=== PATIENT | female | born 1935 | race Caucasian/White ===

== ENCOUNTER 2016-07-31 07:42 | Inpatient (IN) | payer MEDICARE, BC ==
[2016-07-31] MEDS ORDERED: METHOTREXATE SODIUM INTRATHECA ONE (08:00)
[2016-07-31] MEDS ORDERED: SODIUM CHLORIDE 0.9% INTRATHECA ONE (08:00)
[2016-07-31] MEDS ORDERED: ONDANSETRON 4 MG TAB PO PRN (10:04)
[2016-07-31] MEDS ORDERED: Acetaminophen-Codeine 300-30mg TAB PO PRN (10:04)
[2016-07-31] MEDS: LEVOTHYROXINE 112 MCG TAB PO SCH (10:17)
[2016-07-31] MEDS: predniSONE 50 MG TAB PO SCH ×2 (11:02→20:34)
[2016-07-31] MEDS: SODIUM CHLORIDE 0.9% 1,000 ML IV SCH ×2 (11:02→20:01)
--- NOTE | 2016-07-31 11:19 | FL ---
Fluoroscopy-guided lumbar puncture history: Intrathecal chemotherapy, lymphoma Maximal barrier technique was utilized. Following consultation by Dr. Vanegas, I was asked to perform ed a lumbar puncture due to lack of success. Maximal the skin overlying the third lumbar segments was localized under fluoroscopy. The overlying s kin was prepped and draped. Lidocaine used for local anesthesia. 22-gauge needle was advanced into th e thecal sac. Approximately 4.5 cc of cerebrospinal fluid were obtained by gravity drainage. Referrin g clinician then performed intrathecal chemotherapy administration. Following removal of the needle h emostasis was achieved. There is no immediate complication. 8 minutes 35 seconds fluoroscopy time was utilized. IMPRESSION: Fluoroscopic guided lumbar puncture for chemotherapy administration, cerebral spinal flui d harvest. This procedure performed by the undersigned.
[2016-07-31] MEDS ORDERED: methylPREDNISolone SOD SUCCI 125 MG/2 ML VIAL IVP ONE (11:30)
[2016-07-31] MEDS ORDERED: diphenhydrAMINE 50 MG/ML 1 ML VIAL IVP ONE (11:30)
[2016-07-31] MEDS ORDERED: ACETAMINOPHEN TAB 325 MG TAB PO ONE (11:30)
[2016-07-31] MEDS ORDERED: FAMOTIDINE 20 MG/2 ML VIAL IVP SCH (12:00)
[2016-07-31] MEDS ORDERED: ONDANSETRON 16 MG in SODIUM CHLORIDE 0.9% 50 ML IVPB SCH (12:00)
[2016-07-31] MEDS ORDERED: SODIUM CHLORIDE 0.9% IV SCH ×3 (12:00)
[2016-07-31] MEDS ORDERED: ETOPOSIDE IV SCH (12:00)
[2016-07-31] MEDS ORDERED: VINCRISTINE SULFATE IV SCH (12:00)
[2016-07-31] MEDS ORDERED: SODIUM CHLORIDE 0.9% IV ONE (12:00)
[2016-07-31] MEDS ORDERED: DOXORUBICIN HCL IV SCH (12:00)
[2016-07-31] MEDS ORDERED: RITUXIMAB IV ONE (12:00)
--- NOTE | 2016-07-31 12:43 | P.PCN ---
Date of Procedure: 07/31/16 Preoperative Diagnosis: Burkitt's Lymphoma Postoperative Diagnosis: Burkitt's Lymphoma Procedure(s) Performed: Lumbar Puncture Dr. Trevino Intrathecal Chemotherapy Anesthesia: local Surgeon: Jasper Trevino (ROSA) Estimated Blood Loss (ml): 0 Pathology: other (CSF sent for flow cytometry, cytology) Condition: stable Disposition: floor Indications for Procedure: Burkitt's Lymphoma, DEMAND GENERATION MANAGER prophylaxis Description of Procedure: Pt was brought to procedure room and Dr. Trevino performed lumbar puncture. 4.5 cc of CSF were removed and sent for cytology and flow cytometry. 12mg of Preservative free methotrexate (0.48cc) diluted with preservative free NS to a total of 2.4cc was mixed by Pharmacy, dose and volume verified with OCN RN. Sterile nitrile chemotherapy gloves were doned and diluted methotrexate was injected via catheter attached to LP needle by withdrawing 0.1-0.2 cc of CSF and injecting 0.2-0.5cc of the diluted solution until all 2.4cc was administered , total time of administration was about 6-7 min. Catheter was flushed with 2.1cc of preservative free NS in a latex free syringe, this was injected slowly over 2 min for a total of 4.5cc of fluid injected. LP needle was removed and bandaid was placed over puncture site. No blood loss. VS remained stable throughout procedure, pt tolerated procedure well and was returned to the Oncology unit in stable condition.
[2016-07-31 13:27] LABS: Anisocytosis Slight; Basophils # (A) 0.1 k/uL (0-0.2); Basophils % (A) 1 %; CH 33.2; CHCM 33.6; Eosinophils # (A) 0.1 k/uL (0-0.7); Eosinophils % (A) 1 %; HCT 30.1 % (34.0-46.0); HDW 3.01; Luc # (Auto) 0.21; Luc % (Auto) 3; Lymphocytes # (A) 0.6 k/uL (1.0-4.8); Lymphocytes % (A) 8 %; MCH 32.4 pg (25.0-35.0); MCHC 32.5 g/dL (31.0-37.0); MCV 99.8 fL (80.0-100.0); Macrocytosis Slight; Mean Platelet Volume 7.4; Monocytes # (A) 0.7 k/uL (0-1.0); Monocytes % (A) 9 %; Neutrophils # (A) 6.5 k/uL (1.3-7.7); Neutrophils % (A) 79 %; RBC 3.02 m/uL (3.80-5.40); WBC 8.2 k/uL (3.8-10.6); WBC (Perox) 8.82
[2016-07-31 13:31] LABS: HGB 9.8 gm/dL (11.4-16.0)
[2016-07-31 14:12] LABS: Appearance,Urine Clear (Clear); Bacteria,Urine Rare /hpf; Bilirubin,Urine Negative (Negative); Glucose,Urine (UA) Negative (Negative); Ketones,Urine Negative (Negative); Leukocyte Esterase,Urine Negative (Negative); Mucus,Urine Rare /hpf; Nitrite,Urine Negative (Negative); Particle Count 909; Protein,Urine Negative (Negative); RBC,Urine 25 /hpf (0-5); Specific Gravity,Urine 1.008 (1.001-1.035); Squamous Epithelial Cell,Urine <1 /hpf (0-4); UA Billing (MACRO vs. MICRO) MICRO; Urobilinogen,Urine <2.0 mg/dL (<2.0); WBC,Urine 3 /hpf (0-5)
[2016-07-31 15:20] VITALS: BMI 26.2
[2016-07-31] MEDS: NYSTATIN 100,000 UNIT/ML SUSP 500,000 UNIT/5 ML CUP PO SCH ×2 (16:13→20:35)
[2016-07-31] MEDS: DOCUSATE 100 MG CAP PO SCH ×2 (16:14→20:35)
[2016-07-31] MEDS: PANTOPRAZOLE 40 MG TABLET PO SCH (16:15)
[2016-07-31] MEDS: IPRATROPIUM-ALBUTEROL 3 ML NEB INHALATION SCH (19:14)
[2016-07-31] MEDS: ALPRAZolam 0.5 MG TAB PO SCH (20:33)
[2016-07-31] MEDS: FLUoxetine HCL 20 MG CAP PO SCH (20:34)
[2016-07-31] MEDS: CLOTRIMAZOLE TROCHE 10 MG TROCHE PO SCH (20:34)
[2016-07-31] MEDS: METOPROLOL SUCCINATE (ER) 50 MG TAB.ER.24H PO SCH (20:34)
[2016-07-31] MEDS: POLYETHYLENE GLYCOL 3350 17 GM POWD.PACK PO SCH (20:34)
[2016-07-31] MEDS: MEGESTROL 400 MG/10 ML CUP PO SCH (20:35)
[2016-07-31] MEDS: POTASSIUM CHLORIDE ER 10 MEQ TAB.ER.PRT PO SCH (20:35)
[2016-08-01] MEDS: SODIUM CHLORIDE 0.9% 1,000 ML IV SCH ×4 (01:47→19:58)
[2016-08-01 06:32] LABS: Anisocytosis Slight; Basophils % (A) 0 %; CH 33.1; CHCM 33.3; Eosinophils % (A) 0 %; HCT 27.6 % (34.0-46.0); HDW 3.06; HGB 9.1 gm/dL (11.4-16.0); Luc # (Auto) 0.04; Luc % (Auto) 1; Lymphocytes # (A) 0.3 k/uL (1.0-4.8); Lymphocytes % (A) 4 %; MCHC 33.1 g/dL (31.0-37.0); Macrocytosis Slight; Mean Platelet Volume 6.7; Monocytes # (A) 0.2 k/uL (0-1.0); Monocytes % (A) 3 %; Neutrophils # (A) 6.7 k/uL (1.3-7.7); Neutrophils % (A) 92 %; RBC 2.76 m/uL (3.80-5.40); RDW 16.7 % (11.5-15.5); WBC 7.2 k/uL (3.8-10.6); WBC (Perox) 7.58
[2016-08-01] MEDS: LEVOTHYROXINE 100 MCG TAB PO SCH (06:33)
--- NOTE | 2016-08-01 08:08 | P.HPIM ---
History of Present Illness H&P Date: 07/31/16 Chief Complaint: Admission for CIVI chemotherapy for Burkitt's lymphoma Pt is a very pleasant female pt of Dr. Sandoval who is being admitted for 2nd cycle R-EPOCH chemotherapy with prophylactic intrathecal ELECTRICAL SYSTEM SPECIALIST treatment. She denies any headache, dizziness, nausea or back pain post LP. She denies fever, oral irritation, appetite is fair, no dysphagia, odynophagia, heartburn, indigestion, no SOB, cough, palpitations, she has noticed some burning with urination so specimen has been collected, maybe hematuria, no diarrhea or constipation, hemorrhoid, swelling, rash or pain. She ate all of her dinner when seen. Malignancy History: pt presented May 2016 with progressive dyspnea since Mar. CT revealed 9.4 cm soft tissue mass in the superior medistinum, 5.5 cm mass right cardiac boarder, bulky medistinal lymph nodes and a right pleural effusion. Thoracentesis was negative, PET revealed uptake in chest adn axilla. She was referred to [facility], she had EBUS and FNA of medistinal mass, suspicious for lymphoma, core biopsy of right supraclavicular lymph node path consisted with Burkitt's lymphoma, she had her 1st treatment 07/01/16. Review of Systems All systems: negative Constitutional: Reports as per HPI Past Medical History Past Medical History: Cancer, GERD/Reflux, Hyperlipidemia, Hypertension, Osteoarthritis (OA), Thyroid Disorder Additional Past Medical History / Comment(s): UTIs-recent UTI with ABX and pt feels like she may have another, PLEURISY as a child, LT CATARCT, "MEDIASTINAL MASS AND A 2ND ONE RT LUNG" Burkitt's Lymphoma-follicular lymphoma. History of Any Multi-Drug Resistant Organisms: None Reported Past Surgical History: Cholecystectomy, Coronary Bypass/CABG, Heart Catheterization, Heart Catheterization With Stent, Hysterectomy Additional Past Surgical History / Comment(s): lumbar puncture for intrathecal chemotherapy, 07/02/16 PICC line L arm, BRONCHOSCOPY W/ BX at [facility]-pt states unsuccessful, LYMPH NODE BX, BONE MARROW ASPIRATION AT ([facility]), COLONOCOPSY/ POLYPECTOMY(BENIGN), RT CATARACT,CARPAL TUNNEL RELEASE, LT HAND 3RD AND 4TH DIGIT-TRIGGER FINGER SX, TOTAL HYSTERECTOMY, TRIPLE VESSEL CABG 2008, ECTOPIC Past Anesthesia/Blood Transfusion Reactions: No Reported Reaction Date of Last Stent Placement:: 1998 Past Psychological History: Depression Additional Psychological History / Comment(s): Pt states her depression is stable. She wants to live to see all her grandchildren . She is recently using a walker. Smoking Status: Never smoker Past Alcohol Use History: None Reported Past Drug Use History: None Reported - Past Family History Mother Family Medical History: Cancer Additional Family Medical History / Comment(s): BREAST CANCER, LIVED TO BE 85 Father Additional Family Medical History / Comment(s): ALCOHOLIC- AGE 54 Medications and Allergies Home Medications Medication Instructions Recorded Confirmed Type Aspirin [Adult Low Dose Aspirin EC] 81 mg PO DAILY 07/01/16 07/31/16 History FLUoxetine HCL [PROzac] 20 mg PO HS 07/01/16 07/31/16 History Isosorbide Mononitrate ER [Imdur] 30 mg PO DAILY 07/01/16 07/31/16 History Levothyroxine Sodium [Synthroid] 100 mcg PO SUTUTHSA 07/01/16 07/31/16 History Levothyroxine Sodium [Synthroid] 112 mcg PO MOWEFR 07/01/16 07/31/16 History Omeprazole [PriLOSEC] 20 mg PO AC-BID 07/01/16 07/31/16 History Furosemide [Lasix] 20 mg PO DAILY 07/25/16 07/31/16 History Potassium Chloride [K-Tab ER] 10 meq PO BID 07/25/16 07/31/16 History ALPRAZolam [Xanax] 0.5 mg PO HS 07/31/16 07/31/16 History Acetaminophen-Codeine 300-30mg 1 tab PO Q6H PRN 07/31/16 07/31/16 History [Tylenol w/codeine #3] Benzocaine/Menthol Lozeng [Cepacol 1 tab PO QID PRN 07/31/16 07/31/16 History lozenge] Co-Q10 Gummy 1 tab PO DAILY@1200 07/31/16 07/31/16 History Cranberry Fruit Concentrate 450 mg PO DAILY@1200 07/31/16 07/31/16 History [Cranberry] Docusate [Colace] 100 mg PO TID 07/31/16 07/31/16 History Ipratropium-Albuterol Nebulize 3 ml INHALATION RT-BID 07/31/16 07/31/16 History [Duoneb 0.5 mg-3 mg/3 ml Soln] Megestrol Acetate [Megace] 400 mg PO BID 07/31/16 07/31/16 History Nystatin 100,000 Unit/ml Susp 1,500,000 units PO TID 07/31/16 07/31/16 History [Mycostatin Oral Susp] Ondansetron [Zofran] 4 mg PO Q6H PRN 07/31/16 07/31/16 History Polyethylene Glycol 3350 [Miralax] 17 gm PO HS 07/31/16 07/31/16 History Allergies Allergy/AdvReac Type Severity Reaction Status Date / Time No Known Allergies Allergy Verified 07/31/16 08:46 Physical Exam Vitals: Vital Signs Temp Pulse Resp BP Pulse Ox 07/31/16 11:38 97.1 F L 79 12 143/91 100 07/31/16 10:38 67 18 103/77 100 07/31/16 10:25 68 16 114/75 100 07/31/16 10:07 68 16 122/67 100 07/31/16 09:56 70 16 100/78 100 07/31/16 09:42 68 118/69 100 07/31/16 09:20 72 18 115/68 99 07/31/16 09:12 70 18 116/69 98 07/31/16 08:55 68 18 128/85 99 07/31/16 08:38 66 18 125/83 99 Intake and Output 07/30/16 07/31/16 07/31/16 22:59 06:59 14:59 Other: Weight 62 kg Patient Weight 08/01/16 06:59 Weight 62 kg - Constitutional General appearance: average body habitus, cooperative, no acute distress - EENT Eyes: anicteric sclerae, normal appearance ENT: normal oropharynx - Neck Neck: no lymphadenopathy - Respiratory Respiratory: bilateral: CTA - Cardiovascular Heart sounds: normal: S1, S2 leg Peripheral Edema: bilateral: None - Gastrointestinal General gastrointestinal: no absent bowel sounds, no decreased bowel sounds, no distended, no hepatomegaly, no hyperactive bowel sounds, normal bowel sounds, no organomegaly, no rigid, no scaphoid, soft, no splenomegaly, no tenderness, no umbilical hernia, no ventral hernia - Integumentary Integumentary: pale - Neurologic Neurologic: CNII-XII intact - Musculoskeletal LP band aid in place, palpation of the spine causes no pain, maybe some swelling noted, no bruising Musculoskeletal: strength equal bilaterally - Psychiatric Psychiatric: A&O x's 3, appropriate affect, intact judgment & insight Results CBC & Chem 7: 08/01/16 06:20 Thrombosis Risk Factor Assmnt - Choose All That Apply Any of the Below Risk Factors Present?: Yes Each Factor Represents 1 point: Obesity (BMI >25) Other Risk Factors: Yes Each Risk Factor Represents 2 Points: Malignancy Each Risk Factor Represents 3 Points: Age 75 years or older Other congenital or acquired thrombophilia - If yes, enter type in comment: No Thrombosis Risk Factor Assessment Total Risk Factor Score: 6 Thrombosis Risk Factor Assessment Level: High Risk Assessment and Plan (1) Burkitt lymphoma of extranodal or solid organ site Narrative/Plan: Pt admitted for 2nd cycle of R-EPOCH with ELECTRICAL SYSTEM SPECIALIST prophylaxis. Chemo orders reviewed, supportive meds ordered. ASA and DVT prophylaxis on hold for 48 hours post LP. Home meds reconciled. Dietitian consulted for poor oral intake PT consulted for daily activity to prevent general medical debility Status: Acute Plan: Dietitian consult requested PT/OT consult requested
[2016-08-01] MEDS: ASPIRIN 81 MG CHEW PO SCH ×2 (08:12→08:35)
[2016-08-01] MEDS: CLOTRIMAZOLE TROCHE 10 MG TROCHE PO SCH ×2 (08:34→21:10)
[2016-08-01] MEDS: PANTOPRAZOLE 40 MG TABLET PO SCH ×2 (08:34→17:47)
[2016-08-01] MEDS: FUROSEMIDE 20 MG TAB PO SCH (08:36)
[2016-08-01] MEDS: DOCUSATE 100 MG CAP PO SCH ×3 (08:36→21:10)
[2016-08-01] MEDS: METOPROLOL SUCCINATE (ER) 50 MG TAB.ER.24H PO SCH ×2 (08:37→21:10)
[2016-08-01] MEDS: predniSONE 50 MG TAB PO SCH ×2 (08:37→21:10)
[2016-08-01] MEDS: NYSTATIN 100,000 UNIT/ML SUSP 500,000 UNIT/5 ML CUP PO SCH ×3 (08:38→21:10)
[2016-08-01] MEDS: POTASSIUM CHLORIDE ER 10 MEQ TAB.ER.PRT PO SCH ×2 (08:38→21:10)
[2016-08-01] MEDS: MEGESTROL 400 MG/10 ML CUP PO SCH ×2 (08:38→21:10)
[2016-08-01] MEDS: ISOSORBIDE MONONITRATE ER 30 MG TAB.ER.24H PO SCH (08:40)
[2016-08-01] MEDS: IPRATROPIUM-ALBUTEROL 3 ML NEB INHALATION SCH ×2 (10:11→20:34)
[2016-08-01] MEDS ORDERED: ARTIFICIAL TEARS-HYPROMELLOSE DROPS 15 ML BTL BOTH EYES PRN (11:37)
--- NOTE | 2016-08-01 11:40 | P.PN ---
Subjective Principal diagnosis: Burkitt's lymphoma, CIVI chemotherapy Pt seen today in follow up, she is doing well, ate all of her breakfast, no nausea, oral irritation or difficulty, she ambulated PT and has exercises to do , she is breathing comfortably, no cough or SOB, palpitations, GERD, she did not have pain with urination this AM, no visible blood, she had a BM yesterday, no abd pain or bloating, swelling or pain. She feels good today. She did state she is having blurred vision, stating she can actually see far away better without her glasses, denies any peripheral vision loss, double vision or eye pain. Objective - Vital Signs Vital signs: Vital Signs Temp 97.7 F 08/01/16 09:08 Pulse 72 08/01/16 10:21 Resp 18 08/01/16 09:08 BP 140/74 08/01/16 09:08 Pulse Ox 97 08/01/16 09:08 Intake & Output 07/31/16 08/01/16 08/01/16 18:59 06:59 18:59 Intake Total 2156.4 Balance 2156.4 Weight 62 kg Intake: IV 1800 Sodium Chloride 0.9% 1, 1800 000 ml @ 150 mls/hr IV . Q6H40M [facility] Rx#:[id number] Intake, IV Titration 356.4 Amount DOXOrubicin HCL 16 mg In 129.6 Sodium Chloride 0.9% 250 ml @ 10.75 mls/hr IV Q24H [facility] Rx#:[id number] Etoposide 80 mg In Sodium 201.6 Chloride 0.9% 400 ml @ 16.833 mls/hr IV Q24H [facility] Rx#:[id number] vinCRIStine SULFATE 0.63 25.2 mg In Sodium Chloride 0.9 % 50 ml @ 2.11 mls/hr IV Q24H [facility] Rx#:[id number] Other: Voiding Method Toilet Toilet Toilet # Voids 1 - Constitutional General appearance: Present: average body habitus, cooperative, no acute distress - EENT Eyes: Present: anicteric sclerae, EOMI, PERRLA, normal appearance ENT: Present: normal oropharynx - Respiratory Respiratory: bilateral: CTA - Cardiovascular Rhythm: regular Heart sounds: normal: S1, S2 - Peripheral edema leg Peripheral Edema: bilateral: None - Gastrointestinal General gastrointestinal: Present: normal bowel sounds, soft. Absent: absent bowel sounds, decreased bowel sounds, distended, hepatomegaly, hyperactive bowel sounds, organomegaly, rigid, scaphoid, splenomegaly, tenderness, umbilical hernia, ventral hernia - Integumentary Integumentary: Present: normal - Neurologic Neurologic: Present: CNII-XII intact - Musculoskeletal Musculoskeletal Comment(s): no pain with palpation to the lumbar spine, LP band aid in place Musculoskeletal: Present: strength equal bilaterally - Psychiatric Psychiatric: Present: A&O x's 3, appropriate affect, intact judgment & insight - Labs CBC & Chem 7: 08/01/16 06:20 Labs: Abnormal Lab Results - Last 24 Hours (Table) 07/31/16 07/31/16 07/31/16 Range/Units 12:00 12:00 13:55 RBC 3.02 L (3.80-5.40) m/uL Hgb 9.8 L D (11.4-16.0) gm/dL Hct 30.1 L (34.0-46.0) % RDW 17.0 H (11.5-15.5) % Lymphocytes # 0.6 L (1.0-4.8) k/uL Uric Acid 3.0 L (3.7-7.4) mg/dL Urine Blood Moderate H (Negative) Urine RBC 25 H (0-5) /hpf Urine Bacteria Rare H (None) /hpf Urine Mucus Rare H (None) /hpf 08/01/16 08/01/16 Range/Units 06:20 06:20 RBC 2.76 L (3.80-5.40) m/uL Hgb 9.1 L (11.4-16.0) gm/dL Hct 27.6 L (34.0-46.0) % RDW 16.7 H (11.5-15.5) % Lymphocytes # 0.3 L (1.0-4.8) k/uL Uric Acid 2.9 L (3.7-7.4) mg/dL Urine Blood (Negative) Urine RBC (0-5) /hpf Urine Bacteria (None) /hpf Urine Mucus (None) /hpf Microbiology - Last 24 Hours (Table) 07/31/16 13:55 Urine Culture - Preliminary Urine,Voided Assessment and Plan (1) Burkitt lymphoma of extranodal or solid organ site Narrative/Plan: Pt admitted for 2nd cycle of R-EPOCH with 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 Chemo orders reviewed, supportive meds ordered. ASA and DVT prophylaxis on hold for 48 hours post LP. Artificial tears ordered Pt working with PT Pt eating well at this time Chronic conditions managed, no changes to meds Status: Acute
[2016-08-01] MEDS: FAMOTIDINE 20 MG/2 ML VIAL IVP SCH (17:23)
[2016-08-01] MEDS: ONDANSETRON 16 MG in SODIUM CHLORIDE 0.9% 50 ML IVPB SCH (17:23)
[2016-08-01] MEDS: SODIUM CHLORIDE 0.9% IV SCH ×3 (17:33)
[2016-08-01] MEDS: DOXORUBICIN HCL IV SCH (17:33)
[2016-08-01] MEDS: ETOPOSIDE IV SCH (17:33)
[2016-08-01] MEDS: VINCRISTINE SULFATE IV SCH (17:33)
[2016-08-01] MEDS: POLYETHYLENE GLYCOL 3350 17 GM POWD.PACK PO SCH (21:10)
[2016-08-01] MEDS: FLUoxetine HCL 20 MG CAP PO SCH (21:10)
[2016-08-01] MEDS: ALPRAZolam 0.5 MG TAB PO SCH (21:10)
[2016-08-02] MEDS: SODIUM CHLORIDE 0.9% 1,000 ML IV SCH ×3 (02:54→21:40)
[2016-08-02] MEDS: LEVOTHYROXINE 112 MCG TAB PO SCH (05:47)
[2016-08-02] MEDS: IPRATROPIUM-ALBUTEROL 3 ML NEB INHALATION SCH ×2 (08:38→20:12)
[2016-08-02] MEDS: NYSTATIN 100,000 UNIT/ML SUSP 500,000 UNIT/5 ML CUP PO SCH ×3 (09:33→21:08)
[2016-08-02] MEDS: MEGESTROL 400 MG/10 ML CUP PO SCH ×2 (09:33→21:06)
[2016-08-02] MEDS: predniSONE 50 MG TAB PO SCH ×2 (09:33→21:05)
[2016-08-02] MEDS: ISOSORBIDE MONONITRATE ER 30 MG TAB.ER.24H PO SCH (09:33)
[2016-08-02] MEDS: DOCUSATE 100 MG CAP PO SCH ×3 (09:34→21:08)
[2016-08-02] MEDS: CLOTRIMAZOLE TROCHE 10 MG TROCHE PO SCH ×2 (09:34→21:08)
[2016-08-02] MEDS: PANTOPRAZOLE 40 MG TABLET PO SCH ×2 (09:34→16:40)
[2016-08-02] MEDS: METOPROLOL SUCCINATE (ER) 50 MG TAB.ER.24H PO SCH ×2 (09:36→21:07)
[2016-08-02] MEDS: FUROSEMIDE 20 MG TAB PO SCH (09:37)
[2016-08-02] MEDS: POTASSIUM CHLORIDE ER 10 MEQ TAB.ER.PRT PO SCH ×2 (09:38→21:07)
[2016-08-02] MEDS ORDERED: MAGNESIUM HYDROXIDE 2,400 MG/10 ML CUP PO PRN (15:33)
--- NOTE | 2016-08-02 15:47 | P.PN ---
Subjective Principal diagnosis: Burkitt's lymphoma, CIVI chemotherapy Pt seen today in follow up, she continues to do well, she is eating and drinking well, taking in nutritional supplements at each meal, no nausea, oral irritation or difficulty swallowing, she is participating fully with PT and exercises to do, denies cough or SOB, palpitations, GERD, dysuria, she had a BM Wed, no abd pain or bloating or rectal pain. Objective - Vital Signs Vital signs: Vital Signs Temp 97.3 F L 08/02/16 07:00 Pulse 70 08/02/16 09:00 Resp 20 08/02/16 07:00 BP 157/84 08/02/16 07:00 Pulse Ox 98 08/02/16 07:00 Intake & Output 08/01/16 08/02/16 08/02/16 18:59 06:59 18:59 Intake Total 1200 2670.0 1434 Balance 1200 2670.0 1434 Weight 62 kg 62 kg Intake: IV 1200 1200 1200 Sodium Chloride 0.9% 1, 1200 1200 1200 000 ml @ 150 mls/hr IV . Q6H40M [facility] Rx#:[id number] Intake, IV Titration 990.0 234 Amount DOXOrubicin HCL 16 mg In 141.6 88 Sodium Chloride 0.9% 250 ml @ 10.75 mls/hr IV Q24H [facility] Rx#:[id number] Etoposide 80 mg In Sodium 220.8 128 Chloride 0.9% 400 ml @ 16.833 mls/hr IV Q24H [facility] Rx#:[id number] Sodium Chloride 0.9% 1, 600 000 ml @ 150 mls/hr IV . Q6H40M [facility] Rx#:[id number] vinCRIStine SULFATE 0.63 27.6 18 mg In Sodium Chloride 0.9 % 50 ml @ 2.11 mls/hr IV Q24H [facility] Rx#:[id number] Oral 480 Other: Voiding Method Toilet Toilet Toilet # Voids 2 - Constitutional General appearance: Present: average body habitus, cooperative, no acute distress - EENT Eyes: Present: normal appearance ENT: Present: normal oropharynx - Neck Carotids: bilateral: upstroke normal - Respiratory Respiratory: bilateral: CTA - Cardiovascular Rhythm: regular Heart sounds: normal: S1, S2 - Peripheral edema leg Peripheral Edema: bilateral: None - Gastrointestinal General gastrointestinal: Present: normal bowel sounds, soft - Integumentary Integumentary: Present: normal - Neurologic Neurologic: Present: CNII-XII intact - Musculoskeletal Musculoskeletal: Present: strength equal bilaterally - Psychiatric Psychiatric: Present: A&O x's 3, appropriate affect, intact judgment & insight - Labs CBC & Chem 7: 08/01/16 06:20 Labs: Microbiology - Last 24 Hours (Table) 07/31/16 13:55 Urine Culture - Final Urine,Voided Assessment and Plan (1) Burkitt lymphoma of extranodal or solid organ site Narrative/Plan: Pt admitted for 2nd cycle of R-EPOCH with RESIDENCY COORDINATOR prophylaxis. Chemo orders reviewed, supportive meds ordered. ASA and DVT prophylaxis resumed today Chronic conditions managed, no changes to meds Status: Acute
[2016-08-02] MEDS: ASPIRIN 81 MG CHEW PO SCH (16:35)
[2016-08-02] MEDS: SALT AND SODA MOUTHWASH 1,000 ML PO SCH ×2 (16:43→21:07)
[2016-08-02] MEDS: ENOXAPARIN 30 MG/0.3 ML SYRINGE SQ SCH (16:43)
[2016-08-02] MEDS: FAMOTIDINE 20 MG/2 ML VIAL IVP SCH (17:29)
[2016-08-02] MEDS: ONDANSETRON 16 MG in SODIUM CHLORIDE 0.9% 50 ML IVPB SCH (17:29)
[2016-08-02] MEDS: SODIUM CHLORIDE 0.9% IV SCH ×3 (17:32→17:33)
[2016-08-02] MEDS: ETOPOSIDE IV SCH (17:32)
[2016-08-02] MEDS: VINCRISTINE SULFATE IV SCH (17:33)
[2016-08-02] MEDS: DOXORUBICIN HCL IV SCH (17:33)
[2016-08-02] MEDS: ALPRAZolam 0.5 MG TAB PO SCH (21:03)
[2016-08-02] MEDS: FLUoxetine HCL 20 MG CAP PO SCH (21:03)
[2016-08-02] MEDS: POLYETHYLENE GLYCOL 3350 17 GM POWD.PACK PO SCH (21:04)
[2016-08-03] MEDS: SODIUM CHLORIDE 0.9% 1,000 ML IV SCH ×4 (04:08→19:18)
[2016-08-03] MEDS: LEVOTHYROXINE 100 MCG TAB PO SCH (06:27)
[2016-08-03] MEDS: PANTOPRAZOLE 40 MG TABLET PO SCH ×2 (07:51→17:42)
[2016-08-03] MEDS: SALT AND SODA MOUTHWASH 1,000 ML PO SCH ×4 (07:51→21:43)
[2016-08-03] MEDS: CLOTRIMAZOLE TROCHE 10 MG TROCHE PO SCH ×2 (07:52→21:45)
[2016-08-03] MEDS: ASPIRIN 81 MG CHEW PO SCH (07:52)
[2016-08-03] MEDS: ENOXAPARIN 30 MG/0.3 ML SYRINGE SQ SCH (07:52)
[2016-08-03] MEDS: FUROSEMIDE 20 MG TAB PO SCH (07:53)
[2016-08-03] MEDS: ISOSORBIDE MONONITRATE ER 30 MG TAB.ER.24H PO SCH (07:53)
[2016-08-03] MEDS: METOPROLOL SUCCINATE (ER) 50 MG TAB.ER.24H PO SCH ×2 (07:53→21:45)
[2016-08-03] MEDS: DOCUSATE 100 MG CAP PO SCH ×3 (07:53→21:43)
[2016-08-03] MEDS: MEGESTROL 400 MG/10 ML CUP PO SCH ×2 (07:53→21:42)
[2016-08-03] MEDS: NYSTATIN 100,000 UNIT/ML SUSP 500,000 UNIT/5 ML CUP PO SCH ×3 (07:54→21:46)
[2016-08-03] MEDS: POTASSIUM CHLORIDE ER 10 MEQ TAB.ER.PRT PO SCH ×2 (07:54→21:44)
[2016-08-03] MEDS: predniSONE 50 MG TAB PO SCH ×2 (07:54→21:45)
[2016-08-03] MEDS: IPRATROPIUM-ALBUTEROL 3 ML NEB INHALATION SCH ×2 (08:32→19:46)
--- NOTE | 2016-08-03 10:27 | P.PN ---
Subjective Principal diagnosis: Burkitt's lymphoma of multiple sites on high dose infusional chemotherapy The patient denies any new complaints. She continues to tolerate treatment well. She still has not had a bowel movement. Objective - Vital Signs Vital signs: Vital Signs Temp 99.2 F 08/03/16 09:20 Pulse 70 08/03/16 09:20 Resp 20 08/03/16 09:20 BP 165/88 08/03/16 09:20 Pulse Ox 98 08/03/16 09:20 Intake & Output 08/02/16 08/03/16 08/03/16 18:59 06:59 18:59 Intake Total 1434 774 Balance 1434 774 Weight 62 kg 62 kg 62 kg Intake: IV 1200 450 Sodium Chloride 0.9% 1, 1200 450 000 ml @ 150 mls/hr IV . Q6H40M [facility] Rx#:[id number] Intake, IV Titration 234 84 Amount DOXOrubicin HCL 16 mg In 88 30 Sodium Chloride 0.9% 250 ml @ 10.75 mls/hr IV Q24H [facility] Rx#:[id number] Etoposide 80 mg In Sodium 128 48 Chloride 0.9% 400 ml @ 16.833 mls/hr IV Q24H [facility] Rx#:[id number] vinCRIStine SULFATE 0.63 18 6 mg In Sodium Chloride 0.9 % 50 ml @ 2.11 mls/hr IV Q24H [facility] Rx#:[id number] Oral 240 Other: Voiding Method Toilet Toilet Toilet # Voids 2 3 - Constitutional General appearance: Present: no acute distress - EENT Eyes: Present: EOMI, PERRLA ENT: Present: hearing grossly normal, normal oropharynx - Respiratory Respiratory: bilateral: CTA - Cardiovascular Rhythm: regular Heart sounds: normal: S1, S2 - Gastrointestinal General gastrointestinal: Present: normal bowel sounds, soft - Integumentary Integumentary: Present: normal - Neurologic Neurologic: Present: CNII-XII intact - Musculoskeletal Musculoskeletal: Present: strength equal bilaterally - Psychiatric Psychiatric: Present: A&O x's 3, appropriate affect - Labs CBC & Chem 7: 08/01/16 06:20 Assessment and Plan (1) Burkitt lymphoma of extranodal or solid organ site Narrative/Plan: The patient is continuing chemotherapy, and will complete treatment tomorrow night. So far she appears to be tolerating treatment well subjectively. Continue to monitor counts and chemistries. There is no evidence of any tumor lysis. The patient did have some evidence of cystitis with the last chemotherapy, and therefore will receive Mesna tomorrow with her cyclophosphamide Status: Acute (2) Anemia due to chemotherapy Narrative/Plan: The patient's anemia is due to the effect of chemotherapy. Hemoglobin so far is still been satisfactory and not required any intervention. Continue to monitor labs and chemistries. Status: Acute Plan: DVT prophylaxis
[2016-08-03 12:23] LABS: Anisocytosis Slight; CH 33.4; CHCM 33.4; HDW 2.87; HGB 9.6 gm/dL (11.4-16.0); MCH 32.3 pg (25.0-35.0); MCHC 32.1 g/dL (31.0-37.0); MCV 100.7 fL (80.0-100.0); Macrocytosis Slight; Mean Platelet Volume 8.5; RBC 2.98 m/uL (3.80-5.40); RDW 16.8 % (11.5-15.5); WBC 6.5 k/uL (3.8-10.6)
[2016-08-03 12:29] LABS: ALT 31 U/L (9-52); AST 16 U/L (14-36); Alkaline Phosphatase 41 U/L (38-126); Anion Gap 9 mmol/L; Blood Urea Nitrogen 12 mg/dL (7-17); Calcium 9.5 mg/dL (8.4-10.2); Carbon Dioxide 22 mmol/L (22-30); Chloride 110 mmol/L (98-107); Glucose 139 mg/dL (74-99); Non-African American GFR(MDRD) >60 (>60 ml/min/1.73 sqM); Potassium 3.8 mmol/L (3.5-5.1); Sodium 141 mmol/L (137-145); Total Bilirubin 0.5 mg/dL (0.2-1.3); Total Protein 4.8 g/dL (6.3-8.2)
[2016-08-03] MEDS: ONDANSETRON 16 MG in SODIUM CHLORIDE 0.9% 50 ML IVPB SCH (15:53)
[2016-08-03] MEDS: FAMOTIDINE 20 MG/2 ML VIAL IVP SCH (15:54)
[2016-08-03] MEDS: SODIUM CHLORIDE 0.9% IV SCH ×3 (16:27→16:28)
[2016-08-03] MEDS: DOXORUBICIN HCL IV SCH (16:27)
[2016-08-03] MEDS: VINCRISTINE SULFATE IV SCH (16:28)
[2016-08-03] MEDS: ETOPOSIDE IV SCH (16:28)
[2016-08-03] MEDS: ALPRAZolam 0.5 MG TAB PO SCH (21:42)
[2016-08-03] MEDS: POLYETHYLENE GLYCOL 3350 17 GM POWD.PACK PO SCH (21:45)
[2016-08-03] MEDS: FLUoxetine HCL 20 MG CAP PO SCH (21:46)
[2016-08-04] MEDS: SODIUM CHLORIDE 0.9% 1,000 ML IV SCH ×3 (04:49→16:52)
[2016-08-04] MEDS: LEVOTHYROXINE 100 MCG TAB PO SCH (06:33)
[2016-08-04 06:39] LABS: Appearance,Urine Clear (Clear); Bilirubin,Urine Negative (Negative); Glucose,Urine (UA) 1+ (Negative); Ketones,Urine Negative (Negative); Leukocyte Esterase,Urine Negative (Negative); Nitrite,Urine Negative (Negative); Protein,Urine Negative (Negative); Specific Gravity,Urine 1.008 (1.001-1.035); UA Billing (MACRO vs. MICRO) CHEM; Urobilinogen,Urine <2.0 mg/dL (<2.0)
[2016-08-04 06:50] LABS: Anisocytosis Slight; CH 33.4; CHCM 34.5; HCT 28.6 % (34.0-46.0); HDW 2.99; HGB 9.7 gm/dL (11.4-16.0); MCHC 33.8 g/dL (31.0-37.0); MCV 97.6 fL (80.0-100.0); Macrocytosis Slight; Mean Platelet Volume 7.7; RBC 2.93 m/uL (3.80-5.40); RDW 16.5 % (11.5-15.5); WBC 4.9 k/uL (3.8-10.6)
[2016-08-04 06:51] LABS: ALT 37 U/L (9-52); AST 16 U/L (14-36); Alkaline Phosphatase 38 U/L (38-126); Anion Gap 8 mmol/L; Blood Urea Nitrogen 12 mg/dL (7-17); Calcium 9.6 mg/dL (8.4-10.2); Carbon Dioxide 23 mmol/L (22-30); Chloride 109 mmol/L (98-107); Glucose 139 mg/dL (74-99); Non-African American GFR(MDRD) >60 (>60 ml/min/1.73 sqM); Potassium 3.5 mmol/L (3.5-5.1); Sodium 140 mmol/L (137-145); Total Bilirubin 0.7 mg/dL (0.2-1.3); Total Protein 4.7 g/dL (6.3-8.2)
[2016-08-04] MEDS: PANTOPRAZOLE 40 MG TABLET PO SCH ×2 (07:51→16:43)
[2016-08-04] MEDS: DOCUSATE 100 MG CAP PO SCH ×3 (07:51→21:34)
[2016-08-04] MEDS: ASPIRIN 81 MG CHEW PO SCH (07:51)
[2016-08-04] MEDS: CLOTRIMAZOLE TROCHE 10 MG TROCHE PO SCH ×2 (07:51→21:34)
[2016-08-04] MEDS: FUROSEMIDE 20 MG TAB PO SCH (07:52)
[2016-08-04] MEDS: MEGESTROL 400 MG/10 ML CUP PO SCH ×2 (07:52→21:32)
[2016-08-04] MEDS: ENOXAPARIN 30 MG/0.3 ML SYRINGE SQ SCH (07:52)
[2016-08-04] MEDS: METOPROLOL SUCCINATE (ER) 50 MG TAB.ER.24H PO SCH ×2 (07:52→21:34)
[2016-08-04] MEDS: ISOSORBIDE MONONITRATE ER 30 MG TAB.ER.24H PO SCH (07:52)
[2016-08-04] MEDS: NYSTATIN 100,000 UNIT/ML SUSP 500,000 UNIT/5 ML CUP PO SCH ×3 (07:53→21:32)
[2016-08-04] MEDS: POTASSIUM CHLORIDE ER 10 MEQ TAB.ER.PRT PO SCH ×2 (07:53→21:33)
[2016-08-04] MEDS: predniSONE 50 MG TAB PO SCH ×2 (07:53→21:34)
[2016-08-04] MEDS: SALT AND SODA MOUTHWASH 1,000 ML PO SCH ×4 (07:54→21:38)
[2016-08-04] MEDS: IPRATROPIUM-ALBUTEROL 3 ML NEB INHALATION SCH ×2 (08:30→19:57)
--- NOTE | 2016-08-04 11:58 | P.PN ---
Subjective , The patient denies any new complaints. She continues to tolerate chemotherapy well. She states that her urine seemed to be somewhat pink tinged yesterday, but has been cleared this morning. She denies any urinary discomfort , nausea or vomiting. Objective - Vital Signs Vital signs: Vital Signs Temp 98.3 F 08/04/16 07:00 Pulse 74 08/04/16 08:43 Resp 20 08/04/16 07:00 BP 144/81 08/04/16 07:00 Pulse Ox 97 08/04/16 07:00 Intake & Output 08/03/16 08/04/16 08/04/16 18:59 06:59 18:59 Intake Total 1440 Balance 1440 Weight 62 kg 62 kg 62 kg Intake: IV 1200 Sodium Chloride 0.9% 1, 1200 000 ml @ 150 mls/hr IV . Q6H40M [facility] Rx#:[id number] Oral 240 Other: Voiding Method Toilet Toilet Toilet # Voids 4 1 - Constitutional General appearance: Present: no acute distress - EENT Eyes: Present: EOMI, PERRLA ENT: Present: hearing grossly normal, normal oropharynx - Neck Thyroid: bilateral: normal size - Respiratory Respiratory: bilateral: CTA - Cardiovascular Rhythm: regular Heart sounds: normal: S1, S2 - Gastrointestinal General gastrointestinal: Present: normal bowel sounds, soft - Integumentary Integumentary: Present: normal - Neurologic Neurologic: Present: CNII-XII intact - Musculoskeletal Musculoskeletal: Present: strength equal bilaterally - Psychiatric Psychiatric: Present: A&O x's 3, appropriate affect - Labs CBC & Chem 7: 08/04/16 06:30 08/04/16 06:30 Labs: Abnormal Lab Results - Last 24 Hours (Table) 08/03/16 08/03/16 08/04/16 Range/Units 06:20 06:20 06:30 RBC 2.98 L 2.93 L (3.80-5.40) m/uL Hgb 9.6 L 9.7 L (11.4-16.0) gm/dL Hct 30.0 L 28.6 L (34.0-46.0) % MCV 100.7 H (80.0-100.0) fL RDW 16.8 H 16.5 H (11.5-15.5) % Chloride 110 H (98-107) mmol/L Glucose 139 H (74-99) mg/dL Total Protein 4.8 L (6.3-8.2) g/dL Albumin 2.7 L (3.5-5.0) g/dL Urine Glucose (UA) (Negative) 08/04/16 08/04/16 Range/Units 06:30 06:30 RBC (3.80-5.40) m/uL Hgb (11.4-16.0) gm/dL Hct (34.0-46.0) % MCV (80.0-100.0) fL RDW (11.5-15.5) % Chloride 109 H (98-107) mmol/L Glucose 139 H (74-99) mg/dL Total Protein 4.7 L (6.3-8.2) g/dL Albumin 2.6 L (3.5-5.0) g/dL Urine Glucose (UA) 1+ H (Negative) Assessment and Plan (1) Burkitt lymphoma of extranodal or solid organ site Narrative/Plan: The patient continues to tolerate treatment well. She denies any new side effects. She will be completing chemotherapy today. Due to possible hemorrhagic cystitis related to her cyclophosphamide, she is receiving mesna doses today for uro- protection. Treatment will be completed tonight. Labs and chemistries were reviewed today. They are all acceptable, with no acute intervention required. This will be repeated in the a.m. and the patient will be discharged tomorrow if stable. She will receive Neulasta in the office. Status: Acute (2) Anemia due to chemotherapy Narrative/Plan: On repeat CBC done today, hemoglobin remained stable in the 9 range is quite acceptable. Counts will be monitored in the outpatient setting also. Status: Acute Plan: The patient did have bowel movements yesterday. Continue stool softeners, and laxative when necessary
[2016-08-04] MEDS ORDERED: MESNA IV SCH (12:00)
[2016-08-04] MEDS: ONDANSETRON 16 MG in SODIUM CHLORIDE 0.9% 50 ML IVPB SCH (15:20)
[2016-08-04] MEDS: FAMOTIDINE 20 MG/2 ML VIAL IVP SCH (15:20)
[2016-08-04] MEDS ORDERED: SODIUM CHLORIDE 0.9% IV ONE ×3 (17:30→22:00)
[2016-08-04] MEDS ORDERED: MESNA IV ONE ×2 (17:30→22:00)
[2016-08-04] MEDS ORDERED: CYCLOPHOSPHAMIDE IV ONE (18:00)
[2016-08-04] MEDS: POLYETHYLENE GLYCOL 3350 17 GM POWD.PACK PO SCH (21:32)
[2016-08-04] MEDS: FLUoxetine HCL 20 MG CAP PO SCH (21:34)
[2016-08-04] MEDS: ALPRAZolam 0.5 MG TAB PO SCH (21:34)
[2016-08-04 22:30] VITALS: RESP 16
[2016-08-05] MEDS: SODIUM CHLORIDE 0.9% 1,000 ML IV SCH ×3 (00:05→08:34)
[2016-08-05] MEDS ORDERED: MESNA IV ONE (03:00)
[2016-08-05] MEDS ORDERED: SODIUM CHLORIDE 0.9% IV ONE (03:00)
[2016-08-05 06:30] LABS: Anisocytosis Slight; CH 33.6; CHCM 34.6; HCT 28.4 % (34.0-46.0); HDW 2.94; HGB 9.4 gm/dL (11.4-16.0); MCH 32.4 pg (25.0-35.0); MCHC 33.2 g/dL (31.0-37.0); MCV 97.8 fL (80.0-100.0); Macrocytosis Slight; Mean Platelet Volume 7.7; WBC 4.4 k/uL (3.8-10.6)
[2016-08-05] MEDS: LEVOTHYROXINE 112 MCG TAB PO SCH (06:30)
[2016-08-05 06:45] LABS: Anion Gap 6 mmol/L; Blood Urea Nitrogen 14 mg/dL (7-17); Calcium 9.5 mg/dL (8.4-10.2); Carbon Dioxide 24 mmol/L (22-30); Chloride 109 mmol/L (98-107); Glucose 135 mg/dL (74-99); Non-African American GFR(MDRD) >60 (>60 ml/min/1.73 sqM); Potassium 3.4 mmol/L (3.5-5.1); Sodium 139 mmol/L (137-145)
[2016-08-05] MEDS: IPRATROPIUM-ALBUTEROL 3 ML NEB INHALATION SCH (07:23)
[2016-08-05] MEDS: SALT AND SODA MOUTHWASH 1,000 ML PO SCH ×2 (08:30→12:09)
[2016-08-05] MEDS: NYSTATIN 100,000 UNIT/ML SUSP 500,000 UNIT/5 ML CUP PO SCH (08:33)
[2016-08-05] MEDS: MEGESTROL 400 MG/10 ML CUP PO SCH (08:34)
[2016-08-05] MEDS: FUROSEMIDE 20 MG TAB PO SCH (08:34)
[2016-08-05] MEDS: POTASSIUM CHLORIDE ER 10 MEQ TAB.ER.PRT PO SCH (08:34)
[2016-08-05] MEDS: ASPIRIN 81 MG CHEW PO SCH (08:34)
[2016-08-05] MEDS: ISOSORBIDE MONONITRATE ER 30 MG TAB.ER.24H PO SCH (08:34)
[2016-08-05] MEDS: PANTOPRAZOLE 40 MG TABLET PO SCH (08:34)
[2016-08-05] MEDS: DOCUSATE 100 MG CAP PO SCH (08:34)
[2016-08-05] MEDS: METOPROLOL SUCCINATE (ER) 50 MG TAB.ER.24H PO SCH (08:34)
[2016-08-05] MEDS: CLOTRIMAZOLE TROCHE 10 MG TROCHE PO SCH (08:34)
[2016-08-05] MEDS: LEVOTHYROXINE 100 MCG TAB PO SCH (08:37)
[2016-08-05 08:40] VITALS: BP 154/76; PULSE 68; TEMP 98.9
--- NOTE | 2016-08-05 08:46 | P.DS ---
Providers Date of admission: 07/31/16 07:42 Expected date of discharge: 08/05/16 Attending physician: Armani Reno Primary care physician: Stated None - Discharge Diagnosis(es) (1) Burkitt lymphoma of extranodal or solid organ site Current Visit: Yes Status: Acute Priority: High Hospital Course: Pt admitted for R-EPOCH and prophylactic IT chemotherapy for Burkitt's lymphoma. She tolerated treatment well, she participated with PT daily, she ate and drank well, no fever, nausea or vomiting, diarrhea or constipation, swelling or pain. Pertinent Studies: B-cell flow cytometry negative Procedures: Lumbar puncture and IT chemotherapy Patient Condition at Discharge: Fair Plan - Discharge Summary Discharge Medication List Aspirin [Adult Low Dose Aspirin EC] 81 mg PO DAILY 07/01/16 [History] FLUoxetine HCL [PROzac] 20 mg PO HS 07/01/16 [History] Isosorbide Mononitrate ER [Imdur] 30 mg PO DAILY 07/01/16 [History] Levothyroxine Sodium [Synthroid] 100 mcg PO SUTUTHSA 07/01/16 [History] Levothyroxine Sodium [Synthroid] 112 mcg PO MOWEFR 07/01/16 [History] Omeprazole [PriLOSEC] 20 mg PO AC-BID 07/01/16 [History] Clotrimazole Luan [Mycelex Luan] 10 mg MM BID #60 luan 07/09/16 [Rx] Metoprolol Succinate (ER) [Toprol XL] 50 mg PO BID #60 tab.er.24h 07/09/16 [Rx] Furosemide [Lasix] 20 mg PO DAILY 07/25/16 [History] Potassium Chloride [K-Tab ER] 10 meq PO BID 07/25/16 [History] ALPRAZolam [Xanax] 0.5 mg PO HS 07/31/16 [History] Acetaminophen-Codeine 300-30mg [Tylenol w/codeine #3] 1 tab PO Q6H PRN 07/31/16 [History] Benzocaine/Menthol Lozeng [Cepacol lozenge] 1 tab PO QID PRN 07/31/16 [History] Co-Q10 Gummy 1 tab PO DAILY@1200 07/31/16 [History] Cranberry Fruit Concentrate [Cranberry] 450 mg PO DAILY@1200 07/31/16 [History] Docusate [Colace] 100 mg PO TID 07/31/16 [History] Ipratropium-Albuterol Nebulize [Duoneb 0.5 mg-3 mg/3 ml Soln] 3 ml INHALATION RT -BID 07/31/16 [History] Megestrol Acetate [Megace] 400 mg PO BID 07/31/16 [History] Nystatin 100,000 Unit/ml Susp [Mycostatin Oral Susp] 1,500,000 units PO TID 06/06 [History] Ondansetron [Zofran] 4 mg PO Q6H PRN 07/31/16 [History] Polyethylene Glycol 3350 [Miralax] 17 gm PO HS 07/31/16 [History] Activity/Diet/Wound Care/Special Instructions: seasons change home care - Diet as tolerated Activity as tolerated PT TO GO DIRECTLY TO DR. RENO'S OFFICE AFTER DISCHARGE FOR NEULASTA INJECTION Discharge Disposition: HOME WITH HOME HEALTH SERVICES Pending Studies Pending Results: none
[2016-08-05] MEDS: ENOXAPARIN 30 MG/0.3 ML SYRINGE SQ SCH (09:10)
== END 2016-08-05 15:12 | disposition home health service (06) | DRG 847 ==
LOC: 5ONC 07:42
PROVIDERS: ADMIT Internal Medicine Hematology & Oncology; ATTEND Internal Medicine Hematology & Oncology
PROC: 009U3ZX Drainage of Spinal Canal, Percutaneous Approach, Diagnostic (ICD-10-PCS; principal; 2016-07-31)
PROC: 3E0R305 Introduction of Other Antineoplastic into Spinal Canal, Percutaneous Approach (ICD-10-PCS; 2016-07-31)
DX: Z51.11 Encounter for antineoplastic chemotherapy (principal); C83.78 Burkitt lymphoma, lymph nodes of multiple sites; D64.81 Anemia due to antineoplastic chemotherapy; E78.5 Hyperlipidemia, unspecified; I10 Essential (primary) hypertension; K21.9 Gastro-esophageal reflux disease without esophagitis; M19.90 Unspecified osteoarthritis, unspecified site; T45.1X5A Adverse effect of antineoplastic and immunosuppressive drugs, initial encounter; Z79.82 Long term (current) use of aspirin; Z95.1 Presence of aortocoronary bypass graft
CPT/HCPCS: 62270; 80048; 80053; 81001; 81003; 84550; 85025; 85027; 87086; 88184; 88185; 94640

== ENCOUNTER 2016-08-30 08:12 | Inpatient (IN) | payer MEDICARE, BC ==
[~2016-08-30 08:12] MED LIST: ONDANSETRON 4 MG/2 ML VIAL IVP PRN
[2016-08-30] MEDS: FAMOTIDINE 20 MG/2 ML VIAL IVP SCH (09:28)
[2016-08-30 09:37] LABS: CH 31.1; CHCM 32.8; HCT 28.3 % (34.0-46.0); HDW 3.46; HGB 9.2 gm/dL (11.4-16.0); Hypochromasia Slight; Immature Gran Flag Slight; MCH 30.7 pg (25.0-35.0); MCHC 32.3 g/dL (31.0-37.0); Mean Platelet Volume 7.4; Poikilocytosis Slight; RBC 2.98 m/uL (3.80-5.40); RDW 15.8 % (11.5-15.5); WBC 7.6 k/uL (3.8-10.6); WBC (Perox) 8.54
[2016-08-30 09:40] LABS: INR 1.1 (<1.1); Partial Thromboplastin Time 23.3 sec (22.0-30.0); Prothrombin Time 11.1 sec (9.0-12.0)
[2016-08-30] MEDS: SODIUM CHLORIDE 0.9% 1,000 ML IV SCH ×3 (09:48→23:45)
[2016-08-30 09:50] LABS: ALT 46 U/L (9-52); AST 21 U/L (14-36); Alkaline Phosphatase 44 U/L (38-126); Anion Gap 9 mmol/L; Blood Urea Nitrogen 20 mg/dL (7-17); Calcium 9.3 mg/dL (8.4-10.2); Carbon Dioxide 22 mmol/L (22-30); Chloride 110 mmol/L (98-107); Glucose 76 mg/dL (74-99); Non-African American GFR(MDRD) >60 (>60 ml/min/1.73 sqM); Potassium 4.3 mmol/L (3.5-5.1); Sodium 141 mmol/L (137-145); Total Bilirubin 0.5 mg/dL (0.2-1.3); Total Protein 4.7 g/dL (6.3-8.2)
[2016-08-30] MEDS ORDERED: SODIUM CHLORIDE 0.9% IV NR (10:00)
[2016-08-30] MEDS ORDERED: RITUXIMAB IV NR (10:00)
[2016-08-30] MEDS ORDERED: diphenhydrAMINE 50 MG/ML 1 ML VIAL IVP ONE (11:00)
[2016-08-30] MEDS ORDERED: ACETAMINOPHEN TAB 325 MG TAB PO ONE (11:00)
[2016-08-30] MEDS ORDERED: methylPREDNISolone SOD SUCCI 125 MG/2 ML VIAL IVP ONE (11:00)
--- NOTE | 2016-08-30 12:22 | ECHOF ---
Referral Reason:follow up on chemotherapy MEASUREMENTS -------- HEIGHT: 154.9 cm WEIGHT: 59.9 kg BP: 100/62 RVIDd: 2.6 cm (< 3.3) IVSd: 1.1 cm (0.6 - 1.1) LVIDd: 3.5 cm (3.9 - 5.3) LVPWd: 1.1 cm (0.6 - 1.1) IVSs: 1.6 cm LVIDs: 2.3 cm LVPWs: 1.1 cm LA Diam: 3.2 cm (2.7 - 3.8) LAESV Index (A-L): 37.82 ml/m Ao Diam: 2.6 cm (2.0 - 3.7) AV Cusp: 1.5 cm (1.5 - 2.6) LA Diam: 2.8 cm (2.7 - 3.8) MV EXCURSION: 6.486 mm (> 18.000) MV EF SLOPE: 41 mm/s (70 - 150) EPSS: 0.2 cm MV E Donell: 0.87 m/s MV DecT: 210 ms MV A Donell: 1.01 m/s MV E/A Ratio: 0.86 RAP: 5.00 mmHg RVSP: 24.94 mmHg FINDINGS -------- Sinus rhythm. This was a technically good study. There is borderline concentric left ventricular hypertrophy. Overall left ventricular systolic function is normal with, an EF between 55 - 60 %. The right ventricle is normal in size. LA is moderately dilated 34-39 ml/m2 The right atrium is normal in size. Aortic valve is trileaflet and is mildly thickened. The mitral valve leaflets are mildly thickened. Mild mitral annular calcification present. Trace tricuspid regurgitation present. Trace/mild (physiologic) pulmonic regurgitation. The aortic root size is normal. Normal inferior vena cava with normal inspiratory collapse consistent with estimated right atrial pressure of 5 mmHg. There is no pericardial effusion. CONCLUSIONS -------- 1. Sinus rhythm. 2. Mild mitral annular calcification present. 3. Trace tricuspid regurgitation present. 4. Trace/mild (physiologic) pulmonic regurgitation. 5. The aortic root size is normal. 6. There is no pericardial effusion. 7. This was a technically good study. 8. There is borderline concentric left ventricular hypertrophy. 9. Overall left ventricular systolic function is normal with, an EF between 55 - 60 %. 10. The right ventricle is normal in size. 11. LA is moderately dilated 34-39 ml/m2 12. The right atrium is normal in size. 13. Aortic valve is trileaflet and is mildly thickened. 14. The mitral valve leaflets are mildly thickened. STOCK GRADER: Srinivas Escobedo RDCS
[2016-08-30 12:26] LABS: Add Differential Manual Differential
[2016-08-30 12:30] LABS: Metamyelocytes % 1.5 %; Myelocytes % 0.5 %; Nucleated Red Blood Cells 0 /100 WBC (0-0); Total Cells Counted 200
[2016-08-30] MEDS ORDERED: SODIUM CHLORIDE 0.9% INTRATHECA ONE (13:00)
[2016-08-30] MEDS ORDERED: METHOTREXATE SODIUM INTRATHECA ONE (13:00)
[2016-08-30] MEDS: ONDANSETRON 16 MG in SODIUM CHLORIDE 0.9% 50 ML IVPB SCH (14:34)
[2016-08-30] MEDS: VINCRISTINE SULFATE IV SCH (15:18)
[2016-08-30] MEDS: DOXORUBICIN HCL IV SCH (15:18)
[2016-08-30] MEDS: ETOPOSIDE IV SCH (15:18)
[2016-08-30] MEDS: SODIUM CHLORIDE 0.9% IV SCH ×3 (15:18)
[2016-08-30] MEDS ORDERED: BENZOCAINE/MENTHOL LOZENG 1 EACH LOZENGE MUCOUS MEM PRN (15:27)
--- NOTE | 2016-08-30 16:05 | P.PCN ---
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 Heart performed LP under flouroscopy. Methotrexate dose verified with chemotherapy nurse in Pharmacy. 12mg/0.48ml preservative free methotrexate was diluted to a total dose of 2.4ml with preservative free, sterile, normal saline in latex free syringe. Dr. Heart withdrew 4.5ml of CSF which was sent for cytology and flow cytometry. Sterile nitrile chemotherapy gloves were donned and the 2.4ml diluted methotrexate was instilled via LP catheter by mixing chemotherapy with CSF, withdraw 1ml of CSF and instill 2ml. Catheter was flushed with 2ml of preservative free NS in latex free syringe, total fluid instilled 4.4ml. Dr. Heart removed LP needle. Pt tolerated procedure well, VS remained stable, no headache, nausea, numbness or tingling. She left procedure room in stable condition. Blood loss <1ml.
--- NOTE | 2016-08-30 16:08 | FL ---
EXAMINATION TYPE: FL chemotherapy into LOAN CLERK DATE OF EXAM ORDERED: 08/30/2016 2:36 PM HISTORY: Burkitt's lymphoma. COMPARISON: None. PROCEDURE: Lumbar puncture was performed by Dr. Heart. Using standard sterile technique and a 5 cm lumbar puncture needle the thecal sac within the via a ri ght paracentral approach at the L3-4 level. 4.5 cc of CSF were withdrawn. The oncology nurse then inj ected chemotherapy with a saline flush. The patient tolerated procedure well. Estimated blood loss was less than 2 cc. IMPRESSION: SUCCESSFUL LUMBAR PUNCTURE FOR CHEMOTHERAPY INSERTION.
--- NOTE | 2016-08-30 16:16 | P.HPIM ---
History of Present Illness H&P Date: 08/30/16 Chief Complaint: Admit for CIVI chemotherapy for Burkitt's lymphoma Pt her for admission for cycle #3 of dose adjusted R-EPOCH, she denies fever or chills, oral irritation, appetite is fair, nothing tastes very good, denies dysphagia, nausea, vomiting, heartburn, indigestion, abd pain or bloating, no SOB,cough, chest pain, palpitations, dysuria, diarrhea or constipation, swelling , rashes, he is independently ambulatory. Malignancy history: Pt presented with progressive dyspnea that started about March 2016. CT chest on 05/31/2016 revealed 9.4cm soft tissue mass in superior mediastinum, 5.5cm mass along the right cardiac border, bulky mediastinal nodes and right pleural effusion. 06/10/2016 diagnostic thoracentesis was negative, on 06/14/2016 PET scan revealed very high uptake in superior mediastinum, right paratracheal nodes, subcarinal nodes, aortopulmonary nodes, right pleural, right supraclavicular nodes and left infraclavicular nodes. She was referred to [facility], underwent EBUS on 06/18/2016, FNA of mediastinal mass was suspicious for lymphoma, then on 11/2015,she underwent core biopsy of right supraclavicular node, flowcytometry revealed CD10(+), CD5(-), CD 19(+), CD 20(+) monoclonal B cell population, morphologically consistent with Burkitt lymphoma. 06/25/2016 bone marrow biopsy done at [facility] revealed no overt morphologic evidence of high grade lymphoma, however, there was a small population of alec restricted CD5(-)and CD 10(-) B cell lymphoproliferative disorders. She was started on dose adjusted R- EPOCH in Jun. Review of Systems All systems: negative Constitutional: Reports as per HPI Past Medical History Past Medical History: Cancer, GERD/Reflux, Hyperlipidemia, Hypertension, Osteoarthritis (OA), Thyroid Disorder Additional Past Medical History / Comment(s): UTI, PLEURISY as a child, LT CATARCT, "MEDIASTINAL MASS AND A 2ND ONE RT LUNG" Burkitt's Lymphoma. History of Any Multi-Drug Resistant Organisms: None Reported Past Surgical History: Cholecystectomy, Coronary Bypass/CABG, Heart Catheterization, Heart Catheterization With Stent, Hysterectomy Additional Past Surgical History / Comment(s): lumbar puncture for intrathecal chemotherapy, 07/02/16 PICC line L arm, BRONCHOSCOPY W/ BX at [facility]-pt states unsuccessful, LYMPH NODE BX, BONE MARROW ASPIRATION AT ([facility]), COLONOCOPSY/ POLYPECTOMY(BENIGN), RT CATARACT,CARPAL TUNNEL RELEASE, LT HAND 3RD AND 4TH DIGIT-TRIGGER FINGER SX, TOTAL HYSTERECTOMY, TRIPLE VESSEL CABG 2008, ECTOPIC Past Anesthesia/Blood Transfusion Reactions: No Reported Reaction Additional Past Anesthesia/Blood Transfusion Reaction / Comment(s): Pt recently received blood without reaction. Date of Last Stent Placement:: 1998 Past Psychological History: Depression Additional Psychological History / Comment(s): Pt states her depression is stable. She wants to live to see all her grandchildren . She is recently using a walker. She has a very supportive family. She has [facility] home care-a nurse comes //Fri. Smoking Status: Never smoker Past Alcohol Use History: None Reported Past Drug Use History: None Reported - Past Family History Mother Family Medical History: Cancer Additional Family Medical History / Comment(s): BREAST CANCER, LIVED TO BE 85 Father Additional Family Medical History / Comment(s): ALCOHOLIC- AGE 54 Medications and Allergies Home Medications Medication Instructions Recorded Confirmed Type Aspirin [Adult Low Dose Aspirin EC] 81 mg PO DAILY 07/01/16 08/30/16 History FLUoxetine HCL [PROzac] 20 mg PO HS 07/01/16 08/30/16 History Isosorbide Mononitrate ER [Imdur] 30 mg PO DAILY 07/01/16 08/30/16 History Levothyroxine Sodium [Synthroid] 100 mcg PO SUTUTHSA 07/01/16 08/30/16 History Levothyroxine Sodium [Synthroid] 112 mcg PO MOWEFR 07/01/16 08/30/16 History Omeprazole [PriLOSEC] 20 mg PO AC-BID 07/01/16 08/30/16 History Furosemide [Lasix] 20 mg PO DAILY 07/25/16 08/30/16 History Potassium Chloride [K-Tab ER] 10 meq PO BID 07/25/16 08/30/16 History ALPRAZolam [Xanax] 0.25 mg PO TID PRN 07/31/16 08/30/16 History Acetaminophen-Codeine 300-30mg 1 tab PO Q6H PRN 07/31/16 08/30/16 History [Tylenol w/codeine #3] Benzocaine/Menthol Lozeng [Cepacol 1 tab PO QID PRN 07/31/16 08/30/16 History lozenge] Co-Q10 Gummy 1 tab PO DAILY@1200 07/31/16 08/30/16 History Cranberry Fruit Concentrate 450 mg PO DAILY@1200 07/31/16 08/30/16 History [Cranberry] Docusate [Colace] 100 mg PO TID 07/31/16 08/30/16 History Ipratropium-Albuterol Nebulize 3 ml INHALATION RT-BID 07/31/16 08/30/16 History [Duoneb 0.5 mg-3 mg/3 ml Soln] Megestrol Acetate [Megace] 400 mg PO BID 07/31/16 08/30/16 History Nystatin 100,000 Unit/ml Susp 1,500,000 units PO TID 07/31/16 08/30/16 History [Mycostatin Oral Susp] Ondansetron [Zofran] 4 mg PO Q6H PRN 07/31/16 08/30/16 History Polyethylene Glycol 3350 [Miralax] 17 gm PO DAILY PRN 07/31/16 08/30/16 History Amoxicillin/Potassium Clav 1 tab PO BID 08/30/16 08/30/16 History [Amox-Clav 875-125 mg Tablet] Clotrimazole Luan [Mycelex 10 mg MUCOUS MEM BID 08/30/16 08/30/16 History Luan] Allergies Allergy/AdvReac Type Severity Reaction Status Date / Time No Known Allergies Allergy Verified 07/31/16 08:46 Physical Exam Vitals: Intake and Output 08/29/16 08/30/16 08/30/16 22:59 06:59 14:59 Other: Weight 60.1 kg Patient Weight 08/31/16 06:59 Weight 60.1 kg - Constitutional General appearance: average body habitus, cooperative, no acute distress - EENT Eyes: anicteric sclerae, EOMI, normal appearance ENT: hearing grossly normal, normal oropharynx - Neck Neck: no lymphadenopathy - Respiratory Respiratory: bilateral: CTA - Cardiovascular Rhythm: regular Heart sounds: normal: S1, S2 Abnormal Heart Sounds: systolic murmur, no diastolic murmur, no rub, no S3 Gallop, no S4 Gallop, no click, no other leg Peripheral Edema: bilateral: None - Gastrointestinal General gastrointestinal: no absent bowel sounds, no decreased bowel sounds, no distended, no hepatomegaly, no hyperactive bowel sounds, normal bowel sounds, no organomegaly, no rigid, no scaphoid, soft, no splenomegaly, no tenderness, no umbilical hernia, no ventral hernia - Integumentary Integumentary: normal - Neurologic Neurologic: CNII-XII intact - Musculoskeletal Musculoskeletal: strength equal bilaterally - Psychiatric Psychiatric: A&O x's 3, appropriate affect, intact judgment & insight Results CBC & Chem 7: 08/30/16 09:15 08/30/16 09:15 Thrombosis Risk Factor Assmnt - DVT/VTE Prophylaxis DVT/VTE Prophylaxis: Pharmacologic Prophylaxis ordered - Choose All That Apply Any of the Below Risk Factors Present?: Yes Other Risk Factors: Yes Each Risk Factor Represents 2 Points: Malignancy Other congenital or acquired thrombophilia - If yes, enter type in comment: No Thrombosis Risk Factor Assessment Total Risk Factor Score: 2 Thrombosis Risk Factor Assessment Level: Low Risk Assessment and Plan (1) Burkitt lymphoma of extranodal or solid organ site Narrative/Plan: Pt admitted for 3rd cycle of dose adjusted R-EOPCH with prophylactic intrathecal chemotherapy. CT scan just prior to this treatment was significantly improved! Pt has been tolerating treatment very well overall. LP and IT chemo administered Chemo orders reviewed, start cycle #3 today, supportive meds, labs daily. Home meds reconciled GI/DVT prophylaxis Status: Acute
[2016-08-30] MEDS: NYSTATIN 100,000 UNIT/ML SUSP 500,000 UNIT/5 ML CUP PO SCH ×2 (17:12→20:26)
[2016-08-30] MEDS: DOCUSATE 100 MG CAP PO SCH ×2 (17:12→20:26)
[2016-08-30] MEDS: METOPROLOL SUCCINATE (ER) 50 MG TAB.ER.24H PO SCH (20:25)
[2016-08-30] MEDS: POTASSIUM CHLORIDE ER 10 MEQ TAB.ER.PRT PO SCH (20:25)
[2016-08-30] MEDS: FLUoxetine HCL 20 MG CAP PO SCH (20:25)
[2016-08-30] MEDS: CLOTRIMAZOLE TROCHE 10 MG TROCHE MUCOUS MEM SCH (20:25)
[2016-08-30] MEDS: AMOXIC-POT CLAV 875-125MG 1 EACH TAB PO SCH (20:25)
[2016-08-30] MEDS: predniSONE 50 MG TAB PO SCH (20:26)
[2016-08-31] MEDS: SODIUM CHLORIDE 0.9% 1,000 ML IV SCH ×3 (05:58→18:18)
[2016-08-31] MEDS: LEVOTHYROXINE 100 MCG TAB PO SCH (06:11)
[2016-08-31 06:57] LABS: Basophils % (A) 0 %; CHCM 32.4; Eosinophils % (A) 0 %; HCT 32.7 % (34.0-46.0); HDW 3.44; HGB 10.4 gm/dL (11.4-16.0); Hypochromasia Slight; Luc # (Auto) 0.04; Luc % (Auto) 1; Lymphocytes # (A) 0.3 k/uL (1.0-4.8); Lymphocytes % (A) 4 %; MCH 30.6 pg (25.0-35.0); MCHC 31.8 g/dL (31.0-37.0); MCV 96.1 fL (80.0-100.0); Monocytes # (A) 0.2 k/uL (0-1.0); Monocytes % (A) 2 %; Neutrophils # (A) 7.4 k/uL (1.3-7.7); Neutrophils % (A) 93 %; Poikilocytosis Slight; RDW 15.6 % (11.5-15.5); WBC 7.9 k/uL (3.8-10.6); WBC (Perox) 8.78
[2016-08-31 07:38] LABS: ALT 52 U/L (9-52); AST 22 U/L (14-36); Alkaline Phosphatase 50 U/L (38-126); Anion Gap 12 mmol/L; Blood Urea Nitrogen 18 mg/dL (7-17); Calcium 10.2 mg/dL (8.4-10.2); Carbon Dioxide 19 mmol/L (22-30); Chloride 110 mmol/L (98-107); Glucose 161 mg/dL (74-99); Non-African American GFR(MDRD) >60 (>60 ml/min/1.73 sqM); Potassium 4.6 mmol/L (3.5-5.1); Sodium 141 mmol/L (137-145); Total Bilirubin 0.4 mg/dL (0.2-1.3); Total Protein 5.5 g/dL (6.3-8.2)
[2016-08-31] MEDS: ENOXAPARIN 30 MG/0.3 ML SYRINGE SQ SCH (09:19)
[2016-08-31] MEDS ORDERED: LIDOCAINE 2% INJ 20 MG/ML SQ ONE (09:39)
[2016-08-31] MEDS: AMOXIC-POT CLAV 875-125MG 1 EACH TAB PO SCH ×2 (10:16→21:06)
[2016-08-31] MEDS: METOPROLOL SUCCINATE (ER) 50 MG TAB.ER.24H PO SCH ×2 (10:16→21:22)
[2016-08-31] MEDS: DOCUSATE 100 MG CAP PO SCH ×3 (10:16→21:06)
[2016-08-31] MEDS: PANTOPRAZOLE 40 MG TABLET PO SCH (10:16)
[2016-08-31] MEDS: NYSTATIN 100,000 UNIT/ML SUSP 500,000 UNIT/5 ML CUP PO SCH ×3 (10:16→21:05)
[2016-08-31] MEDS: predniSONE 50 MG TAB PO SCH ×2 (10:16→21:06)
[2016-08-31] MEDS: ISOSORBIDE MONONITRATE ER 30 MG TAB.ER.24H PO SCH (10:17)
[2016-08-31] MEDS: FAMOTIDINE 20 MG/2 ML VIAL IVP SCH (10:17)
[2016-08-31] MEDS: POTASSIUM CHLORIDE ER 10 MEQ TAB.ER.PRT PO SCH ×2 (10:17→21:06)
[2016-08-31] MEDS: CLOTRIMAZOLE TROCHE 10 MG TROCHE MUCOUS MEM SCH ×2 (10:17→21:06)
[2016-08-31] MEDS: FUROSEMIDE 20 MG TAB PO SCH (10:17)
[2016-08-31] MEDS: ONDANSETRON 16 MG in SODIUM CHLORIDE 0.9% 50 ML IVPB SCH (10:27)
[2016-08-31 10:56] VITALS: BMI 25.0
--- NOTE | 2016-08-31 20:35 | PN ---
DATE OF SERVICE: August 31, 2016 CHIEF COMPLAINT: Short of breath. Kari is seen today as a followup. She has mild exertional dyspnea, but otherwise she is doing fairly well. No nausea or vomiting. No melena, hematochezia, hematochezia, hematuria, hemoptysis, hematemesis or epistaxis. Her medications were reviewed in her electronic record. On physical examination, alert and oriented x3, in no acute distress. Well developed, well nourished. VITAL SIGNS: Temperature 97.2, pulse is 77 and regular, respiration 18, blood pressure 137/71, pulse ox 94% on room air. HEENT: Normocephalic, atraumatic. No icterus. Neck is supple. No jugular venous distention. Carotids positive bilaterally. Lungs are clear. HEART: Regular rate and rhythm. ABDOMEN: Soft. No tenderness. Extremities reveal no edema. LABORATORY DATA: WBC 7.5, hemoglobin 10.4, hematocrit 32.7, platelets are 355. Sodium 141, potassium 4.6, chloride 110, CO2 is 19, BUN 18, creatinine 0.6. LFT and alkaline phosphatase all within normal limits. IMPRESSION: Burkitt cell lymphoma with extranodal involvement. The patient currently on systemic treatment along with intrathecal therapy every 3 weeks cycles of R-EPOCH regimen. She has received a total of 2 cycles so far and repeat CT scan in the outpatient setting after 2 cycles and revealed significant improvement in her disease. The patient is currently on her cycle #3. She did receive her intrathecal methotrexate injection yesterday. The patient appeared to be tolerating treatment fairly well. PLAN: 1. Continue with the chemotherapy as scheduled. 2. We will repeat echocardiogram during this hospital stay. 3. Continue supportive care. 4. Monitor blood count closely.
[2016-08-31] MEDS: VINCRISTINE SULFATE IV SCH (20:48)
[2016-08-31] MEDS: DOXORUBICIN HCL IV SCH (20:48)
[2016-08-31] MEDS: SODIUM CHLORIDE 0.9% IV SCH ×3 (20:48)
[2016-08-31] MEDS: ETOPOSIDE IV SCH (20:48)
[2016-08-31] MEDS: FLUoxetine HCL 20 MG CAP PO SCH (21:06)
[2016-08-31] MEDS: ALPRAZolam 0.25 MG TAB PO PRN (21:11)
[2016-09-01] MEDS: SODIUM CHLORIDE 0.9% 1,000 ML IV SCH ×3 (01:45→22:29)
[2016-09-01] MEDS: LEVOTHYROXINE 100 MCG TAB PO SCH (06:06)
[2016-09-01 06:45] LABS: Basophils % (A) 0 %; CH 31.1; CHCM 32.6; Eosinophils % (A) 0 %; HCT 28.9 % (34.0-46.0); Hypochromasia Slight; Luc # (Auto) 0.02; Luc % (Auto) 0; Lymphocytes # (A) 0.2 k/uL (1.0-4.8); Lymphocytes % (A) 2 %; MCHC 31.2 g/dL (31.0-37.0); MCV 96.2 fL (80.0-100.0); Mean Platelet Volume 7.9; Monocytes # (A) 0.3 k/uL (0-1.0); Monocytes % (A) 3 %; Neutrophils # (A) 9.1 k/uL (1.3-7.7); Neutrophils % (A) 95 %; Poikilocytosis Slight; WBC 9.7 k/uL (3.8-10.6); WBC (Perox) 9.86
[2016-09-01 06:58] LABS: ALT 35 U/L (9-52); AST 18 U/L (14-36); Alkaline Phosphatase 41 U/L (38-126); Anion Gap 9 mmol/L; Blood Urea Nitrogen 19 mg/dL (7-17); Calcium 9.9 mg/dL (8.4-10.2); Carbon Dioxide 22 mmol/L (22-30); Chloride 113 mmol/L (98-107); Glucose 160 mg/dL (74-99); Non-African American GFR(MDRD) >60 (>60 ml/min/1.73 sqM); Potassium 4.3 mmol/L (3.5-5.1); Sodium 144 mmol/L (137-145); Total Bilirubin 0.3 mg/dL (0.2-1.3); Total Protein 4.5 g/dL (6.3-8.2)
[2016-09-01] MEDS: PANTOPRAZOLE 40 MG TABLET PO SCH (07:41)
[2016-09-01] MEDS: predniSONE 50 MG TAB PO SCH ×2 (08:59→20:44)
[2016-09-01] MEDS: POTASSIUM CHLORIDE ER 10 MEQ TAB.ER.PRT PO SCH ×2 (08:59→20:43)
[2016-09-01] MEDS: NYSTATIN 100,000 UNIT/ML SUSP 500,000 UNIT/5 ML CUP PO SCH ×3 (09:00→20:47)
[2016-09-01] MEDS: METOPROLOL SUCCINATE (ER) 50 MG TAB.ER.24H PO SCH ×2 (09:02→20:43)
[2016-09-01] MEDS: FLUoxetine HCL 20 MG CAP PO SCH ×4 (09:02→20:48)
[2016-09-01] MEDS: ISOSORBIDE MONONITRATE ER 30 MG TAB.ER.24H PO SCH (09:02)
[2016-09-01] MEDS: FAMOTIDINE 20 MG/2 ML VIAL IVP SCH (09:06)
[2016-09-01] MEDS: ENOXAPARIN 30 MG/0.3 ML SYRINGE SQ SCH (09:08)
[2016-09-01] MEDS: AMOXIC-POT CLAV 875-125MG 1 EACH TAB PO SCH ×2 (09:09→20:42)
[2016-09-01] MEDS: CLOTRIMAZOLE TROCHE 10 MG TROCHE MUCOUS MEM SCH ×2 (09:10→20:42)
[2016-09-01] MEDS: DOCUSATE 100 MG CAP PO SCH ×3 (09:10→20:45)
[2016-09-01] MEDS: FUROSEMIDE 20 MG TAB PO SCH (09:12)
[2016-09-01] MEDS: ONDANSETRON 16 MG in SODIUM CHLORIDE 0.9% 50 ML IVPB SCH (10:55)
[2016-09-01] MEDS: ETOPOSIDE IV SCH (20:17)
[2016-09-01] MEDS: SODIUM CHLORIDE 0.9% IV SCH ×3 (20:17→20:29)
[2016-09-01] MEDS: DOXORUBICIN HCL IV SCH (20:23)
[2016-09-01] MEDS: VINCRISTINE SULFATE IV SCH (20:29)
[2016-09-01] MEDS: ALPRAZolam 0.25 MG TAB PO PRN (21:09)
[2016-09-02] MEDS: SODIUM CHLORIDE 0.9% 1,000 ML IV SCH ×4 (06:09→18:14)
[2016-09-02] MEDS: LEVOTHYROXINE 100 MCG TAB PO SCH (06:12)
[2016-09-02 06:29] LABS: Basophils % (A) 0 %; CH 31.1; CHCM 32.9; Eosinophils % (A) 0 %; HCT 25.6 % (34.0-46.0); HGB 8.5 gm/dL (11.4-16.0); Hypochromasia Slight; Luc # (Auto) 0.01; Luc % (Auto) 0; Lymphocytes # (A) 0.2 k/uL (1.0-4.8); Lymphocytes % (A) 3 %; MCH 31.6 pg (25.0-35.0); MCHC 33.2 g/dL (31.0-37.0); MCV 95.1 fL (80.0-100.0); Mean Platelet Volume 6.9; Monocytes # (A) 0.1 k/uL (0-1.0); Monocytes % (A) 1 %; Neutrophils # (A) 7.2 k/uL (1.3-7.7); Neutrophils % (A) 96 %; RDW 15.9 % (11.5-15.5); WBC 7.5 k/uL (3.8-10.6); WBC (Perox) 7.89
[2016-09-02 06:34] LABS: ALT 38 U/L (9-52); AST 18 U/L (14-36); Alkaline Phosphatase 36 U/L (38-126); Anion Gap 7 mmol/L; Blood Urea Nitrogen 15 mg/dL (7-17); Calcium 8.4 mg/dL (8.4-10.2); Carbon Dioxide 20 mmol/L (22-30); Chloride 114 mmol/L (98-107); Glucose 122 mg/dL (74-99); Non-African American GFR(MDRD) >60 (>60 ml/min/1.73 sqM); Potassium 3.1 mmol/L (3.5-5.1); Sodium 141 mmol/L (137-145); Total Bilirubin 0.3 mg/dL (0.2-1.3)
[2016-09-02] MEDS: LEVOTHYROXINE 112 MCG TAB PO SCH (08:06)
--- NOTE | 2016-09-02 08:39 | IR ---
PICC LINE PLACEMENT: HISTORY: Infection requiring long-term antibiotic therapy PROCEDURE: Ultrasound and fluoroscopic guidance of PICC line placement. COMPLICATIONS: None ANESTHESIA: 1. 1% Lidocaine locally. FINDINGS/TECHNIQUE: The procedure was explained to the patient. The risks, complications, benefits and alternatives were discussed and any questions were answered. Informed consent was obtained. The patient was placed supine on the fluoroscopic table and prepped and draped in the usual sterile [facility] ion. Utilizing a 21 gauge needle and sonographic and fluoroscopic guidance, access in the vein was achieved and there is placement of a 0.018 guidewire. The vein is patent. A 4-F sheath was placed o hemal the guidewire. The guidewire and dilator were removed and a 4-F. PICC line was placed through th e sheath with the tip at the level of the SVC. The sheath was removed, the catheter was flushed and sutured into position. The patient was stable throughout the procedure and remained stable upon disc harge from the Department of Radiology. The vein puncture was patent under ultrasound. A block scale image was obtained to document patency of the vein punctured. All elements of the maximal barrier technique were utilized. FLUOROSCOPY TIME: 0.1 minute IMPRESSION: Successful PICC line placement under ultrasound and fluoroscopic guidance.
[2016-09-02] MEDS: ENOXAPARIN 30 MG/0.3 ML SYRINGE SQ SCH (09:26)
[2016-09-02] MEDS: CLOTRIMAZOLE TROCHE 10 MG TROCHE MUCOUS MEM SCH ×2 (09:26→19:45)
[2016-09-02] MEDS: AMOXIC-POT CLAV 875-125MG 1 EACH TAB PO SCH ×2 (09:26→19:47)
[2016-09-02] MEDS: METOPROLOL SUCCINATE (ER) 50 MG TAB.ER.24H PO SCH ×2 (09:27→19:47)
[2016-09-02] MEDS: FUROSEMIDE 20 MG TAB PO SCH (09:27)
[2016-09-02] MEDS: DOCUSATE 100 MG CAP PO SCH ×3 (09:27→19:47)
[2016-09-02] MEDS: PANTOPRAZOLE 40 MG TABLET PO SCH (09:27)
[2016-09-02] MEDS: ISOSORBIDE MONONITRATE ER 30 MG TAB.ER.24H PO SCH (09:28)
[2016-09-02] MEDS: predniSONE 50 MG TAB PO SCH ×2 (09:28→19:46)
[2016-09-02] MEDS: POTASSIUM CHLORIDE ER 10 MEQ TAB.ER.PRT PO SCH ×2 (09:28→19:48)
[2016-09-02] MEDS: NYSTATIN 100,000 UNIT/ML SUSP 500,000 UNIT/5 ML CUP PO SCH ×3 (09:28→19:49)
[2016-09-02] MEDS: SALT AND SODA MOUTHWASH 1,000 ML PO SCH ×3 (16:33→19:49)
--- NOTE | 2016-09-02 16:51 | P.PN ---
Subjective Principal diagnosis: Burkitt's Lymphoma, CIVI chemotherapy Pt seen today in follow up, she continues to do well, no fevers, chills, mild oral irritation and a sore on her lower lip, appetite is waning, denies nausea, vomiting, indigestion, and pain or cramping, changes in bowel or bladder habits , bleeding, swelling or rashes. Objective - Vital Signs Vital signs: Vital Signs Temp 97 F L 09/02/16 15:00 Pulse 75 09/02/16 15:00 Resp 20 09/02/16 15:00 BP 127/78 09/02/16 15:00 Pulse Ox 97 09/02/16 15:00 Intake & Output 09/01/16 09/02/16 09/02/16 18:59 06:59 18:59 Intake Total 2464.88 1955 1437.52 Balance 2464.88 5 1437.52 Weight 65.317 kg 67.132 kg Intake: IV 1464.88 1835 1437.52 DOXOrubicin HCL 16 mg In 88 110 86 Sodium Chloride 0.9% 250 ml @ 10.75 mls/hr IV Q24H [facility] Rx#:[id number] Etoposide 80 mg In Sodium 160 200 134.64 Chloride 0.9% 400 ml @ 16.833 mls/hr IV Q24H [facility] Rx#:[id number] Sodium Chloride 0.9% 1, 1200 1500 1200 000 ml @ 150 mls/hr IV . Q6H40M [facility] Rx#:[id number] vinCRIStine SULFATE 0.63 16.88 25 16.88 mg In Sodium Chloride 0.9 % 50 ml @ 2.11 mls/hr IV Q24H [facility] Rx#:[id number] Oral 1000 120 Other: Voiding Method Toilet Toilet # Voids 6 4 4 - Constitutional General appearance: Present: average body habitus, cooperative, no acute distress - EENT EENT Comment(s): mild oral redness, no ulcerations or thrush Eyes: Present: anicteric sclerae ENT: Present: hard of hearing - Respiratory Respiratory: bilateral: CTA - Cardiovascular Rhythm: regular Heart sounds: normal: S1, S2 - Peripheral edema leg Peripheral Edema: bilateral: None - Gastrointestinal General gastrointestinal: Present: normal bowel sounds, soft. Absent: absent bowel sounds, decreased bowel sounds, distended, hepatomegaly, hyperactive bowel sounds, organomegaly, rigid, scaphoid, splenomegaly, tenderness, umbilical hernia, ventral hernia - Neurologic Neurologic: Present: CNII-XII intact - Musculoskeletal Musculoskeletal: Present: strength equal bilaterally - Psychiatric Psychiatric: Present: A&O x's 3, appropriate affect, intact judgment & insight - Labs CBC & Chem 7: 09/02/16 06:13 09/02/16 06:13 Labs: Abnormal Lab Results - Last 24 Hours (Table) 09/02/16 09/02/16 Range/Units 06:13 06:13 RBC 2.70 L (3.80-5.40) m/uL Hgb 8.5 L (11.4-16.0) gm/dL Hct 25.6 L (34.0-46.0) % RDW 15.9 H (11.5-15.5) % Lymphocytes # 0.2 L (1.0-4.8) k/uL Potassium 3.1 L (3.5-5.1) mmol/L Chloride 114 H (98-107) mmol/L Carbon Dioxide 20 L (22-30) mmol/L Creatinine 0.40 L (0.52-1.04) mg/dL Glucose 122 H (74-99) mg/dL Alkaline Phosphatase 36 L (38-126) U/L Total Protein 4.0 L (6.3-8.2) g/dL Albumin 2.0 L (3.5-5.0) g/dL Assessment and Plan (1) Burkitt lymphoma of extranodal or solid organ site Narrative/Plan: Cont treatment without adjustment, supportive meds available, labs daily. Treatment should be complete some time Wed, discharge plans based on clinically how pt is doing. Status: Acute (2) Mucositis (ulcerative) due to antineoplastic therapy Narrative/Plan: Salt and soda and cools solution ordered, close monitoring of mouth Status: Acute (3) Poor appetite Narrative/Plan: Due to chemo effects, appetite stimulant ordered and supplements requested. Status: Acute
[2016-09-02] MEDS ORDERED: Phenol 1.4% Sore Throat Spray Bottle MUCOUS MEM PRN (16:53)
[2016-09-02] MEDS: FAMOTIDINE 20 MG/2 ML VIAL IVP SCH (18:15)
[2016-09-02] MEDS: ONDANSETRON 16 MG in SODIUM CHLORIDE 0.9% 50 ML IVPB SCH (18:16)
[2016-09-02] MEDS: FLUoxetine HCL 20 MG CAP PO SCH (19:48)
[2016-09-02] MEDS: SODIUM CHLORIDE 0.9% IV SCH ×3 (20:58→20:59)
[2016-09-02] MEDS: DOXORUBICIN HCL IV SCH (20:58)
[2016-09-02] MEDS: VINCRISTINE SULFATE IV SCH (20:58)
[2016-09-02] MEDS: ETOPOSIDE IV SCH (20:59)
[2016-09-02] MEDS: ALPRAZolam 0.25 MG TAB PO PRN (21:00)
[2016-09-02] MEDS: MEGESTROL 400 MG/10 ML CUP PO SCH (21:04)
[2016-09-03] MEDS: SODIUM CHLORIDE 0.9% 1,000 ML IV SCH ×4 (05:45→18:07)
[2016-09-03 06:05] LABS: Basophils % (A) 0 %; CH 31.6; CHCM 33.8; Eosinophils % (A) 0 %; HCT 28.6 % (34.0-46.0); HDW 3.42; HGB 9.2 gm/dL (11.4-16.0); Luc # (Auto) 0; Luc % (Auto) 0; Lymphocytes # (A) 0.2 k/uL (1.0-4.8); Lymphocytes % (A) 3 %; MCH 30.2 pg (25.0-35.0); MCHC 32.2 g/dL (31.0-37.0); Mean Platelet Volume 7.7; Monocytes # (A) 0.1 k/uL (0-1.0); Monocytes % (A) 1 %; Neutrophils # (A) 5.3 k/uL (1.3-7.7); Neutrophils % (A) 96 %; Poikilocytosis Slight; RBC 3.04 m/uL (3.80-5.40); RDW 15.7 % (11.5-15.5); WBC 5.5 k/uL (3.8-10.6); WBC (Perox) 5.66
[2016-09-03 06:25] LABS: ALT 46 U/L (9-52); AST 19 U/L (14-36); Alkaline Phosphatase 40 U/L (38-126); Anion Gap 8 mmol/L; Blood Urea Nitrogen 16 mg/dL (7-17); Calcium 9.8 mg/dL (8.4-10.2); Carbon Dioxide 24 mmol/L (22-30); Chloride 109 mmol/L (98-107); Glucose 149 mg/dL (74-99); Non-African American GFR(MDRD) >60 (>60 ml/min/1.73 sqM); Potassium 3.5 mmol/L (3.5-5.1); Sodium 141 mmol/L (137-145); Total Bilirubin 0.5 mg/dL (0.2-1.3); Total Protein 4.7 g/dL (6.3-8.2)
[2016-09-03] MEDS: MEGESTROL 400 MG/10 ML CUP PO SCH ×2 (07:44→20:13)
[2016-09-03] MEDS: LEVOTHYROXINE 100 MCG TAB PO SCH (07:44)
[2016-09-03] MEDS: SALT AND SODA MOUTHWASH 1,000 ML PO SCH ×4 (07:44→20:12)
[2016-09-03] MEDS: PANTOPRAZOLE 40 MG TABLET PO SCH (07:44)
[2016-09-03] MEDS: ENOXAPARIN 30 MG/0.3 ML SYRINGE SQ SCH (07:45)
[2016-09-03] MEDS: DOCUSATE 100 MG CAP PO SCH ×3 (07:45→20:13)
[2016-09-03] MEDS: NYSTATIN 100,000 UNIT/ML SUSP 500,000 UNIT/5 ML CUP PO SCH ×3 (07:45→20:15)
[2016-09-03] MEDS: AMOXIC-POT CLAV 875-125MG 1 EACH TAB PO SCH ×2 (07:45→20:12)
[2016-09-03] MEDS: CLOTRIMAZOLE TROCHE 10 MG TROCHE MUCOUS MEM SCH ×2 (07:45→20:13)
[2016-09-03] MEDS: FUROSEMIDE 20 MG TAB PO SCH (07:46)
[2016-09-03] MEDS: predniSONE 50 MG TAB PO SCH ×2 (07:46→20:13)
[2016-09-03] MEDS: POTASSIUM CHLORIDE ER 10 MEQ TAB.ER.PRT PO SCH ×2 (07:46→20:13)
[2016-09-03] MEDS: METOPROLOL SUCCINATE (ER) 50 MG TAB.ER.24H PO SCH ×2 (07:46→20:16)
[2016-09-03] MEDS: ISOSORBIDE MONONITRATE ER 30 MG TAB.ER.24H PO SCH (10:22)
[2016-09-03] MEDS ORDERED: CYCLOPHOSPHAMIDE IV NR (16:00)
[2016-09-03] MEDS ORDERED: SODIUM CHLORIDE 0.9% IV NR (16:00)
--- NOTE | 2016-09-03 18:01 | P.PN ---
Subjective Principal diagnosis: Burkitt's Lymphoma, CIVI chemotherapy Pt seen today in follow up. No acute physical to report, her appetite is progressively declining, she denies fevers, chills, mild oral irritation is not progressive, no nausea, indigestion, and pain or cramping, changes in bowel or bladder habits, bleeding, swelling or rashes. Objective - Vital Signs Vital signs: Vital Signs Temp 97.1 F L 09/03/16 14:20 Pulse 76 09/03/16 14:20 Resp 18 09/03/16 14:20 BP 131/70 09/03/16 14:20 Pulse Ox 98 09/03/16 14:20 Intake & Output 09/02/16 09/03/16 09/03/16 18:59 06:59 18:59 Intake Total 1437.52 1208.94 Balance 1437.52 1208.94 Intake: IV 1437.52 718.94 DOXOrubicin HCL 16 mg In 86 42.5 Sodium Chloride 0.9% 250 ml @ 10.75 mls/hr IV Q24H [facility] Rx#:[id number] Etoposide 80 mg In Sodium 134.64 68 Chloride 0.9% 400 ml @ 16.833 mls/hr IV Q24H [facility] Rx#:[id number] Sodium Chloride 0.9% 1, 1200 600 000 ml @ 150 mls/hr IV . Q6H40M [facility] Rx#:[id number] vinCRIStine SULFATE 0.63 16.88 8.44 mg In Sodium Chloride 0.9 % 50 ml @ 2.11 mls/hr IV Q24H [facility] Rx#:[id number] Oral 490 Other: Voiding Method Toilet Toilet Toilet # Voids 4 2 2 - Constitutional General appearance: Present: average body habitus, cooperative, no acute distress - EENT Eyes: Present: anicteric sclerae, normal appearance ENT: Present: normal oropharynx - Respiratory Respiratory: bilateral: CTA - Cardiovascular Rhythm: regular Heart sounds: normal: S1, S2 - Peripheral edema leg Peripheral Edema: bilateral: None - Gastrointestinal General gastrointestinal: Present: normal bowel sounds, soft. Absent: absent bowel sounds, decreased bowel sounds, distended, hepatomegaly, hyperactive bowel sounds, organomegaly, rigid, scaphoid, splenomegaly, tenderness, umbilical hernia, ventral hernia - Integumentary Integumentary: Present: normal, pale - Neurologic Neurologic: Present: CNII-XII intact - Musculoskeletal Musculoskeletal: Present: strength equal bilaterally - Psychiatric Psychiatric: Present: A&O x's 3, appropriate affect, intact judgment & insight - Labs CBC & Chem 7: 09/03/16 05:55 09/03/16 05:55 Labs: Abnormal Lab Results - Last 24 Hours (Table) 09/03/16 09/03/16 Range/Units 05:55 05:55 RBC 3.04 L (3.80-5.40) m/uL Hgb 9.2 L (11.4-16.0) gm/dL Hct 28.6 L (34.0-46.0) % RDW 15.7 H (11.5-15.5) % Lymphocytes # 0.2 L (1.0-4.8) k/uL Chloride 109 H (98-107) mmol/L Glucose 149 H (74-99) mg/dL Total Protein 4.7 L (6.3-8.2) g/dL Albumin 2.5 L (3.5-5.0) g/dL Assessment and Plan (1) Burkitt lymphoma of extranodal or solid organ site Narrative/Plan: Cont treatment without adjustment, supportive meds available, labs daily. Treatment should be complete some time tomorrow. Discharge plans based on clinically how pt is doing, likely DC Thur AM. Status: Acute (2) Mucositis (ulcerative) due to antineoplastic therapy Narrative/Plan: Pt doing well with supportive meds ordered. Status: Acute (3) Poor appetite Narrative/Plan: Going to add appetite stimulant. Status: Acute
[2016-09-03] MEDS: FAMOTIDINE 20 MG/2 ML VIAL IVP SCH (18:05)
[2016-09-03] MEDS: ONDANSETRON 16 MG in SODIUM CHLORIDE 0.9% 50 ML IVPB SCH (18:06)
[2016-09-03] MEDS: FLUoxetine HCL 20 MG CAP PO SCH (20:13)
[2016-09-03] MEDS: ALPRAZolam 0.25 MG TAB PO PRN (21:26)
[2016-09-04] MEDS: SODIUM CHLORIDE 0.9% 1,000 ML IV SCH ×4 (02:10→23:28)
[2016-09-04] MEDS: LEVOTHYROXINE 112 MCG TAB PO SCH (05:56)
[2016-09-04 06:13] LABS: Basophils % (A) 0 %; CH 31.1; CHCM 33.4; Eosinophils % (A) 0 %; HCT 28.8 % (34.0-46.0); HDW 3.42; HGB 9.5 gm/dL (11.4-16.0); Luc # (Auto) 0.01; Luc % (Auto) 0; Lymphocytes # (A) 0.2 k/uL (1.0-4.8); Lymphocytes % (A) 4 %; MCH 30.8 pg (25.0-35.0); MCHC 32.9 g/dL (31.0-37.0); MCV 93.5 fL (80.0-100.0); Mean Platelet Volume 6.8; Monocytes # (A) 0.1 k/uL (0-1.0); Monocytes % (A) 2 %; Neutrophils % (A) 94 %; Poikilocytosis Slight; RBC 3.08 m/uL (3.80-5.40); RDW 15.4 % (11.5-15.5); WBC 4.3 k/uL (3.8-10.6); WBC (Perox) 4.74
[2016-09-04 06:23] LABS: ALT 41 U/L (9-52); AST 17 U/L (14-36); Alkaline Phosphatase 37 U/L (38-126); Anion Gap 7 mmol/L; Blood Urea Nitrogen 16 mg/dL (7-17); Calcium 9.8 mg/dL (8.4-10.2); Carbon Dioxide 26 mmol/L (22-30); Chloride 107 mmol/L (98-107); Glucose 156 mg/dL (74-99); Non-African American GFR(MDRD) >60 (>60 ml/min/1.73 sqM); Potassium 3.7 mmol/L (3.5-5.1); Sodium 140 mmol/L (137-145); Total Bilirubin 0.6 mg/dL (0.2-1.3); Total Protein 4.7 g/dL (6.3-8.2)
[2016-09-04] MEDS: CLOTRIMAZOLE TROCHE 10 MG TROCHE MUCOUS MEM SCH ×2 (07:49→20:18)
[2016-09-04] MEDS: PANTOPRAZOLE 40 MG TABLET PO SCH (07:49)
[2016-09-04] MEDS: ISOSORBIDE MONONITRATE ER 30 MG TAB.ER.24H PO SCH (07:50)
[2016-09-04] MEDS: AMOXIC-POT CLAV 875-125MG 1 EACH TAB PO SCH ×2 (07:50→20:17)
[2016-09-04] MEDS: POTASSIUM CHLORIDE ER 10 MEQ TAB.ER.PRT PO SCH ×2 (07:50→20:18)
[2016-09-04] MEDS: DOCUSATE 100 MG CAP PO SCH ×3 (07:50→20:17)
[2016-09-04] MEDS: FUROSEMIDE 20 MG TAB PO SCH (07:50)
[2016-09-04] MEDS: SALT AND SODA MOUTHWASH 1,000 ML PO SCH ×4 (07:50→20:20)
[2016-09-04] MEDS: METOPROLOL SUCCINATE (ER) 50 MG TAB.ER.24H PO SCH ×2 (07:50→20:19)
[2016-09-04] MEDS: predniSONE 50 MG TAB PO SCH ×2 (07:50→20:18)
[2016-09-04] MEDS: ENOXAPARIN 30 MG/0.3 ML SYRINGE SQ SCH (07:50)
[2016-09-04] MEDS: MEGESTROL 400 MG/10 ML CUP PO SCH ×2 (07:51→20:18)
[2016-09-04] MEDS: NYSTATIN 100,000 UNIT/ML SUSP 500,000 UNIT/5 ML CUP PO SCH ×3 (07:51→20:18)
[2016-09-04] MEDS: FAMOTIDINE 20 MG/2 ML VIAL IVP SCH (07:51)
--- NOTE | 2016-09-04 18:52 | P.PN ---
Subjective Principal diagnosis: Burkitt's Lymphoma, CIVI chemotherapy Patient seen today in follow-up. She completed chemotherapy early this morning. Patient continues to have congestion in her throat, she denies sore throat, oral irritation or difficulty swallowing. She is tolerating oral intake , denies fevers, chills, shortness of breath, indigestion or heartburn, appetite stimulant was restarted, appetite is fair, she denies dysuria, hematuria, she had a bowel movement today. Patient has been ambulating. Objective - Vital Signs Vital signs: Vital Signs Temp 97.2 F L 09/04/16 15:07 Pulse 77 09/04/16 15:07 Resp 18 09/04/16 15:07 BP 154/81 09/04/16 15:07 Pulse Ox 98 09/04/16 15:07 Intake & Output 09/03/16 09/04/16 09/04/16 18:59 06:59 18:59 Intake Total 2509.4 1425 Balance 2509.4 1425 Intake: IV 2109.4 1200 Cyclophosphamide 1,000 mg 250 Cyclophosphamide 200 mg In Sodium Chloride 0.9% 250 ml @ 500 mls/hr IV ONCE Rx#:[id number] DOXOrubicin HCL 16 mg In 21.6 Sodium Chloride 0.9% 250 ml @ 10.75 mls/hr IV Q24H [facility] Rx#:[id number] Etoposide 80 mg In Sodium 33.6 Chloride 0.9% 400 ml @ 16.833 mls/hr IV Q24H [facility] Rx#:[id number] Sodium Chloride 0.9% 1, 1800 1200 000 ml @ 150 mls/hr IV . Q6H40M [facility] Rx#:[id number] vinCRIStine SULFATE 0.63 4.2 mg In Sodium Chloride 0.9 % 50 ml @ 2.11 mls/hr IV Q24H [facility] Rx#:[id number] Oral 400 225 Other: Voiding Method Toilet Toilet # Voids 2 1 - Constitutional General appearance: Present: average body habitus, cooperative, no acute distress - EENT Eyes: Present: anicteric sclerae, normal appearance ENT: Present: normal oropharynx - Respiratory Respiratory: bilateral: CTA - Cardiovascular Heart sounds: normal: S1, S2 - Gastrointestinal General gastrointestinal: Present: normal bowel sounds, soft - Integumentary Integumentary: Present: pale - Neurologic Neurologic: Present: CNII-XII intact - Musculoskeletal Musculoskeletal: Present: strength equal bilaterally - Psychiatric Psychiatric: Present: A&O x's 3, appropriate affect, intact judgment & insight - Labs CBC & Chem 7: 09/04/16 06:00 09/04/16 06:00 Labs: Abnormal Lab Results - Last 24 Hours (Table) 09/04/16 09/04/16 Range/Units 06:00 06:00 RBC 3.08 L (3.80-5.40) m/uL Hgb 9.5 L (11.4-16.0) gm/dL Hct 28.8 L (34.0-46.0) % Lymphocytes # 0.2 L (1.0-4.8) k/uL Glucose 156 H (74-99) mg/dL Alkaline Phosphatase 37 L (38-126) U/L Total Protein 4.7 L (6.3-8.2) g/dL Albumin 2.5 L (3.5-5.0) g/dL Assessment and Plan (1) Burkitt lymphoma of extranodal or solid organ site Narrative/Plan: Patient has completed third cycle of dose adjusted R-EPOCH with overall good tolerance. Plan is to discharge in the a.m, patient will receive G-CSF in the outpatient setting tomorrow.. Status: Acute (2) Mucositis (ulcerative) due to antineoplastic therapy Narrative/Plan: Patient has supportive medications, oral mucosa visually inspected is improved. Patient will continue all supportive care medications on discharge. Status: Acute (3) Poor appetite Narrative/Plan: Appetite stimulant was resumed yesterday, patient did eat fairly well today. Continue on discharge. Status: Acute
[2016-09-04] MEDS: ALPRAZolam 0.25 MG TAB PO PRN (20:17)
[2016-09-04] MEDS: FLUoxetine HCL 20 MG CAP PO SCH (20:18)
[2016-09-04 21:56] VITALS: PULSE 79; RESP 18
[2016-09-05] MEDS: LEVOTHYROXINE 100 MCG TAB PO SCH (05:48)
[2016-09-05 06:07] LABS: Basophils % (A) 0 %; CHCM 33.2; Eosinophils % (A) 0 %; HCT 27.1 % (34.0-46.0); HDW 3.35; Luc # (Auto) 0; Luc % (Auto) 0; Lymphocytes # (A) 0.1 k/uL (1.0-4.8); Lymphocytes % (A) 3 %; MCHC 33.1 g/dL (31.0-37.0); MCV 93.7 fL (80.0-100.0); Mean Platelet Volume 6.9; Monocytes % (A) 1 %; Neutrophils % (A) 96 %; RDW 15.3 % (11.5-15.5); WBC 3.2 k/uL (3.8-10.6)
[2016-09-05] MEDS: SODIUM CHLORIDE 0.9% 1,000 ML IV SCH (06:08)
[2016-09-05 06:22] LABS: ALT 39 U/L (9-52); AST 15 U/L (14-36); Alkaline Phosphatase 38 U/L (38-126); Anion Gap 8 mmol/L; Blood Urea Nitrogen 18 mg/dL (7-17); Calcium 10.1 mg/dL (8.4-10.2); Carbon Dioxide 27 mmol/L (22-30); Chloride 107 mmol/L (98-107); Glucose 175 mg/dL (74-99); Non-African American GFR(MDRD) >60 (>60 ml/min/1.73 sqM); Potassium 3.7 mmol/L (3.5-5.1); Sodium 142 mmol/L (137-145); Total Bilirubin 0.5 mg/dL (0.2-1.3); Total Protein 4.5 g/dL (6.3-8.2)
[2016-09-05 07:39] VITALS: BP 141/78; TEMP 99
[2016-09-05] MEDS: PANTOPRAZOLE 40 MG TABLET PO SCH (08:42)
[2016-09-05] MEDS: ISOSORBIDE MONONITRATE ER 30 MG TAB.ER.24H PO SCH (08:42)
[2016-09-05] MEDS: CLOTRIMAZOLE TROCHE 10 MG TROCHE MUCOUS MEM SCH (08:42)
[2016-09-05] MEDS: FUROSEMIDE 20 MG TAB PO SCH (08:42)
[2016-09-05] MEDS: AMOXIC-POT CLAV 875-125MG 1 EACH TAB PO SCH (08:42)
[2016-09-05] MEDS: NYSTATIN 100,000 UNIT/ML SUSP 500,000 UNIT/5 ML CUP PO SCH (08:42)
[2016-09-05] MEDS: ENOXAPARIN 30 MG/0.3 ML SYRINGE SQ SCH (08:42)
[2016-09-05] MEDS: FAMOTIDINE 20 MG/2 ML VIAL IVP SCH (08:42)
[2016-09-05] MEDS: POTASSIUM CHLORIDE ER 10 MEQ TAB.ER.PRT PO SCH (08:42)
[2016-09-05] MEDS: DOCUSATE 100 MG CAP PO SCH (08:42)
[2016-09-05] MEDS: METOPROLOL SUCCINATE (ER) 50 MG TAB.ER.24H PO SCH (08:42)
[2016-09-05] MEDS: MEGESTROL 400 MG/10 ML CUP PO SCH (08:42)
[2016-09-05] MEDS: predniSONE 50 MG TAB PO SCH (08:42)
[2016-09-05] MEDS ORDERED: ACETAMINOPHEN TAB 325 MG TAB PO STA (08:43)
[2016-09-05] MEDS: SALT AND SODA MOUTHWASH 1,000 ML PO SCH (08:53)
--- NOTE | 2016-09-05 14:51 | P.DS ---
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 Pt tolerated treatment over all well, no fevers, she had some chest congestion and oral irritation that was managed. She feels well today, has been active, ate breakfast and is ready for discharge. Pertinent Studies: ECHO-reported EF 55%-60% CSF negative for malignancy Procedures: PICC line insertion Lumbar Puncture Patient Condition at Discharge: Stable Plan - Discharge Summary New Discharge Prescriptions: Megestrol [Megace] 40 mg PO BID 30 Days Discharge Medication List Aspirin [Adult Low Dose Aspirin EC] 81 mg PO DAILY 07/01/16 [History] FLUoxetine HCL [PROzac] 20 mg PO HS 07/01/16 [History] Isosorbide Mononitrate ER [Imdur] 30 mg PO DAILY 07/01/16 [History] Levothyroxine Sodium [Synthroid] 100 mcg PO SUTUTHSA 07/01/16 [History] Levothyroxine Sodium [Synthroid] 112 mcg PO MOWEFR 07/01/16 [History] Omeprazole [PriLOSEC] 20 mg PO AC-BID 07/01/16 [History] Metoprolol Succinate (ER) [Toprol XL] 50 mg PO BID #60 tab.er.24h 07/09/16 [Rx] Furosemide [Lasix] 20 mg PO DAILY 07/25/16 [History] Potassium Chloride [K-Tab ER] 10 meq PO BID 07/25/16 [History] ALPRAZolam [Xanax] 0.25 mg PO TID PRN 07/31/16 [History] Acetaminophen-Codeine 300-30mg [Tylenol w/codeine #3] 1 tab PO Q6H PRN 07/31/16 [History] Benzocaine/Menthol Lozeng [Cepacol lozenge] 1 tab PO QID PRN 07/31/16 [History] Co-Q10 Gummy 1 tab PO DAILY@1200 07/31/16 [History] Cranberry Fruit Concentrate [Cranberry] 450 mg PO DAILY@1200 07/31/16 [History] Docusate [Colace] 100 mg PO TID 07/31/16 [History] Ipratropium-Albuterol Nebulize [Duoneb 0.5 mg-3 mg/3 ml Soln] 3 ml INHALATION RT -BID 07/31/16 [History] Megestrol Acetate [Megace] 400 mg PO BID 07/31/16 [History] Nystatin 100,000 Unit/ml Susp [Mycostatin Oral Susp] 1,500,000 units PO TID 06/06 [History] Ondansetron [Zofran] 4 mg PO Q6H PRN 07/31/16 [History] Polyethylene Glycol 3350 [Miralax] 17 gm PO DAILY PRN 07/31/16 [History] Amoxicillin/Potassium Clav [Amox-Clav 875-125 mg Tablet] 1 tab PO BID 08/30/16 [ History] Clotrimazole Luan [Mycelex Luan] 10 mg MUCOUS MEM BID 08/30/16 [History] Megestrol [Megace] 40 mg PO BID 30 Days 09/05/16 [Rx] Follow up Appointment(s)/Referral(s): Armani Sandoval MD [STAFF PHYSICIAN] - 09/05/16 9:00 am (this is for neulasat injection, pt to make more follow up appts when in office) Patient Instructions/Handouts: Intravenous Chemotherapy (DC) Activity/Diet/Wound Care/Special Instructions: Activity as tolerated Diet as tolerated Discharge Disposition: HOME WITH HOME HEALTH SERVICES Pending Studies Pending Results: none
== END 2016-09-05 10:25 | disposition home health service (06) | DRG 847 ==
LOC: 5ONC 08:12
PROVIDERS: ADMIT Internal Medicine Hematology & Oncology; ATTEND Internal Medicine Hematology & Oncology
PROC: 3E0R305 Introduction of Other Antineoplastic into Spinal Canal, Percutaneous Approach (ICD-10-PCS; principal; 2016-08-30)
PROC: 02HV33Z Insertion of Infusion Device into Superior Vena Cava, Percutaneous Approach (ICD-10-PCS; 2016-09-02)
DX: Z51.11 Encounter for antineoplastic chemotherapy (principal); C83.79 Burkitt lymphoma, extranodal and solid organ sites; R63.0 Anorexia; E78.5 Hyperlipidemia, unspecified; F32.9 Major depressive disorder, single episode, unspecified; I10 Essential (primary) hypertension; K12.31 Oral mucositis (ulcerative) due to antineoplastic therapy; K21.9 Gastro-esophageal reflux disease without esophagitis; T45.1X5A Adverse effect of antineoplastic and immunosuppressive drugs, initial encounter; E07.9 Disorder of thyroid, unspecified; M19.90 Unspecified osteoarthritis, unspecified site; I25.10 Atherosclerotic heart disease of native coronary artery without angina pectoris; Z79.82 Long term (current) use of aspirin; Z79.899 Other long term (current) drug therapy; Z95.1 Presence of aortocoronary bypass graft; Z95.5 Presence of coronary angioplasty implant and graft
CPT/HCPCS: 36569; 76937; 77001; 80053; 85025; 85610; 85730; 88108; 88184; 88185; 93306; 96450

== ENCOUNTER 2016-09-14 07:11 | Inpatient (IN) | payer MEDICARE, BC ==
[2016-09-14] MEDS ORDERED: SODIUM CHLORIDE 0.9% 1,000 ML IV STA (07:29)
[2016-09-14] MEDS ORDERED: IPRATROPIUM-ALBUTEROL 3 ML NEB INHALATION STA (07:29)
--- NOTE | 2016-09-14 08:06 | ED ---
General Adult HPI - General Chief complaint: Weakness Stated complaint: Weakness, constipated Time Seen by Provider: 09/14/16 07:29 Source: family, RN notes reviewed, old records reviewed Mode of arrival: wheelchair Limitations: no limitations - History of Present Illness Initial comments: This is an 80-year-old female the ER for evaluation of shortness of breath, significant stress of breath and weakness. Patient has complex medical history including heart disease and lung cancer, patient is going to chemotherapy. Patient is severely lack of appetite recently, no significant fevers. Patient has mild abdominal pain which they relate to constipation, but her appetite is very much diminished. Patient is having significant shortness of breath which has been going on for maybe 2-3 days and was a little bit last . No chest pain. Patient himself has no complaints O she states she does feel weak and tired - Related Data Home Medications Medication Instructions Recorded Confirmed Aspirin [Adult Low Dose Aspirin EC] 81 mg PO DAILY 07/01/16 08/30/16 FLUoxetine HCL [PROzac] 20 mg PO HS 07/01/16 08/30/16 Isosorbide Mononitrate ER [Imdur] 30 mg PO DAILY 07/01/16 08/30/16 Levothyroxine Sodium [Synthroid] 100 mcg PO SUTUTHSA 07/01/16 08/30/16 Levothyroxine Sodium [Synthroid] 112 mcg PO MOWEFR 07/01/16 08/30/16 Omeprazole [PriLOSEC] 20 mg PO AC-BID 07/01/16 08/30/16 Furosemide [Lasix] 20 mg PO DAILY 07/25/16 08/30/16 Potassium Chloride [K-Tab ER] 10 meq PO BID 07/25/16 08/30/16 ALPRAZolam [Xanax] 0.25 mg PO TID PRN 07/31/16 08/30/16 Acetaminophen-Codeine 300-30mg 1 tab PO Q6H PRN 07/31/16 08/30/16 [Tylenol w/codeine #3] Benzocaine/Menthol Lozeng [Cepacol 1 tab PO QID PRN 07/31/16 08/30/16 lozenge] Co-Q10 Gummy 1 tab PO DAILY@1200 07/31/16 08/30/16 Cranberry Fruit Concentrate 450 mg PO DAILY@1200 07/31/16 08/30/16 [Cranberry] Docusate [Colace] 100 mg PO TID 07/31/16 08/30/16 Ipratropium-Albuterol Nebulize 3 ml INHALATION RT-BID 07/31/16 08/30/16 [Duoneb 0.5 mg-3 mg/3 ml Soln] Megestrol Acetate [Megace] 400 mg PO BID 07/31/16 08/30/16 Nystatin 100,000 Unit/ml Susp 1,500,000 units PO TID 07/31/16 08/30/16 [Mycostatin Oral Susp] Ondansetron [Zofran] 4 mg PO Q6H PRN 07/31/16 08/30/16 Polyethylene Glycol 3350 [Miralax] 17 gm PO DAILY PRN 07/31/16 08/30/16 Amoxicillin/Potassium Clav 1 tab PO BID 08/30/16 08/30/16 [Amox-Clav 875-125 mg Tablet] Clotrimazole Luan [Mycelex 10 mg MUCOUS MEM BID 08/30/16 08/30/16 Luan] Previous Rx's Medication Instructions Recorded Metoprolol Succinate (ER) [Toprol 50 mg PO BID #60 tab.er.24h 07/09/16 XL] Megestrol [Megace] 40 mg PO BID 30 Days 09/05/16 Allergies Allergy/AdvReac Type Severity Reaction Status Date / Time No Known Allergies Allergy Verified 09/14/16 07:23 Review of Systems ROS Statement: Those systems with pertinent positive or pertinent negative responses have been documented in the HPI. ROS Other: All systems not noted in ROS Statement are negative. Past Medical History Past Medical History: Cancer, GERD/Reflux, Hyperlipidemia, Hypertension, Osteoarthritis (OA), Thyroid Disorder Additional Past Medical History / Comment(s): UTI, PLEURISY as a child, LT CATARCT, "MEDIASTINAL MASS AND A 2ND ONE RT LUNG" Burkitt's Lymphoma. History of Any Multi-Drug Resistant Organisms: None Reported Past Surgical History: Cholecystectomy, Coronary Bypass/CABG, Heart Catheterization, Heart Catheterization With Stent, Hysterectomy Additional Past Surgical History / Comment(s): lumbar puncture for intrathecal chemotherapy, 07/02/16 PICC line L arm, BRONCHOSCOPY W/ BX at [facility]-pt states unsuccessful, LYMPH NODE BX, BONE MARROW ASPIRATION AT ([facility]), COLONOCOPSY/ POLYPECTOMY(BENIGN), RT CATARACT,CARPAL TUNNEL RELEASE, LT HAND 3RD AND 4TH DIGIT-TRIGGER FINGER SX, TOTAL HYSTERECTOMY, TRIPLE VESSEL CABG 2009, ECTOPIC Past Anesthesia/Blood Transfusion Reactions: No Reported Reaction Additional Past Anesthesia/Blood Transfusion Reaction / Comment(s): Pt recently received blood without reaction. Date of Last Stent Placement:: 1998 Past Psychological History: Depression Additional Psychological History / Comment(s): Pt states her depression is stable. She wants to live to see all her grandchildren . She is recently using a walker. She has a very supportive family. She has [facility] home care-a nurse comes //Fri. Smoking Status: Never smoker Past Alcohol Use History: None Reported Past Drug Use History: None Reported - Past Family History Mother Family Medical History: Cancer Additional Family Medical History / Comment(s): BREAST CANCER, LIVED TO BE 85 Father Additional Family Medical History / Comment(s): ALCOHOLIC- AGE 54 General Exam Limitations: no limitations General appearance: alert, anxious, lethargic, in distress, cachectic Head exam: Present: atraumatic, normocephalic, normal inspection Eye exam: Present: normal appearance, PERRL, EOMI. Absent: scleral icterus, conjunctival injection, periorbital swelling ENT exam: Present: mucous membranes dry Neck exam: Present: normal inspection. Absent: tenderness, meningismus, lymphadenopathy Respiratory exam: Present: respiratory distress, accessory muscle use, decreased breath sounds, prolonged expiratory. Absent: wheezes, rales, rhonchi , stridor Cardiovascular Exam: Present: normal rhythm, tachycardia, normal heart sounds. Absent: systolic murmur, diastolic murmur, rubs, gallop, clicks GI/Abdominal exam: Present: soft, normal bowel sounds. Absent: distended, tenderness, guarding, rebound, rigid Extremities exam: Present: normal inspection, full ROM, normal capillary refill. Absent: tenderness, pedal edema, joint swelling, calf tenderness Back exam: Present: normal inspection Neurological exam: Present: alert, oriented X3, CN II-XII intact Psychiatric exam: Present: normal affect, normal mood Skin exam: Present: warm, dry, intact, normal color. Absent: rash Course Vital Signs 09/14/16 09/14/16 09/14/16 07:19 07:31 08:02 Temperature 97.9 F 97.9 F Pulse Rate 102 H 92 94 Respiratory 18 30 H 26 H Rate Blood Pressure 112/56 126/69 O2 Sat by Pulse 84 L 98 96 Oximetry 09/14/16 09/14/16 09/14/16 08:09 08:30 08:51 Temperature Pulse Rate 94 96 115 H Respiratory 26 H Rate Blood Pressure 129/61 O2 Sat by Pulse 95 Oximetry - Reevaluation(s) Reevaluation #1: 09/14/16 09:13 Patient does not have any improvement with breathing treatment EKG Findings - EKG Comments: EKG Findings:: EKG shows sinus rhythm rate of 97,AZ 242, QRS 80, QTC 452 Medical Decision Making - Medical Decision Making 80 female the ER for evaluation of shortness of breath, patient does appear to mild heart failure, history of CABG, pleural effusions could be related to chemo as well, patient will be admitted for IV hydration, possible transient confusion secondary to anemia related to chemotherapy, patient with pulmonary evaluation regarding pleural effusion - Lab Data Result diagrams: 09/14/16 07:44 09/14/16 07:44 Lab Results 09/14/16 09/14/16 09/14/16 Range/Units 07:44 07:44 07:44 WBC 8.7 (3.8-10.6) k/uL RBC 2.70 L (3.80-5.40) m/uL Hgb 8.2 L (11.4-16.0) gm/dL Hct 24.8 L (34.0-46.0) % MCV 91.9 (80.0-100.0) fL MCH 30.2 (25.0-35.0) pg MCHC 32.8 (31.0-37.0) g/dL RDW 17.5 H (11.5-15.5) % Plt Count 263 (150-450) k/uL Neutrophils % 93 % Lymphocytes % 3 % Monocytes % 4 % Eosinophils % 0 % Basophils % 0 % Neutrophils # 8.1 H (1.3-7.7) k/uL Lymphocytes # 0.2 L (1.0-4.8) k/uL Monocytes # 0.3 (0-1.0) k/uL Eosinophils # 0.0 (0-0.7) k/uL Basophils # 0.0 (0-0.2) k/uL Hypochromasia Slight Poikilocytosis Slight Anisocytosis Slight PT (9.0-12.0) sec INR (<1.1) APTT (22.0-30.0) sec Sodium 140 (137-145) mmol/L Potassium 4.8 (3.5-5.1) mmol/L Chloride 108 H (98-107) mmol/L Carbon Dioxide 23 (22-30) mmol/L Anion Gap 9 mmol/L BUN 18 H (7-17) mg/dL Creatinine 0.72 (0.52-1.04) mg/dL Est GFR (MDRD) Af Amer >60 (>60 ml/min/1.73 sqM) Est GFR (MDRD) Non-Af >60 (>60 ml/min/1.73 sqM) Glucose 129 H (74-99) mg/dL Calcium 10.0 (8.4-10.2) mg/dL Phosphorus 3.3 (2.5-4.5) mg/dL Magnesium 2.0 (1.6-2.3) mg/dL Total Bilirubin 0.6 (0.2-1.3) mg/dL AST 20 (14-36) U/L ALT 33 (9-52) U/L Alkaline Phosphatase 58 (38-126) U/L NT-Pro-B Natriuret Pep 3640 pg/mL Total Protein 4.7 L (6.3-8.2) g/dL Albumin 2.4 L (3.5-5.0) g/dL Urine Color Urine Appearance (Clear) Urine pH (5.0-8.0) Ur Specific [place] (1.001-1.035) Urine Protein (Negative) Urine Glucose (UA) (Negative) Urine Ketones (Negative) Urine Blood (Negative) Urine Nitrate (Negative) Urine Bilirubin (Negative) Urine Urobilinogen (<2.0) mg/dL Ur Leukocyte Esterase (Negative) Urine RBC (0-5) /hpf Urine WBC (0-5) /hpf Ur Squamous Epith Cells (0-4) /hpf Urine Bacteria (None) /hpf Urine Mucus (None) /hpf 09/14/16 09/14/16 Range/Units 07:44 08:42 WBC (3.8-10.6) k/uL RBC (3.80-5.40) m/uL Hgb (11.4-16.0) gm/dL Hct (34.0-46.0) % MCV (80.0-100.0) fL MCH (25.0-35.0) pg MCHC (31.0-37.0) g/dL RDW (11.5-15.5) % Plt Count (150-450) k/uL Neutrophils % % Lymphocytes % % Monocytes % % Eosinophils % % Basophils % % Neutrophils # (1.3-7.7) k/uL Lymphocytes # (1.0-4.8) k/uL Monocytes # (0-1.0) k/uL Eosinophils # (0-0.7) k/uL Basophils # (0-0.2) k/uL Hypochromasia Poikilocytosis Anisocytosis PT 11.1 (9.0-12.0) sec INR 1.1 (<1.1) APTT 23.1 (22.0-30.0) sec Sodium (137-145) mmol/L Potassium (3.5-5.1) mmol/L Chloride (98-107) mmol/L Carbon Dioxide (22-30) mmol/L Anion Gap mmol/L BUN (7-17) mg/dL Creatinine (0.52-1.04) mg/dL Est GFR (MDRD) Af Amer (>60 ml/min/1.73 sqM) Est GFR (MDRD) Non-Af (>60 ml/min/1.73 sqM) Glucose (74-99) mg/dL Calcium (8.4-10.2) mg/dL Phosphorus (2.5-4.5) mg/dL Magnesium (1.6-2.3) mg/dL Total Bilirubin (0.2-1.3) mg/dL AST (14-36) U/L ALT (9-52) U/L Alkaline Phosphatase (38-126) U/L NT-Pro-B Natriuret Pep pg/mL Total Protein (6.3-8.2) g/dL Albumin (3.5-5.0) g/dL Urine Color Yellow Urine Appearance Cloudy H (Clear) Urine pH 7.0 (5.0-8.0) Ur Specific [place] 1.016 (1.001-1.035) Urine Protein Trace H (Negative) Urine Glucose (UA) Negative (Negative) Urine Ketones Negative (Negative) Urine Blood Negative (Negative) Urine Nitrate Negative (Negative) Urine Bilirubin Negative (Negative) Urine Urobilinogen 4.0 (<2.0) mg/dL Ur Leukocyte Esterase Negative (Negative) Urine RBC 16 H (0-5) /hpf Urine WBC 5 (0-5) /hpf Ur Squamous Epith Cells 1 (0-4) /hpf Urine Bacteria Rare H (None) /hpf Urine Mucus Rare H (None) /hpf - Radiology Data Radiology results: report reviewed (Chest x-ray positive for pulmonary edema and pleural effusion), image reviewed Critical Care Time Critical Care Time: Yes Total Critical Care Time: 31 Disposition Clinical Impression: Dyspnea, Anemia due to chemotherapy, Hypoxia, Pulmonary edema, Bilateral pleural effusion Disposition: ADMITTED IP TO THIS [facility] Condition: Serious
[2016-09-14 08:13] LABS: Anisocytosis Slight; Basophils % (A) 0 %; CH 30.1; Eosinophils % (A) 0 %; HCT 24.8 % (34.0-46.0); HDW 3.78; HGB 8.2 gm/dL (11.4-16.0); Hypochromasia Slight; Luc # (Auto) 0.05; Luc % (Auto) 1; Lymphocytes # (A) 0.2 k/uL (1.0-4.8); Lymphocytes % (A) 3 %; MCH 30.2 pg (25.0-35.0); MCHC 32.8 g/dL (31.0-37.0); MCV 91.9 fL (80.0-100.0); Mean Platelet Volume 7.7; Monocytes # (A) 0.3 k/uL (0-1.0); Monocytes % (A) 4 %; Neutrophils # (A) 8.1 k/uL (1.3-7.7); Neutrophils % (A) 93 %; Poikilocytosis Slight; RDW 17.5 % (11.5-15.5); WBC 8.7 k/uL (3.8-10.6); WBC (Perox) 8.67
--- NOTE | 2016-09-14 08:15 | XR ---
EXAMINATION TYPE: XR chest 1V portable DATE OF EXAM: 09/14/2016 8:06 AM COMPARISON: 07/07/2016 HISTORY: Difficulty breathing TECHNIQUE: Single frontal view of the chest is obtained. FINDINGS: There is pulmonary edema. There is a right central venous catheter with tip in the superio r vena cava. There are chest leads. There is slight blunting of costophrenic angles. IMPRESSION: There is pulmonary edema and bilateral pleural effusions. This is consistent with conges tive heart failure. Pleural fluid on the right side is significantly decreased compared to last exam. Pulmonary edema appears worse.
[2016-09-14 08:17] LABS: INR 1.1 (<1.1); Partial Thromboplastin Time 23.1 sec (22.0-30.0); Prothrombin Time 11.1 sec (9.0-12.0)
[2016-09-14 08:22] LABS: ALT 33 U/L (9-52); AST 20 U/L (14-36); Alkaline Phosphatase 58 U/L (38-126); Anion Gap 9 mmol/L; Blood Urea Nitrogen 18 mg/dL (7-17); Carbon Dioxide 23 mmol/L (22-30); Chloride 108 mmol/L (98-107); Glucose 129 mg/dL (74-99); Non-African American GFR(MDRD) >60 (>60 ml/min/1.73 sqM); Phosphorous 3.3 mg/dL (2.5-4.5); Potassium 4.8 mmol/L (3.5-5.1); Sodium 140 mmol/L (137-145); Total Bilirubin 0.6 mg/dL (0.2-1.3); Total Protein 4.7 g/dL (6.3-8.2)
[2016-09-14 08:55] LABS: Appearance,Urine Cloudy (Clear); Bacteria,Urine Rare /hpf; Bilirubin,Urine Negative (Negative); Glucose,Urine (UA) Negative (Negative); Ketones,Urine Negative (Negative); Leukocyte Esterase,Urine Negative (Negative); Mucus,Urine Rare /hpf; Nitrite,Urine Negative (Negative); Particle Count 4436; Protein,Urine Trace (Negative); RBC,Urine 16 /hpf (0-5); Specific Gravity,Urine 1.016 (1.001-1.035); Squamous Epithelial Cell,Urine 1 /hpf (0-4); UA Billing (MACRO vs. MICRO) MICRO; WBC,Urine 5 /hpf (0-5)
[2016-09-14 08:57] LABS: Creatine Kinase <20 U/L (30-135)
[2016-09-14 09:10] LABS: Creatine Kinase MB <0.2 ng/mL (0.0-2.4); Troponin I 0.018 ng/mL (0.000-0.034)
[2016-09-14] MEDS ORDERED: methylPREDNISolone SOD SUCCI 125 MG/2 ML VIAL IV STA (09:15)
[2016-09-14] MEDS ORDERED: FUROSEMIDE 10 MG/ML 4 ML VIAL IV SCH ×2 (09:15→21:00)
[2016-09-14] MEDS ORDERED: FUROSEMIDE 10 MG/ML 4 ML VIAL IV ONE (09:30)
[2016-09-14] MEDS: SODIUM CHLORIDE 0.9% 1,000 ML IV SCH (09:31)
[2016-09-14] MEDS ORDERED: ENOXAPARIN 40 MG/0.4 ML SYRINGE SQ ONE (10:00)
--- NOTE | 2016-09-14 11:34 | P.PN ---
Progress Note - Text This is an addendum to the dictated cardiology consultation. The patient has a known history of CAD, post CABG 7 years ago, recently diagnosed malignancy, receiving chemotherapy with symptoms of progressive dyspnea, cough, weight gain and worsening peripheral edema. She had an echocardiogram recently that showed a normal systolic function. She has no chest discomfort ,no dizziness or palpitations. She has orthopnea since the diagnosis of her cancer but no clear PND. She denies any prior history of congestive heart failure and she has occasional chest discomfort that has been stable. She has no prior history of myocardial infarction according to her. Her physical examination shows bilateral rales, she is in sinus mechanism and she has a systolic murmur. She has 1-2+ bilateral edema. Her lab data reveals an elevated NT proBNP, anemia and minimally elevated troponin. Her EKG shows no acute changes. Her chest x-ray is consistent with congestive heart failure. The patient presented was progressive dyspnea and findings consistent with congestive heart failure, it could be exacerbated by the fluid load she got during her last chemotherapy course in addition to the anemia. We will initiate intravenous diuresis, follow the renal function closely. She may require antibiotics for possible infectious process because of the immunocompromised status. Thank you for this consult we will follow with you.
--- NOTE | 2016-09-14 11:35 | P.CRDCN ---
History of Present Illness Consult date: 09/14/16 Reason for Consult (text): CHF Chief complaint: weakness, shortness of breath History of present illness: This is a frail 80-year-old female with a known history of Burkitt's lymphoma diagnosed late last year, currently undergoing chemotherapy, prior coronary artery bypass grafting, hyperlipidemia, GERD, thyroid disorder. She presented to the emergency department with progressively worsening shortness of breath and weakness, cough and weight gain. Shortness of breath started on for every and has progressively worsened since then. Her most recent echocardiogram done August 30 of this year showed an ejection fraction of 55- 60%. Chest x-ray done on admission show pulmonary edema with bilateral pleural effusions. Laboratory values showed a BNP of 3640, previous in June was 2630. BUN 18, creatinine 0.7 to, hemoglobin 8.2 and troponin 0.018. Upon examination, patient is resting in bed. Short of breath with talking and is tachypneic. She had previously been complaining of some abdominal pain but denies current complaints. She denies complaints of dizziness, lightheadedness , syncope, palpitations. She does complain of severe weakness and lower extremity edema. Past Medical History Past Medical History: Cancer, GERD/Reflux, Hyperlipidemia, Hypertension, Osteoarthritis (OA), Thyroid Disorder Additional Past Medical History / Comment(s): UTI, PLEURISY as a child, LT CATARCT, "MEDIASTINAL MASS AND A 2ND ONE RT LUNG" Burkitt's Lymphoma. History of Any Multi-Drug Resistant Organisms: None Reported Past Surgical History: Cholecystectomy, Coronary Bypass/CABG, Heart Catheterization, Heart Catheterization With Stent, Hysterectomy Additional Past Surgical History / Comment(s): lumbar puncture for intrathecal chemotherapy, 07/02/16 PICC line L arm, BRONCHOSCOPY W/ BX at [facility]-pt states unsuccessful, LYMPH NODE BX, BONE MARROW ASPIRATION AT ([facility]), COLONOCOPSY/ POLYPECTOMY(BENIGN), RT CATARACT,CARPAL TUNNEL RELEASE, LT HAND 3RD AND 4TH DIGIT-TRIGGER FINGER SX, TOTAL HYSTERECTOMY, TRIPLE VESSEL CABG 2008, ECTOPIC Past Anesthesia/Blood Transfusion Reactions: No Reported Reaction Additional Past Anesthesia/Blood Transfusion Reaction / Comment(s): Pt recently received blood without reaction. Date of Last Stent Placement:: 1998 Past Psychological History: Depression Additional Psychological History / Comment(s): Pt states her depression is stable. She wants to live to see all her grandchildren . She is recently using a walker. She has a very supportive family. She has [facility] care-a nurse comes //Fri. Smoking Status: Never smoker Past Alcohol Use History: None Reported Past Drug Use History: None Reported - Past Family History Mother Family Medical History: Cancer Additional Family Medical History / Comment(s): BREAST CANCER, LIVED TO BE 85 Father Additional Family Medical History / Comment(s): ALCOHOLIC- AGE 54 Medications and Allergies Home Medications Medication Instructions Recorded Confirmed Type Aspirin [Adult Low Dose Aspirin EC] 81 mg PO DAILY 07/01/16 09/14/16 History FLUoxetine HCL [PROzac] 20 mg PO HS 07/01/16 09/14/16 History Isosorbide Mononitrate ER [Imdur] 30 mg PO DAILY 07/01/16 09/14/16 History Levothyroxine Sodium [Synthroid] 100 mcg PO SUTUTHSA 07/01/16 09/14/16 History Levothyroxine Sodium [Synthroid] 112 mcg PO MOWEFR 07/01/16 09/14/16 History Omeprazole [PriLOSEC] 20 mg PO AC-BID 07/01/16 09/14/16 History Furosemide [Lasix] 20 mg PO DAILY 07/25/16 09/14/16 History Potassium Chloride [K-Tab ER] 10 meq PO BID 07/25/16 09/14/16 History ALPRAZolam [Xanax] 0.25 mg PO TID PRN 07/31/16 09/14/16 History Acetaminophen-Codeine 300-30mg 1 tab PO Q6H PRN 07/31/16 09/14/16 History [Tylenol w/codeine #3] Benzocaine/Menthol Lozeng [Cepacol 1 tab PO QID PRN 07/31/16 09/14/16 History lozenge] Co-Q10 Gummy 1 tab PO DAILY@1200 07/31/16 09/14/16 History Cranberry Fruit Concentrate 450 mg PO DAILY@1200 07/31/16 09/14/16 History [Cranberry] Docusate [Colace] 100 mg PO TID 07/31/16 09/14/16 History Ipratropium-Albuterol Nebulize 3 ml INHALATION RT-BID 07/31/16 09/14/16 History [Duoneb 0.5 mg-3 mg/3 ml Soln] Megestrol Acetate [Megace] 400 mg PO BID 07/31/16 09/14/16 History Nystatin 100,000 Unit/ml Susp 1,500,000 units PO TID 07/31/16 09/14/16 History [Mycostatin Oral Susp] Ondansetron [Zofran] 4 mg PO Q6H PRN 07/31/16 09/14/16 History Polyethylene Glycol 3350 [Miralax] 17 gm PO DAILY PRN 07/31/16 09/14/16 History Clotrimazole Luan [Mycelex 10 mg MUCOUS MEM BID 08/30/16 09/14/16 History Luan] Allopurinol [Zyloprim] 300 mg PO BID 09/14/16 09/14/16 History Allergies Allergy/AdvReac Type Severity Reaction Status Date / Time No Known Allergies Allergy Verified 09/14/16 10:55 Physical Exam Vitals: Vital Signs Temp Pulse Pulse Resp BP BP Pulse Ox 09/14/16 09:47 97.9 F 97 26 H 127/59 95 09/14/16 09:37 98.0 F 101 H 24 128/72 94 L Intake and Output 09/13/16 09/14/16 09/14/16 22:59 06:59 14:59 Intake Total 100 Output Total 300 Balance -200 Intake: IV 100 Sodium Chloride 0.9% 1, 100 000 ml @ 20 mls/hr IV . Q24H [facility] Rx#:[id number] Output: Urine 300 Other: Weight 51.71 kg Patient Weight 09/15/16 06:59 Weight 51.71 kg PHYSICAL EXAMINATION: HEENT: Head is atraumatic, normocephalic. Pupils equal, round. Neck is supple. There is no elevated jugular venous pressure. HEART EXAMINATION: Heart sounds regular, S1 and S2 with a systolic. CHEST EXAMINATION: Lungs crackles bilateral lower lobes. No chest wall tenderness is noted on palpation or with deep breathing. ABDOMEN: Soft, nontender. Bowel sounds are heard. No organomegaly noted. EXTREMITIES: 1+ peripheral pulses with evidence of 1+ peripheral edema and no calf tenderness noted. NEUROLOGIC patient is awake, alert and oriented x3. . Results 09/14/16 07:44 09/14/16 07:44 Current Medications Generic Name Dose Route Start Last Admin Trade Name Freq PRN Reason Stop Dose Admin Albuterol/Ipratropium 3 ml 09/14/16 09:15 Duoneb 0.5 Mg-3 Mg/3 Ml Soln INHALATION RT-Q4H PRN Shortness Of Breath Or Wheezing Enoxaparin Sodium 40 mg 09/15/16 09:00 Lovenox SQ DAILY [facility] Furosemide 40 mg 09/14/16 21:00 Lasix IV Q12H [facility] Sodium Chloride 1,000 mls @ 20 mls/hr 09/14/16 09:15 09/14/16 09:31 Saline 0.9% IV 20 mls/hr .Q24H [facility] Administration Methylprednisolone Sodium Succinate 60 mg 09/14/16 12:00 Solu-Medrol IV Q6HR [facility] Morphine Sulfate 4 mg 09/14/16 09:15 Morphine Sulfate (Inj) IV Q4HR PRN Chest Pain Intake and Output 09/13/16 09/14/16 09/14/16 22:59 06:59 14:59 Intake Total 100 Output Total 300 Balance -200 Intake: IV 100 Sodium Chloride 0.9% 1, 100 000 ml @ 20 mls/hr IV . Q24H [facility] Rx#:[id number] Output: Urine 300 Other: Weight 51.71 kg Patient Weight 09/15/16 06:59 Weight 51.71 kg EKG Interpretations (text) Sinus rhythm with no acute changes Assessment and Plan Plan: Assessment and plan #1 congestive heart failure, acute, diastolic #2 Burkitt's lymphoma, recent chemotherapy #3 history of coronary artery bypass grafting #4 possible underlying infectious process #5 anemia From cardiology's perspective, we'll continue IV Lasix. Follow the patient's electrolytes, renal function, daily weights and intake and output. Further recommendations to follow. INFECTION CONTROL PRACTITIONER note has been reviewed, I agree with a documented findings and plan of care. Patient was seen and examined.
[2016-09-14] MEDS: METOPROLOL SUCCINATE (ER) 50 MG TAB.ER.24H PO SCH ×2 (11:58→21:58)
[2016-09-14] MEDS: POTASSIUM CHLORIDE ER 10 MEQ TAB.ER.PRT PO SCH ×2 (11:58→21:58)
[2016-09-14] MEDS: ISOSORBIDE MONONITRATE ER 30 MG TAB.ER.24H PO SCH (11:58)
[2016-09-14] MEDS ORDERED: methylPREDNISolone SOD SUCCI 125 MG/2 ML VIAL IV SCH (12:00)
--- NOTE | 2016-09-14 12:01 | P.CONS ---
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 Progressive dyspnea - History of Present Illness Pt presented with progressive dyspnea that started about March 2016. CT chest on 05/31/2016 revealed 9.4cm soft tissue mass in superior mediastinum, 5.5cm mass along the right cardiac border, bulky mediastinal nodes and right pleural effusion. 06/10/2016 diagnostic thoracentesis was negative, on 2015 PET scan revealed very high uptake in superior mediastinum, right paratracheal nodes, subcarinal nodes, aortopulmonary nodes, right pleural, right supraclavicular nodes and left infraclavicular nodes. She was referred to [facility], underwent EBUS on 06/18/2016, FNA of mediastinal mass was suspicious for lymphoma, then on 06/24/2016,she underwent core biopsy of right supraclavicular node, flowcytometry revealed CD10(+), CD5(-), CD 19(+), CD 20(+) monoclonal B cell population, morphologically consistent with Burkitt lymphoma. 06/25/2016 bone marrow biopsy done at [facility] revealed no overt morphologic evidence of high grade lymphoma, however, there was a small population of alec restricted CD5(-)and CD 10(-) B cell lymphoproliferative disorders. She was started on dose adjusted R-EPOCH in Jun, and is status post 3 cycles, with the most recent one given from 08/30/2016 to 09/04/2016. The patient has overall tolerated chemotherapy well. The patient did have some fatigue and decreased appetite after her last cycle , which is expected. However, it was noted by the family that over the last few days she had been having increasing shortness of breath with exertion. The symptoms became much worse with more rapid progression over the last 2 days. She denied any actual chest pain but states that she could not lay flat and had to sleep sitting up. Apparently some intermittent neck swelling was also noted. Because of progression of shortness of breath she was brought in to the ER. A chest x-ray revealed pulmonary edema, with bilateral small pleural effusions. BNP was elevated. She was therefore admitted for further management. Records were reviewed, showing most recent echocardiogram done on 08/30/16. This showed a normal ejection fraction between 55-60%. Review of Systems Constitutional: Reports fatigue, Reports poor appetite, Reports weakness Eyes: denies blurred vision, denies pain Ears: deny: decreased hearing, ear discharge, earache, tinnitus Ears, nose, mouth and throat: Denies headache, Denies sore throat Cardiovascular: Reports orthopnea, Reports shortness of breath Respiratory: Reports dyspnea Gastrointestinal: Reports constipation Genitourinary: Reports as per HPI (No specific complaints) Menstruation: Reports postmenopausal Musculoskeletal: Denies myalgias Integumentary: Denies pruritus, Denies rash Neurological: Reports weakness Psychiatric: Denies anxiety, Denies depression Endocrine: Reports weight change Hematologic/Lymphatic: Reports as per HPI Past Medical History Past Medical History: Cancer, GERD/Reflux, Hyperlipidemia, Hypertension, Osteoarthritis (OA), Thyroid Disorder Additional Past Medical History / Comment(s): UTI, PLEURISY as a child, LT CATARCT, "MEDIASTINAL MASS AND A 2ND ONE RT LUNG" Burkitt's Lymphoma. History of Any Multi-Drug Resistant Organisms: None Reported Past Surgical History: Cholecystectomy, Coronary Bypass/CABG, Heart Catheterization, Heart Catheterization With Stent, Hysterectomy Additional Past Surgical History / Comment(s): lumbar puncture for intrathecal chemotherapy, 07/02/16 PICC line L arm, BRONCHOSCOPY W/ BX at [facility]-pt states unsuccessful, LYMPH NODE BX, BONE MARROW ASPIRATION AT ([facility]), COLONOCOPSY/ POLYPECTOMY(BENIGN), RT CATARACT,CARPAL TUNNEL RELEASE, LT HAND 3RD AND 4TH DIGIT-TRIGGER FINGER SX, TOTAL HYSTERECTOMY, TRIPLE VESSEL CABG 2008, ECTOPIC Past Anesthesia/Blood Transfusion Reactions: No Reported Reaction Additional Past Anesthesia/Blood Transfusion Reaction / Comm: Pt recently received blood without reaction. Date of Last Stent Placement:: 1998 Past Psychological History: Depression Additional Psychological History / Comment(s): Pt states her depression is stable. She wants to live to see all her grandchildren . She is recently using a walker. She has a very supportive family. She has [facility] care-a nurse comes //Fri. Smoking Status: Never smoker Past Alcohol Use History: None Reported Past Drug Use History: None Reported - Past Family History Mother Family Medical History: Cancer Additional Family Medical History / Comment(s): BREAST CANCER, LIVED TO BE 85 Father Additional Family Medical History / Comment(s): ALCOHOLIC- AGE 54 Medications and Allergies Home Medications Medication Instructions Recorded Confirmed Type Aspirin [Adult Low Dose Aspirin EC] 81 mg PO DAILY 07/01/16 09/14/16 History FLUoxetine HCL [PROzac] 20 mg PO HS 07/01/16 09/14/16 History Isosorbide Mononitrate ER [Imdur] 30 mg PO DAILY 07/01/16 09/14/16 History Levothyroxine Sodium [Synthroid] 100 mcg PO SUTUTHSA 07/01/16 09/14/16 History Levothyroxine Sodium [Synthroid] 112 mcg PO MOWEFR 07/01/16 09/14/16 History Omeprazole [PriLOSEC] 20 mg PO AC-BID 07/01/16 09/14/16 History Furosemide [Lasix] 20 mg PO DAILY 07/25/16 09/14/16 History Potassium Chloride [K-Tab ER] 10 meq PO BID 07/25/16 09/14/16 History ALPRAZolam [Xanax] 0.25 mg PO TID PRN 07/31/16 09/14/16 History Acetaminophen-Codeine 300-30mg 1 tab PO Q6H PRN 07/31/16 09/14/16 History [Tylenol w/codeine #3] Benzocaine/Menthol Lozeng [Cepacol 1 tab PO QID PRN 07/31/16 09/14/16 History lozenge] Co-Q10 Gummy 1 tab PO DAILY@1200 07/31/16 09/14/16 History Cranberry Fruit Concentrate 450 mg PO DAILY@1200 07/31/16 09/14/16 History [Cranberry] Docusate [Colace] 100 mg PO TID 07/31/16 09/14/16 History Ipratropium-Albuterol Nebulize 3 ml INHALATION RT-BID 07/31/16 09/14/16 History [Duoneb 0.5 mg-3 mg/3 ml Soln] Megestrol Acetate [Megace] 400 mg PO BID 07/31/16 09/14/16 History Nystatin 100,000 Unit/ml Susp 1,500,000 units PO TID 07/31/16 09/14/16 History [Mycostatin Oral Susp] Ondansetron [Zofran] 4 mg PO Q6H PRN 07/31/16 09/14/16 History Polyethylene Glycol 3350 [Miralax] 17 gm PO DAILY PRN 07/31/16 09/14/16 History Clotrimazole Luan [Mycelex 10 mg MUCOUS MEM BID 08/30/16 09/14/16 History Luan] Allopurinol [Zyloprim] 300 mg PO BID 09/14/16 09/14/16 History Allergies Allergy/AdvReac Type Severity Reaction Status Date / Time No Known Allergies Allergy Verified 09/14/16 10:55 Physical Exam Vitals: Vital Signs Temp Pulse Pulse Resp BP BP Pulse Ox 09/14/16 09:47 97.9 F 97 26 H 127/59 95 09/14/16 09:37 98.0 F 101 H 24 128/72 94 L Intake and Output 09/13/16 09/14/16 09/14/16 22:59 06:59 14:59 Intake Total 100 Output Total 300 Balance -200 Intake: IV 100 Sodium Chloride 0.9% 1, 100 000 ml @ 20 mls/hr IV . Q24H [facility] Rx#:[id number] Output: Urine 300 Other: Weight 51.71 kg Patient Weight 09/15/16 06:59 Weight 51.71 kg - Constitutional General appearance: mild distress - EENT Eyes: EOMI, PERRLA ENT: hearing grossly normal, normal oropharynx - Neck Neck: no lymphadenopathy - Respiratory Respiratory: bilateral: diminished - Cardiovascular Rhythm: regular Heart sounds: normal: S1, S2 - Gastrointestinal General gastrointestinal: normal bowel sounds, soft - Integumentary Integumentary: normal - Neurologic Neurologic: CNII-XII intact - Musculoskeletal Musculoskeletal: generalized weakness, strength equal bilaterally - Psychiatric Psychiatric: A&O x's 3, appropriate affect Results CBC & Chem 7: 09/14/16 07:44 09/14/16 07:44 Assessment and Plan (1) Pulmonary edema Narrative/Plan: Based on her chest x-ray, and BNP, this appears to be the most likely cause of her presenting complaint. Interestingly ejection fraction was quite normal on recent echocardiogram done on 08/30/16. Patient is being diuresis, is also being evaluated by cardiology. CPK and troponins were negative. Defer to the admitting service and cardiology for further management in this regard. Status: Acute (2) Burkitt lymphoma of extranodal or solid organ site Narrative/Plan: On the patient status post 3 cycles of chemotherapy. She is also receiving intrathecal chemotherapy prophylaxis. So far tolerance of chemotherapy is quite satisfactory. She has had side effects of weakness, drop in blood counts as well as decreased appetite which are within expectations. Labs today show recovery of her white count already as well as fairly normal looking chem panel. There is no evidence of any tumor lysis. Her regimen does include Adriamycin, which can be cardiotoxic. However as noted her baseline echocardiogram as well as repeat from a couple of weeks ago were both within normal limits Status: Acute (3) Anemia due to chemotherapy Narrative/Plan: Hemoglobin is 8.2 which is quite acceptable. Continue to monitor and transfuse if needed. Status: Acute Plan: Check CTA to rule out pulmonary embolus
[2016-09-14] MEDS ORDERED: RX INFO: IV CONTRAST WAS GIVEN 1 EACH MISC MISCELLANE PRN (12:02)
[2016-09-14 12:09] LABS: Glucose,Whole Blood 153 mg/dL (75-99)
[2016-09-14] MEDS: INSULIN LISPRO (humaLOG) 300 UNIT/3 ML VIAL SQ SCH ×3 (13:43→21:59)
[2016-09-14 13:48] LABS: Creatine Kinase <20 U/L (30-135)
[2016-09-14 14:01] LABS: Creatine Kinase MB 0.3 ng/mL (0.0-2.4); Troponin I 0.025 ng/mL (0.000-0.034)
--- NOTE | 2016-09-14 14:06 | CT ---
EXAMINATION TYPE: CT angio chest DATE OF EXAM: 09/14/2016 12:54 PM COMPARISON: Correlation radiograph same day HISTORY: 80-year-old female with SOB TECHNIQUE: Contiguous axial scanning of the chest performed with IV Contrast, patient injected with 4 5 ml mL of Omnipaque 350. Coronal and sagittal MIP reconstructions performed. CT DLP: 276.6 mGycm Automated exposure control for dose reduction was used. FINDINGS: A right-sided PICC line terminates at the mid SVC. Heart is upper limits of normal in size. Median sternotomy wires are present. No pericardial effusion . There is borderline ectatic at 3.5 cm. There is conventional arterial vessel branching anatomy. While there is satisfactory opacification of the pulmonary arterial system, there is extensive motion artifact degrading the exam. No large central or lobar pulmonary embolus is seen. Segmental and more distal pulmonary arterial branches are markedly limited due to nondiagnostic. Extensive edematous changes throughout the mediastinal fat and anasarca type changes throughout the s ubcutaneous fat. There is confluent groundglass and consolidation with septal lines throughout the lungs. A moderate t o large right-sided pleural effusion is present with adjacent atelectasis. Small hiatal hernia. Visualized upper abdomen otherwise shows no gross abnormality. Bones: Endplate spondylosis and degenerative disc disease throughout the thoracic spine. No osseous d estructive process. IMPRESSION: 1. NO LARGE CENTRAL OR LOBAR PULMONARY EMBOLUS. THERE IS EXTENSIVE RESPIRATORY MOTION. THE SEGMENTAL AND MORE DISTAL PULMONARY ARTERIAL BRANCHES ARE SUBOPTIMAL TO NONDIAGNOSTIC AND EMBOLI IN THESE LOCAT IONS CANNOT BE ADEQUATELY EXCLUDED ON THIS EXAM. 2. MODERATE TO LARGE RIGHT PLEURAL EFFUSION WITH ADJACENT ATELECTASIS. 3. CONFLUENT GROUNDGLASS AND CONSOLIDATION WITH SEPTAL LINES. CORRELATE FOR PULMONARY EDEMA. ATYPICAL PNEUMONIAS AND DAH ARE ALSO IN THE DIFFERENTIAL. 4. EDEMATOUS CHANGE THROUGHOUT THE MEDIASTINAL FAT LIMITS ASSESSMENT FOR MEDIASTINAL LYMPHADENOPATHY. RECOMMEND FOLLOW-UP CT AFTER SUCCESSFUL MANAGEMENT.
[2016-09-14] MEDS ORDERED: DRY MOUTH SPRAY 44.3 SPRAY/44.3 ML SPRAY MUCOUS MEM PRN (15:26)
[2016-09-14 16:41] LABS: Glucose,Whole Blood 186 mg/dL (75-99)
[2016-09-14] MEDS ORDERED: ALPRAZolam 0.25 MG TAB PO PRN (16:44)
[2016-09-14] MEDS ORDERED: Acetaminophen-Codeine 300-30mg TAB PO PRN (16:44)
[2016-09-14] MEDS: MORPHINE SULFATE 4 MG/ML SYRINGE IV PRN (17:12)
[2016-09-14] MEDS: FUROSEMIDE 10 MG/ML 10 ML VIAL IV SCH ×2 (17:15→23:02)
[2016-09-14] MEDS: NYSTATIN 100,000 UNIT/ML SUSP 500,000 UNIT/5 ML CUP PO SCH ×2 (17:16→21:57)
[2016-09-14] MEDS: PANTOPRAZOLE 40 MG TABLET PO SCH (17:28)
--- NOTE | 2016-09-14 18:04 | HP ---
DATE OF ADMISSION: 09/14/2016 PRESENTING COMPLAINT: Short of breath. HISTORY OF PRESENTING COMPLAINT: This is an 80-year-old patient who follows with oncology and has a diagnosis of Burkitt's lymphoma, extranodal type and also had work up at [facility] by getting chemotherapy. Patient's last admission, the patient also had mucositis and also has been losing her appetite and weight. The patient's other chronic conditions include GERD, hypertension, hyperlipidemia, osteoarthritis, hypothyroidism, coronary artery disease with stent. The patient presented with 2 to 3 days of increasing short of breath. Denies any chest pressure. No cough. No fever. Found to be in pulmonary edema with elevated BNP. Was found to be 84% on room air and was put on nonrebreather. Not much edema is present. REVIEW OF SYSTEMS: CONSTITUTIONAL: Weak tired, loss of appetite. HEENT: None. RESPIRATORY: As above. CARDIOVASCULAR: No edema. No obvious chest pain. GASTROINTESTINAL: None. GENITOURINARY: None. MUSCULOSKELETAL: Aches and pains in the joints. Dermatological: None. HEMATOLOGICAL: None. LYMPHATIC: None. PSYCHIATRY: Does feel low. Neurologic: Generalized weakness. PAST MEDICAL HISTORY: GERD, hyperlipidemia, hypertension, osteoarthritis, hypothyroid, left cataract, Burkitt's lymphoma, extranodal type. PAST SURGICAL HISTORY: Cholecystectomy, coronary artery bypass, cardiac cath with stent, hysterectomy, lumbar puncture with ( ) chemotherapy, bronchoscopy with biopsies, lymph node biopsy, bone marrow aspiration at [facility], polypectomy, right cataract surgery, carpal tunnel release, left hand third and fourth digit, total hysterectomy, triple vessel bypass in 2008. Past psych history of depression. SOCIAL HISTORY: She has a walker. No smoking. No alcohol. Family history of breast cancer. HOME MEDICATIONS: 1. Potassium 10 mEq p.o. b.i.d. 2. MiraLax 17 grams p.o. daily p.r.n. 3. Zofran 4 grams p.o. q.6 p.r.n. 4. Prilosec 20 mg p.o. b.i.d. 5. Nystatin t.i.d. 6. Toprol-XL 50 mg p.o. b.i.d. 7. Megace 400 mg b.i.d. 8. Synthroid 112 mcg p.o. Friday, Friday and Friday and 100 mcg Friday, Friday, , Friday. 9. Imdur ER 30 mg p.o. daily. 10. DuoNeb b.i.d. 11. Lasix 20 mg p.o. daily. 12. Prozac 20 mg p.o. q.h.s. 13. Colace 100 mg p.o. t.i.d. 14. Cranberry 450 mg p.o. daily. 15. CoQ10 gummies. 16. Mycelex 10 mg ( ) b.i.d. 17. Cepacol 1 tablet p.o. q.i.d. p.r.n. 18. Aspirin 81 mg p.o. daily. 19. Allopurinol 10 mg p.o. b.i.d. 20. Tylenol No. 3 1 tablet q.6 p.r.n. 21. Xanax 0.25 p.o. t.i.d. p.r.n. ALLERGIES: None. On examination, temperature 97.9, pulse 102, respirations 18, blood pressure 112/56, pulse 84% on room air. GENERAL APPEARANCE: Thin build, lying in bed, very tired appearing with a nonrebreather mask in place. EYES: Pupils equal, conjunctivae pale. HEENT: External appearance of nose and ears normal. Oral cavity with dry mucous membranes. NECK: JVD unable to assess. Mass not palpable. RESPIRATORY: Effort increased. LUNGS: Decreased breath sounds. Some crackles. CARDIOVASCULAR: First and second sounds normal. No edema. ABDOMEN: Soft, nontender. Liver and spleen and spleen not palpable. LYMPHATIC: No lymph nodes palpable in neck or axillae. PSYCHIATRY: Alert and oriented x3. Mood and affect anxious appearing. NEUROLOGICAL: Pupils equal. Cranial nerves grossly intact. Power and sensation grossly intact. INVESTIGATIONS: White count is 8.7, hemoglobin 8.2. Potassium 4.8, albumin 2.4. EKG shows sinus rhythm with first-degree AV block. Chest x-ray shows evidence of pulmonary edema. Chest CTA ( ) pulmonary edema. ASSESSMENT: 1. Acute pulmonary edema in a patient whose recent 2-D echocardiogram showed preserved LV function. There is minimal if any left ventricular hypertrophy. Also making diastolic dysfunction, less likely, it may be noted that patient on arrival on hefty dose of Synthroid. Given her age normally the patient Synthroid requirement is low at that age and given that the patient had been having weight loss, the patient may be over replaced with Synthroid and tachycardia could well be manifesting as a strain on the heart with congestive heart failure pulmonary edema. 2. Acute hypoxic respiratory failure secondary to congestive heart failure, present on admission. 3. Burkitt's lymphoma extranodal type. 4. Gastroesophageal reflux disease. 5. Hyperlipidemia. 6. Primary osteoarthritis of multiple joints, bilateral. 7. Hypothyroidism. Check for over replacement. 8. Coronary artery disease with prior history of stent and coronary artery bypass grafting. PLAN: Patient will be put on IV Lasix. Patient is still on 100% nonrebreather. Home medications are resumed. Care was discussed with the patient. Cardiology was consulted. Consultation will be made to oncology. We will check patient's FT4 and TSH. Increase the dose of the Lasix. Repeat a chest x-ray, check serial BMP.
[2016-09-14 20:09] LABS: Creatine Kinase <20 U/L (30-135)
[2016-09-14 20:23] LABS: Creatine Kinase MB 0.4 ng/mL (0.0-2.4); Troponin I 0.022 ng/mL (0.000-0.034)
[2016-09-14 20:27] LABS: Hemoglobin A1C 6.1 % (4.2-6.1)
[2016-09-14 21:06] LABS: Glucose,Whole Blood 173 mg/dL (75-99)
[2016-09-14] MEDS: CLOTRIMAZOLE TROCHE 10 MG TROCHE MUCOUS MEM SCH (21:58)
[2016-09-14] MEDS: MEGESTROL 400 MG/10 ML CUP PO SCH (21:58)
[2016-09-14] MEDS: ALLOPURINOL 300 MG TAB PO SCH (21:58)
[2016-09-14] MEDS: FLUoxetine HCL 20 MG CAP PO SCH (22:20)
[2016-09-15 06:19] LABS: Glucose,Whole Blood 150 mg/dL (75-99)
[2016-09-15] MEDS: LEVOTHYROXINE 100 MCG TAB PO SCH (06:27)
[2016-09-15] MEDS: PANTOPRAZOLE 40 MG TABLET PO SCH ×2 (06:27→17:32)
[2016-09-15] MEDS: INSULIN LISPRO (humaLOG) 300 UNIT/3 ML VIAL SQ SCH ×4 (06:27→21:18)
[2016-09-15 06:34] LABS: Cholesterol 94 mg/dL (<200); Glucose 147 mg/dL (74-99); Triglycerides 122 mg/dL (<150)
[2016-09-15 06:35] LABS: Anion Gap 8 mmol/L; Blood Urea Nitrogen 21 mg/dL (7-17); Calcium 10.1 mg/dL (8.4-10.2); Carbon Dioxide 30 mmol/L (22-30); Chloride 105 mmol/L (98-107); HDL Cholesterol 20 mg/dL (40-60); Non-African American GFR(MDRD) >60 (>60 ml/min/1.73 sqM); Potassium 3.8 mmol/L (3.5-5.1); Sodium 143 mmol/L (137-145)
[2016-09-15] MEDS: FUROSEMIDE 10 MG/ML 10 ML VIAL IV SCH ×2 (08:15→16:00)
[2016-09-15] MEDS: ENOXAPARIN 40 MG/0.4 ML SYRINGE SQ SCH (08:18)
[2016-09-15] MEDS: METOPROLOL SUCCINATE (ER) 50 MG TAB.ER.24H PO SCH ×2 (08:19→21:13)
[2016-09-15] MEDS: NYSTATIN 100,000 UNIT/ML SUSP 500,000 UNIT/5 ML CUP PO SCH ×3 (08:19→21:15)
[2016-09-15] MEDS: MEGESTROL 400 MG/10 ML CUP PO SCH ×2 (08:19→21:13)
[2016-09-15] MEDS: POTASSIUM CHLORIDE ER 10 MEQ TAB.ER.PRT PO SCH ×2 (08:20→21:14)
[2016-09-15] MEDS: CLOTRIMAZOLE TROCHE 10 MG TROCHE MUCOUS MEM SCH ×2 (08:20→21:15)
[2016-09-15] MEDS: ALLOPURINOL 300 MG TAB PO SCH ×2 (08:20→21:14)
[2016-09-15] MEDS: ISOSORBIDE MONONITRATE ER 30 MG TAB.ER.24H PO SCH (08:20)
[2016-09-15] MEDS: ASPIRIN 81 MG CHEW PO SCH (08:20)
[2016-09-15] MEDS: SODIUM CHLORIDE 0.9% 1,000 ML IV SCH ×2 (08:24→16:40)
--- NOTE | 2016-09-15 09:33 | PN ---
Mrs. Shepherd is an 80-year-old female who presented with a progressive symptoms of dyspnea. She has been diagnosed recently with Burkitt's lymphoma and has been receiving chemotherapy. She continues to be quite dyspneic. She denies any chest pain. On the monitor she continues to be in sinus mechanism. She continues to be at this time on aspirin 81 mg daily, Lasix 80 q. 8 hours, isosorbide mononitrate 30 mg daily, metoprolol succinate 50 mg twice a day. PHYSICAL EXAMINATION: Blood pressure running in the 100 hundreds with a heart in the 70s. LUNGS: With decreased breath sound at the bases with a few crackles. HEART: Regular rate and rhythm. S1, S2, no S3, with systolic murmur. No diastolic murmur. ABDOMEN: Soft, nontender. EXTREMITIES: +1 edema. Lab data revealed. NT-proBNP of 3070. BUN and creatinine 21 and 0.74. Potassium 3.8. She has according to the scale lost 10 kg. IMPRESSION: 1. Symptoms of congestive heart failure in a patient with preserved systolic function by echocardiography recently. No evidence of acute ischemic event. 2. Burkitt's lymphoma with chemotherapy started recently. 3. Anemia. RECOMMENDATION: We will continue IV diuresis at this time. Follow her renal function and depending on her progress, further recommendation will be made.
[2016-09-15 10:44] LABS: Anisocytosis Slight; CH 30.1; CHCM 31.7; HCT 25.6 % (34.0-46.0); HDW 3.54; HGB 8.1 gm/dL (11.4-16.0); Hypochromasia Slight; MCH 30.1 pg (25.0-35.0); MCHC 31.4 g/dL (31.0-37.0); MCV 95.8 fL (80.0-100.0); Macrocytosis Slight; Poikilocytosis Slight; RBC 2.68 m/uL (3.80-5.40); RDW 17.6 % (11.5-15.5); WBC 8.8 k/uL (3.8-10.6)
--- NOTE | 2016-09-15 11:01 | XR ---
EXAMINATION TYPE: XR chest 2V DATE OF EXAM: 09/15/2016 10:53 AM COMPARISON: 09/14/2016 HISTORY: 80-year-old female CHF TECHNIQUE: PA and lateral views FINDINGS: Heart remains upper limits of normal in size. Right PICC tip at the mid SVC level. Median sternotomy wires with postoperative clips. Diffuse interstitial lung disease with more confluent opacities left mid to lower lung and medial right lower lung, not significantly changed. There is some posterior art ifacts on the lateral view limiting evaluation. IMPRESSION: Interstitial lung disease and confluent airspace disease in the left greater than right lung. Overall findings stable. Pulmonary edema and multifocal pneumonia are in the differential. The moderate righ t pleural effusion seen on CT of 09/14/2016 appears markedly underestimated on radiographs.
[2016-09-15 12:07] LABS: Glucose,Whole Blood 157 mg/dL (75-99)
--- NOTE | 2016-09-15 15:11 | XR ---
"EXAMINATION TYPE: XR chest 1V portable DATE OF EXAM: 09/15/2016 2:51 PM HISTORY: Shortness of breath. COMPARISON: None. TECHNIQUE: Single view of the chest is submitted. FINDINGS: There is a large right-sided pneumothorax estimated at approximately 40-50%. No evidence for mediasti nal shift at this time. Diffuse airspace infiltrates throughout both lung schmidt are noted. Endotracheal tube is approximately 2 cm from the kamron. Right-sided PICC line is in place and unchan ged from prior study. Demonstrated are scattered senescent parenchymal change. The heart is stable. Hilar and mediastinal structures are within normal limits. Degenerative changes are seen of the dorsal spine. IMPRESSION: 1. New large right-sided pneumothorax estimated at 40-50%. 2. Diffuse airspace infiltrates as noted. A Red message has been communicated to Carlos Parish via the [employer] | Critical Result syst em on 09/15/2016 3:08 PM, Message ID [id number]."
[2016-09-15] MEDS ORDERED: PROPOFOL 50 ML IV ONE ×2 (15:13→15:28)
[2016-09-15] MEDS ORDERED: MIDAZOLAM 2 MG/2 ML VIAL IV ONE ×2 (15:16→15:17)
--- NOTE | 2016-09-15 15:39 | XR ---
EXAMINATION TYPE: XR chest 1V portable DATE OF EXAM: 09/15/2016 3:25 PM HISTORY: Pneumothorax COMPARISON: 08/2616 TECHNIQUE: Single view of the chest is submitted. FINDINGS: Right-sided chest tube is in place at the right lung base. There is been reexpansion of the right abhijeet g without significant residual pneumothorax appreciated at this time. Diffuse reticulonodular infiltr ates persist. Endotracheal tube and right-sided PICC line are unchanged. IMPRESSION: 1. There is been reexpansion of the right lung without significant residual pneumothorax appreciated at this time.
[2016-09-15] MEDS ORDERED: IV VANCOMYCIN PER PHARMACY 1 EACH MISC MISCELLANE PRN (15:41)
--- NOTE | 2016-09-15 15:52 | XR ---
EXAMINATION TYPE: XR chest 1V portable DATE OF EXAM: 09/15/2016 3:39 PM HISTORY: Pneumothorax COMPARISON: 09/15/2016 TECHNIQUE: Single view of the chest is submitted. FINDINGS: Right basilar chest tube is noted however the port is noted at the chest wall and should be advanced. Much improvement is noted in right-sided pneumothorax. Endotracheal tube and right-sided PICC line u nchanged as are diffuse reticulonodular infiltrates. impression: Improvement in right-sided pneumothorax however chest tube should be advanced.
[2016-09-15 16:01] LABS: Glucose,Whole Blood 182 mg/dL (75-99)
[2016-09-15] MEDS: LEVOFLOXACIN 750MG-D5W PMX 750 MG in DEXTROSE/WATER 1 150ML.BAG IVPB SCH (16:01)
[2016-09-15] MEDS ORDERED: SODIUM CHLORIDE 0.9% 1,000 ML IV ONE ×2 (16:06→16:30)
[2016-09-15] MEDS: MEROPENEM 1 GM in SODIUM CHLORIDE 0.9% 100 ML IVPB SCH (16:45)
[2016-09-15] MEDS ORDERED: EMPTY BAG 1 BAG with PROPOFOL 500 MG IV SCH (16:45)
[2016-09-15] MEDS: MORPHINE SULFATE 4 MG/ML SYRINGE IV PRN (17:10)
[2016-09-15 17:15] LABS: ABG PCO2 39 mmHg (35-45); ABG PH 7.43 (7.35-7.45); ABG PO2 143 mmHg (83-108)
[2016-09-15 17:16] LABS: ABG Base Excess 0.9 mmol/L; ABG HCO3 25 mmol/L (21-25); ABG TCO2 26 mmol/L (19-24)
[2016-09-15] MEDS: NOREPINEPHRINE 4 MG in SODIUM CHLORIDE 0.9% 250 ML IV SCH (17:29)
[2016-09-15 18:04] LABS: Anisocytosis Slight; Basophils % (A) 0 %; CH 29.8; CHCM 30.9; Eosinophils % (A) 0 %; HDW 3.65; Hypochromasia Marked; Luc # (Auto) 0.01; Luc % (Auto) 0; Lymphocytes # (A) 0.1 k/uL (1.0-4.8); Lymphocytes % (A) 1 %; MCH 29.6 pg (25.0-35.0); MCHC 30.5 g/dL (31.0-37.0); Macrocytosis Slight; Mean Platelet Volume 7.7; Monocytes # (A) 0.4 k/uL (0-1.0); Monocytes % (A) 8 %; Neutrophils # (A) 4.2 k/uL (1.3-7.7); Neutrophils % (A) 91 %; Poikilocytosis Slight; RBC 1.56 m/uL (3.80-5.40); RDW 17.2 % (11.5-15.5); WBC 4.6 k/uL (3.8-10.6); WBC (Perox) 4.65
[2016-09-15 18:05] LABS: ALT 34 U/L (9-52); AST 25 U/L (14-36); Alkaline Phosphatase 52 U/L (38-126); Anion Gap 5 mmol/L; Blood Urea Nitrogen 22 mg/dL (7-17); Carbon Dioxide 24 mmol/L (22-30); Chloride 111 mmol/L (98-107); Glucose 165 mg/dL (74-99); Magnesium 1.7 mg/dL (1.6-2.3); Non-African American GFR(MDRD) >60 (>60 ml/min/1.73 sqM); Phosphorous 2.5 mg/dL (2.5-4.5); Potassium 3.2 mmol/L (3.5-5.1); Sodium 140 mmol/L (137-145); Total Bilirubin 0.4 mg/dL (0.2-1.3); Total Protein 3.6 g/dL (6.3-8.2)
[2016-09-15 18:10] LABS: HCT 15.1 % (34.0-46.0); HGB 4.6 gm/dL (11.4-16.0)
--- NOTE | 2016-09-15 18:18 | P.CNPUL ---
History of Present Illness Consult date: 09/15/16 Reason for consult: dyspnea History of present illness: This is an 80-year-old female patient with a diagnosis of Burkitt's lymphoma. The patient initially presented on May 2016 with a 9.4 cm soft tissue mass in the superior mediastinum in addition to 5.5 cm mass along the right cardiac border and bulky mediastinal lymph nodes and the right-sided pleural effusion. Note that at that time the patient has had thoracentesis and this failed to establish diagnosis. Following that, the patient had a endoscopic ultrasound/bronchoscopy and transbronchial needle aspirate of the lymph nodes showed findings suspicious of a lymphoma however it final diagnoses could not been established. Ultimately underwent a biopsy of a right supraclavicular lymph node which confirmed the presence of a Burkitt's lymphoma the patient was treated with chemotherapy and she received 2 cycles of R-EPOCH , the first cycle in June 2016 and the second in August 2016. I was asked to evaluate this patient knowing that she was having significant amount of respirator distress on the medical floor. I reviewed the CAT scan of the chest and the series of chest x-ray that was done during the current admission. The patient CAT scan of the chest showed extensive infiltration of the left lung with patchy infiltration of the right upper lobe area and a moderate-sized right-sided pleural effusion. The chest x-ray was also consistent with the CAT scan findings. The patient was quite hypoxic on high flow oxygen at 15 L/m nasal cannula and his saturation was around 90-91%. At the time of my evaluation the patient was quite uncomfortable and short of breath and I was asked to proceed with a right-sided thoracentesis to give this patient some symptomatic relief. I explained to the patient and her family the procedure. Upon further inquiry, it seems that the patient's condition has been gradually getting worse. She had been experiencing increased cough and dyspnea and she was short of breath with limited amount of activity. She end up in the hospital. No reported fever or chills. I noted no temperature or white cell count elevation during this current hospital stay. I ultimately proceeded with a right-sided thoracentesis for the reasons mentioned above. During the thoracentesis, the patient became progressively more short of breath. At that point I removed a thoracentesis catheter I terminated the procedure. The patient already drained approximately 150 mL of fluid from the right lung. The patient was noted to become progressively more hypoxic and admitted to the pulse ox dropped down to 60%. At that point, I activated the emergency team and the patient was intubated immediately in her own room. The patient remained hemodynamically stable with a systolic blood pressure above 120 throughout intubation procedure. Chest x-ray post intubation showed a large right-sided pneumothorax. At that point the patient got transferred to the intensive care unit where immediately a right-sided chest tube was inserted with complete expansion of the right lung. The chest tube itself drained an additional 450 mL of pleural fluid from the right lung making the total amount of fluid evacuated from the right lung being at 650 mL. The pleural fluid was light yellowish in color. The patient was also sedated with Diprivan. The patient had a bronchoscopy and bronchoalveolar lavage of the lingular segment was done without any major complications. The patient was taken off diuretics. The patient was given a bolus of normal saline 1 L. Echocardiogram done recently showed a preserved LV function without any significant valvular dysfunction. I discussed the case with ID and will start the patient with broad -spectrum antibiotics suspecting bilateral pneumonia and covering for a portion stick infections. At this point in time, the patient is on a mechanical ventilator. The patient is an assist-control mode with a rate of 22, tidal volume 450, FiO2 of 100% and a PEEP of 5. The patient had a blood gas post intubation that showed a pH of 7.43 with a pCO2 of 39 and pO2 of 143. Based on that FiO2 has been drop down to 70%. Hemodynamically she is stable. She briefly became hypotensive requiring 2 mics of levo fed and ultimately levo fed was discontinued. I ordered follow-up blood work and a stat blood work is in progress. The preliminary results showed a global of 4.6 and the patient will be ordered a total of 2 units of packed RBC as soon as possible. Note that there was no evidence of any external bleeding or bleeding through the patient's pleural space at a time of the procedure. Review of Systems ROS unobtainable: due to endotracheal tube Past Medical History Past Medical History: Cancer, GERD/Reflux, Hyperlipidemia, Hypertension, Osteoarthritis (OA), Thyroid Disorder Additional Past Medical History / Comment(s): Burkitt's lymphoma with bulky adenopathy involving the mediastinum and the patient has been treated with systemic chemotherapy, coronary artery disease with previous three-vessel bypass surgery along with coronary stent insertion, recent UTI with E. coli, chronic right-sided pleural effusion with previous thoracentesis, hyperlipidemia , hypothyroidism, GE reflux, hypertension, osteoarthritis, cataracts History of Any Multi-Drug Resistant Organisms: None Reported Past Surgical History: Cholecystectomy, Coronary Bypass/CABG, Heart Catheterization, Heart Catheterization With Stent, Hysterectomy Additional Past Surgical History / Comment(s): lumbar puncture for intrathecal chemotherapy, 07/02/16 PICC line L arm, BRONCHOSCOPY W/ BX at [facility]-pt states unsuccessful, LYMPH NODE BX, BONE MARROW ASPIRATION AT ([facility]), COLONOCOPSY/ POLYPECTOMY(BENIGN), RT CATARACT,CARPAL TUNNEL RELEASE, LT HAND 3RD AND 4TH DIGIT-TRIGGER FINGER SX, TOTAL HYSTERECTOMY, TRIPLE VESSEL CABG 2008, ECTOPIC Past Anesthesia/Blood Transfusion Reactions: No Reported Reaction Additional Past Anesthesia/Blood Transfusion Reaction / Comment(s): Pt recently received blood without reaction. Date of Last Stent Placement:: 1998 Past Psychological History: Depression Additional Psychological History / Comment(s): Pt states her depression is stable. She wants to live to see all her grandchildren . She is recently using a walker. She has a very supportive family. She has [facility] home care-a nurse comes M//Fri. Smoking Status: Never smoker Past Alcohol Use History: None Reported Past Drug Use History: None Reported - Past Family History Mother Family Medical History: Cancer Additional Family Medical History / Comment(s): BREAST CANCER, LIVED TO BE 85 Father Additional Family Medical History / Comment(s): ALCOHOLIC- AGE 54 Medications and Allergies Home Medications Medication Instructions Recorded Confirmed Type Aspirin [Adult Low Dose Aspirin EC] 81 mg PO DAILY 07/01/16 09/14/16 History FLUoxetine HCL [PROzac] 20 mg PO HS 07/01/16 09/14/16 History Isosorbide Mononitrate ER [Imdur] 30 mg PO DAILY 07/01/16 09/14/16 History Levothyroxine Sodium [Synthroid] 100 mcg PO SUTUTHSA 07/01/16 09/14/16 History Levothyroxine Sodium [Synthroid] 112 mcg PO MOWEFR 07/01/16 09/14/16 History Omeprazole [PriLOSEC] 20 mg PO AC-BID 07/01/16 09/14/16 History Furosemide [Lasix] 20 mg PO DAILY 07/25/16 09/14/16 History Potassium Chloride [K-Tab ER] 10 meq PO BID 07/25/16 09/14/16 History ALPRAZolam [Xanax] 0.25 mg PO TID PRN 07/31/16 09/14/16 History Acetaminophen-Codeine 300-30mg 1 tab PO Q6H PRN 07/31/16 09/14/16 History [Tylenol w/codeine #3] Benzocaine/Menthol Lozeng [Cepacol 1 tab PO QID PRN 07/31/16 09/14/16 History lozenge] Co-Q10 Gummy 1 tab PO DAILY@1200 07/31/16 09/14/16 History Cranberry Fruit Concentrate 450 mg PO DAILY@1200 07/31/16 09/14/16 History [Cranberry] Docusate [Colace] 100 mg PO TID 07/31/16 09/14/16 History Ipratropium-Albuterol Nebulize 3 ml INHALATION RT-BID 07/31/16 09/14/16 History [Duoneb 0.5 mg-3 mg/3 ml Soln] Megestrol Acetate [Megace] 400 mg PO BID 07/31/16 09/14/16 History Nystatin 100,000 Unit/ml Susp 1,500,000 units PO TID 07/31/16 09/14/16 History [Mycostatin Oral Susp] Ondansetron [Zofran] 4 mg PO Q6H PRN 07/31/16 09/14/16 History Polyethylene Glycol 3350 [Miralax] 17 gm PO DAILY PRN 07/31/16 09/14/16 History Clotrimazole Luan [Mycelex 10 mg MUCOUS MEM BID 08/30/16 09/14/16 History Luan] Allopurinol [Zyloprim] 300 mg PO BID 09/14/16 09/14/16 History Allergies Allergy/AdvReac Type Severity Reaction Status Date / Time No Known Allergies Allergy Verified 09/14/16 10:55 Physical Exam Vitals: Vital Signs Temp Pulse Pulse Resp BP BP Pulse Ox 09/15/16 17:00 104 H 23 110/61 100 09/15/16 16:45 104 H 23 113/64 100 09/15/16 16:30 106 H 26 H 113/64 100 09/15/16 16:15 110 H 22 100 09/15/16 16:00 97.2 F L 114 H 22 117/65 100 09/15/16 15:45 101 H 24 100 09/15/16 15:30 105 H 22 114/62 100 09/15/16 15:15 98 22 84/46 09/15/16 15:13 99 16 135/72 09/15/16 14:52 111 H 74/34 88 L 09/15/16 14:45 119 H 150/95 92 L 09/15/16 14:34 146/78 41 L 09/15/16 14:32 102 H 166/105 61 L 09/15/16 12:00 98.7 F 88 21 134/80 91 L 09/15/16 09:15 92 L 09/15/16 08:00 97.9 F 86 21 102/51 91 L 09/15/16 04:00 97.0 F L 83 20 92/52 94 L 09/15/16 00:00 96.9 F L 73 20 99/55 94 L 09/14/16 20:00 96.9 F L 82 22 108/63 93 L Intake and Output 09/15/16 09/15/16 09/15/16 06:59 14:59 22:59 Intake Total 471 964 7958.5 Output Total 900 900 560 Balance -780 -570 1852.5 Intake: IV 120 120 12.5 Propofol 50 ml As IV .STK 12.5 -[facility] Rx#:[id number] Sodium Chloride 0.9% 1, 120 120 000 ml @ 20 mls/hr IV . Q24H [facility] Rx#:[id number] Intake, IV Titration 2400 Amount Levofloxacin 750Mg-D5w 150 Pmx 750 mg In Dextrose/ Water 1 150ml.bag @ 100 mls/hr IVPB Q24H [facility] Rx#: [id number] Meropenem 1 gm In Sodium 100 Chloride 0.9% 100 ml @ 200 mls/hr IVPB Q8HR [facility] Rx#:[id number] Norepinephrine 4 mg In 0 Sodium Chloride 0.9% 250 ml @ Titrate IV .Q0M [facility] Rx#:[id number] Sodium Chloride 0.9% 1, 150 000 ml @ 75 mls/hr IV . [id number] [facility] Rx#:[id number] Sodium Chloride 0.9% 1, 1000 000 ml @ 999 mls/hr IV . Q1H1[facility] Rx#:[id number] Sodium Chloride 0.9% 1, 1000 000 ml @ 999 mls/hr IV . Q1H1M [facility] Rx#:[id number] Oral 210 Output: Chest Tube Drainage 490 Chest Tube Right Lateral 490 Chest Urine 900 900 70 Other: Voiding Method Bedpan Bedpan Diaper Diaper # Voids 1 1 Weight 41.73 kg 41.73 kg Patient Weight 09/16/16 06:59 Weight 41.73 kg ABP, PAP, CO, CI - Last 8 Hours Arterial Blood Pressure 102/57 Arterial Blood Pressure 96/55 Arterial Blood Pressure 95/60 Arterial Blood Pressure 102/79 Arterial Blood Pressure 153/82 Arterial Blood Pressure 88/61 Calm and comfortable sedated with Diprivan intubated on a mechanical ventilator.Head exam was generally normal. There was no scleral icterus or corneal arcus. Mucous membranes were moist.Neck was supple and without jugular venous distension, thyromegaly, or carotid bruits. Carotids were easily palpable bilaterally. There was no adenopathy. Orogastric and endotracheal tube are both in place. Lungs sounds are equal and symmetrical bilaterally and the patient has a corrected the mid and the lower lung schmidt and the patient has a right-sided chest tube with positive air leak.Cardiac exam revealed the PMI to be normally situated and sized. The rhythm was regular and no extrasystoles were noted during several minutes of auscultation. The first and second heart sounds were normal and physiologic splitting of the second heart sound was noted. There were no murmurs, rubs, clicks, or gallops. Sternum stable clean and intact and there is a previous scar of a previous thoracotomy.Abdominal exam revealed normal bowel sounds. The abdomen was soft, non-tender, and without masses, organomegaly, or appreciable enlargement of the abdominal aorta.Examination of the extremities revealed easily palpable radial, femoral and pedal pulses. There was no cyanosis, clubbing or edema. Results - Laboratory Findings CBC and BMP: 09/15/16 05:49 09/15/16 05:49 ABG ABG pH 7.43 (7.35-7.45) 09/15/16 15:22 ABG pCO2 39 mmHg (35-45) 09/15/16 15:22 ABG pO2 143 mmHg (83-108) H 09/15/16 15:22 ABG O2 Saturation 99.0 % (94-97) H 09/15/16 15:22 PT/INR, D-dimer PT 11.1 sec (9.0-12.0) 09/14/16 07:44 INR 1.1 (<1.1) 09/14/16 07:44 Abnormal lab findings: Abnormal Labs 09/14/16 09/14/16 09/14/16 12:07 13:00 16:22 RBC Hgb Hct RDW ABG pO2 ABG Total CO2 ABG O2 Saturation BUN Glucose POC Glucose (mg/dL) 153 H 186 H Total Creatine Kinase <20 L HDL Cholesterol 09/14/16 09/14/16 09/15/16 19:28 21:04 05:49 RBC Hgb Hct RDW ABG pO2 ABG Total CO2 ABG O2 Saturation BUN 21 H Glucose 147 H POC Glucose (mg/dL) 173 H Total Creatine Kinase <20 L HDL Cholesterol 20 L 09/15/16 09/15/16 09/15/16 05:49 06:18 12:02 RBC 2.68 L Hgb 8.1 L Hct 25.6 L RDW 17.6 H ABG pO2 ABG Total CO2 ABG O2 Saturation BUN Glucose POC Glucose (mg/dL) 150 H 157 H Total Creatine Kinase HDL Cholesterol 09/15/16 09/15/16 15:22 15:58 RBC Hgb Hct RDW ABG pO2 143 H ABG Total CO2 26 H ABG O2 Saturation 99.0 H BUN Glucose POC Glucose (mg/dL) 182 H Total Creatine Kinase HDL Cholesterol - Diagnostic Findings Chest x-ray: image reviewed Assessment and Plan Plan: Assessment 1 acute hypoxic respiratory failure currently intubated on a mechanical ventilator 2 acute and diffuse bilateral pulmonary infiltrates, strongly consider pneumonia including opportunistic pneumonias in the setting of immunosuppression and Burkitt's lymphoma. The patient's presentation is not typical of heart failure. The patient is a preserved LV function and she hasn' t responded to diuretics over the past 24-48 hours. As such, pneumonias are very much likely causing this patient's progressive respiratory failure 3 right-sided pleural effusion, status post iatrogenic right-sided pneumothorax. The patient has a chest tube in place with adequate expansion of right lung and adequate evacuation of a right-sided pleural effusion 4 acute ventilator-dependent respiratory failure secondary to above. 5 Burkitt's lymphoma 6 systemic chemotherapy 7 coronary artery disease with previous bypass surgery 8 hypothyroidism 9 chronic anemia 10 malnutrition and progressive debility seconds above-mentioned comorbidities and the patient's health in general has been progressively declining since have diagnosed with Burkitt's lymphoma and since the systemic chemotherapy Plan Continue vent support. Monitor the blood gases. Daily chest x-rays. Keep the right-sided chest tube in place. Broad-spectrum antibiotics including a combination of Merrem, vancomycin and Levaquin. Bronchoscopy and bronchial lavage of the left upper lobe was done, pending further culture results. ID consultation. Hold diuretics. Monitor the hemodynamics and the blood pressure. Initiate tube feeds for enteral nutrition. Repeat the hemoglobin and the flow transfer this patient with a total of 2 units of packed RBC to bring her hemoglobin above 7. IV Protonix for GI prophylaxis. A lengthy discussion was done with the patient's family and extended to them at length the current condition and the prognosis. Obviously condition is critical. We' ll continue following up this patient. As you make further recommendations based on her progress.
[2016-09-15] MEDS: VANCOMYCIN 750 MG in SODIUM CHLORIDE 0.9% 250 ML IVPB SCH (18:19)
[2016-09-15 18:24] LABS: Anisocytosis Slight; Basophils % (A) 0 %; Eosinophils % (A) 0 %; HCT 23.7 % (34.0-46.0); HDW 3.76; Hypochromasia Moderate; Luc # (Auto) 0.01; Luc % (Auto) 0; Lymphocytes # (A) 0.1 k/uL (1.0-4.8); Lymphocytes % (A) 1 %; MCHC 31.8 g/dL (31.0-37.0); MCV 94.4 fL (80.0-100.0); Mean Platelet Volume 7.9; Monocytes # (A) 0.2 k/uL (0-1.0); Monocytes % (A) 3 %; Neutrophils # (A) 9.1 k/uL (1.3-7.7); Neutrophils % (A) 96 %; Poikilocytosis Slight; RBC 2.51 m/uL (3.80-5.40); RDW 17.6 % (11.5-15.5); WBC 9.5 k/uL (3.8-10.6); WBC (Perox) 9.96
[2016-09-15 18:26] LABS: HGB 7.5 gm/dL (11.4-16.0)
--- NOTE | 2016-09-15 18:56 | PN ---
DATE OF SERVICE: 09/15/2016 PRESENTING COMPLAINT: Short of breath. INTERVAL HISTORY: This is a patient with diagnosis of Burkitt's lymphoma presented with shortness of breath. It was appearing to be congestive heart failure though patient's recent LV showed preserved LV function. Did not appear to be acute coronary syndrome. Earlier today I reviewed the patient's clinical picture, thyroid functions came back to be normal. Because of pleural effusion, I discussed with Dr. Parish from pulmonary and given that patient was still requiring 15 liters of oxygen and the patient is getting tired, I discussed with him and the family and decision was made to proceed with right-sided thoracentesis. Was ( ) with Dr. Parish. He did try to do thoracentesis. 125 mL fluid was obtained. Patient subsequently became more short of breath. Stat chest x-ray showed pneumothorax and because of the patient already compromised pulmonary status, it was decided to intubate the patient and patient was taken to the intensive care unit where a chest tube was placed per Dr. Parish. Review of systems was done for constitutional, cardiovascular, GI, pulmonary; relevant findings as above. The patient still at baseline short of breath. Current medications included IV Lasix. On examination, temperature 97, pulse 88, respirations 21, blood pressure 130/80, pulse ox 91% on 15 liters. GENERAL APPEARANCE: Sitting up, short of breath. EYES: Pupils equal. Conjunctivae normal. NECK: JVD unable to assess. Respiratory effort increased, lungs decreased breath sounds. CARDIOVASCULAR: First and second sounds are normal. No edema. ABDOMEN: Soft, nontender. PSYCHIATRY: Alert and oriented times three. Mood and affect tired appearing. INVESTIGATIONS: White count 8.8, hemoglobin 8.1, potassium 3.8. BUN 21, creatinine 0.74. ProBNP 3070, TSH normal. Chest x-ray again showing no pulmonary edema-like picture and some bilateral pleural effusion. ASSESSMENT: 1. Right pleural effusion initially attempted only 125 mL obtained and then when Dr. Parish put a chest tube, more fluid was obtained. 2. Acute iatrogenic pneumothorax during thoracentesis. 3. Acute hypoxia respiratory failure secondary to multifactorial, could be infection, pleural effusion and congestive heart failure. 4. Burkitt's Lymphoma. 5. Gastroesophageal reflux disease. 6. Hyperlipidemia. 7. Primary osteoarthritis of multiple joints, bilateral. 8. Hypothyroidism. 9. Coronary artery disease with prior history of stent and coronary artery bypass grafting. PLAN: I spoke to patient's family at length and also Dr. Parish spoke to the family. Given that the patient is requiring ( ) liters, patient eventually would ( ) out. We also decided earlier before procedure to get Dr. Boone input to see if atypical pneumonia was causing the presentation though. Still the picture, congestive heart failure considered because of elevated BNP and how the pictured looked. Empirically antibiotics will be added until formal evaluation by Dr. Boone.
[2016-09-15] MEDS ORDERED: POTASSIUM CHLORIDE 20 MEQ in WATER FOR INJECTION 1 100ML.BAG IVPB ONE (19:00)
[2016-09-15] MEDS: MAGNESIUM SULFATE-D5W PMX 1 GM in DEXTROSE/WATER 1 100ML.BAG IVPB SCH ×2 (21:12→22:48)
[2016-09-15] MEDS: FLUoxetine HCL 20 MG CAP PO SCH (21:14)
[2016-09-15 21:20] LABS: Glucose,Whole Blood 144 mg/dL (75-99)
[2016-09-15] MEDS ORDERED: NALOXONE 0.4 MG/ML 1 ML VIAL IV PRN (22:37)
[2016-09-16] MEDS: methylPREDNISolone SOD SUCCI 40 MG/ML 1 ML VIAL IV SCH ×4 (00:32→18:25)
[2016-09-16] MEDS: MEROPENEM 1 GM in SODIUM CHLORIDE 0.9% 100 ML IVPB SCH ×3 (00:32→15:21)
[2016-09-16] MEDS: EMPTY BAG 1 BAG with PROPOFOL 500 MG IV SCH ×3 (00:56→19:57)
[2016-09-16 05:44] LABS: Anisocytosis Slight; Basophils % (A) 0 %; CH 30.3; CHCM 32.3; Eosinophils % (A) 0 %; HCT 24.1 % (34.0-46.0); HDW 3.74; HGB 7.6 gm/dL (11.4-16.0); Hypochromasia Slight; Luc # (Auto) 0.02; Luc % (Auto) 0; Lymphocytes # (A) 0.1 k/uL (1.0-4.8); Lymphocytes % (A) 1 %; MCH 29.9 pg (25.0-35.0); MCHC 31.6 g/dL (31.0-37.0); MCV 94.6 fL (80.0-100.0); Mean Platelet Volume 8.5; Monocytes # (A) 0.1 k/uL (0-1.0); Monocytes % (A) 2 %; Neutrophils # (A) 8.1 k/uL (1.3-7.7); Neutrophils % (A) 97 %; Poikilocytosis Slight; RBC 2.55 m/uL (3.80-5.40); RDW 17.7 % (11.5-15.5); WBC 8.4 k/uL (3.8-10.6); WBC (Perox) 8.28
[2016-09-16] MEDS: SODIUM CHLORIDE 0.9% 1,000 ML IV SCH ×2 (05:55→19:59)
[2016-09-16 06:04] LABS: Anion Gap 7 mmol/L; Blood Urea Nitrogen 24 mg/dL (7-17); Calcium 10.1 mg/dL (8.4-10.2); Carbon Dioxide 24 mmol/L (22-30); Chloride 110 mmol/L (98-107); Glucose 146 mg/dL (74-99); Magnesium 2.5 mg/dL (1.6-2.3); Non-African American GFR(MDRD) >60 (>60 ml/min/1.73 sqM); Phosphorous 2.5 mg/dL (2.5-4.5); Potassium 4.5 mmol/L (3.5-5.1); Sodium 141 mmol/L (137-145)
[2016-09-16] MEDS: INSULIN LISPRO (humaLOG) 300 UNIT/3 ML VIAL SQ SCH ×3 (06:06→18:25)
[2016-09-16] MEDS: LEVOTHYROXINE 100 MCG TAB PO SCH (06:07)
[2016-09-16 06:12] LABS: Glucose,Whole Blood 148 mg/dL (75-99)
[2016-09-16] MEDS: IPRATROPIUM-ALBUTEROL 3 ML NEB INHALATION PRN ×3 (07:26→19:54)
--- NOTE | 2016-09-16 07:52 | XR ---
EXAMINATION TYPE: XR chest 1V DATE OF EXAM: 09/16/2016 6:51 AM COMPARISON: Prior chest x-ray 15 September 2016 HISTORY: Intubated TECHNIQUE: Single frontal view of the chest is obtained. FINDINGS: Endotracheal tube is overlying appropriate position, right-sided chest tube is in place, r ight sided PICC line also noted with the tip overlying the superior vena cava. NG tube is in place. D istal tip of the NG tube likely within the distal thoracic esophagus. There are overlying cardiac hill ds. Interstitium remains increased. Patient is post median sternotomy and there is mitral annular kaitlin cification. Minimal apical pneumothorax present on the right. No sizable effusion. IMPRESSION: Correlate for pulmonary edema, pneumonia, ARDS. NG tube is described, result related to the intensive care unit staff at time of interpretation of the exam.
[2016-09-16] MEDS: MORPHINE SULFATE 4 MG/ML SYRINGE IV PRN ×2 (08:35→12:55)
[2016-09-16] MEDS: LEVOTHYROXINE 112 MCG TAB PO SCH (08:38)
[2016-09-16] MEDS: POTASSIUM CHLORIDE ER 10 MEQ TAB.ER.PRT PO SCH ×2 (08:39→21:32)
[2016-09-16] MEDS: NYSTATIN 100,000 UNIT/ML SUSP 500,000 UNIT/5 ML CUP PO SCH (08:39)
[2016-09-16] MEDS: PANTOPRAZOLE 40 MG/10 ML VIAL IVP SCH (08:39)
[2016-09-16] MEDS: CHLORHEXIDINE GLUCONATE 15 ML CUP MUCOUS MEM SCH ×2 (08:55→21:31)
[2016-09-16] MEDS: ASPIRIN 81 MG CHEW PO SCH (08:55)
[2016-09-16] MEDS: ALLOPURINOL 300 MG TAB PO SCH ×2 (08:55→21:32)
[2016-09-16] MEDS: CLOTRIMAZOLE TROCHE 10 MG TROCHE MUCOUS MEM SCH (08:55)
[2016-09-16] MEDS: ENOXAPARIN 40 MG/0.4 ML SYRINGE SQ SCH (08:56)
[2016-09-16] MEDS: MEGESTROL 400 MG/10 ML CUP PO SCH ×2 (08:56→21:31)
[2016-09-16] MEDS: ISOSORBIDE MONONITRATE ER 30 MG TAB.ER.24H PO SCH (08:56)
[2016-09-16] MEDS: METOPROLOL SUCCINATE (ER) 50 MG TAB.ER.24H PO SCH ×3 (08:57→21:32)
[2016-09-16] MEDS ORDERED: IOHEXOL 350 MG/ML 25 ML BOTTLE (ORAL USE) PO PRN (09:25)
[2016-09-16] MEDS ORDERED: RX INFO: IV CONTRAST WAS GIVEN 1 EACH MISC MISCELLANE PRN (09:25)
--- NOTE | 2016-09-16 10:00 | P.CONS ---
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 She was started on R-EPOCH in June and is status post 3 cycles and most recent one was provided on August 30 through September 04. Patient's son is at the bedside and states that she has had problems with weakness and most recently with shortness of breath, feeling hot and clammy without documented fever. She had increasing shortness of breath when she got up to go to the bathroom and was worsening over this past week. On at 11:00 p.m., her called their son to come over and check on her. Her pulse was high and they ended up having her sit in a chair and relax and she was feeling better. On Friday, she was okay but by Friday at 2 in the morning she had a repeat episode. Her son called [facility] and was instructed to bring her into the emergency center. She was found to be afebrile with white count of 8.7. Initial hemoglobin was 8.2 platelet count 124. Urine was cloudy, RBC 16 and bacteria rare. Urine culture showing no growth at 18 hours. Patient was on the selective care unit initially but developed increasing shortness of breath due to pleural effusion which was not improved with Lasix. Dr. Parish was on consult and attempted right-sided thoracentesis but terminated the procedure as her pulse ox dropped to the 50%. She was intubated and underwent bronchoscopy in the intensive care unit. She was given 3 L of IV fluids and initially was on Levophed which is subsequently been discontinued. She is currently intubated and on mechanical ventilation. Tube feedings are to be started. Patient has albumin 1.8. CAT scan of the chest was negative for pulmonary embolism. Moderate to large right pleural effusion with adjacent atelectasis. Confluent groundglass and consolidation with septal lines. Correlate for pulmonary edema. Atypical pneumonia and DAH are also in the differential. Edematous changes throughout the mediastinum assessment for mediastinal lymphadenopathy. She has other consultants on including oncology, cardiology and quill stripper. Urine culture is finalized with no growth. Fungal, acid-fast bacilli and bronchoscopy cultures are all pending. Blood cultures are being obtained. Patient is currently on IV antibiotics in the form of Levaquin, meropenem and vancomycin. Review of Systems ROS unobtainable: due to endotracheal tube Past Medical History Past Medical History: Cancer, GERD/Reflux, Hyperlipidemia, Hypertension, Osteoarthritis (OA), Thyroid Disorder Additional Past Medical History / Comment(s): Burkitt's lymphoma with bulky adenopathy involving the mediastinum and the patient has been treated with systemic chemotherapy, coronary artery disease with previous three-vessel bypass surgery along with coronary stent insertion, recent UTI with E. coli, chronic right-sided pleural effusion with previous thoracentesis, hyperlipidemia , hypothyroidism, GE reflux, hypertension, osteoarthritis, cataracts History of Any Multi-Drug Resistant Organisms: None Reported Past Surgical History: Cholecystectomy, Coronary Bypass/CABG, Heart Catheterization, Heart Catheterization With Stent, Hysterectomy Additional Past Surgical History / Comment(s): lumbar puncture for intrathecal chemotherapy, 07/02/16 PICC line L arm, BRONCHOSCOPY W/ BX at [facility]-pt states unsuccessful, LYMPH NODE BX, BONE MARROW ASPIRATION AT ([facility]), COLONOCOPSY/ POLYPECTOMY(BENIGN), RT CATARACT,CARPAL TUNNEL RELEASE, LT HAND 3RD AND 4TH DIGIT-TRIGGER FINGER SX, TOTAL HYSTERECTOMY, TRIPLE VESSEL CABG 2008, ECTOPIC Past Anesthesia/Blood Transfusion Reactions: No Reported Reaction Additional Past Anesthesia/Blood Transfusion Reaction / Comm: Pt recently received blood without reaction. Date of Last Stent Placement:: 1998 Past Psychological History: Depression Additional Psychological History / Comment(s): Pt states her depression is stable. She wants to live to see all her grandchildren . She is recently using a walker. She has a very supportive family. She has [facility] home care-a nurse comes //Fri. Smoking Status: Never smoker Past Alcohol Use History: None Reported Additional Past Alcohol Use History / Comment(s): Patient has been a lifelong nonsmoker. She lives at home with her . There are no pets in the home and no recent travel. 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 Past Drug Use History: None Reported - Past Family History Mother Family Medical History: Cancer Additional Family Medical History / Comment(s): BREAST CANCER, LIVED TO BE 85 Father Additional Family Medical History / Comment(s): ALCOHOLIC- AGE 54 Medications and Allergies Home Medications Medication Instructions Recorded Confirmed Type Aspirin [Adult Low Dose Aspirin EC] 81 mg PO DAILY 07/01/16 09/14/16 History FLUoxetine HCL [PROzac] 20 mg PO HS 07/01/16 09/14/16 History Isosorbide Mononitrate ER [Imdur] 30 mg PO DAILY 07/01/16 09/14/16 History Levothyroxine Sodium [Synthroid] 100 mcg PO SUTUTHSA 07/01/16 09/14/16 History Levothyroxine Sodium [Synthroid] 112 mcg PO MOWEFR 07/01/16 09/14/16 History Omeprazole [PriLOSEC] 20 mg PO AC-BID 07/01/16 09/14/16 History Furosemide [Lasix] 20 mg PO DAILY 07/25/16 09/14/16 History Potassium Chloride [K-Tab ER] 10 meq PO BID 07/25/16 09/14/16 History ALPRAZolam [Xanax] 0.25 mg PO TID PRN 07/31/16 09/14/16 History Acetaminophen-Codeine 300-30mg 1 tab PO Q6H PRN 07/31/16 09/14/16 History [Tylenol w/codeine #3] Benzocaine/Menthol Lozeng [Cepacol 1 tab PO QID PRN 07/31/16 09/14/16 History lozenge] Co-Q10 Gummy 1 tab PO DAILY@1200 07/31/16 09/14/16 History Cranberry Fruit Concentrate 450 mg PO DAILY@1200 07/31/16 09/14/16 History [Cranberry] Docusate [Colace] 100 mg PO TID 07/31/16 09/14/16 History Ipratropium-Albuterol Nebulize 3 ml INHALATION RT-BID 07/31/16 09/14/16 History [Duoneb 0.5 mg-3 mg/3 ml Soln] Megestrol Acetate [Megace] 400 mg PO BID 07/31/16 09/14/16 History Nystatin 100,000 Unit/ml Susp 1,500,000 units PO TID 07/31/16 09/14/16 History [Mycostatin Oral Susp] Ondansetron [Zofran] 4 mg PO Q6H PRN 07/31/16 09/14/16 History Polyethylene Glycol 3350 [Miralax] 17 gm PO DAILY PRN 07/31/16 09/14/16 History Clotrimazole Luan [Mycelex 10 mg MUCOUS MEM BID 08/30/16 09/14/16 History Luan] Allopurinol [Zyloprim] 300 mg PO BID 09/14/16 09/14/16 History Allergies Allergy/AdvReac Type Severity Reaction Status Date / Time No Known Allergies Allergy Verified 09/14/16 10:55 Physical Exam Vitals: Vital Signs Temp Pulse Pulse Resp BP BP Pulse Ox 09/16/16 07:47 100 09/16/16 07:31 100 09/16/16 07:30 95 09/16/16 07:00 96 22 96/53 98 09/16/16 06:30 97 23 96/53 98 09/16/16 06:00 97 22 96/53 97 09/16/16 05:30 97 21 96/53 97 09/16/16 05:00 96 24 97/55 97 09/16/16 04:30 95 25 H 99 09/16/16 04:00 98.6 F 98 24 98 09/16/16 03:30 96 23 98 09/16/16 03:00 96 24 83/48 97 09/16/16 02:30 95 24 83/48 97 09/16/16 02:00 95 21 83/48 97 09/16/16 01:30 96 22 83/48 97 09/16/16 01:00 100 23 98 09/16/16 00:30 98 23 96 09/16/16 00:00 97.9 F 98 22 95 09/15/16 23:45 98 22 97 09/15/16 23:30 98 21 96 09/15/16 23:00 99 22 96 09/15/16 22:30 97 23 98 09/15/16 22:00 95 23 91 L 09/15/16 21:30 98 24 92 L 09/15/16 21:15 102 H 24 108/64 91 L 09/15/16 21:00 101 H 22 99/58 91 L 09/15/16 20:45 99 35 H 93/53 91 L 09/15/16 20:30 100 24 96/55 94 L 09/15/16 20:15 103 H 22 109/62 95 09/15/16 20:00 98.3 F 102 H 23 99/59 95 09/15/16 19:45 103 H 24 99/58 95 09/15/16 19:30 103 H 23 96/57 93 L 09/15/16 19:15 104 H 28 H 92/53 95 09/15/16 19:00 107 H 22 107/62 95 09/15/16 18:30 109 H 24 101/63 94 L 09/15/16 18:00 112 H 22 109/64 93 L 09/15/16 17:30 103 H 22 92/49 90 L 09/15/16 17:00 104 H 23 110/61 100 09/15/16 16:45 104 H 23 113/64 100 09/15/16 16:30 106 H 26 H 113/64 100 09/15/16 16:15 110 H 22 100 09/15/16 16:00 97.2 F L 114 H 22 117/65 100 09/15/16 15:45 101 H 24 100 09/15/16 15:30 105 H 22 114/62 100 09/15/16 15:15 98 22 84/46 09/15/16 15:13 99 16 135/72 09/15/16 14:52 111 H 74/34 88 L 09/15/16 14:45 119 H 150/95 92 L 09/15/16 14:34 146/78 41 L 09/15/16 14:32 102 H 166/105 61 L 09/15/16 12:00 98.7 F 88 21 134/80 91 L Intake and Output 09/15/16 09/16/16 09/16/16 22:59 06:59 14:59 Intake Total 3301.587 828.730 195.052 Output Total 830 385 65 Balance 2471.587 443.730 130.052 Intake: IV 37.5 10 Propofol 50 ml As IV .STK 37.5 10 -[facility] Rx#:[id number] Intake, IV Titration 3264.087 768.730 185.052 Amount Empty Bag 1 bag @ Titrate 50.188 IV .Q0M [facility] with Propofol 500 mg Rx#: [id number] Levofloxacin 750Mg-D5w 150 Pmx 750 mg In Dextrose/ Water 1 150ml.bag @ 100 mls/hr IVPB Q24H [facility] Rx#: [id number] Magnesium Sulfate-D5w Pmx 200 100 1 gm In Dextrose/Water 1 100ml.bag @ 100 mls/hr IVPB Q1H [facility] Rx#: [id number] Meropenem 1 gm In Sodium 100 Chloride 0.9% 100 ml @ 200 mls/hr IVPB Q8HR [facility] Rx#:[id number] Norepinephrine 4 mg In 14.087 18.542 35.052 Sodium Chloride 0.9% 250 ml @ Titrate IV .Q0M [facility] Rx#:[id number] Potassium Chloride 20 meq 100 In Water For Injection 1 100ml.bag @ 50 mls/hr IVPB ONCE [facility] Rx#: [id number] Sodium Chloride 0.9% 1, 450 525 150 000 ml @ 75 mls/hr IV . [id number] [facility] Rx#:[id number] Sodium Chloride 0.9% 1, 1000 000 ml @ 999 mls/hr IV . Q1H1M [facility] Rx#:[id number] Sodium Chloride 0.9% 1, 1000 000 ml @ 999 mls/hr IV . Q1H1M [facility] Rx#:[id number] Vancomycin 750 mg In 250 75 Sodium Chloride 0.9% 250 ml @ 125 mls/hr IVPB Q24H [facility] Rx#:[id number] Other 60 Output: Chest Tube Drainage 600 120 10 Chest Tube Right Lateral 600 120 10 Chest Urine 230 265 55 Stool 0 0 Other: Voiding Method Indwelling Catheter Indwelling Catheter Weight 63 kg ABP, PAP, CO, CI - Last 8 Hours Arterial Blood Pressure 120/47 Arterial Blood Pressure 130/49 Arterial Blood Pressure 118/45 Arterial Blood Pressure 112/44 Arterial Blood Pressure 106/44 Arterial Blood Pressure 102/53 Arterial Blood Pressure 110/51 Arterial Blood Pressure 80/47 Arterial Blood Pressure 111/46 Arterial Blood Pressure 118/46 Arterial Blood Pressure 118/46 Gen: This is a 80-year-old female currently intubated on mechanical ventilation and appears to be comfortable in no acute distress. HEENT: Head is atraumatic, normocephalic. Pupils equal, round. Sclerae is anicteric. White coating on her tongue. Oral ETT and oral gastric tube in place. NECK: Supple. No JVD. No lymphadenopathy. No thyromegaly. LUNGS: Good air exchange anteriorly bilaterally, diminished to the bases. No intercostal retractions. Right sided chest tube HEART: Regular rate and rhythm. No murmur. ABDOMEN: Soft. Bowel sounds are present. No masses. No tenderness. EXTREMITIES: No pedal edema. No calf tenderness. Dorsalis pedis is weak bilaterally. No skin breakdown noted. NEUROLOGICAL: Patient is sedated. Results Results: Laboratory Results WBC 8.4 k/uL (3.8-10.6) 09/16/16 05:00 RBC 2.55 m/uL (3.80-5.40) L 09/16/16 05:00 Hgb 7.6 gm/dL (11.4-16.0) L 09/16/16 05:00 Hct 24.1 % (34.0-46.0) L 09/16/16 05:00 MCV 94.6 fL (80.0-100.0) 09/16/16 05:00 MCH 29.9 pg (25.0-35.0) 09/16/16 05:00 MCHC 31.6 g/dL (31.0-37.0) 09/16/16 05:00 RDW 17.7 % (11.5-15.5) H 09/16/16 05:00 Plt Count 180 k/uL (150-450) 09/16/16 05:00 Neutrophils % 97 % 09/16/16 05:00 Lymphocytes % 1 % 09/16/16 05:00 Monocytes % 2 % 09/16/16 05:00 Eosinophils % 0 % 09/16/16 05:00 Basophils % 0 % 09/16/16 05:00 Neutrophils # 8.1 k/uL (1.3-7.7) H 09/16/16 05:00 Lymphocytes # 0.1 k/uL (1.0-4.8) L 09/16/16 05:00 Monocytes # 0.1 k/uL (0-1.0) 09/16/16 05:00 Eosinophils # 0.0 k/uL (0-0.7) 09/16/16 05:00 Basophils # 0.0 k/uL (0-0.2) 09/16/16 05:00 Hypochromasia Slight 09/16/16 05:00 Poikilocytosis Slight 09/16/16 05:00 Anisocytosis Slight 09/16/16 05:00 Macrocytosis Slight 09/15/16 17:40 PT 11.1 sec (9.0-12.0) 09/14/16 07:44 INR 1.1 (<1.1) 09/14/16 07:44 APTT 23.1 sec (22.0-30.0) 09/14/16 07:44 Sample Site [facility] 09/15/16 15:22 ABG pH 7.43 (7.35-7.45) 09/15/16 15:22 ABG pCO2 39 mmHg (35-45) 09/15/16 15:22 ABG pO2 143 mmHg (83-108) H 09/15/16 15:22 ABG HCO3 25 mmol/L (21-25) 09/15/16 15:22 ABG Total CO2 26 mmol/L (19-24) H 09/15/16 15:22 ABG O2 Saturation 99.0 % (94-97) H 09/15/16 15:22 ABG Base Excess 0.9 mmol/L 09/15/16 15:22 FiO2 100 % 09/15/16 15:22 Sodium 141 mmol/L (137-145) 09/16/16 05:00 Potassium 4.5 mmol/L (3.5-5.1) 09/16/16 05:00 Chloride 110 mmol/L (98-107) H 09/16/16 05:00 Carbon Dioxide 24 mmol/L (22-30) 09/16/16 05:00 Anion Gap 7 mmol/L 09/16/16 05:00 BUN 24 mg/dL (7-17) H 09/16/16 05:00 Creatinine 0.60 mg/dL (0.52-1.04) 09/16/16 05:00 Est GFR (MDRD) Af Amer >60 (>60 ml/min/1.73 sqM) 09/16/16 05:00 Est GFR (MDRD) Non-Af >60 (>60 ml/min/1.73 sqM) 09/16/16 05:00 Glucose 146 mg/dL (74-99) H 09/16/16 05:00 POC Glucose (mg/dL) 148 mg/dL (75-99) H 09/16/16 06:04 POC Glu Inside Channel Account Manager ID Monalisa Jimenez 09/16/16 06:[address] Glu mg/dL 128 mg/dL 09/14/16 07:44 Hemoglobin A1c 6.1 % (4.2-6.1) 09/14/16 07:44 Calcium 10.1 mg/dL (8.4-10.2) 09/16/16 05:00 Phosphorus 2.5 mg/dL (2.5-4.5) 09/16/16 05:00 Magnesium 2.5 mg/dL (1.6-2.3) H 09/16/16 05:00 Total Bilirubin 0.4 mg/dL (0.2-1.3) 09/15/16 17:40 AST 25 U/L (14-36) 09/15/16 17:40 ALT 34 U/L (9-52) 09/15/16 17:40 Alkaline Phosphatase 52 U/L (38-126) 09/15/16 17:40 Total Creatine Kinase <20 U/L (30-135) L 09/14/16 19:28 CK-MB (CK-2) 0.4 ng/mL (0.0-2.4) 09/14/16 19:28 CK-MB (CK-2) Rel Index 0.0 09/14/16 19:28 Troponin I 0.022 ng/mL (0.000-0.034) 09/14/16 19:28 NT-Pro-B Natriuret Pep 3070 pg/mL 09/15/16 05:49 Total Protein 3.6 g/dL (6.3-8.2) L 09/15/16 17:40 Albumin 1.8 g/dL (3.5-5.0) L 09/15/16 17:40 Triglycerides 122 mg/dL (<150) 09/15/16 05:49 Cholesterol 94 mg/dL (<200) 09/15/16 05:49 LDL Cholesterol, Calc 50 mg/dL (0-99) 09/15/16 05:49 HDL Cholesterol 20 mg/dL (40-60) L 09/15/16 05:49 TSH 1.910 mIU/L (0.465-4.680) 09/15/16 05:49 Urine Color Yellow 09/14/16 08:42 Urine Appearance Cloudy (Clear) H 09/14/16 08:42 Urine pH 7.0 (5.0-8.0) 09/14/16 08:42 Ur Specific [place] 1.016 (1.001-1.035) 09/14/16 08:42 Urine Protein Trace (Negative) H 09/14/16 08:42 Urine Glucose (UA) Negative (Negative) 09/14/16 08:42 Urine Ketones Negative (Negative) 09/14/16 08:42 Urine Blood Negative (Negative) 09/14/16 08:42 Urine Nitrate Negative (Negative) 09/14/16 08:42 Urine Bilirubin Negative (Negative) 09/14/16 08:42 Urine Urobilinogen 4.0 mg/dL (<2.0) 09/14/16 08:42 Ur Leukocyte Esterase Negative (Negative) 09/14/16 08:42 Urine RBC 16 /hpf (0-5) H 09/14/16 08:42 Urine WBC 5 /hpf (0-5) 09/14/16 08:42 Ur Squamous Epith Cells 1 /hpf (0-4) 09/14/16 08:42 Urine Bacteria Rare /hpf (None) H 09/14/16 08:42 Urine Mucus Rare /hpf (None) H 09/14/16 08:42 Blood Type A Positive 09/14/16 08:30 Blood Type Confirm A Positive 09/14/16 07:44 Blood Type Recheck CABO Indicated 09/14/16 08:30 Antibody Screen NEGATIVE 09/14/16 08:30 Spec Expiration Date 09/17/2016232909/14/16 08:30 CBC & Chem 7: 09/17/16 05:46 09/17/16 05:46 Labs: Abnormal Lab Results - Last 24 Hours (Table) 09/15/16 09/15/16 09/15/16 Range/Units 05:49 12:02 15:22 RBC 2.68 L (3.80-5.40) m/uL Hgb 8.1 L (11.4-16.0) gm/dL Hct 25.6 L (34.0-46.0) % MCHC (31.0-37.0) g/dL RDW 17.6 H (11.5-15.5) % Plt Count (150-450) k/uL Neutrophils # (1.3-7.7) k/uL Lymphocytes # (1.0-4.8) k/uL ABG pO2 143 H (83-108) mmHg ABG Total CO2 26 H (19-24) mmol/L ABG O2 Saturation 99.0 H (94-97) % Potassium (3.5-5.1) mmol/L Chloride (98-107) mmol/L BUN (7-17) mg/dL Glucose (74-99) mg/dL POC Glucose (mg/dL) 157 H (75-99) mg/dL Magnesium (1.6-2.3) mg/dL Total Protein (6.3-8.2) g/dL Albumin (3.5-5.0) g/dL 09/15/16 09/15/16 09/15/16 Range/Units 15:58 17:40 17:40 RBC 1.56 L (3.80-5.40) m/uL Hgb 4.6 L* D (11.4-16.0) gm/dL Hct 15.1 L* (34.0-46.0) % MCHC 30.5 L (31.0-37.0) g/dL RDW 17.2 H (11.5-15.5) % Plt Count 124 L (150-450) k/uL Neutrophils # (1.3-7.7) k/uL Lymphocytes # 0.1 L (1.0-4.8) k/uL ABG pO2 (83-108) mmHg ABG Total CO2 (19-24) mmol/L ABG O2 Saturation (94-97) % Potassium 3.2 L (3.5-5.1) mmol/L Chloride 111 H (98-107) mmol/L BUN 22 H (7-17) mg/dL Glucose 165 H (74-99) mg/dL POC Glucose (mg/dL) 182 H (75-99) mg/dL Magnesium (1.6-2.3) mg/dL Total Protein 3.6 L (6.3-8.2) g/dL Albumin 1.8 L (3.5-5.0) g/dL 09/15/16 09/15/16 09/16/16 Range/Units 18:20 21:18 05:00 RBC 2.51 L (3.80-5.40) m/uL Hgb 7.5 L D (11.4-16.0) gm/dL Hct 23.7 L (34.0-46.0) % MCHC (31.0-37.0) g/dL RDW 17.6 H (11.5-15.5) % Plt Count (150-450) k/uL Neutrophils # 9.1 H (1.3-7.7) k/uL Lymphocytes # 0.1 L (1.0-4.8) k/uL ABG pO2 (83-108) mmHg ABG Total CO2 (19-24) mmol/L ABG O2 Saturation (94-97) % Potassium (3.5-5.1) mmol/L Chloride 110 H (98-107) mmol/L BUN 24 H (7-17) mg/dL Glucose 146 H (74-99) mg/dL POC Glucose (mg/dL) 144 H (75-99) mg/dL Magnesium 2.5 H (1.6-2.3) mg/dL Total Protein (6.3-8.2) g/dL Albumin (3.5-5.0) g/dL 09/16/16 09/16/16 Range/Units 05:00 06:04 RBC 2.55 L (3.80-5.40) m/uL Hgb 7.6 L (11.4-16.0) gm/dL Hct 24.1 L (34.0-46.0) % MCHC (31.0-37.0) g/dL RDW 17.7 H (11.5-15.5) % Plt Count (150-450) k/uL Neutrophils # 8.1 H (1.3-7.7) k/uL Lymphocytes # 0.1 L (1.0-4.8) k/uL ABG pO2 (83-108) mmHg ABG Total CO2 (19-24) mmol/L ABG O2 Saturation (94-97) % Potassium (3.5-5.1) mmol/L Chloride (98-107) mmol/L BUN (7-17) mg/dL Glucose (74-99) mg/dL POC Glucose (mg/dL) 148 H (75-99) mg/dL Magnesium (1.6-2.3) mg/dL Total Protein (6.3-8.2) g/dL Albumin (3.5-5.0) g/dL Microbiology - Last 24 Hours (Table) 09/15/16 15:00 Gram Stain - Preliminary Bronchoalviolar Lavage - Left Bronchial Washings Culture - Preliminary 09/15/16 15:00 Fungal Culture - Preliminary Bronchial Washings - Left 09/15/16 15:00 Acid Fast Bacilli Culture - Preliminary Bronchial Washings - Right Assessment and Plan Plan: This is an 80-year-old female with past medical history for Burkitt's lymphoma status post chemotherapy with 3 cycles of R-EPOCH most recent cycle completed on September 04. Patient presented with acute hypoxic respiratory failure with right-sided pleural effusion as well as acute and diffuse bilateral pulmonary infiltrates and pneumonia. Patient is currently on IV antibiotics in the form of Levaquin, meropenem and vancomycin. Testing for pneumocystis in place. CD4 cell count requested. She is also on nystatin and Mycelex for thrush which are discontinued. Tube feedings have been started for severe protein calorie malnutrition. She is noted to have no skin breakdown. Urine output has been marginal at approximately 30 mL per hour. Continue supportive care. Further recommendations as patient progresses. The above dictated assessment and findings were discussed with Dr. Boone. The impression and plan of care have been directed as dictated. Aliya Tomas nurse practitioner acting as scribe for Dr. Boone. Time with Patient: Greater than 30
--- NOTE | 2016-09-16 10:19 | XR ---
EXAMINATION TYPE: XR chest 1V portable DATE OF EXAM: 09/16/2016 9:53 AM COMPARISON: 09/16/2016 HISTORY: NG tube placement FINDINGS: There are bilateral pleural effusions with cardiomegaly and bibasilar infiltrate. There is a diffuse interstitial pattern. NG tube is seen coiled in the gastric fundus left upper quadrant. Postoperative change and ET tube are stable. Right-sided PICC line appears stable. There is a pneumot horax involving the right apex measuring approximately 10%. Left lung apex not included. IMPRESSION: 1. 10% right apical pneumothorax 2. NG tube appears in good position 3. Persistent diffuse airspace disease. 4. Due to positioning lung apices are not included
--- NOTE | 2016-09-16 10:56 | PCN ---
DATE OF PROCEDURE: FIRST PROCEDURE: Intubation. PREOPERATIVE DIAGNOSIS: Acute hypoxic respiratory failure. This procedure was done on the emergency settings. During a thoracentesis, the patient became progressively short of breath and hypoxic. The thoracentesis catheter was removed and a pneumothorax was suspected. Meanwhile, the patient became hypoxic and the pulse ox dropped down to 40%. The patient was bagged for a total of 2 minutes and following that, saturation above was 80% achieved. I used a #4 curved laryngoscope to visualize the patient's vocal cords and I intubated the patient with a #8 orotracheal tube. The tube was placed at 21 cm lip line. There was adequate change in the color of the CO2 meter confirming the position of the tube. Breath sounds were appreciated on the left and they were markedly diminished on the right. SECOND PROCEDURE: Insertion of a chest tube. PREOPERATIVE DIAGNOSIS: Right-sided pneumothorax and right-sided pleural effusion. POSTOPERATIVE DIAGNOSIS: Right-sided pneumothorax and right-sided pleural effusion. This procedure was done in the intensive care unit. The patient was already intubated on mechanical ventilator. The patient's arm was placed in the usual fashion and the right chest was cleaned using ChloraPrep. At this point, the horizontal incision was done around 2 cm below the nipple line at the level of the anterior axillary line. The subcutaneous tissue was dissected and the intercostal space was identified. Following that, the forceps was introduced into the pleural space and gush of air was obtained and the right-sided pneumothorax with deflated. Following that, further dissection was done and I was able to introduce my index finger into the pleural space. Using a trocar, a 28 Albanian chest tube was introduced into the right pleura space. A 0.0 Ethibond suture was used to secure the chest tube in place and the chest tube was attached to Pleurovac. A total of 150 mL of pleural fluid was aspirated following the chest tube insertion and there was positive air leak. Chest x-ray following the procedure shows complete expansion of the right lung. Note that during the procedure the patient's pulse ox was around 91% and immediately came up to 100% after evacuation of right-sided pleural effusion and pneumothorax. THIRD PROCEDURE: Bronchoscopy with bronchoalveolar lavage. PREOPERATIVE DIAGNOSIS: Bilateral pneumonia. POSTOPERATIVE DIAGNOSIS: Bilateral pneumonia. This procedure was done in the intensive care unit. The patient was already intubated on mechanical ventilator. The patient already had a right-sided chest tube in place and the right pneumothorax was completely evacuated. A flexible bronchoscope was introduced through the orotracheal tube as the patient being mechanically ventilated and adequately oxygenated. The flexible bronchoscope was advanced and the patient's ET tube was seen around 1 cm above the kamron. The tube was pulled up even further by another 1 cm. Airway inspection was done, and there was loose secretions scattered throughout the patient's airway. Therapeutic airway suctioning was done. Trachea, kamron, bilateral mainstem bronchi, right upper, right middle, right lower and left upper and left lower bronchi were all visualized. No endobronchial tumors or lesions were seen. Bronchoscope was moved to the lingula and bronchoalveolar lavage was done. A total of 80 mL of pleural fluid was introduced and 20 mL of aspirate was obtained. No bedside complication. Bronchoscope was removed and the procedure was terminated and the bronchoalveolar lavage will be sent for microbial cultures. FOURTH PROCEDURE: Thoracentesis. PREOPERATIVE DIAGNOSIS: Right-sided pleural effusion. POSTOPERATIVE DIAGNOSIS: Right-sided pleural effusion. This procedure was done at the bedside on the medical floor. This was done without any ultrasound markings. The patient was positioned in the usual fashion with arms extended on a bedside table. Skin was prepped and draped with ( ) and 1% lidocaine. Following that, I was able to induce a 21 gauge needle in the pleural space and the location of the pleural fluid was determined. Following that, the thoracentesis catheter was inserted successfully introduced into the right hemithorax and a total of 150 mL of fluid was aspirated. As the patient's pleural fluid was being aspirated, the patient started becoming more short of breath and became hypoxic where the pulse ox dropped down to the mid 80s and down to the 60s. At that point, the procedure was terminated. The catheter was removed and the patient was placed flat in bed and emergency A-team was activated and the patient was intubated. The procedure was complicated by development of a right-sided pneumothorax based on subsequent chest x-rays.
[2016-09-16 12:36] LABS: Glucose,Whole Blood 175 mg/dL (75-99)
--- NOTE | 2016-09-16 13:19 | CT ---
EXAMINATION TYPE: CT ChestAbdPelvis w con DATE OF EXAM: 09/16/2016 12:14 PM INDICATION: Patient intubated at Time of scan., Uterine mass, low grade DIC, suspected malignancy. COMPARISON: 09/14/2016 CT DLP: 1046.1 mGycm CONTRAST: Performed with Oral Contrast and with IV Contrast, patient injected with 100 mL of Omnipaque 300. TECHNIQUE: Axial images at 5 mm thick sections. Reconstructed images in the coronal plane. Delayed images through the kidneys. FINDINGS: CT CHEST: Endotracheal tube is tip above the kamron. Nasogastric tube transverses the thorax and its tip within the stomach. Portion of the thyroid visualized is normal. There is a small right pneumothorax. This is an interval change. Chest tube is at the right lung base . There are consolidations within the dependent portions of the lung bases bilaterally, larger on the left. Diffuse groundglass opacities present to the bilateral lung schmidt can be compatible with pneu monia or pulmonary edema No enlarged mediastinal or hilar adenopathy is evident. The ascending aorta diameter at the level of the main pulmonary artery is 3.3 cm. The main pulmonary artery diameter at the bifurcation is 3.1 cm. Coronary artery calcification is present. CT ABDOMEN: Liver: Normal Spleen: There is a hypodensity within the superior portion of the spleen. Infarct, cyst, prior lacera tion could be considered. No free fluid is adjacent to the spleen. This area was not identified on th e prior study. Pancreas: Atrophic Adrenal glands: The adrenal glands are normal. Gallbladder: Normal Kidneys: No masses are evident. No hydronephrosis is present. No cysts are present. Delayed images were obtained through the kidneys, which remain unremarkable. Aorta: Vascular calcification is within the aorta. Inferior vena cava: Normal. CT PELVIS: Loops of bowel within the abdomen and pelvis are normal. There are loops of bowel which are incom pletely distended or lack oral contrast limiting their evaluation. Appendix: Not visualized Urinary bladder: Partially decompressed with a العراقي catheter. Small amount of free air within urinar y bladder is present likely from instrumentation Genitourinary structures: Uterus is not identified. Adnexal regions are clear. Patient's reported flaco rine mass is not identified. Osseous structures: No suspicious lytic or sclerotic lesions. IMPRESSIONS: 1. Small right pneumothorax. Chest tube is at the right base. 2. Bibasilar consolidations larger on the left. Correlate for pneumonia. 3. Groundglass opacities through the remaining lung schmidt. Correlate for pulmonary edema. 4. Correlate for splenic infarct. 5. Uterus not identified.
--- NOTE | 2016-09-16 13:56 | PN ---
Mrs. Shepherd is an 80-year-old female with known history of coronary artery disease, status post coronary artery bypass grafting, who presented with symptoms of worsening dyspnea. Has a history of Burkitt's lymphoma. Yesterday her breathing got worse. She had worsening pleural effusion, was undergoing thoracentesis, but had pneumothorax requiring mechanical ventilation and chest tube placement. She remains intubated and sedated, hemodynamically stable. She is on no pressor. She was seen by Dr. Parish at that time. She has no evidence of tachy or bradyarrhythmia. She continues to be on aspirin, heparin. She is on metoprolol tartrate through the NG tube. She is scheduled to undergo CT scan of the abdomen and pelvis. PHYSICAL EXAMINATION: Blood pressure running in the 120s with a heart rate in the 90s. LUNGS: Clear anteriorly. No wheezes. HEART: Regular rate and rhythm. S1, S2, no S3, no rub appreciated. ABDOMEN: Soft. Hypoactive bowel sounds. EXTREMITIES: No edema. Lab data revealed a hemoglobin of 7.6. Her BUN and creatinine 24 and 0.6. Her potassium 4.5. IMPRESSION: 1. Respiratory failure on mechanical ventilation. 2. Burkitt's lymphoma, post chemotherapy. 3. Bilateral pulmonary infiltrate, probably pneumonia in a setting of immunosuppression. Her left ventricular systolic function is preserved. 4. Anemia. 5. Status post coronary artery bypass grafting. 6. Hypothyroidism. RECOMMENDATION: From the cardiac standpoint. Will continue supportive care. I believe that the abnormality on the chest x-ray a lot of the image is related to an infectious process. There has not been any improvement with the diuresis. Patient is immunocompromised. Her left ventricular systolic function and recently has been normal. Will continue to follow her renal function. Unfortunately, the prognosis is quite guarded.
[2016-09-16 14:08] LABS: Glucose,Whole Blood 165 mg/dL (75-99)
--- NOTE | 2016-09-16 14:17 | P.PN ---
Subjective Principal diagnosis: Acute respiratory failure, multifactorial. This is an 80-year-old female patient with a diagnosis of Burkitt's lymphoma. The patient initially presented on May 2016 with a 9.4 cm soft tissue mass in the superior mediastinum in addition to 5.5 cm mass along the right cardiac border and bulky mediastinal lymph nodes and the right-sided pleural effusion. Note that at that time the patient has had thoracentesis and this failed to establish diagnosis. Following that, the patient had a endoscopic ultrasound/bronchoscopy and transbronchial needle aspirate of the lymph nodes showed findings suspicious of a lymphoma however it final diagnoses could not been established. Ultimately underwent a biopsy of a right supraclavicular lymph node which confirmed the presence of a Burkitt's lymphoma the patient was treated with chemotherapy and she received 2 cycles of R-EPOCH , the first cycle in June 2016 and the second in August 2016. I was asked to evaluate this patient knowing that she was having significant amount of respirator distress on the medical floor. I reviewed the CAT scan of the chest and the series of chest x-ray that was done during the current admission. The patient CAT scan of the chest showed extensive infiltration of the left lung with patchy infiltration of the right upper lobe area and a moderate-sized right-sided pleural effusion. The chest x-ray was also consistent with the CAT scan findings. The patient was quite hypoxic on high flow oxygen at 15 L/m nasal cannula and his saturation was around 90-91%. At the time of my evaluation the patient was quite uncomfortable and short of breath and I was asked to proceed with a right-sided thoracentesis to give this patient some symptomatic relief. I explained to the patient and her family the procedure. Upon further inquiry, it seems that the patient's condition has been gradually getting worse. She had been experiencing increased cough and dyspnea and she was short of breath with limited amount of activity. She end up in the hospital. No reported fever or chills. I noted no temperature or white cell count elevation during this current hospital stay. I ultimately proceeded with a right-sided thoracentesis for the reasons mentioned above. During the thoracentesis, the patient became progressively more short of breath. At that point I removed a thoracentesis catheter I terminated the procedure. The patient already drained approximately 150 mL of fluid from the right lung. The patient was noted to become progressively more hypoxic and admitted to the pulse ox dropped down to 60%. At that point, I activated the emergency team and the patient was intubated immediately in her own room. The patient remained hemodynamically stable with a systolic blood pressure above 120 throughout intubation procedure. Chest x-ray post intubation showed a large right-sided pneumothorax. At that point the patient got transferred to the intensive care unit where immediately a right-sided chest tube was inserted with complete expansion of the right lung. The chest tube itself drained an additional 450 mL of pleural fluid from the right lung making the total amount of fluid evacuated from the right lung being at 650 mL. The pleural fluid was light yellowish in color. The patient was also sedated with Diprivan. The patient had a bronchoscopy and bronchoalveolar lavage of the lingular segment was done without any major complications. The patient was taken off diuretics. The patient was given a bolus of normal saline 1 L. Echocardiogram done recently showed a preserved LV function without any significant valvular dysfunction. I discussed the case with ID and will start the patient with broad -spectrum antibiotics suspecting bilateral pneumonia and covering for a portion stick infections. At this point in time, the patient is on a mechanical ventilator. The patient is an assist-control mode with a rate of 22, tidal volume 450, FiO2 of 100% and a PEEP of 5. The patient had a blood gas post intubation that showed a pH of 7.43 with a pCO2 of 39 and pO2 of 143. Based on that FiO2 has been drop down to 70%. Hemodynamically she is stable. She briefly became hypotensive requiring 2 mics of levo fed and ultimately levo fed was discontinued. I ordered follow-up blood work and a stat blood work is in progress. The preliminary results showed a global of 4.6 and the patient will be ordered a total of 2 units of packed RBC as soon as possible. Note that there was no evidence of any external bleeding or bleeding through the patient's pleural space at a time of the procedure. Patient was reevaluated today on 09/16/2015, remains on mechanical ventilation. Her ventilator settings are FiO2 of 50%, PEEP of 5 tidal volume of 400 and assist control rate of 22. Labs were reviewed, relatively normal electrolytes. ABG was also reviewed, and the ventilator settings were adjusted accordingly. Chest x-ray continues to show bilateral infiltrates. No evidence of pneumothorax, chest tube and endotracheal tube are in proper position. Patient continues to have an air leak noted in the chest tube/pleural VAC. All medications were reviewed. Objective - Vital Signs Vital signs: Vital Signs Temp 98.5 F 09/16/16 12:30 Pulse 110 H 09/16/16 13:30 Resp 17 09/16/16 13:30 BP 76/48 09/16/16 13:30 Pulse Ox 98 09/16/16 13:30 Intake & Output 09/15/16 09/16/16 09/16/16 18:59 06:59 18:59 Intake Total 3281.587 1178.730 824.864 Output Total 1525 590 365 Balance 1756.587 588.730 459.864 Weight 41.73 kg 63 kg 63 kg Intake: IV 157.5 50 Propofol 50 ml As IV .STK 37.5 50 -[facility] Rx#:[id number] Sodium Chloride 0.9% 1, 120 000 ml @ 20 mls/hr IV . Q24H [facility] Rx#:[id number] Intake, IV Titration 2914.087 1118.730 534.864 Amount Empty Bag 1 bag @ Titrate 50.188 49.812 IV .Q0M [facility] with Propofol 500 mg Rx#: [id number] Levofloxacin 750Mg-D5w 150 Pmx 750 mg In Dextrose/ Water 1 150ml.bag @ 100 mls/hr IVPB Q24H [facility] Rx#: [id number] Magnesium Sulfate-D5w Pmx 300 1 gm In Dextrose/Water 1 100ml.bag @ 100 mls/hr IVPB Q1H [facility] Rx#: [id number] Meropenem 1 gm In Sodium 100 Chloride 0.9% 100 ml @ 200 mls/hr IVPB Q8HR [facility] Rx#:[id number] Norepinephrine 4 mg In 14.087 18.542 35.052 Sodium Chloride 0.9% 250 ml @ Titrate IV .Q0M [facility] Rx#:[id number] Potassium Chloride 20 meq 100 In Water For Injection 1 100ml.bag @ 50 mls/hr IVPB [facility] Rx#: [id number] Sodium Chloride 0.9% 1, 300 675 450 000 ml @ 75 mls/hr IV . [id number] [facility] Rx#:[id number] Sodium Chloride 0.9% 1, 1000 000 ml @ 999 mls/hr IV . Q1H1M [facility] Rx#:[id number] Sodium Chloride 0.9% 1, 1000 000 ml @ 999 mls/hr IV . Q1H1M [facility] Rx#:[id number] Vancomycin 750 mg In 250 75 Sodium Chloride 0.9% 250 ml @ 125 mls/hr IVPB Q24H [facility] Rx#:[id number] Oral 210 240 Other 60 Output: Chest Tube Drainage 490 230 20 Chest Tube Right Lateral 490 230 20 Chest Urine 1035 360 345 Stool 0 0 Other: Voiding Method Indwelling Catheter Indwelling Catheter Indwelling Catheter # Voids 1 1 ABP, PAP, CO, CI - Last Documented Arterial Blood Pressure 98/40 - Exam Physical Exam: Revealed an 80-year-old female, sedated, on propofol drip, on mechanical ventilation, in no distress. HEENT:[Neck is supple.] [No neck masses.] [No thyromegaly.] [No JVD.] Endotracheal tube is intact. Chest tube on the right side is intact. Chest: [Crackles at the bases bilaterally, no rhonchi, no wheezes.] Cardiac Exam: [Normal S1 and S2, no S3 gallop, no murmur.] Abdomen: [Soft, nontender, no megaly, no rebound, no guarding, normal bowel sounds.] Extremities: [No clubbing, no edema, no cyanosis.] Neurological Exam: Cannot be assessed, patient is fully sedated on propofol drip. - Labs CBC & Chem 7: 09/16/16 05:00 09/16/16 05:00 Labs: Abnormal Lab Results - Last 24 Hours (Table) 09/15/16 09/15/16 09/15/16 Range/Units 15:22 15:58 17:40 RBC (3.80-5.40) m/uL Hgb (11.4-16.0) gm/dL Hct (34.0-46.0) % MCHC (31.0-37.0) g/dL RDW (11.5-15.5) % Plt Count (150-450) k/uL Neutrophils # (1.3-7.7) k/uL Lymphocytes # (1.0-4.8) k/uL ABG pO2 143 H (83-108) mmHg ABG Total CO2 26 H (19-24) mmol/L ABG O2 Saturation 99.0 H (94-97) % Potassium 3.2 L (3.5-5.1) mmol/L Chloride 111 H (98-107) mmol/L BUN 22 H (7-17) mg/dL Glucose 165 H (74-99) mg/dL POC Glucose (mg/dL) 182 H (75-99) mg/dL Magnesium (1.6-2.3) mg/dL Total Protein 3.6 L (6.3-8.2) g/dL Albumin 1.8 L (3.5-5.0) g/dL 09/15/16 09/15/16 09/15/16 Range/Units 17:40 18:20 21:18 RBC 1.56 L 2.51 L (3.80-5.40) m/uL Hgb 4.6 L* D 7.5 L D (11.4-16.0) gm/dL Hct 15.1 L* 23.7 L (34.0-46.0) % MCHC 30.5 L (31.0-37.0) g/dL RDW 17.2 H 17.6 H (11.5-15.5) % Plt Count 124 L (150-450) k/uL Neutrophils # 9.1 H (1.3-7.7) k/uL Lymphocytes # 0.1 L 0.1 L (1.0-4.8) k/uL ABG pO2 (83-108) mmHg ABG Total CO2 (19-24) mmol/L ABG O2 Saturation (94-97) % Potassium (3.5-5.1) mmol/L Chloride (98-107) mmol/L BUN (7-17) mg/dL Glucose (74-99) mg/dL POC Glucose (mg/dL) 144 H (75-99) mg/dL Magnesium (1.6-2.3) mg/dL Total Protein (6.3-8.2) g/dL Albumin (3.5-5.0) g/dL 09/16/16 09/16/16 09/16/16 Range/Units 05:00 05:00 06:04 RBC 2.55 L (3.80-5.40) m/uL Hgb 7.6 L (11.4-16.0) gm/dL Hct 24.1 L (34.0-46.0) % MCHC (31.0-37.0) g/dL RDW 17.7 H (11.5-15.5) % Plt Count (150-450) k/uL Neutrophils # 8.1 H (1.3-7.7) k/uL Lymphocytes # 0.1 L (1.0-4.8) k/uL ABG pO2 (83-108) mmHg ABG Total CO2 (19-24) mmol/L ABG O2 Saturation (94-97) % Potassium (3.5-5.1) mmol/L Chloride 110 H (98-107) mmol/L BUN 24 H (7-17) mg/dL Glucose 146 H (74-99) mg/dL POC Glucose (mg/dL) 148 H (75-99) mg/dL Magnesium 2.5 H (1.6-2.3) mg/dL Total Protein (6.3-8.2) g/dL Albumin (3.5-5.0) g/dL 09/16/16 09/16/16 Range/Units 12:34 14:02 RBC (3.80-5.40) m/uL Hgb (11.4-16.0) gm/dL Hct (34.0-46.0) % MCHC (31.0-37.0) g/dL RDW (11.5-15.5) % Plt Count (150-450) k/uL Neutrophils # (1.3-7.7) k/uL Lymphocytes # (1.0-4.8) k/uL ABG pO2 (83-108) mmHg ABG Total CO2 (19-24) mmol/L ABG O2 Saturation (94-97) % Potassium (3.5-5.1) mmol/L Chloride (98-107) mmol/L BUN (7-17) mg/dL Glucose (74-99) mg/dL POC Glucose (mg/dL) 175 H 165 H (75-99) mg/dL Magnesium (1.6-2.3) mg/dL Total Protein (6.3-8.2) g/dL Albumin (3.5-5.0) g/dL Microbiology - Last 24 Hours (Table) 09/15/16 15:00 Gram Stain - Preliminary Bronchoalviolar Lavage - Left Bronchial Washings Culture - Preliminary 09/16/16 00:45 Urine Culture - Preliminary Urine,Catheterized 09/15/16 15:00 Fungal Culture - Preliminary Bronchial Washings - Left 09/15/16 15:00 Acid Fast Bacilli Culture - Preliminary Bronchial Washings - Right Assessment and Plan Plan: 1 acute hypoxic respiratory failure currently intubated on a mechanical ventilator. Post intubation day #1. 2 acute and diffuse bilateral pulmonary infiltrates, strongly consider pneumonia including opportunistic pneumonias in the setting of immunosuppression and Burkitt's lymphoma. The patient's presentation is not typical of heart failure. The patient is a preserved LV function and she hasn' t responded to diuretics over the past 24-48 hours. As such, pneumonias are very much likely causing this patient's progressive respiratory failure 3 right-sided pleural effusion, status post iatrogenic right-sided pneumothorax. The patient has a chest tube in place with adequate expansion of right lung and adequate evacuation of a right-sided pleural effusion 4 acute ventilator-dependent respiratory failure secondary to above. 5 Burkitt's lymphoma 6 systemic chemotherapy 7 coronary artery disease with previous bypass surgery 8 hypothyroidism 9 chronic anemia 10 malnutrition and progressive debility seconds above-mentioned comorbidities and the patient's health in general has been progressively declining since have diagnosed with Burkitt's lymphoma and since the systemic chemotherapy Recommendation: Continue present treatment plan including antibiotics, patient is to be seen by infectious disease on consultation, ventilator settings were addressed, nutrition was addressed, patient will be started on tube feeding via nasogastric tube. Hemodynamically the patient is stable. I had a long discussion with her son at bedside, and we will continue to follow closely. Critical care time is 40 minutes. Time with Patient: Greater than 30
[2016-09-16] MEDS: LEVOFLOXACIN 750MG-D5W PMX 750 MG in DEXTROSE/WATER 1 150ML.BAG IVPB SCH (16:43)
[2016-09-16 18:25] LABS: Glucose,Whole Blood 189 mg/dL (75-99)
[2016-09-16] MEDS: VANCOMYCIN 750 MG in SODIUM CHLORIDE 0.9% 250 ML IVPB SCH (18:25)
--- NOTE | 2016-09-16 18:50 | P.CON ---
Consult Note - . 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 She was started on R-EPOCH in June and is status post 3 cycles and most recent one was provided on August 30 through September 04. Patient's son is at the bedside and states that she has had problems with weakness and most recently with shortness of breath, feeling hot and clammy without documented fever. She had increasing shortness of breath when she got up to go to the bathroom and was worsening over this past week. On at 11:00 p.m., her called their son to come over and check on her. Her pulse was high and they ended up having her sit in a chair and relax and she was feeling better. On Friday, she was okay but by Friday at 2 in the morning she had a repeat episode. Her son called [facility] and was instructed to bring her into the emergency center. She was found to be afebrile with white count of 8.7. Initial hemoglobin was 8.2 platelet count 124. Urine was cloudy, RBC 16 and bacteria rare. Urine culture showing no growth at 18 hours. Patient was on the selective care unit initially but developed increasing shortness of breath due to pleural effusion which was not improved with Lasix. Dr. Parish was on consult and attempted right-sided thoracentesis but terminated the procedure as her pulse ox dropped to the 50%. She was intubated and underwent bronchoscopy in the intensive care unit. She was given 3 L of IV fluids and initially was on Levophed which is subsequently been discontinued. She is currently intubated and on mechanical ventilation. Tube feedings are to be started. Patient has albumin 1.8. CAT scan of the chest was negative for pulmonary embolism. Moderate to large right pleural effusion with adjacent atelectasis. Confluent groundglass and consolidation with septal lines. Correlate for pulmonary edema. Atypical pneumonia and DAH are also in the differential. Edematous changes throughout the mediastinum assessment for mediastinal lymphadenopathy. She has other consultants on including oncology, cardiology and land management supervisor. Urine culture is finalized with no growth. Fungal, acid-fast bacilli and bronchoscopy cultures are all pending. Blood cultures are being obtained. Patient is currently on IV antibiotics in the form of Levaquin, meropenem and vancomycin. Please see consult note is dictated by nurse practitioner Mrs. Aliya Tomas It is noted the patient is intubated, sedated and mechanically ventilated. She is comfortable. Her hypotension is improving. Urine output is adequate. She's had adequate resuscitation. Computed tomography scan is reviewed. The overall findings are also reviewed with her daughter. This time appears to have significant pneumonia and sepsis. She is on an extensive antibiotic regimen at this time. And has had some improvement. Consequently would not further enhance her antimicrobial therapy at this time. If she has any worsening or pending further data within consider empiric pneumocystis therapy. Laboratory is in the midst of doing testing for pneumocystis at this time. A CD4 cell count is going to be requested given her current situation. Will further help determine next steps. I agree with evaluation, assessment and plan is dictated by nurse practitioner Mrs. Aliya Tomas.
[2016-09-16] MEDS: FLUoxetine HCL 20 MG CAP PO SCH (21:31)
--- NOTE | 2016-09-16 21:45 | PN ---
DATE OF SERVICE: 09/16/2016 PRESENTING COMPLAINT: Short of breath, intubated. INTERVAL HISTORY: This is a patient with Burkitt lymphoma who presented very short of breath. Yesterday patient had pneumothorax and thoracentesis and ( ) 15 and PEEP of 5. A total of about 500 mL fluid was drained yesterday. Patient is currently sedated. Patient has a chest tube in place. REVIEW OF SYSTEMS: Patient is intubated. Current medications are reviewed that include: 1. IV Diprivan. 2. Levaquin. 3. Meropenem. 4. Levophed. 5. Vancomycin. On examination, temperature 98.5, pulse 114, respiration 19, blood pressure 135/56, pulse ox 100% on ventilator. GENERAL APPEARANCE: Lying in bed, sedated. EYES: Pupils equal. Conjunctivae normal. HEENT: Endotracheal tube in place. NECK: JVD not raised. Mass not palpable. RESPIRATORY: Effort increased. LUNGS: Diminished breath sounds. CARDIOVASCULAR: First and second sounds normal. No edema. ABDOMEN: Soft, nontender. NEUROLOGICAL: Pupils are equal. INVESTIGATIONS: White count 8.4, hemoglobin 7.6, potassium 4.5. BUN and creatinine are normal. Accu-Cheks are noted. ASSESSMENT: 1. Right pleural effusion; close to 500 mL was obtained, pending biochemistry. 2. Iatrogenic pneumothorax during thoracentesis; now has a chest tube in place. 3. Acute hypoxic respiratory failure, multifactorial, currently on ventilator. 4. ( ) bilateral pneumonia; could be viral ( ) broad coverage of antibiotics. 5. Burkitt lymphoma, undergoing chemotherapy. 6. Gastroesophageal reflux disease. 7. Hyperlipidemia. 8. 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 9. Hypothyroidism. 10. Coronary artery disease with prior history of stent and coronary artery bypass grafting. 11. Anemia from underlying lymphoma. 12. Hypotensive shock. PLAN: Continue current medication and treatment plan and supportive care. Antibiotics. Also hypovolemic shock. Follow closely. Spoke to Dr. Sanford earlier today on the phone. Fluid is being sent off for B-cell flow cytometry.
[2016-09-17] MEDS: MORPHINE SULFATE 4 MG/ML SYRINGE IV PRN ×2 (01:00→08:07)
[2016-09-17] MEDS: MEROPENEM 1 GM in SODIUM CHLORIDE 0.9% 100 ML IVPB SCH ×3 (01:12→15:17)
[2016-09-17] MEDS: methylPREDNISolone SOD SUCCI 40 MG/ML 1 ML VIAL IV SCH ×4 (01:13→17:32)
[2016-09-17] MEDS: INSULIN LISPRO (humaLOG) 300 UNIT/3 ML VIAL SQ SCH ×5 (01:13→20:28)
[2016-09-17 01:14] LABS: Glucose,Whole Blood 192 mg/dL (75-99)
[2016-09-17] MEDS: EMPTY BAG 1 BAG with PROPOFOL 500 MG IV SCH ×4 (05:44→19:58)
[2016-09-17 05:57] LABS: Anisocytosis Slight; Basophils % (A) 0 %; CH 30.3; CHCM 32.2; Eosinophils % (A) 0 %; HCT 22.7 % (34.0-46.0); HDW 3.79; HGB 7.3 gm/dL (11.4-16.0); Hypochromasia Slight; Luc # (Auto) 0.02; Luc % (Auto) 0; Lymphocytes # (A) 0.1 k/uL (1.0-4.8); Lymphocytes % (A) 1 %; MCH 30.6 pg (25.0-35.0); MCHC 32.2 g/dL (31.0-37.0); MCV 94.9 fL (80.0-100.0); Macrocytosis Slight; Mean Platelet Volume 8.6; Monocytes # (A) 0.2 k/uL (0-1.0); Monocytes % (A) 2 %; Neutrophils # (A) 11.2 k/uL (1.3-7.7); Neutrophils % (A) 97 %; Poikilocytosis Slight; RBC 2.39 m/uL (3.80-5.40); RDW 17.9 % (11.5-15.5); WBC 11.6 k/uL (3.8-10.6); WBC (Perox) 10.81
[2016-09-17 06:09] LABS: Anion Gap 5 mmol/L; Blood Urea Nitrogen 25 mg/dL (7-17); Calcium 10.2 mg/dL (8.4-10.2); Carbon Dioxide 25 mmol/L (22-30); Chloride 110 mmol/L (98-107); Glucose 212 mg/dL (74-99); Magnesium 2.3 mg/dL (1.6-2.3); Non-African American GFR(MDRD) >60 (>60 ml/min/1.73 sqM); Phosphorous 2.1 mg/dL (2.5-4.5); Potassium 4.4 mmol/L (3.5-5.1); Sodium 140 mmol/L (137-145)
[2016-09-17 06:10] LABS: Glucose,Whole Blood 232 mg/dL (75-99)
[2016-09-17] MEDS: LEVOTHYROXINE 100 MCG TAB PO SCH (06:12)
[2016-09-17] MEDS ORDERED: Phosphorus Replacement Protoco 1 EACH MISC MISCELLANE PRN (06:30)
[2016-09-17] MEDS ORDERED: POTASSIUM PHOSPHATE 10 MMOL in SODIUM CHLORIDE 0.9% 100 ML IV ONE (07:00)
[2016-09-17] MEDS: IPRATROPIUM-ALBUTEROL 3 ML NEB INHALATION PRN ×4 (07:30→18:58)
[2016-09-17 08:03] LABS: ABG Base Excess -1.3 mmol/L; ABG HCO3 22 mmol/L (21-25); ABG PCO2 34 mmHg (35-45); ABG PH 7.43 (7.35-7.45); ABG PO2 209 mmHg (83-108); ABG TCO2 24 mmol/L (19-24)
[2016-09-17] MEDS: ENOXAPARIN 40 MG/0.4 ML SYRINGE SQ SCH (08:13)
[2016-09-17] MEDS: CHLORHEXIDINE GLUCONATE 15 ML CUP MUCOUS MEM SCH ×2 (08:13→21:23)
[2016-09-17] MEDS: POTASSIUM CHLORIDE ER 10 MEQ TAB.ER.PRT PO SCH ×2 (08:14→21:23)
[2016-09-17] MEDS: PANTOPRAZOLE 40 MG/10 ML VIAL IVP SCH (08:14)
[2016-09-17] MEDS: METOPROLOL SUCCINATE (ER) 50 MG TAB.ER.24H PO SCH ×3 (08:18→21:23)
[2016-09-17] MEDS: ALLOPURINOL 300 MG TAB PO SCH ×2 (08:18→21:23)
[2016-09-17] MEDS: ASPIRIN 81 MG CHEW PO SCH (08:18)
[2016-09-17] MEDS: ISOSORBIDE MONONITRATE ER 30 MG TAB.ER.24H PO SCH (08:19)
[2016-09-17] MEDS: MEGESTROL 400 MG/10 ML CUP PO SCH ×2 (08:19→21:23)
--- NOTE | 2016-09-17 09:09 | XR ---
EXAMINATION TYPE: XR chest 1V DATE OF EXAM: 09/17/2016 6:35 AM COMPARISON: 09/16/2016 HISTORY: Tube placement TECHNIQUE: Single frontal view of the chest is obtained. FINDINGS: Airspace disease is stable. Postoperative changes, scoliosis and degenerative change noted . Small right apical pneumothorax unchanged. PICC line, ET, and NG tube stable. IMPRESSION: 1. Stable tube placement 2. Stable right apical pneumothorax 3. Stable airspace disease
[2016-09-17] MEDS ORDERED: SODIUM CHLORIDE 0.9% 1,000 ML IV ONE (09:23)
[2016-09-17] MEDS: SODIUM CHLORIDE 0.9% 1,000 ML IV SCH (09:57)
[2016-09-17] MEDS: NOREPINEPHRINE 4 MG in SODIUM CHLORIDE 0.9% 250 ML IV SCH (10:37)
--- NOTE | 2016-09-17 12:22 | PN ---
Mrs. Shepherd is an 80-year-old female, status post coronary artery bypass grafting, history of Burkitt's lymphoma who has been receiving chemotherapy who presented with symptoms of progressive dyspnea and a pleural effusion, underwent thoracentesis and had a pneumothorax. She is intubated, sedated. Hemodynamically her pressure is borderline, has been on pressors at times. Her urine output is marginal. She continues to be at this time on aspirin, Lovenox, isosorbide mononitrate 30 mg daily, metoprolol succinate 50 mg twice a day, levothyroxine. PHYSICAL EXAMINATION: Blood pressure 119/70 with a heart rate in the low 100s. LUNGS: Clear anteriorly. HEART: Regular rate and rhythm. S1, S2, no rub. ABDOMEN: Soft. No organomegaly. EXTREMITIES: No significant edema. Lab data revealed BUN and creatinine 25 and 0.5. Potassium 4.4. Hemoglobin of 7.3. IMPRESSION: 1. Respiratory failure with mechanical ventilation. 2. Burkitt's lymphoma receiving chemotherapy and immunocompromise status. 3. Bilateral pulmonary infiltrates suggestive of pneumonitis. 4. History of coronary artery disease, status post coronary artery bypass grafting, stable. RECOMMENDATION: From the cardiac standpoint, it appears that the primary issue is a pulmonary issue and most likely she has an infectious process. There is no active ischemic event or active symptoms to suggest congestive heart failure. Will continue supportive care. Unfortunately, prognosis remains guarded.
[2016-09-17 13:05] LABS: Glucose,Whole Blood 228 mg/dL (75-99)
--- NOTE | 2016-09-17 15:01 | P.PN ---
Subjective Principal diagnosis: Acute respiratory failure, multifactorial. This is an 80-year-old female patient with a diagnosis of Burkitt's lymphoma. The patient initially presented on May 2016 with a 9.4 cm soft tissue mass in the superior mediastinum in addition to 5.5 cm mass along the right cardiac border and bulky mediastinal lymph nodes and the right-sided pleural effusion. Note that at that time the patient has had thoracentesis and this failed to establish diagnosis. Following that, the patient had a endoscopic ultrasound/bronchoscopy and transbronchial needle aspirate of the lymph nodes showed findings suspicious of a lymphoma however it final diagnoses could not been established. Ultimately underwent a biopsy of a right supraclavicular lymph node which confirmed the presence of a Burkitt's lymphoma the patient was treated with chemotherapy and she received 2 cycles of R-EPOCH , the first cycle in June 2016 and the second in August 2016. I was asked to evaluate this patient knowing that she was having significant amount of respirator distress on the medical floor. I reviewed the CAT scan of the chest and the series of chest x-ray that was done during the current admission. The patient CAT scan of the chest showed extensive infiltration of the left lung with patchy infiltration of the right upper lobe area and a moderate-sized right-sided pleural effusion. The chest x-ray was also consistent with the CAT scan findings. The patient was quite hypoxic on high flow oxygen at 15 L/m nasal cannula and his saturation was around 90-91%. At the time of my evaluation the patient was quite uncomfortable and short of breath and I was asked to proceed with a right-sided thoracentesis to give this patient some symptomatic relief. I explained to the patient and her family the procedure. Upon further inquiry, it seems that the patient's condition has been gradually getting worse. She had been experiencing increased cough and dyspnea and she was short of breath with limited amount of activity. She end up in the hospital. No reported fever or chills. I noted no temperature or white cell count elevation during this current hospital stay. I ultimately proceeded with a right-sided thoracentesis for the reasons mentioned above. During the thoracentesis, the patient became progressively more short of breath. At that point I removed a thoracentesis catheter I terminated the procedure. The patient already drained approximately 150 mL of fluid from the right lung. The patient was noted to become progressively more hypoxic and admitted to the pulse ox dropped down to 60%. At that point, I activated the emergency team and the patient was intubated immediately in her own room. The patient remained hemodynamically stable with a systolic blood pressure above 120 throughout intubation procedure. Chest x-ray post intubation showed a large right-sided pneumothorax. At that point the patient got transferred to the intensive care unit where immediately a right-sided chest tube was inserted with complete expansion of the right lung. The chest tube itself drained an additional 450 mL of pleural fluid from the right lung making the total amount of fluid evacuated from the right lung being at 650 mL. The pleural fluid was light yellowish in color. The patient was also sedated with Diprivan. The patient had a bronchoscopy and bronchoalveolar lavage of the lingular segment was done without any major complications. The patient was taken off diuretics. The patient was given a bolus of normal saline 1 L. Echocardiogram done recently showed a preserved LV function without any significant valvular dysfunction. I discussed the case with ID and will start the patient with broad -spectrum antibiotics suspecting bilateral pneumonia and covering for a portion stick infections. At this point in time, the patient is on a mechanical ventilator. The patient is an assist-control mode with a rate of 22, tidal volume 450, FiO2 of 100% and a PEEP of 5. The patient had a blood gas post intubation that showed a pH of 7.43 with a pCO2 of 39 and pO2 of 143. Based on that FiO2 has been drop down to 70%. Hemodynamically she is stable. She briefly became hypotensive requiring 2 mics of levo fed and ultimately levo fed was discontinued. I ordered follow-up blood work and a stat blood work is in progress. The preliminary results showed a global of 4.6 and the patient will be ordered a total of 2 units of packed RBC as soon as possible. Note that there was no evidence of any external bleeding or bleeding through the patient's pleural space at a time of the procedure. Patient was reevaluated today on 09/16/2015, remains on mechanical ventilation. Her ventilator settings are FiO2 of 50%, PEEP of 5 tidal volume of 400 and assist control rate of 22. Labs were reviewed, relatively normal electrolytes. ABG was also reviewed, and the ventilator settings were adjusted accordingly. Chest x-ray continues to show bilateral infiltrates. No evidence of pneumothorax, chest tube and endotracheal tube are in proper position. Patient continues to have an air leak noted in the chest tube/pleural VAC. All medications were reviewed. Reevaluated today on 09/17/2015, upon my initial evaluation, patient was noted to be quite tachycardic, tachypneic, and her O2 saturations were in the high 80s. Hence I have adjusted her sedation, and the propofol was increased. Patient was given morphine, and I was able to ventilator much better once she was sedated. She required some fluid boluses because of a slight drop in the blood pressure after sedation. Chest x-ray was reviewed, endotracheal tube is in proper position. Minimal right apical pneumothorax is noted. Stable anddisease was also noted. Labs were all reviewed, WBC count is 11.6 hemoglobin is 7.3. PO2 is 209 pCO2 is 34 and pH of 7.43. Basic metabolic profile and renal profile are noted to be normal. Vent settings were noted and readjusted. Objective - Vital Signs Vital signs: Vital Signs Temp 98.3 F 09/17/16 11:30 Pulse 104 H 09/17/16 14:00 Resp 22 09/17/16 14:00 BP 136/63 09/17/16 14:00 Pulse Ox 100 09/17/16 14:00 Intake & Output 09/16/16 09/17/16 09/17/16 18:59 06:59 18:59 Intake Total 4342.598 2653.888 1909.306 Output Total 665 533 415 Balance 604.857 751.458 2960.306 Weight 63 kg 65.5 kg 65.1 kg Intake: IV 92.5 908.5 617.5 Propofol 50 ml As IV .STK 92.5 8.5 67.5 -[facility] Rx#:[id number] Sodium Chloride 0.9% 1, 900 550 000 ml @ 75 mls/hr IV . [id number] [facility] Rx#:[id number] Intake, IV Titration 917.357 413.049 2852.806 Amount Empty Bag 1 bag @ Titrate 49.812 59.388 67.806 IV .Q0M [facility] with Propofol 500 mg Rx#: [id number] Norepinephrine 4 mg In 42.545 0 Sodium Chloride 0.9% 250 ml @ Titrate IV .Q0M [facility] Rx#:[id number] Sodium Chloride 0.9% 1, 825 75 000 ml @ 75 mls/hr IV . [id number] [facility] Rx#:[id number] Sodium Chloride 0.9% 1, 999 000 ml @ 999 mls/hr IV . Q1H1M [facility] Rx#:[id number] Oral 240 Tube Feeding 20 132 165 Other 60 Output: Chest Tube Drainage 60 20 40 Chest Tube Right Lateral 60 20 40 Chest Urine 605 513 375 Stool 0 0 0 Other: Voiding Method Indwelling Catheter Indwelling Catheter Indwelling Catheter # Voids 1 1 ABP, PAP, CO, CI - Last Documented Arterial Blood Pressure 98/65 - Exam Physical Exam: Revealed an 80-year-old female, sedated, on propofol drip, on mechanical ventilation, in no distress. HEENT:[Neck is supple.] [No neck masses.] [No thyromegaly.] [No JVD.] Endotracheal tube is intact. Chest tube on the right side is intact. Minimal air leak and bubbles noted Chest: [Crackles at the bases bilaterally, no rhonchi, no wheezes.] Cardiac Exam: [Normal S1 and S2, no S3 gallop, no murmur.] Abdomen: [Soft, nontender, no megaly, no rebound, no guarding, normal bowel sounds.] Extremities: [No clubbing, no edema, no cyanosis.] Neurological Exam: Cannot be assessed, patient is fully sedated on propofol drip. - Labs CBC & Chem 7: 09/17/16 05:46 09/17/16 05:46 Labs: Abnormal Lab Results - Last 24 Hours (Table) 09/16/16 09/17/16 09/17/16 Range/Units 18:05 01:11 05:46 WBC 11.6 H (3.8-10.6) k/uL RBC 2.39 L (3.80-5.40) m/uL Hgb 7.3 L (11.4-16.0) gm/dL Hct 22.7 L (34.0-46.0) % RDW 17.9 H (11.5-15.5) % Neutrophils # 11.2 H (1.3-7.7) k/uL Lymphocytes # 0.1 L (1.0-4.8) k/uL ABG pCO2 (35-45) mmHg ABG pO2 (83-108) mmHg ABG O2 Saturation (94-97) % Chloride (98-107) mmol/L BUN (7-17) mg/dL Creatinine (0.52-1.04) mg/dL Glucose (74-99) mg/dL POC Glucose (mg/dL) 189 H 192 H (75-99) mg/dL Phosphorus (2.5-4.5) mg/dL 09/17/16 09/17/16 09/17/16 Range/Units 05:46 05:50 07:48 WBC (3.8-10.6) k/uL RBC (3.80-5.40) m/uL Hgb (11.4-16.0) gm/dL Hct (34.0-46.0) % RDW (11.5-15.5) % Neutrophils # (1.3-7.7) k/uL Lymphocytes # (1.0-4.8) k/uL ABG pCO2 34 L (35-45) mmHg ABG pO2 209 H (83-108) mmHg ABG O2 Saturation 100.0 H (94-97) % Chloride 110 H (98-107) mmol/L BUN 25 H (7-17) mg/dL Creatinine 0.50 L (0.52-1.04) mg/dL Glucose 212 H (74-99) mg/dL POC Glucose (mg/dL) 232 H (75-99) mg/dL Phosphorus 2.1 L (2.5-4.5) mg/dL 09/17/16 Range/Units 12:53 WBC (3.8-10.6) k/uL RBC (3.80-5.40) m/uL Hgb (11.4-16.0) gm/dL Hct (34.0-46.0) % RDW (11.5-15.5) % Neutrophils # (1.3-7.7) k/uL Lymphocytes # (1.0-4.8) k/uL ABG pCO2 (35-45) mmHg ABG pO2 (83-108) mmHg ABG O2 Saturation (94-97) % Chloride (98-107) mmol/L BUN (7-17) mg/dL Creatinine (0.52-1.04) mg/dL Glucose (74-99) mg/dL POC Glucose (mg/dL) 228 H (75-99) mg/dL Phosphorus (2.5-4.5) mg/dL Microbiology - Last 24 Hours (Table) 09/15/16 15:00 Gram Stain - Final Bronchoalviolar Lavage - Left Bronchial Washings Culture - Final 09/15/16 15:00 Acid Fast Bacilli Smear - Final Bronchial Washings - Right Acid Fast Bacilli Culture - Preliminary 09/16/16 00:45 Urine Culture - Preliminary Urine,Catheterized Assessment and Plan Plan: 1 acute hypoxic respiratory failure currently intubated on a mechanical ventilator. Post intubation day # 2 2 acute and diffuse bilateral pulmonary infiltrates, strongly consider pneumonia including opportunistic pneumonias in the setting of immunosuppression and Burkitt's lymphoma. The patient's presentation is not typical of heart failure. The patient is a preserved LV function and she hasn' t responded to diuretics over the past 24-48 hours. As such, pneumonias are very much likely causing this patient's progressive respiratory failure 3 right-sided pleural effusion, status post iatrogenic right-sided pneumothorax. The patient has a chest tube in place with adequate expansion of right lung and adequate evacuation of a right-sided pleural effusion 4 acute ventilator-dependent respiratory failure secondary to above. 5 Burkitt's lymphoma 6 systemic chemotherapy 7 coronary artery disease with previous bypass surgery 8 hypothyroidism 9 chronic anemia 10 malnutrition and progressive debility seconds above-mentioned comorbidities and the patient's health in general has been progressively declining since have diagnosed with Burkitt's lymphoma and since the systemic chemotherapy Recommendation: Continue present treatment plan including antibiotics, patient is to be seen by infectious disease on consultation, ventilator settings were addressed, nutrition was addressed, patient will be started on tube feeding via nasogastric tube. Hemodynamically the patient is stable. I had a long discussion with her son at bedside, and we will continue to follow closely. Critical care time is 35 minutes. Time with Patient: Greater than 30
[2016-09-17] MEDS: LEVOFLOXACIN 750MG-D5W PMX 750 MG in DEXTROSE/WATER 1 150ML.BAG IVPB SCH (16:19)
[2016-09-17 17:32] LABS: Glucose,Whole Blood 258 mg/dL (75-99)
[2016-09-17] MEDS: VANCOMYCIN 750 MG in SODIUM CHLORIDE 0.9% 250 ML IVPB SCH (17:32)
[2016-09-17 20:28] LABS: Glucose,Whole Blood 206 mg/dL (75-99)
--- NOTE | 2016-09-17 21:03 | P.PN ---
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 She was started on R-EPOCH in June and is status post 3 cycles and most recent one was provided on August 30 through September 04. Patient's son is at the bedside and states that she has had problems with weakness and most recently with shortness of breath, feeling hot and clammy without documented fever. She had increasing shortness of breath when she got up to go to the bathroom and was worsening over this past week. On at 11:00 p.m., her called their son to come over and check on her. Her pulse was high and they ended up having her sit in a chair and relax and she was feeling better. On Friday, she was okay but by Friday at 2 in the morning she had a repeat episode. Her son called [facility] and was instructed to bring her into the emergency center. She was found to be afebrile with white count of 8.7. Initial hemoglobin was 8.2 platelet count 124. Urine was cloudy, RBC 16 and bacteria rare. Urine culture showing no growth at 18 hours. Patient was on the selective care unit initially but developed increasing shortness of breath due to pleural effusion which was not improved with Lasix. Dr. Parish was on consult and attempted right-sided thoracentesis but terminated the procedure as her pulse ox dropped to the 50%. She was intubated and underwent bronchoscopy in the intensive care unit. She was given 3 L of IV fluids and initially was on Levophed which is subsequently been discontinued. She is currently intubated and on mechanical ventilation. Tube feedings are to be started. Patient has albumin 1.8. CAT scan of the chest was negative for pulmonary embolism. Moderate to large right pleural effusion with adjacent atelectasis. Confluent groundglass and consolidation with septal lines. Correlate for pulmonary edema. Atypical pneumonia and DAH are also in the differential. Edematous changes throughout the mediastinum assessment for mediastinal lymphadenopathy. She has other consultants on including oncology, cardiology and roll forming machine operator. Urine culture is finalized with no growth. Fungal, acid-fast bacilli are negative to date. Cultures are negative from the bronchoscopy also. Pneumocystis staining is requested and pending Blood cultures are pending and negative so far Objective - Vital Signs Vital signs: Vital Signs Temp 99.7 F H 09/17/16 20:30 Pulse 99 09/17/16 20:30 Resp 24 09/17/16 20:30 BP 112/57 09/17/16 20:30 Pulse Ox 98 09/17/16 20:30 Intake & Output 09/17/16 09/17/16 09/18/16 06:59 18:59 06:59 Intake Total 9027.481 5673.933 188 Output Total 533 665 130 Balance 597.394 4334.933 58 Weight 65.5 kg 65.1 kg Intake: IV 908.5 1042.5 75 Propofol 50 ml As IV .STK 8.5 117.5 -[facility] Rx#:[id number] Sodium Chloride 0.9% 1, 900 925 75 000 ml @ 75 mls/hr IV . [id number] [facility] Rx#:[id number] Intake, IV Titration 992.446 7955.433 50 Amount Empty Bag 1 bag @ Titrate 59.388 67.806 50 IV .Q0M [facility] with Propofol 500 mg Rx#: [id number] Norepinephrine 4 mg In 63.627 Sodium Chloride 0.9% 250 ml @ Titrate IV .Q0M [facility] Rx#:[id number] Sodium Chloride 0.9% 1, 75 000 ml @ 75 mls/hr IV . [id number] [facility] Rx#:[id number] Sodium Chloride 0.9% 1, 999 000 ml @ 999 mls/hr IV . Q1H1M ONE Rx#:[id number] Vancomycin 750 mg In 125 Sodium Chloride 0.9% 250 ml @ 125 mls/hr IVPB Q24H [facility] Rx#:[id number] Tube Feeding 132 297 33 Other 120 30 Output: Chest Tube Drainage 20 70 10 Chest Tube Right Lateral 20 70 10 Chest Urine 513 595 120 Stool 0 0 Other: Voiding Method Indwelling Catheter Indwelling Catheter # Voids 1 ABP, PAP, CO, CI - Last Documented Arterial Blood Pressure 108/100 - Exam Gen: This is a 80-year-old female currently intubated on mechanical ventilation and appears to be comfortable in no acute distress. HEENT: Head is atraumatic, normocephalic. Pupils equal, round. Sclerae is anicteric. White coating on her tongue. Oral ETT and oral gastric tube in place. NECK: Supple. No JVD. No lymphadenopathy. No thyromegaly. LUNGS: Good air exchange anteriorly bilaterally, diminished to the bases. No intercostal retractions. Right sided chest tube HEART: Regular rate and rhythm. No murmur. ABDOMEN: Soft. Bowel sounds are present. No masses. No tenderness. EXTREMITIES: No pedal edema. No calf tenderness. Dorsalis pedis is weak bilaterally. No skin breakdown noted. NEUROLOGICAL: Patient is sedated. - Labs CBC & Chem 7: 09/17/16 05:46 09/17/16 05:46 Labs: Abnormal Lab Results - Last 24 Hours (Table) 09/17/16 09/17/16 09/17/16 Range/Units 01:11 05:46 05:46 WBC 11.6 H (3.8-10.6) k/uL RBC 2.39 L (3.80-5.40) m/uL Hgb 7.3 L (11.4-16.0) gm/dL Hct 22.7 L (34.0-46.0) % RDW 17.9 H (11.5-15.5) % Neutrophils # 11.2 H (1.3-7.7) k/uL Lymphocytes # 0.1 L (1.0-4.8) k/uL ABG pCO2 (35-45) mmHg ABG pO2 (83-108) mmHg ABG O2 Saturation (94-97) % Chloride 110 H (98-107) mmol/L BUN 25 H (7-17) mg/dL Creatinine 0.50 L (0.52-1.04) mg/dL Glucose 212 H (74-99) mg/dL POC Glucose (mg/dL) 192 H (75-99) mg/dL Phosphorus 2.1 L (2.5-4.5) mg/dL 09/17/16 09/17/16 09/17/16 Range/Units 05:50 07:48 12:53 WBC (3.8-10.6) k/uL RBC (3.80-5.40) m/uL Hgb (11.4-16.0) gm/dL Hct (34.0-46.0) % RDW (11.5-15.5) % Neutrophils # (1.3-7.7) k/uL Lymphocytes # (1.0-4.8) k/uL ABG pCO2 34 L (35-45) mmHg ABG pO2 209 H (83-108) mmHg ABG O2 Saturation 100.0 H (94-97) % Chloride (98-107) mmol/L BUN (7-17) mg/dL Creatinine (0.52-1.04) mg/dL Glucose (74-99) mg/dL POC Glucose (mg/dL) 232 H 228 H (75-99) mg/dL Phosphorus (2.5-4.5) mg/dL 09/17/16 09/17/16 Range/Units 17:29 20:27 WBC (3.8-10.6) k/uL RBC (3.80-5.40) m/uL Hgb (11.4-16.0) gm/dL Hct (34.0-46.0) % RDW (11.5-15.5) % Neutrophils # (1.3-7.7) k/uL Lymphocytes # (1.0-4.8) k/uL ABG pCO2 (35-45) mmHg ABG pO2 (83-108) mmHg ABG O2 Saturation (94-97) % Chloride (98-107) mmol/L BUN (7-17) mg/dL Creatinine (0.52-1.04) mg/dL Glucose (74-99) mg/dL POC Glucose (mg/dL) 258 H 206 H (75-99) mg/dL Phosphorus (2.5-4.5) mg/dL Microbiology - Last 24 Hours (Table) 09/16/16 00:45 Urine Culture - Final Urine,Catheterized 09/15/16 15:00 Gram Stain - Final Bronchoalviolar Lavage - Left Bronchial Washings Culture - Final 09/15/16 15:00 Acid Fast Bacilli Smear - Final Bronchial Washings - Right Acid Fast Bacilli Culture - Preliminary Laboratory Results WBC 11.6 k/uL (3.8-10.6) H 09/17/16 05:46 RBC 2.39 m/uL (3.80-5.40) L 09/17/16 05:46 Hgb 7.3 gm/dL (11.4-16.0) L 09/17/16 05:46 Hct 22.7 % (34.0-46.0) L 09/17/16 05:46 MCV 94.9 fL (80.0-100.0) 09/17/16 05:46 MCH 30.6 pg (25.0-35.0) 09/17/16 05:46 MCHC 32.2 g/dL (31.0-37.0) 09/17/16 05:46 RDW 17.9 % (11.5-15.5) H 09/17/16 05:46 Plt Count 154 k/uL (150-450) 09/17/16 05:46 Neutrophils % 97 % 09/17/16 05:46 Lymphocytes % 1 % 09/17/16 05:46 Monocytes % 2 % 09/17/16 05:46 Eosinophils % 0 % 09/17/16 05:46 Basophils % 0 % 09/17/16 05:46 Neutrophils # 11.2 k/uL (1.3-7.7) H 09/17/16 05:46 Lymphocytes # 0.1 k/uL (1.0-4.8) L 09/17/16 05:46 Monocytes # 0.2 k/uL (0-1.0) 09/17/16 05:46 Eosinophils # 0.0 k/uL (0-0.7) 09/17/16 05:46 Basophils # 0.0 k/uL (0-0.2) 09/17/16 05:46 Hypochromasia Slight 09/17/16 05:46 Poikilocytosis Slight 09/17/16 05:46 Anisocytosis Slight 09/17/16 05:46 Macrocytosis Slight 09/17/16 05:46 PT 11.1 sec (9.0-12.0) 09/14/16 07:44 INR 1.1 (<1.1) 09/14/16 07:44 APTT 23.1 sec (22.0-30.0) 09/14/16 07:44 Sample Site A-LINE 09/17/16 07:48 ABG pH 7.43 (7.35-7.45) 09/17/16 07:48 ABG pCO2 34 mmHg (35-45) L 09/17/16 07:48 ABG pO2 209 mmHg (83-108) H 09/17/16 07:48 ABG HCO3 22 mmol/L (21-25) 09/17/16 07:48 ABG Total CO2 24 mmol/L (19-24) 09/17/16 07:48 ABG O2 Saturation 100.0 % (94-97) H 09/17/16 07:48 ABG Base Excess -1.3 mmol/L 09/17/16 07:48 FiO2 60 % 09/17/16 07:48 Sodium 140 mmol/L (137-145) 09/17/16 05:46 Potassium 4.4 mmol/L (3.5-5.1) 09/17/16 05:46 Chloride 110 mmol/L (98-107) H 09/17/16 05:46 Carbon Dioxide 25 mmol/L (22-30) 09/17/16 05:46 Anion Gap 5 mmol/L 09/17/16 05:46 BUN 25 mg/dL (7-17) H 09/17/16 05:46 Creatinine 0.50 mg/dL (0.52-1.04) L 09/17/16 05:46 Est GFR (MDRD) Af Amer >60 (>60 ml/min/1.73 sqM) 09/17/16 05:46 Est GFR (MDRD) Non-Af >60 (>60 ml/min/1.73 sqM) 09/17/16 05:46 Glucose 212 mg/dL (74-99) H 09/17/16 05:46 POC Glucose (mg/dL) 206 mg/dL (75-99) H 09/17/16 20:27 POC Glu Disability Rater ID Carlos Dangelo 09/17/16 20:[address] Glu mg/dL 128 mg/dL 09/14/16 07:44 Hemoglobin A1c 6.1 % (4.2-6.1) 09/14/16 07:44 Calcium 10.2 mg/dL (8.4-10.2) 09/17/16 05:46 Phosphorus 2.1 mg/dL (2.5-4.5) L 09/17/16 05:46 Magnesium 2.3 mg/dL (1.6-2.3) 09/17/16 05:46 Total Bilirubin 0.4 mg/dL (0.2-1.3) 09/15/16 17:40 AST 25 U/L (14-36) 09/15/16 17:40 ALT 34 U/L (9-52) 09/15/16 17:40 Alkaline Phosphatase 52 U/L (38-126) 09/15/16 17:40 Total Creatine Kinase <20 U/L (30-135) L 09/14/16 19:28 CK-MB (CK-2) 0.4 ng/mL (0.0-2.4) 09/14/16 19:28 CK-MB (CK-2) Rel Index 0.0 09/14/16 19:28 Troponin I 0.022 ng/mL (0.000-0.034) 09/14/16 19:28 NT-Pro-B Natriuret Pep 3070 pg/mL 09/15/16 05:49 Total Protein 3.6 g/dL (6.3-8.2) L 09/15/16 17:40 Albumin 1.8 g/dL (3.5-5.0) L 09/15/16 17:40 Triglycerides 122 mg/dL (<150) 09/15/16 05:49 Cholesterol 94 mg/dL (<200) 09/15/16 05:49 LDL Cholesterol, Calc 50 mg/dL (0-99) 09/15/16 05:49 HDL Cholesterol 20 mg/dL (40-60) L 09/15/16 05:49 TSH 1.910 mIU/L (0.465-4.680) 09/15/16 05:49 Urine Color Yellow 09/14/16 08:42 Urine Appearance Cloudy (Clear) H 09/14/16 08:42 Urine pH 7.0 (5.0-8.0) 09/14/16 08:42 Ur Specific [place] 1.016 (1.001-1.035) 09/14/16 08:42 Urine Protein Trace (Negative) H 09/14/16 08:42 Urine Glucose (UA) Negative (Negative) 09/14/16 08:42 Urine Ketones Negative (Negative) 09/14/16 08:42 Urine Blood Negative (Negative) 09/14/16 08:42 Urine Nitrate Negative (Negative) 09/14/16 08:42 Urine Bilirubin Negative (Negative) 09/14/16 08:42 Urine Urobilinogen 4.0 mg/dL (<2.0) 09/14/16 08:42 Ur Leukocyte Esterase Negative (Negative) 09/14/16 08:42 Urine RBC 16 /hpf (0-5) H 09/14/16 08:42 Urine WBC 5 /hpf (0-5) 09/14/16 08:42 Ur Squamous Epith Cells 1 /hpf (0-4) 09/14/16 08:42 Urine Bacteria Rare /hpf (None) H 09/14/16 08:42 Urine Mucus Rare /hpf (None) H 09/14/16 08:42 Virus Source See Below 09/15/16 15:00 Viral Test See Below 09/15/16 15:00 Virus Analysis Interp See Below 09/15/16 15:00 Miscellaneous Test B Cell FlowCyto,PB 09/16/16 05:00 Misc Test Result See comment 09/16/16 05:00 Blood Type A Positive 09/14/16 08:30 Blood Type Confirm A Positive 09/14/16 07:44 Blood Type Recheck CABO Indicated 09/14/16 08:30 Antibody Screen NEGATIVE 09/14/16 08:30 Spec Expiration Date 09/17/2016 - 232909/14/16 08:30 Microbiology 09/16/16 00:45 Urine,Catheterized Urine Culture - Final 09/15/16 15:00 Bronchoalviolar Lavage - Left Gram Stain - Final 09/15/16 15:00 Bronchoalviolar Lavage - Left Bronchial Washings Culture - Final 09/15/16 15:00 Bronchial Washings - Right Acid Fast Bacilli Smear - Final 09/15/16 15:00 Bronchial Washings - Right Acid Fast Bacilli Culture - Preliminary 09/15/16 15:00 Bronchial Washings - Left Fungal Culture - Preliminary 09/14/16 08:42 Urine,Clean Catch Urine Culture - Final - Imaging and Cardiology Chest x-ray: image reviewed (Right pneumothorax improved) Assessment and Plan (1) Burkitt lymphoma of extranodal or solid organ site Narrative/Plan: 80-year-old female with a known history of Burkitt's lymphoma status post 3 cycles of the alteredR EPOCH chemotherapy. She has developed respiratory failure requiring intubation and mechanical ventilation. Chest x- ray is abnormal. She has had bronchoscopy. Cultures are negative so far. Viral assay was negative. Pneumocystis staining is in process.. CD4 cell count is requested if profoundly lymphopenic would likely initiate pneumocystis therapy. IgG level can be obtained also. Supplemented low. Status: Acute (2) Pneumonia Status: Acute (3) Respiratory failure Status: Acute
[2016-09-17] MEDS: FLUoxetine HCL 20 MG CAP PO SCH (21:23)
[2016-09-17] MEDS: MORPHINE SULFATE 2 MG/ML SYRINGE IVP PRN (22:49)
[2016-09-17] MEDS: INSULIN GLARGINE 100 UNIT/ML 10 ML VIAL SQ SCH (22:59)
[2016-09-18 00:12] LABS: Glucose,Whole Blood 213 mg/dL (75-99)
[2016-09-18] MEDS: MEROPENEM 1 GM in SODIUM CHLORIDE 0.9% 100 ML IVPB SCH ×3 (00:14→15:48)
[2016-09-18] MEDS: SODIUM CHLORIDE 0.9% 1,000 ML IV SCH (00:14)
[2016-09-18] MEDS: methylPREDNISolone SOD SUCCI 40 MG/ML 1 ML VIAL IV SCH ×4 (00:14→17:20)
[2016-09-18] MEDS: INSULIN LISPRO (humaLOG) 300 UNIT/3 ML VIAL SQ SCH ×6 (00:15→21:47)
[2016-09-18] MEDS: EMPTY BAG 1 BAG with PROPOFOL 500 MG IV SCH ×5 (00:57→21:37)
[2016-09-18 04:32] LABS: Glucose,Whole Blood 183 mg/dL (75-99)
[2016-09-18 05:11] LABS: Anisocytosis Slight; Basophils % (A) 0 %; CH 30.3; Eosinophils % (A) 0 %; HCT 22.2 % (34.0-46.0); HDW 3.83; HGB 7.1 gm/dL (11.4-16.0); Hypochromasia Moderate; Luc # (Auto) 0.02; Luc % (Auto) 0; Lymphocytes # (A) 0.1 k/uL (1.0-4.8); Lymphocytes % (A) 1 %; MCH 30.6 pg (25.0-35.0); MCV 95.6 fL (80.0-100.0); Macrocytosis Slight; Mean Platelet Volume 8.8; Monocytes # (A) 0.2 k/uL (0-1.0); Monocytes % (A) 2 %; Neutrophils # (A) 11.9 k/uL (1.3-7.7); Neutrophils % (A) 97 %; Poikilocytosis Slight; RBC 2.32 m/uL (3.80-5.40); RDW 18.9 % (11.5-15.5); WBC 12.3 k/uL (3.8-10.6); WBC (Perox) 12.48
[2016-09-18 05:30] LABS: Anion Gap 5 mmol/L; Blood Urea Nitrogen 23 mg/dL (7-17); Carbon Dioxide 25 mmol/L (22-30); Chloride 112 mmol/L (98-107); Glucose 167 mg/dL (74-99); Magnesium 2.2 mg/dL (1.6-2.3); Non-African American GFR(MDRD) >60 (>60 ml/min/1.73 sqM); Phosphorous 1.5 mg/dL (2.5-4.5); Potassium 4.4 mmol/L (3.5-5.1); Sodium 142 mmol/L (137-145)
--- NOTE | 2016-09-18 05:55 | PN ---
DATE OF SERVICE: 09/17/2016 PRESENTING COMPLAINT: Intubated. INTERVAL HISTORY: This is a patient with Burkitt lymphoma who presented with short of breath. In an attempt to thoracentesis, patient had a pneumothorax. Patient has got a right-sided chest tube, about 500 mL of thoracic fluid was obtained. Patient's thoracic fluid also had been sent out for B-cell flow cytometry. Patient remains on a ventilator, FiO2 of 50 and PEEP of 5. Tube feeding has been started. REVIEW OF SYSTEMS: Patient intubated. Current medications are reviewed that include IV ( ), Levaquin and meropenem. Patient has been off Levophed since this morning and IV vancomycin. On examination, temperature 99.7, pulse 99, respirations 24, blood pressure 112/57, pulse ox 98% on the ventilator. GENERAL APPEARANCE: Lying in bed, intubated. EYES: Pupils equal. Conjunctivae normal. ENT: Endotracheal tube ( ). NECK: JVD not raised. Mass not palpable. RESPIRATORY: Effort normal. LUNGS: Diminished breath sounds. Right-sided chest tube. ABDOMEN: Soft, nontender. Liver and spleen not palpable. PSYCHIATRY: Unable to assess. NEUROLOGICAL: Pupils are equal. INVESTIGATIONS: White count 11.6, hemoglobin 7.3. BUN 25, creatinine 0.50. Potassium 4.4. Chest x-ray shows ( ) expansion of the lung. ASSESSMENT: 1. Right pleural effusion close to 500 mL, status post thoracentesis. 2. Iatrogenic pneumothorax during thoracentesis, now there is a chest tube in place with lung expanded. 3. Acute hypoxic respiratory failure, multifactorial. Patient currently on the ventilator. 4. Bilateral pneumonia, could be viral, could be PCP, ( ) broad-spectrum antibiotics. 5. Burkitt lymphoma, undergoing chemotherapy. 6. Gastroesophageal reflux disease. 7. Hyperlipidemia. 8. Primary osteoarthritis of multiple joints, bilateral. 9. Hypothyroidism. 10. Coronary artery disease with prior history of stent and coronary artery bypass grafting. 11. Anemia from underlying lymphoma. 12. Hypotensive shock. Patient currently off pressors. PLAN: Continue current medication and treatment plan including antibiotics. Patient earlier did drop her blood pressure due to getting morphine. The dose of morphine has been cut back. Overall prognosis guarded. Will follow.
[2016-09-18] MEDS: SODIUM PHOSPHATE 10 MMOL in SODIUM CHLORIDE 0.9% 100 ML IVPB SCH ×2 (06:30→08:12)
[2016-09-18] MEDS: LEVOTHYROXINE 112 MCG TAB PO SCH (06:31)
[2016-09-18] MEDS: MORPHINE SULFATE 2 MG/ML SYRINGE IVP PRN (07:07)
[2016-09-18] MEDS: IPRATROPIUM-ALBUTEROL 3 ML NEB INHALATION PRN ×4 (07:23→23:12)
[2016-09-18] MEDS ORDERED: CISATRACURIUM 2 MG/ML 5 ML VIAL IV ONE (07:26)
[2016-09-18] MEDS ORDERED: CISATRACURIUM 200 MG in SODIUM CHLORIDE 0.9% 180 ML IV SCH (07:30)
[2016-09-18 07:38] LABS: Glucose,Whole Blood 190 mg/dL (75-99)
[2016-09-18] MEDS ORDERED: FUROSEMIDE 10 MG/ML 4 ML VIAL IV ONE (07:45)
[2016-09-18 08:00] LABS: Glucose,Whole Blood 186 mg/dL (75-99)
[2016-09-18] MEDS: ARTIFICIAL TEARS-HYPROMELLOSE DROPS 15 ML BTL BOTH EYES SCH ×4 (08:16→21:47)
--- NOTE | 2016-09-18 08:23 | XR ---
EXAMINATION TYPE: XR chest 1V DATE OF EXAM: 09/18/2016 6:48 AM COMPARISON: 09/17/2016 HISTORY: Tube placement TECHNIQUE: Single frontal view of the chest is obtained. FINDINGS: Airspace disease is stable. Postoperative changes, scoliosis and degenerative change noted . Small right apical pneumothorax unchanged. PICC line, ET, and NG tube stable. IMPRESSION: 1. Stable tube placement 2. Stable right apical pneumothorax 3. Stable airspace disease
[2016-09-18] MEDS: MEGESTROL 400 MG/10 ML CUP PO SCH ×2 (08:30→21:48)
[2016-09-18] MEDS: CHLORHEXIDINE GLUCONATE 15 ML CUP MUCOUS MEM SCH ×2 (08:30→21:47)
--- NOTE | 2016-09-18 09:16 | PN ---
Mrs. Shepherd is an 80-year-old female with history of coronary artery disease, status post coronary artery bypass grafting, who has a history of Burkitt's lymphoma, has been receiving chemotherapy, presents with symptoms of progressive dyspnea and was found to have an infectious process in the lungs. The pathogen has not been isolated yet. She has a pneumothorax and has been intubated, sedated. She continues to be sinus mechanism. She has received diuresis today. There is no evidence of tachy- or bradyarrhythmia at this time. She continues to be on aspirin once a day, isosorbide mononitrate 30 mg daily, metoprolol succinate 50 mg twice a day. PHYSICAL EXAMINATION: Blood pressure running in the 100 with the heart rate in the low 100s. LUNGS: No wheezes anteriorly. HEART: Regular rate and rhythm. S1, S2, no S3, no rub appreciated. ABDOMEN: Soft, positive bowel sounds. EXTREMITIES: 1+ edema. Lab data revealed hemoglobin of 7.1. Her BUN and creatinine 23 and 0.5. Potassium 4.4. IMPRESSION: 1. Respiratory failure. 2. Sepsis. 3. Status post coronary artery bypass grafting. 4. Burkitt's lymphoma. 5. Immunocompromise. 6. Anemia. RECOMMENDATION: From the cardiac standpoint, will continue supportive care. There is no active cardiac issue at this time. Will see her on as-need basis. Please feel free to call us for any questions. The prognosis unfortunately is quite poor.
[2016-09-18] MEDS: ENOXAPARIN 40 MG/0.4 ML SYRINGE SQ SCH (09:30)
[2016-09-18] MEDS: POTASSIUM CHLORIDE ER 10 MEQ TAB.ER.PRT PO SCH ×2 (09:30→21:46)
[2016-09-18] MEDS: ASPIRIN 81 MG CHEW PO SCH (09:30)
[2016-09-18] MEDS: METOPROLOL SUCCINATE (ER) 50 MG TAB.ER.24H PO SCH ×2 (09:31→21:48)
[2016-09-18] MEDS: PANTOPRAZOLE 40 MG/10 ML VIAL IVP SCH (09:31)
[2016-09-18] MEDS: ISOSORBIDE MONONITRATE ER 30 MG TAB.ER.24H PO SCH (09:33)
[2016-09-18] MEDS: ALLOPURINOL 300 MG TAB PO SCH ×2 (09:33→21:47)
[2016-09-18 09:35] LABS: ABG HCO3 24 mmol/L (21-25); ABG PCO2 44 mmHg (35-45); ABG PH 7.35 (7.35-7.45); ABG PO2 85 mmHg (83-108); ABG TCO2 25 mmol/L (19-24)
[2016-09-18 11:27] LABS: Potassium 4.4 mmol/L (3.5-5.1)
[2016-09-18] MEDS ORDERED: METOPROLOL SUCCINATE (ER) 25 MG TAB.ER.24H PO STA (11:57)
[2016-09-18 12:06] LABS: Glucose,Whole Blood 244 mg/dL (75-99)
[2016-09-18] MEDS ORDERED: Magnesium Replacement Protocol 1 EACH MISC MISCELLANE PRN (12:32)
--- NOTE | 2016-09-18 13:30 | PCN ---
DATE OF PROCEDURE: OPERATIVE REPORT: Placement of a right radial arterial line. PREOPERATIVE DIAGNOSIS: Acute respiratory failure. POSTOPERATIVE DIAGNOSIS: Acute respiratory failure. ANESTHESIA USED: None deployed. PROCEDURE: The right wrist was prepared in a sterile fashion and drapes were applied. Right radial artery was palpated, cannulated, and a guidewire was placed. A Cook's catheter was inserted over the guidewire, and the guidewire was removed. Good blood flow and good waveform were noted. Line was secured using 3-0 silk sutures.
[2016-09-18] MEDS: MAGNESIUM SULFATE-D5W PMX 1 GM in DEXTROSE/WATER 1 100ML.BAG IVPB SCH ×2 (13:41→15:47)
--- NOTE | 2016-09-18 14:32 | P.PN ---
Subjective Principal diagnosis: Acute respiratory failure, multifactorial. This is an 80-year-old female patient with a diagnosis of Burkitt's lymphoma. The patient initially presented on May 2016 with a 9.4 cm soft tissue mass in the superior mediastinum in addition to 5.5 cm mass along the right cardiac border and bulky mediastinal lymph nodes and the right-sided pleural effusion. Note that at that time the patient has had thoracentesis and this failed to establish diagnosis. Following that, the patient had a endoscopic ultrasound/bronchoscopy and transbronchial needle aspirate of the lymph nodes showed findings suspicious of a lymphoma however it final diagnoses could not been established. Ultimately underwent a biopsy of a right supraclavicular lymph node which confirmed the presence of a Burkitt's lymphoma the patient was treated with chemotherapy and she received 2 cycles of R-EPOCH , the first cycle in June 2016 and the second in August 2016. I was asked to evaluate this patient knowing that she was having significant amount of respirator distress on the medical floor. I reviewed the CAT scan of the chest and the series of chest x-ray that was done during the current admission. The patient CAT scan of the chest showed extensive infiltration of the left lung with patchy infiltration of the right upper lobe area and a moderate-sized right-sided pleural effusion. The chest x-ray was also consistent with the CAT scan findings. The patient was quite hypoxic on high flow oxygen at 15 L/m nasal cannula and his saturation was around 90-91%. At the time of my evaluation the patient was quite uncomfortable and short of breath and I was asked to proceed with a right-sided thoracentesis to give this patient some symptomatic relief. I explained to the patient and her family the procedure. Upon further inquiry, it seems that the patient's condition has been gradually getting worse. She had been experiencing increased cough and dyspnea and she was short of breath with limited amount of activity. She end up in the hospital. No reported fever or chills. I noted no temperature or white cell count elevation during this current hospital stay. I ultimately proceeded with a right-sided thoracentesis for the reasons mentioned above. During the thoracentesis, the patient became progressively more short of breath. At that point I removed a thoracentesis catheter I terminated the procedure. The patient already drained approximately 150 mL of fluid from the right lung. The patient was noted to become progressively more hypoxic and admitted to the pulse ox dropped down to 60%. At that point, I activated the emergency team and the patient was intubated immediately in her own room. The patient remained hemodynamically stable with a systolic blood pressure above 120 throughout intubation procedure. Chest x-ray post intubation showed a large right-sided pneumothorax. At that point the patient got transferred to the intensive care unit where immediately a right-sided chest tube was inserted with complete expansion of the right lung. The chest tube itself drained an additional 450 mL of pleural fluid from the right lung making the total amount of fluid evacuated from the right lung being at 650 mL. The pleural fluid was light yellowish in color. The patient was also sedated with Diprivan. The patient had a bronchoscopy and bronchoalveolar lavage of the lingular segment was done without any major complications. The patient was taken off diuretics. The patient was given a bolus of normal saline 1 L. Echocardiogram done recently showed a preserved LV function without any significant valvular dysfunction. I discussed the case with ID and will start the patient with broad -spectrum antibiotics suspecting bilateral pneumonia and covering for a portion stick infections. At this point in time, the patient is on a mechanical ventilator. The patient is an assist-control mode with a rate of 22, tidal volume 450, FiO2 of 100% and a PEEP of 5. The patient had a blood gas post intubation that showed a pH of 7.43 with a pCO2 of 39 and pO2 of 143. Based on that FiO2 has been drop down to 70%. Hemodynamically she is stable. She briefly became hypotensive requiring 2 mics of levo fed and ultimately levo fed was discontinued. I ordered follow-up blood work and a stat blood work is in progress. The preliminary results showed a global of 4.6 and the patient will be ordered a total of 2 units of packed RBC as soon as possible. Note that there was no evidence of any external bleeding or bleeding through the patient's pleural space at a time of the procedure. Patient was reevaluated today on 09/16/2016, remains on mechanical ventilation. Her ventilator settings are FiO2 of 50%, PEEP of 5 tidal volume of 400 and assist control rate of 22. Labs were reviewed, relatively normal electrolytes. ABG was also reviewed, and the ventilator settings were adjusted accordingly. Chest x-ray continues to show bilateral infiltrates. No evidence of pneumothorax, chest tube and endotracheal tube are in proper position. Patient continues to have an air leak noted in the chest tube/pleural VAC. All medications were reviewed. Reevaluated today on 09/17/2016, upon my initial evaluation, patient was noted to be quite tachycardic, tachypneic, and her O2 saturations were in the high 80s. Hence I have adjusted her sedation, and the propofol was increased. Patient was given morphine, and I was able to ventilator much better once she was sedated. She required some fluid boluses because of a slight drop in the blood pressure after sedation. Chest x-ray was reviewed, endotracheal tube is in proper position. Minimal right apical pneumothorax is noted. Stable anddisease was also noted. Labs were all reviewed, WBC count is 11.6 hemoglobin is 7.3. PO2 is 209 pCO2 is 34 and pH of 7.43. Basic metabolic profile and renal profile are noted to be normal. Vent settings were noted and readjusted. Patient was reevaluated today on 09/18/2016, same issue happened again as yesterday. Early in the morning I was notified about the patient getting quite tachycardic, restless agitated, and she desaturated down to the 70s. FiO2 was increased to 100%, patient was noted to be not synchronous with mechanical ventilation. In spite of sedation and increasing the dose of propofol, patient remained tachycardic and tachypneic, and she was using her accessory muscles. Hence I recommended using paralytic agents on the patient, and Nimbex was initiated. Patient is now on Nimbex, and she seems to be ventilating much better. Right radial arterial line was placed because apparently they had some issue with the line last night and it was removed. I had a long discussion with her daughter at bedside, she is very well aware of the poor prognostic picture, and I explained to her that her mother is quite ill, mortality is rather high, but so far she seems to be doing relatively well, and we are not quite ready to collect a medical futility situation. Cultures are still pending , we called the lab in [place], and hopefully sometime today will have the final report on the PCP stain. Otherwise so far all the cultures from the BAL are nondiagnostic. ABG today showed a pO2 of 85 pCO2 of 44 pH of 7.35 WBC count is 12.3 hemoglobin is 7.1 basic metabolic profile is normal, renal profile is normal. Objective - Vital Signs Vital signs: Vital Signs Temp 98.4 F 09/18/16 11:30 Pulse 103 H 09/18/16 13:30 Resp 23 09/18/16 13:30 BP 146/75 09/18/16 13:30 Pulse Ox 95 09/18/16 13:30 Intake & Output 09/17/16 09/18/16 09/18/16 18:59 06:59 18:59 Intake Total 2714.933 1710.588 869.100 Output Total 962 825 6812 Balance 2049.933 974.588 -1135.900 Weight 65.1 kg 69.8 kg 69.8 kg Intake: IV 1042.5 875 522.7 Meropenem 1 gm In Sodium 100 Chloride 0.9% 100 ml @ 200 mls/hr IVPB Q8HR [facility] Rx#:[id number] Propofol 50 ml As IV .STK 117.5 97.7 [facility] Rx#:[id number] Sodium Chloride 0.9% 1, 925 775 175 000 ml @ 75 mls/hr IV . [id number] [facility] Rx#:[id number] Sodium Phosphate 10 mmol 250 In Sodium Chloride 0.9% 100 ml @ 50 mls/hr IVPB Q2H [facility] Rx#:[id number] Intake, IV Titration 1255.433 238.588 181.400 Amount Cisatracurium 200 mg In 31.4 Sodium Chloride 0.9% 180 ml @ 1 MCG/KG/MIN 4.18 mls/hr IV .Q24H [facility] Rx#: [id number] Empty Bag 1 bag @ Titrate 67.806 138.588 50.000 IV .Q0M [facility] with Propofol 500 mg Rx#: [id number] Magnesium Sulfate-D5w Pmx 100 1 gm In Dextrose/Water 1 100ml.bag @ 100 mls/hr IVPB Q1H [facility] Rx#: [id number] Meropenem 1 gm In Sodium 100 Chloride 0.9% 100 ml @ 200 mls/hr IVPB Q8HR [facility] Rx#:[id number] Norepinephrine 4 mg In 63.627 0 Sodium Chloride 0.9% 250 ml @ Titrate IV .Q0M [facility] Rx#:[id number] Sodium Chloride 0.9% 1, 999 000 ml @ 999 mls/hr IV . Q1H1[facility] Rx#:[id number] Vancomycin 750 mg In 125 Sodium Chloride 0.9% 250 ml @ 125 mls/hr IVPB Q24H [facility] Rx#:[id number] Tube Feeding 297 462 165 Other 120 135 Output: Chest Tube Drainage 70 50 70 Chest Tube Right Lateral 70 50 70 Chest Urine 648 444 3236 Stool 0 0 Other: Voiding Method Indwelling Catheter Indwelling Catheter Indwelling Catheter # Voids 1 1 ABP, PAP, CO, CI - Last Documented Arterial Blood Pressure 154/60 - Exam Physical Exam: Revealed an 80-year-old female, sedated, on propofol drip, on mechanical ventilation, and on Nimbex drip.. HEENT:[Neck is supple.] [No neck masses.] [No thyromegaly.] [No JVD.] Endotracheal tube is intact. Chest tube on the right side is intact. Minimal air leak and bubbles noted Chest: [Crackles at the bases bilaterally, no rhonchi, no wheezes.] Cardiac Exam: [Normal S1 and S2, no S3 gallop, no murmur.] Abdomen: [Soft, nontender, no megaly, no rebound, no guarding, normal bowel sounds.] Extremities: [No clubbing, no edema, no cyanosis.] Neurological Exam: Cannot be assessed, patient is fully sedated on propofol drip. - Labs CBC & Chem 7: 09/18/16 04:50 09/18/16 10:58 Labs: Abnormal Lab Results - Last 24 Hours (Table) 09/17/16 09/17/16 09/18/16 Range/Units 17:29 20:27 00:10 WBC (3.8-10.6) k/uL RBC (3.80-5.40) m/uL Hgb (11.4-16.0) gm/dL Hct (34.0-46.0) % RDW (11.5-15.5) % Plt Count (150-450) k/uL Neutrophils # (1.3-7.7) k/uL Lymphocytes # (1.0-4.8) k/uL ABG Total CO2 (19-24) mmol/L Chloride (98-107) mmol/L BUN (7-17) mg/dL Creatinine (0.52-1.04) mg/dL Glucose (74-99) mg/dL POC Glucose (mg/dL) 258 H 206 H 213 H (75-99) mg/dL Phosphorus (2.5-4.5) mg/dL 09/18/16 09/18/16 09/18/16 Range/Units 04:30 04:50 04:50 WBC 12.3 H (3.8-10.6) k/uL RBC 2.32 L (3.80-5.40) m/uL Hgb 7.1 L (11.4-16.0) gm/dL Hct 22.2 L (34.0-46.0) % RDW 18.9 H (11.5-15.5) % Plt Count 137 L (150-450) k/uL Neutrophils # 11.9 H (1.3-7.7) k/uL Lymphocytes # 0.1 L (1.0-4.8) k/uL ABG Total CO2 (19-24) mmol/L Chloride 112 H (98-107) mmol/L BUN 23 H (7-17) mg/dL Creatinine 0.50 L (0.52-1.04) mg/dL Glucose 167 H (74-99) mg/dL POC Glucose (mg/dL) 183 H (75-99) mg/dL Phosphorus 1.5 L (2.5-4.5) mg/dL 09/18/16 09/18/16 09/18/16 Range/Units 07:07 07:58 09:25 WBC (3.8-10.6) k/uL RBC (3.80-5.40) m/uL Hgb (11.4-16.0) gm/dL Hct (34.0-46.0) % RDW (11.5-15.5) % Plt Count (150-450) k/uL Neutrophils # (1.3-7.7) k/uL Lymphocytes # (1.0-4.8) k/uL ABG Total CO2 25 H (19-24) mmol/L Chloride (98-107) mmol/L BUN (7-17) mg/dL Creatinine (0.52-1.04) mg/dL Glucose (74-99) mg/dL POC Glucose (mg/dL) 190 H 186 H (75-99) mg/dL Phosphorus (2.5-4.5) mg/dL 09/18/16 Range/Units 11:41 WBC (3.8-10.6) k/uL RBC (3.80-5.40) m/uL Hgb (11.4-16.0) gm/dL Hct (34.0-46.0) % RDW (11.5-15.5) % Plt Count (150-450) k/uL Neutrophils # (1.3-7.7) k/uL Lymphocytes # (1.0-4.8) k/uL ABG Total CO2 (19-24) mmol/L Chloride (98-107) mmol/L BUN (7-17) mg/dL Creatinine (0.52-1.04) mg/dL Glucose (74-99) mg/dL POC Glucose (mg/dL) 244 H (75-99) mg/dL Phosphorus (2.5-4.5) mg/dL Microbiology - Last 24 Hours (Table) 09/16/16 20:37 Blood Culture - Preliminary Blood No Growth after 24 hours 09/16/16 19:34 Blood Culture - Preliminary Blood No Growth after 24 hours 09/16/16 00:45 Urine Culture - Final Urine,Catheterized Assessment and Plan Plan: 1 acute hypoxic respiratory failure currently intubated on a mechanical ventilator. Post intubation day # 3 2 acute and diffuse bilateral pulmonary infiltrates, strongly consider pneumonia including opportunistic pneumonias in the setting of immunosuppression and Burkitt's lymphoma. The patient's presentation is not typical of heart failure. The patient is a preserved LV function and she hasn' t responded to diuretics over the past 24-48 hours. As such, pneumonias are very much likely causing this patient's progressive respiratory failure 3 right-sided pleural effusion, status post iatrogenic right-sided pneumothorax. The patient has a chest tube in place with adequate expansion of right lung and adequate evacuation of a right-sided pleural effusion 4 acute ventilator-dependent respiratory failure secondary to above. 5 Burkitt's lymphoma 6 systemic chemotherapy 7 coronary artery disease with previous bypass surgery 8 hypothyroidism 9 chronic anemia 10 malnutrition and progressive debility seconds above-mentioned comorbidities and the patient's health in general has been progressively declining since have diagnosed with Burkitt's lymphoma and since the systemic chemotherapy Recommendation: Considering the chest x-ray showed worsening interstitial infiltrates or edema today, patient was given a dose of Lasix. Considering the patient had this episode earlier of extreme agitation and she became asynchronous with mechanical ventilation, patient was using her accessory muscles, I recommended that we use muscle paralytic agents and Nimbex was initiated. Patient remains on Nimbex, we'll continue propofol and continue morphine sulfate. I had a long discussion with her daughter at bedside, family is very well aware that her prognosis is extremely poor and at one point they may approach us about comfort care measures. I explained to the daughter that I would like to make sure that all cultures are available and make sure that remain aggressive at this point before we start talking about comfort care measures. We will discuss this issue with the family on a daily basis. Critical care time is 40 minutes excluding time spent on procedures. Time with Patient: Greater than 30
[2016-09-18 15:10] LABS: Mis test requested (Non-blood) PNEJ
[2016-09-18 15:44] LABS: Glucose,Whole Blood 233 mg/dL (75-99)
[2016-09-18 16:54] LABS: Glucose,Whole Blood 224 mg/dL (75-99)
[2016-09-18] MEDS ORDERED: VANCOMYCIN TROUGH DUE 1 EACH MISC MISCELLANE ONE (17:00)
[2016-09-18] MEDS: LEVOFLOXACIN 750MG-D5W PMX 750 MG in DEXTROSE/WATER 1 150ML.BAG IVPB SCH (17:21)
[2016-09-18] MEDS ORDERED: VANCOMYCIN 1,000 MG in SODIUM CHLORIDE 0.9% 250 ML IVPB SCH (18:00)
[2016-09-18] MEDS ORDERED: IMMUNE GLOBULIN 1 GM/10 ML VL IV ONE (18:25)
[2016-09-18] MEDS: VANCOMYCIN 1,000 MG in SODIUM CHLORIDE 0.9% 250 ML IVPB SCH (18:31)
--- NOTE | 2016-09-18 18:33 | P.PN ---
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 She was started on R-EPOCH in June and is status post 3 cycles and most recent one was provided on August 30 through September 04. Patient's son is at the bedside and states that she has had problems with weakness and most recently with shortness of breath, feeling hot and clammy without documented fever. She had increasing shortness of breath when she got up to go to the bathroom and was worsening over this past week. On at 11:00 p.m., her called their son to come over and check on her. Her pulse was high and they ended up having her sit in a chair and relax and she was feeling better. On Friday, she was okay but by Friday at 2 in the morning she had a repeat episode. Her son called [facility] and was instructed to bring her into the emergency center. She was found to be afebrile with white count of 8.7. Initial hemoglobin was 8.2 platelet count 124. Urine was cloudy, RBC 16 and bacteria rare. Urine culture showing no growth at 18 hours. Patient was on the selective care unit initially but developed increasing shortness of breath due to pleural effusion which was not improved with Lasix. Dr. Parish was on consult and attempted right-sided thoracentesis but terminated the procedure as her pulse ox dropped to the 50%. She was intubated and underwent bronchoscopy in the intensive care unit. She was given 3 L of IV fluids and initially was on Levophed which is subsequently been discontinued. She is currently intubated and on mechanical ventilation. Tube feedings are to be started. Patient has albumin 1.8. CAT scan of the chest was negative for pulmonary embolism. Moderate to large right pleural effusion with adjacent atelectasis. Confluent groundglass and consolidation with septal lines. Correlate for pulmonary edema. Atypical pneumonia and DAH are also in the differential. Edematous changes throughout the mediastinum assessment for mediastinal lymphadenopathy. She has other consultants on including oncology, cardiology and mechanical product engineer. Urine culture is finalized with no growth. Fungal, acid-fast bacilli are negative to date. Cultures are negative from the bronchoscopy also. Pneumocystis testing is now come back as negative Blood cultures are pending and negative so far Objective - Vital Signs Vital signs: Vital Signs Temp 98.6 F 09/18/16 16:30 Pulse 92 09/18/16 17:00 Resp 24 09/18/16 17:00 BP 141/70 09/18/16 17:00 Pulse Ox 97 09/18/16 17:00 Intake & Output 09/17/16 09/18/16 09/18/16 18:59 06:59 18:59 Intake Total 2714.933 9057.988 6600.519 Output Total 205 489 1811 Balance 2049.933 974.588 -773.481 Weight 65.1 kg 69.8 kg 69.8 kg Intake: IV 1042.5 875 588.8 Meropenem 1 gm In Sodium 100 Chloride 0.9% 100 ml @ 200 mls/hr IVPB Q8HR [facility] Rx#:[id number] Propofol 50 ml As IV .STK 117.5 163.8 -[facility] Rx#:[id number] Sodium Chloride 0.9% 1, 925 775 175 000 ml @ 75 mls/hr IV . [id number] [facility] Rx#:[id number] Sodium Phosphate 10 mmol 250 In Sodium Chloride 0.9% 100 ml @ 50 mls/hr IVPB Q2H [facility] Rx#:[id number] Intake, IV Titration 1255.433 238.588 439.719 Amount Cisatracurium 200 mg In 89.719 Sodium Chloride 0.9% 180 ml @ 1 MCG/KG/MIN 4.18 mls/hr IV .Q24H [facility] Rx#: [id number] Empty Bag 1 bag @ Titrate 67.806 138.588 50.000 IV .Q0M [facility] with Propofol 500 mg Rx#: [id number] Magnesium Sulfate-D5w Pmx 300 1 gm In Dextrose/Water 1 100ml.bag @ 100 mls/hr IVPB Q1H [facility] Rx#: [id number] Meropenem 1 gm In Sodium 100 Chloride 0.9% 100 ml @ 200 mls/hr IVPB Q8HR [facility] Rx#:[id number] Norepinephrine 4 mg In 63.627 0 Sodium Chloride 0.9% 250 ml @ Titrate IV .Q0M [facility] Rx#:[id number] Sodium Chloride 0.9% 1, 999 000 ml @ 999 mls/hr IV . Q1H1M [facility] Rx#:[id number] Vancomycin 750 mg In 125 Sodium Chloride 0.9% 250 ml @ 125 mls/hr IVPB Q24H [facility] Rx#:[id number] Tube Feeding 297 462 528 Other 120 135 Output: Chest Tube Drainage 70 50 110 Chest Tube Right Lateral 70 50 110 Chest Urine 644 306 1974 Stool 0 0 Other: Voiding Method Indwelling Catheter Indwelling Catheter Indwelling Catheter # Voids 1 1 ABP, PAP, CO, CI - Last Documented Arterial Blood Pressure 149/57 - Exam Gen: This is a 80-year-old female currently intubated on mechanical ventilation and appears to be comfortable in no acute distress. HEENT: Head is atraumatic, normocephalic. Pupils equal, round. Sclerae is anicteric. White coating on her tongue. Oral ETT and oral gastric tube in place. NECK: Supple. No JVD. No lymphadenopathy. No thyromegaly. LUNGS: Good air exchange anteriorly bilaterally, diminished to the bases. No intercostal retractions. Right sided chest tube HEART: Regular rate and rhythm. No murmur. ABDOMEN: Soft. Bowel sounds are present. No masses. No tenderness. EXTREMITIES: No pedal edema. No calf tenderness. Dorsalis pedis is weak bilaterally. No skin breakdown noted. NEUROLOGICAL: Patient is sedated. And now paralyzed for improved synchrony with the ventilator - Labs CBC & Chem 7: 09/18/16 04:50 09/18/16 10:58 Labs: Abnormal Lab Results - Last 24 Hours (Table) 09/17/16 09/17/16 09/17/16 Range/Units 05:46 05:46 20:27 WBC (3.8-10.6) k/uL RBC (3.80-5.40) m/uL Hgb (11.4-16.0) gm/dL Hct (34.0-46.0) % RDW (11.5-15.5) % Plt Count (150-450) k/uL Neutrophils # (1.3-7.7) k/uL Lymphocytes # (1.0-4.8) k/uL ABG Total CO2 (19-24) mmol/L Chloride (98-107) mmol/L BUN (7-17) mg/dL Creatinine (0.52-1.04) mg/dL Glucose (74-99) mg/dL POC Glucose (mg/dL) 206 H (75-99) mg/dL Phosphorus (2.5-4.5) mg/dL IgG 172.0 L (700.0-1600.0) mg/dL T-Suppressor Cells 15 L (190-832) cell/ul % CD4 [place] 20 L (35-66) % Absolute CD4 [place] 7 L (443-1471) cell/ul CD4/CD8 Ratio 0.5 L (1.0-3.7) % CD8 Suppressor 42 H (9-37) % 09/18/16 09/18/16 09/18/16 Range/Units 00:10 04:30 04:50 WBC 12.3 H (3.8-10.6) k/uL RBC 2.32 L (3.80-5.40) m/uL Hgb 7.1 L (11.4-16.0) gm/dL Hct 22.2 L (34.0-46.0) % RDW 18.9 H (11.5-15.5) % Plt Count 137 L (150-450) k/uL Neutrophils # 11.9 H (1.3-7.7) k/uL Lymphocytes # 0.1 L (1.0-4.8) k/uL ABG Total CO2 (19-24) mmol/L Chloride (98-107) mmol/L BUN (7-17) mg/dL Creatinine (0.52-1.04) mg/dL Glucose (74-99) mg/dL POC Glucose (mg/dL) 213 H 183 H (75-99) mg/dL Phosphorus (2.5-4.5) mg/dL IgG (700.0-1600.0) mg/dL T-Suppressor Cells (190-832) cell/ul % CD4 [place] (35-66) % Absolute CD4 [place] (443-1471) cell/ul CD4/CD8 Ratio (1.0-3.7) % CD8 Suppressor (9-37) % 09/18/16 09/18/16 09/18/16 Range/Units 04:50 07:07 07:58 WBC (3.8-10.6) k/uL RBC (3.80-5.40) m/uL Hgb (11.4-16.0) gm/dL Hct (34.0-46.0) % RDW (11.5-15.5) % Plt Count (150-450) k/uL Neutrophils # (1.3-7.7) k/uL Lymphocytes # (1.0-4.8) k/uL ABG Total CO2 (19-24) mmol/L Chloride 112 H (98-107) mmol/L BUN 23 H (7-17) mg/dL Creatinine 0.50 L (0.52-1.04) mg/dL Glucose 167 H (74-99) mg/dL POC Glucose (mg/dL) 190 H 186 H (75-99) mg/dL Phosphorus 1.5 L (2.5-4.5) mg/dL IgG (700.0-1600.0) mg/dL T-Suppressor Cells (190-832) cell/ul % CD4 [place] (35-66) % Absolute CD4 [place] (443-1471) cell/ul CD4/CD8 Ratio (1.0-3.7) % CD8 Suppressor (9-37) % 09/18/16 09/18/16 09/18/16 Range/Units 09:25 11:41 15:42 WBC (3.8-10.6) k/uL RBC (3.80-5.40) m/uL Hgb (11.4-16.0) gm/dL Hct (34.0-46.0) % RDW (11.5-15.5) % Plt Count (150-450) k/uL Neutrophils # (1.3-7.7) k/uL Lymphocytes # (1.0-4.8) k/uL ABG Total CO2 25 H (19-24) mmol/L Chloride (98-107) mmol/L BUN (7-17) mg/dL Creatinine (0.52-1.04) mg/dL Glucose (74-99) mg/dL POC Glucose (mg/dL) 244 H 233 H (75-99) mg/dL Phosphorus (2.5-4.5) mg/dL IgG (700.0-1600.0) mg/dL T-Suppressor Cells (190-832) cell/ul % CD4 [place] (35-66) % Absolute CD4 [place] (443-1471) cell/ul CD4/CD8 Ratio (1.0-3.7) % CD8 Suppressor (9-37) % 09/18/16 Range/Units 16:42 WBC (3.8-10.6) k/uL RBC (3.80-5.40) m/uL Hgb (11.4-16.0) gm/dL Hct (34.0-46.0) % RDW (11.5-15.5) % Plt Count (150-450) k/uL Neutrophils # (1.3-7.7) k/uL Lymphocytes # (1.0-4.8) k/uL ABG Total CO2 (19-24) mmol/L Chloride (98-107) mmol/L BUN (7-17) mg/dL Creatinine (0.52-1.04) mg/dL Glucose (74-99) mg/dL POC Glucose (mg/dL) 224 H (75-99) mg/dL Phosphorus (2.5-4.5) mg/dL IgG (700.0-1600.0) mg/dL T-Suppressor Cells (190-832) cell/ul % CD4 [place] (35-66) % Absolute CD4 [place] (443-1471) cell/ul CD4/CD8 Ratio (1.0-3.7) % CD8 Suppressor (9-37) % Microbiology - Last 24 Hours (Table) 09/16/16 20:37 Blood Culture - Preliminary Blood No Growth after 24 hours 09/16/16 19:34 Blood Culture - Preliminary Blood No Growth after 24 hours 09/16/16 00:45 Urine Culture - Final Urine,Catheterized Laboratory Results WBC 12.3 k/uL (3.8-10.6) H 09/18/16 04:50 RBC 2.32 m/uL (3.80-5.40) L 09/18/16 04:50 Hgb 7.1 gm/dL (11.4-16.0) L 09/18/16 04:50 Hct 22.2 % (34.0-46.0) L 09/18/16 04:50 MCV 95.6 fL (80.0-100.0) 09/18/16 04:50 MCH 30.6 pg (25.0-35.0) 09/18/16 04:50 MCHC 32.0 g/dL (31.0-37.0) 09/18/16 04:50 RDW 18.9 % (11.5-15.5) H 09/18/16 04:50 Plt Count 137 k/uL (150-450) L 09/18/16 04:50 Neutrophils % 97 % 09/18/16 04:50 Lymphocytes % 1 % 09/18/16 04:50 Monocytes % 2 % 09/18/16 04:50 Eosinophils % 0 % 09/18/16 04:50 Basophils % 0 % 09/18/16 04:50 Neutrophils # 11.9 k/uL (1.3-7.7) H 09/18/16 04:50 Lymphocytes # 0.1 k/uL (1.0-4.8) L 09/18/16 04:50 Monocytes # 0.2 k/uL (0-1.0) 09/18/16 04:50 Eosinophils # 0.0 k/uL (0-0.7) 09/18/16 04:50 Basophils # 0.0 k/uL (0-0.2) 09/18/16 04:50 Hypochromasia Moderate 09/18/16 04:50 Poikilocytosis Slight 09/18/16 04:50 Anisocytosis Slight 09/18/16 04:50 Macrocytosis Slight 09/18/16 04:50 PT 11.1 sec (9.0-12.0) 09/14/16 07:44 INR 1.1 (<1.1) 09/14/16 07:44 APTT 23.1 sec (22.0-30.0) 09/14/16 07:44 Sample Site [place] 09/18/16 09:25 ABG pH 7.35 (7.35-7.45) 09/18/16 09:25 ABG pCO2 44 mmHg (35-45) 09/18/16 09:25 ABG pO2 85 mmHg (83-108) 09/18/16 09:25 ABG HCO3 24 mmol/L (21-25) 09/18/16 09:25 ABG Total CO2 25 mmol/L (19-24) H 09/18/16 09:25 ABG O2 Saturation 96.0 % (94-97) 09/18/16 09:25 ABG Base Excess -1.0 mmol/L 09/18/16 09:25 FiO2 55 % 09/18/16 09:25 Sodium 142 mmol/L (137-145) 09/18/16 04:50 Potassium 4.4 mmol/L (3.5-5.1) 09/18/16 10:58 Chloride 112 mmol/L (98-107) H 09/18/16 04:50 Carbon Dioxide 25 mmol/L (22-30) 09/18/16 04:50 Anion Gap 5 mmol/L 09/18/16 04:50 BUN 23 mg/dL (7-17) H 09/18/16 04:50 Creatinine 0.50 mg/dL (0.52-1.04) L 09/18/16 04:50 Est GFR (MDRD) Af Amer >60 (>60 ml/min/1.73 sqM) 09/18/16 04:50 Est GFR (MDRD) Non-Af >60 (>60 ml/min/1.73 sqM) 09/18/16 04:50 Glucose 167 mg/dL (74-99) H 09/18/16 04:50 POC Glucose (mg/dL) 224 mg/dL (75-99) H 09/18/16 16:42 POC Glu Solution Consultant ID Jeannie Campbell 09/18/16 16:[address] Glu mg/dL 128 mg/dL 09/14/16 07:44 Hemoglobin A1c 6.1 % (4.2-6.1) 09/14/16 07:44 Plasma Lactic Acid Markie 1.4 mmol/L (0.7-2.0) 09/18/16 04:50 Calcium 10.0 mg/dL (8.4-10.2) 09/18/16 04:50 Phosphorus 1.5 mg/dL (2.5-4.5) L 09/18/16 04:50 Magnesium 2.0 mg/dL (1.6-2.3) 09/18/16 10:58 Total Bilirubin 0.4 mg/dL (0.2-1.3) 09/15/16 17:40 AST 25 U/L (14-36) 09/15/16 17:40 ALT 34 U/L (9-52) 09/15/16 17:40 Alkaline Phosphatase 52 U/L (38-126) 09/15/16 17:40 Total Creatine Kinase <20 U/L (30-135) L 09/14/16 19:28 CK-MB (CK-2) 0.4 ng/mL (0.0-2.4) 09/14/16 19:28 CK-MB (CK-2) Rel Index 0.0 09/14/16 19:28 Troponin I 0.022 ng/mL (0.000-0.034) 09/14/16 19:28 NT-Pro-B Natriuret Pep 3070 pg/mL 09/15/16 05:49 Total Protein 3.6 g/dL (6.3-8.2) L 09/15/16 17:40 Albumin 1.8 g/dL (3.5-5.0) L 09/15/16 17:40 Triglycerides 122 mg/dL (<150) 09/15/16 05:49 Cholesterol 94 mg/dL (<200) 09/15/16 05:49 LDL Cholesterol, Calc 50 mg/dL (0-99) 09/15/16 05:49 HDL Cholesterol 20 mg/dL (40-60) L 09/15/16 05:49 TSH 1.910 mIU/L (0.465-4.680) 09/15/16 05:49 Urine Color Yellow 09/14/16 08:42 Urine Appearance Cloudy (Clear) H 09/14/16 08:42 Urine pH 7.0 (5.0-8.0) 09/14/16 08:42 Ur Specific [place] 1.016 (1.001-1.035) 09/14/16 08:42 Urine Protein Trace (Negative) H 09/14/16 08:42 Urine Glucose (UA) Negative (Negative) 09/14/16 08:42 Urine Ketones Negative (Negative) 09/14/16 08:42 Urine Blood Negative (Negative) 09/14/16 08:42 Urine Nitrate Negative (Negative) 09/14/16 08:42 Urine Bilirubin Negative (Negative) 09/14/16 08:42 Urine Urobilinogen 4.0 mg/dL (<2.0) 09/14/16 08:42 Ur Leukocyte Esterase Negative (Negative) 09/14/16 08:42 Urine RBC 16 /hpf (0-5) H 09/14/16 08:42 Urine WBC 5 /hpf (0-5) 09/14/16 08:42 Ur Squamous Epith Cells 1 /hpf (0-4) 09/14/16 08:42 Urine Bacteria Rare /hpf (None) H 09/14/16 08:42 Urine Mucus Rare /hpf (None) H 09/14/16 08:42 Vancomycin Trough <5.0 ug/mL 09/18/16 16:45 IgG 172.0 mg/dL (700.0-1600.0) L 09/17/16 05:46 T-Suppressor Cells 15 cell/ul (190-832) L 09/17/16 05:46 % CD4 [place] 20 % (35-66) L 09/17/16 05:46 Absolute CD4 [place] 7 cell/ul (443-1471) L 09/17/16 05:46 CD4/CD8 Ratio 0.5 (1.0-3.7) L 09/17/16 05:46 % CD8 Suppressor 42 % (9-37) H 09/17/16 05:46 Virus Source See Below 09/15/16 15:00 Viral Test See Below 09/15/16 15:00 Virus Analysis Interp See Below 09/15/16 15:00 Miscellaneous Test B Cell FlowCyto,PB 09/16/16 05:00 Misc Test Result See comment 09/16/16 05:00 Blood Type A Positive 09/14/16 08:30 Blood Type Confirm A Positive 09/14/16 07:44 Blood Type Recheck CABO Indicated 09/14/16 08:30 Antibody Screen NEGATIVE 09/14/16 08:30 Spec Expiration Date 09/17/2016232909/14/16 08:30 Microbiology 09/16/16 20:37 Blood Blood Culture - Preliminary No Growth after 24 hours 09/16/16 19:34 Blood Blood Culture - Preliminary No Growth after 24 hours 09/16/16 00:45 Urine,Catheterized Urine Culture - Final 09/15/16 15:00 Bronchoalviolar Lavage - Left Gram Stain - Final 09/15/16 15:00 Bronchoalviolar Lavage - Left Bronchial Washings Culture - Final 09/15/16 15:00 Bronchial Washings - Right Acid Fast Bacilli Smear - Final 09/15/16 15:00 Bronchial Washings - Right Acid Fast Bacilli Culture - Preliminary 09/15/16 15:00 Bronchial Washings - Left Fungal Culture - Preliminary 09/14/16 08:42 Urine,Clean Catch Urine Culture - Final Assessment and Plan (1) Burkitt lymphoma of extranodal or solid organ site Narrative/Plan: 80-year-old female with a known history of Burkitt's lymphoma status post 3 cycles of the alteredR EPOCH chemotherapy. She has developed respiratory failure requiring intubation and mechanical ventilation. Chest x- ray is abnormal. She has had bronchoscopy. Cultures are negative so far. Viral assay was negative. Pneumocystis is evaluated by pathology and is negative CD4 cell count is profoundly low as part of her significant immunocompromise. IgG level is very low and will be supplemented. Status: Acute (2) Pneumonia Status: Acute (3) Respiratory failure Status: Acute
[2016-09-18] MEDS ORDERED: IMMUNE GLOBULIN (HUMAN-IGG) 20 GM in EMPTY BAG 1 BAG IV ONE (19:00)
[2016-09-18] MEDS ORDERED: IMMUNE GLOBULIN (HUMAN-IGG) 5 GM in EMPTY BAG 1 BAG IV ONE (19:00)
[2016-09-18 20:39] LABS: Glucose,Whole Blood 259 mg/dL (75-99)
[2016-09-18] MEDS: FLUoxetine HCL 20 MG CAP PO SCH (21:48)
[2016-09-18] MEDS: INSULIN GLARGINE 100 UNIT/ML 10 ML VIAL SQ SCH (21:50)
[2016-09-18 23:48] LABS: Glucose,Whole Blood 234 mg/dL (75-99)
[2016-09-19 00:34] LABS: Glucose,Whole Blood 227 mg/dL (75-99)
[2016-09-19] MEDS: ARTIFICIAL TEARS-HYPROMELLOSE DROPS 15 ML BTL BOTH EYES SCH ×6 (00:44→22:24)
[2016-09-19] MEDS: methylPREDNISolone SOD SUCCI 40 MG/ML 1 ML VIAL IV SCH ×3 (00:44→12:57)
[2016-09-19] MEDS: INSULIN LISPRO (humaLOG) 300 UNIT/3 ML VIAL SQ SCH ×6 (00:44→23:03)
[2016-09-19] MEDS: MORPHINE SULFATE 2 MG/ML SYRINGE IVP PRN ×2 (01:41→05:29)
[2016-09-19] MEDS: IPRATROPIUM-ALBUTEROL 3 ML NEB INHALATION PRN ×2 (03:08→15:36)
[2016-09-19] MEDS: EMPTY BAG 1 BAG with PROPOFOL 500 MG IV SCH ×6 (03:29→22:24)
[2016-09-19] MEDS: MEROPENEM 1 GM in SODIUM CHLORIDE 0.9% 100 ML IVPB SCH ×3 (03:30→16:11)
[2016-09-19 04:27] LABS: Glucose,Whole Blood 186 mg/dL (75-99)
[2016-09-19 04:35] LABS: Anisocytosis Slight; CH 30.2; CHCM 31.4; HCT 24.1 % (34.0-46.0); HGB 7.4 gm/dL (11.4-16.0); Hypochromasia Moderate; Immature Gran Flag Moderate; MCH 29.6 pg (25.0-35.0); MCHC 30.6 g/dL (31.0-37.0); MCV 96.8 fL (80.0-100.0); Macrocytosis Slight; Mean Platelet Volume 8.4; Poikilocytosis Slight; RBC 2.49 m/uL (3.80-5.40); WBC 14.6 k/uL (3.8-10.6); WBC (Perox) 14.34
[2016-09-19 04:54] LABS: Anion Gap 4 mmol/L; Blood Urea Nitrogen 25 mg/dL (7-17); Carbon Dioxide 30 mmol/L (22-30); Chloride 109 mmol/L (98-107); Glucose 186 mg/dL (74-99); Magnesium 2.5 mg/dL (1.6-2.3); Non-African American GFR(MDRD) >60 (>60 ml/min/1.73 sqM); Phosphorous 2.3 mg/dL (2.5-4.5); Potassium 4.5 mmol/L (3.5-5.1); Sodium 143 mmol/L (137-145)
[2016-09-19 05:55] LABS: Add Differential Manual Differential
[2016-09-19 05:57] LABS: Manual Review Performed; Nucleated Red Blood Cells 0 /100 WBC (0-0); Total Cells Counted 100
[2016-09-19] MEDS: LEVOTHYROXINE 100 MCG TAB PO SCH (06:18)
[2016-09-19 08:05] LABS: Glucose,Whole Blood 191 mg/dL (75-99)
--- NOTE | 2016-09-19 08:07 | XR ---
EXAMINATION TYPE: XR chest 1V DATE OF EXAM: 09/19/2016 6:39 AM COMPARISON: Prior chest x-ray one September 2016 HISTORY: Intubated TECHNIQUE: Single frontal view of the chest is obtained. FINDINGS: Endotracheal tube, NG tube and right-sided PICC line are stable overlying appropriate posi tions, there are overlying cardiac leads and the patient is post median sternotomy. There may be some slight improvement in aeration within the lungs. No sizable pneumothorax or evident pleural effusion . Groundglass opacity may be improved as compared to prior exam although there are differences in huma hnique. Cardiomediastinal silhouette, pulmonary vascularity and carmen not significantly changed. IMPRESSION: Suspect improvement in aeration within the lungs.
--- NOTE | 2016-09-19 08:08 | PN ---
DATE OF SERVICE: 09/18/2016 INTERVAL HISTORY: This is a patient with Burkitt's lymphoma, presented with shortness of breath. In an attempt to do thoracentesis, patient developed pneumothorax. Patient has a right chest tube, remains on the ventilator with FiO2 of 50 and a PEEP of 5. Patient drips include Diprivan and Nimbex. Tube feeding is going well at 30 mL an hour. Patient is rather sedated. REVIEW OF SYSTEMS: Patient is intubated and sedated. Current medications are reviewed that include Nimbex and propofol, antibiotics in the form meropenem, Levaquin, vancomycin. On examination, temperature 98.6, pulse 89, respiration 24, blood pressure 130/73, pulse ox 100%. GENERAL APPEARANCE: Lying in bed, intubated. EYES: Pupils equal. Conjunctivae normal. HEENT: ENT, endotracheal tube placed. NECK: JVD unable to assess. Mass not palpable. Respiratory effort normal. LUNGS: Diminished breath sounds. Chest wall right-sided chest tube. ABDOMEN: Soft, nontender, liver and spleen not palpable. NEUROLOGICAL: Pupils are equal. INVESTIGATIONS: Accu-Cheks are noted. Patient's IgG level has come back to be low and patient's T-suppressor cells, CD4 all came back as low. ASSESSMENT: 1. Right pleural effusion but 500 mL of fluid was removed. 2. Iatrogenic pneumothorax, now there is a chest tube in place with lung expanded. 3. Acute hypoxic respiratory failure, multifactorial. Patient on ventilator. 4. Bilateral pneumonia could be viral in an immunosuppressed patient, on broad-spectrum antibiotics. 5. Burkitt's lymphoma, undergoing chemotherapy. 6. Gastroesophageal reflux disease. 7. Hyperlipidemia. 8. 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 9. Hypothyroidism. 10. Coronary artery disease with prior history of stent and coronary artery bypass grafting. 11. Anemia from underlying lymphoma. 12. Hypertensive shock. The patient had been on pressors. PLAN: Continue current medication and treatment plan. The patient definitely is immunosuppressed. Continue with supportive care, plan and follow.
[2016-09-19 08:35] LABS: ABG HCO3 28 mmol/L (21-25); ABG PCO2 42 mmHg (35-45); ABG PH 7.44 (7.35-7.45); ABG PO2 92 mmHg (83-108); ABG TCO2 29 mmol/L (19-24)
[2016-09-19] MEDS: CHLORHEXIDINE GLUCONATE 15 ML CUP MUCOUS MEM SCH ×2 (10:04→22:24)
[2016-09-19] MEDS: ASPIRIN 81 MG CHEW PO SCH (10:04)
[2016-09-19] MEDS: ENOXAPARIN 40 MG/0.4 ML SYRINGE SQ SCH (10:04)
[2016-09-19] MEDS: ALLOPURINOL 300 MG TAB PO SCH ×2 (10:04→22:25)
[2016-09-19] MEDS: ISOSORBIDE MONONITRATE ER 30 MG TAB.ER.24H PO SCH (10:05)
[2016-09-19] MEDS: PANTOPRAZOLE 40 MG/10 ML VIAL IVP SCH (10:05)
[2016-09-19] MEDS: METOPROLOL SUCCINATE (ER) 50 MG TAB.ER.24H PO SCH (10:05)
[2016-09-19] MEDS: POTASSIUM CHLORIDE ER 10 MEQ TAB.ER.PRT PO SCH ×2 (10:06→22:25)
[2016-09-19] MEDS: VANCOMYCIN 1,000 MG in SODIUM CHLORIDE 0.9% 250 ML IVPB SCH (10:29)
[2016-09-19] MEDS ORDERED: INSULIN NPH 300 UNIT/3 ML VIAL SQ STA (10:52)
[2016-09-19] MEDS ORDERED: INSULIN GLARGINE 100 UNIT/ML 10 ML VIAL SQ ONE (11:00)
[2016-09-19 13:01] LABS: Glucose,Whole Blood 188 mg/dL (75-99)
[2016-09-19] MEDS: METOPROLOL TARTRATE 50 MG TAB PO SCH ×2 (13:50→22:27)
--- NOTE | 2016-09-19 15:05 | PN ---
Mrs. Shepherd is an 80-year-old female who has history of coronary artery disease, status post coronary artery bypass grafting, Burkitt's lymphoma who presented with progressive dyspnea and subsequently had a thoracentesis and hemothorax. She remains intubate and sedated, hemodynamically stable. She had an episode of SVT yesterday, but she continues to be in sinus mechanism at this time. She has no significant hypotension. The plan is not to attempt weaning today. Her urine output has been stable. Her chest x-ray shows improvement. Her medications, she is on metoprolol tartrate 50 mg twice a day, Imdur, aspirin. PHYSICAL EXAMINATION: Blood pressure 122/50 with a heart rate in the 90s. LUNGS: Clear anteriorly. HEART: Regular rate and rhythm. S1, S2, no S3, no rub with a systolic murmur. ABDOMEN: Soft, positive bowel sounds. EXTREMITIES: No significant edema. Lab data revealed a hemoglobin of 7.4, white blood cell of 14.6. BUN and creatinine 25 and 0.5. IMPRESSION: 1. Respiratory failure with infectious process. 2. Status post coronary artery bypass grafting. 3. Right-sided pleural effusion with pneumothorax. 4. Episodes of supraventricular tachycardia, resolved. RECOMMENDATION: From the cardiac standpoint, will continue current therapy, continue clinical observation, the prognosis remains guarded. Will see her on an as-needed basis. Please feel free to call us for any questions.
--- NOTE | 2016-09-19 15:31 | P.PN ---
Subjective Principal diagnosis: Acute respiratory failure, multifactorial. This is an 80-year-old female patient with a diagnosis of Burkitt's lymphoma. The patient initially presented on May 2016 with a 9.4 cm soft tissue mass in the superior mediastinum in addition to 5.5 cm mass along the right cardiac border and bulky mediastinal lymph nodes and the right-sided pleural effusion. Note that at that time the patient has had thoracentesis and this failed to establish diagnosis. Following that, the patient had a endoscopic ultrasound/bronchoscopy and transbronchial needle aspirate of the lymph nodes showed findings suspicious of a lymphoma however it final diagnoses could not been established. Ultimately underwent a biopsy of a right supraclavicular lymph node which confirmed the presence of a Burkitt's lymphoma the patient was treated with chemotherapy and she received 2 cycles of R-EPOCH , the first cycle in June 2016 and the second in August 2016. I was asked to evaluate this patient knowing that she was having significant amount of respirator distress on the medical floor. I reviewed the CAT scan of the chest and the series of chest x-ray that was done during the current admission. The patient CAT scan of the chest showed extensive infiltration of the left lung with patchy infiltration of the right upper lobe area and a moderate-sized right-sided pleural effusion. The chest x-ray was also consistent with the CAT scan findings. The patient was quite hypoxic on high flow oxygen at 15 L/m nasal cannula and his saturation was around 90-91%. At the time of my evaluation the patient was quite uncomfortable and short of breath and I was asked to proceed with a right-sided thoracentesis to give this patient some symptomatic relief. I explained to the patient and her family the procedure. Upon further inquiry, it seems that the patient's condition has been gradually getting worse. She had been experiencing increased cough and dyspnea and she was short of breath with limited amount of activity. She end up in the hospital. No reported fever or chills. I noted no temperature or white cell count elevation during this current hospital stay. I ultimately proceeded with a right-sided thoracentesis for the reasons mentioned above. During the thoracentesis, the patient became progressively more short of breath. At that point I removed a thoracentesis catheter I terminated the procedure. The patient already drained approximately 150 mL of fluid from the right lung. The patient was noted to become progressively more hypoxic and admitted to the pulse ox dropped down to 60%. At that point, I activated the emergency team and the patient was intubated immediately in her own room. The patient remained hemodynamically stable with a systolic blood pressure above 120 throughout intubation procedure. Chest x-ray post intubation showed a large right-sided pneumothorax. At that point the patient got transferred to the intensive care unit where immediately a right-sided chest tube was inserted with complete expansion of the right lung. The chest tube itself drained an additional 450 mL of pleural fluid from the right lung making the total amount of fluid evacuated from the right lung being at 650 mL. The pleural fluid was light yellowish in color. The patient was also sedated with Diprivan. The patient had a bronchoscopy and bronchoalveolar lavage of the lingular segment was done without any major complications. The patient was taken off diuretics. The patient was given a bolus of normal saline 1 L. Echocardiogram done recently showed a preserved LV function without any significant valvular dysfunction. I discussed the case with ID and will start the patient with broad -spectrum antibiotics suspecting bilateral pneumonia and covering for a portion stick infections. At this point in time, the patient is on a mechanical ventilator. The patient is an assist-control mode with a rate of 22, tidal volume 450, FiO2 of 100% and a PEEP of 5. The patient had a blood gas post intubation that showed a pH of 7.43 with a pCO2 of 39 and pO2 of 143. Based on that FiO2 has been drop down to 70%. Hemodynamically she is stable. She briefly became hypotensive requiring 2 mics of levo fed and ultimately levo fed was discontinued. I ordered follow-up blood work and a stat blood work is in progress. The preliminary results showed a global of 4.6 and the patient will be ordered a total of 2 units of packed RBC as soon as possible. Note that there was no evidence of any external bleeding or bleeding through the patient's pleural space at a time of the procedure. Patient was reevaluated today on 09/16/2016, remains on mechanical ventilation. Her ventilator settings are FiO2 of 50%, PEEP of 5 tidal volume of 400 and assist control rate of 22. Labs were reviewed, relatively normal electrolytes. ABG was also reviewed, and the ventilator settings were adjusted accordingly. Chest x-ray continues to show bilateral infiltrates. No evidence of pneumothorax, chest tube and endotracheal tube are in proper position. Patient continues to have an air leak noted in the chest tube/pleural VAC. All medications were reviewed. Reevaluated today on 09/17/2016, upon my initial evaluation, patient was noted to be quite tachycardic, tachypneic, and her O2 saturations were in the high 80s. Hence I have adjusted her sedation, and the propofol was increased. Patient was given morphine, and I was able to ventilator much better once she was sedated. She required some fluid boluses because of a slight drop in the blood pressure after sedation. Chest x-ray was reviewed, endotracheal tube is in proper position. Minimal right apical pneumothorax is noted. Stable anddisease was also noted. Labs were all reviewed, WBC count is 11.6 hemoglobin is 7.3. PO2 is 209 pCO2 is 34 and pH of 7.43. Basic metabolic profile and renal profile are noted to be normal. Vent settings were noted and readjusted. Patient was reevaluated today on 09/18/2016, same issue happened again as yesterday. Early in the morning I was notified about the patient getting quite tachycardic, restless agitated, and she desaturated down to the 70s. FiO2 was increased to 100%, patient was noted to be not synchronous with mechanical ventilation. In spite of sedation and increasing the dose of propofol, patient remained tachycardic and tachypneic, and she was using her accessory muscles. Hence I recommended using paralytic agents on the patient, and Nimbex was initiated. Patient is now on Nimbex, and she seems to be ventilating much better. Right radial arterial line was placed because apparently they had some issue with the line last night and it was removed. I had a long discussion with her daughter at bedside, she is very well aware of the poor prognostic picture, and I explained to her that her mother is quite ill, mortality is rather high, but so far she seems to be doing relatively well, and we are not quite ready to collect a medical futility situation. Cultures are still pending , we called the lab in [place], and hopefully sometime today will have the final report on the PCP stain. Otherwise so far all the cultures from the BAL are nondiagnostic. ABG today showed a pO2 of 85 pCO2 of 44 pH of 7.35 WBC count is 12.3 hemoglobin is 7.1 basic metabolic profile is normal, renal profile is normal. Patient was reevaluated today on 09/19/2016, she remains on mechanical ventilation , cultures so far are nondiagnostic including all the blood cultures, and the bronchoalveolar lavage cultures, and the cytology has all been nondiagnostic. Patient had negative PCP stain. Patient remains on enteral feeding, via nasogastric tube she is not requiring any pressors. Her ventilator settings are about the same, her urine output is excellent, her ABG showed a pO2 of 92 pCO2 of 40 to pH of 7.44 and this is on a 50% FiO2 her lung mechanics seem to be reasonable, patient is not developing any stiffness in her lungs. Hemoglobin is 7.4 WBC count is 14.6. Chest x-ray is showing slight improvement compared to the x-ray done yesterday, but continues to have significant interstitial infiltrates bilaterally. Cytology on the bronchial fluid was negative for malignancy. Today I plan to discontinue Nimbex, and I plan to keep her on propofol and on morphine as needed. Discussed with her son today at length her overall condition, and felt that she continues to have some acute lung injury it is not clear whether this acute lung injury is related to infection or could even be related to her chemotherapy/rituxin. Her son actually showed be a CT report which was done about a month ago which clearly showed some groundglass opacities and nodularities and lungs bilaterally back in August. And this was done shortly after she was started on her initial chemotherapy. Now I'm becoming more suspicious that we may be dealing with acute lung injury related to chemotherapy rather than infectious process. Patient has been on steroids all along, and I would likely increase the dose. Patient will be placed on 60 mg of Solu-Medrol every 6 hours. In the meantime we'll continue antibiotics as ordered by infectious disease on consultation. Objective - Vital Signs Vital signs: Vital Signs Temp 97.9 F 09/19/16 12:00 Pulse 81 09/19/16 15:00 Resp 24 09/19/16 15:00 BP 114/61 09/18/16 22:00 Pulse Ox 95 09/19/16 15:00 Intake & Output 09/18/16 09/19/16 09/19/16 18:59 06:59 18:59 Intake Total 1795.373 4252.292 885.976 Output Total 2390 749 520 Balance -775.114 563.292 365.976 Weight 69.8 kg 72.1 kg 72.1 kg Intake: IV 605.3 336.6 300 Meropenem 1 gm In Sodium 100 100 Chloride 0.9% 100 ml @ 200 mls/hr IVPB Q8HR [facility] Rx#:[id number] Propofol 50 ml As IV .STK 180.3 16.6 -[facility] Rx#:[id number] Sodium Chloride 0.9% 1, 175 000 ml @ 75 mls/hr IV . [id number] [facility] Rx#:[id number] Sodium Phosphate 10 mmol 250 In Sodium Chloride 0.9% 100 ml @ 50 mls/hr IVPB Q2H [facility] Rx#:[id number] ns 220 200 Intake, IV Titration 481.586 345.692 420.976 Amount Cisatracurium 200 mg In 89.719 120.976 Sodium Chloride 0.9% 180 ml @ 1 MCG/KG/MIN 4.18 mls/hr IV .Q24H [facility] Rx#: [id number] Empty Bag 1 bag @ Titrate 91.867 115.[address] [facility] with Propofol 500 mg Rx#: [id number] Immune Globulin (Human- 93.333 IgG) 20 gm In Empty Bag 1 bag @ Titrate IV .Q0M [facility] Rx#:[id number] Immune Globulin (Human- 136.667 IgG) 20 gm In Empty Bag 1 bag @ Titrate IV .Q0M [facility] Rx#:[id number] Magnesium Sulfate-D5w Pmx 300 1 gm In Dextrose/Water 1 100ml.bag @ 100 mls/hr IVPB Q1H [facility] Rx#: [id number] Norepinephrine 4 mg In 0 Sodium Chloride 0.9% 250 ml @ Titrate IV .Q0M [facility] Rx#:[id number] Vancomycin 1,000 mg In 250 Sodium Chloride 0.9% 250 ml @ 125 mls/hr IVPB Q16H [facility] Rx#:[id number] Tube Feeding 528 495 165 Other 135 Output: Chest Tube Drainage 110 10 Chest Tube Right Lateral 110 10 Chest Urine 2280 739 520 Stool 0 Other: Voiding Method Indwelling Catheter Indwelling Catheter Indwelling Catheter # Voids 1 ABP, PAP, CO, CI - Last Documented Arterial Blood Pressure 106/47 - Exam Physical Exam: Revealed an 80-year-old female, sedated, on propofol drip, on mechanical ventilation, and on Nimbex drip.. Which I plan to discontinue today. HEENT:[Neck is supple.] [No neck masses.] [No thyromegaly.] [No JVD.] Endotracheal tube is intact. Chest tube on the right side is intact. Minimal air leak and bubbles noted Chest: [Crackles at the bases bilaterally, no rhonchi, no wheezes.] Cardiac Exam: [Normal S1 and S2, no S3 gallop, no murmur.] Abdomen: [Soft, nontender, no megaly, no rebound, no guarding, normal bowel sounds.] Extremities: [No clubbing, no edema, no cyanosis.] Neurological Exam: Cannot be assessed, patient is fully sedated on propofol drip. - Labs CBC & Chem 7: 09/19/16 04:28 09/19/16 04:28 Labs: Abnormal Lab Results - Last 24 Hours (Table) 09/18/16 09/18/16 09/18/16 Range/Units 15:42 16:42 20:37 WBC (3.8-10.6) k/uL RBC (3.80-5.40) m/uL Hgb (11.4-16.0) gm/dL Hct (34.0-46.0) % MCHC (31.0-37.0) g/dL RDW (11.5-15.5) % Plt Count (150-450) k/uL Neutrophils # (Manual) (1.3-7.7) k/uL Lymphocytes # (Manual) (1.0-4.8) k/uL ABG HCO3 (21-25) mmol/L ABG Total CO2 (19-24) mmol/L Chloride (98-107) mmol/L BUN (7-17) mg/dL Creatinine (0.52-1.04) mg/dL Glucose (74-99) mg/dL POC Glucose (mg/dL) 233 H 224 H 259 H (75-99) mg/dL Phosphorus (2.5-4.5) mg/dL Magnesium (1.6-2.3) mg/dL 09/18/16 09/19/16 09/19/16 Range/Units 23:46 00:32 04:25 WBC (3.8-10.6) k/uL RBC (3.80-5.40) m/uL Hgb (11.4-16.0) gm/dL Hct (34.0-46.0) % MCHC (31.0-37.0) g/dL RDW (11.5-15.5) % Plt Count (150-450) k/uL Neutrophils # (Manual) (1.3-7.7) k/uL Lymphocytes # (Manual) (1.0-4.8) k/uL ABG HCO3 (21-25) mmol/L ABG Total CO2 (19-24) mmol/L Chloride (98-107) mmol/L BUN (7-17) mg/dL Creatinine (0.52-1.04) mg/dL Glucose (74-99) mg/dL POC Glucose (mg/dL) 234 H 227 H 186 H (75-99) mg/dL Phosphorus (2.5-4.5) mg/dL Magnesium (1.6-2.3) mg/dL 09/19/16 09/19/16 09/19/16 Range/Units 04:28 04:28 08:03 WBC 14.6 H (3.8-10.6) k/uL RBC 2.49 L (3.80-5.40) m/uL Hgb 7.4 L (11.4-16.0) gm/dL Hct 24.1 L (34.0-46.0) % MCHC 30.6 L (31.0-37.0) g/dL RDW 19.0 H (11.5-15.5) % Plt Count 126 L (150-450) k/uL Neutrophils # (Manual) 14.0 H (1.3-7.7) k/uL Lymphocytes # (Manual) 0.1 L (1.0-4.8) k/uL ABG HCO3 (21-25) mmol/L ABG Total CO2 (19-24) mmol/L Chloride 109 H (98-107) mmol/L BUN 25 H (7-17) mg/dL Creatinine 0.50 L (0.52-1.04) mg/dL Glucose 186 H (74-99) mg/dL POC Glucose (mg/dL) 191 H (75-99) mg/dL Phosphorus 2.3 L (2.5-4.5) mg/dL Magnesium 2.5 H (1.6-2.3) mg/dL 09/19/16 09/19/16 Range/Units 08:25 12:41 WBC (3.8-10.6) k/uL RBC (3.80-5.40) m/uL Hgb (11.4-16.0) gm/dL Hct (34.0-46.0) % MCHC (31.0-37.0) g/dL RDW (11.5-15.5) % Plt Count (150-450) k/uL Neutrophils # (Manual) (1.3-7.7) k/uL Lymphocytes # (Manual) (1.0-4.8) k/uL ABG HCO3 28 H (21-25) mmol/L ABG Total CO2 29 H (19-24) mmol/L Chloride (98-107) mmol/L BUN (7-17) mg/dL Creatinine (0.52-1.04) mg/dL Glucose (74-99) mg/dL POC Glucose (mg/dL) 188 H (75-99) mg/dL Phosphorus (2.5-4.5) mg/dL Magnesium (1.6-2.3) mg/dL Microbiology - Last 24 Hours (Table) 09/16/16 20:37 Blood Culture - Preliminary Blood No Growth after 48 hours 09/16/16 19:34 Blood Culture - Preliminary Blood No Growth after 48 hours Assessment and Plan Plan: 1 acute hypoxic respiratory failure currently intubated on a mechanical ventilator. Post intubation day # 3 2 acute and diffuse bilateral pulmonary infiltrates, strongly consider pneumonia including opportunistic pneumonias in the setting of immunosuppression and Burkitt's lymphoma. However the possibility of acute lung injury from chemotherapy is definitely high on my list at this point since I have reviewed her CT of the chest which was done about a month ago. The patient's presentation is not typical of heart failure. The patient is a preserved LV function and she hasn't responded to diuretics over the past 24-48 hours. As such, pneumonias are very much likely causing this patient's progressive respiratory failure 3 right-sided pleural effusion, status post iatrogenic right-sided pneumothorax. The patient has a chest tube in place with adequate expansion of right lung and adequate evacuation of a right-sided pleural effusion no evidence of air leak noted. Hence we'll likely consider removing the chest tube in the next couple of days. 4 acute ventilator-dependent respiratory failure secondary to above. 5 Burkitt's lymphoma 6 systemic chemotherapy 7 coronary artery disease with previous bypass surgery 8 hypothyroidism 9 chronic anemia 10 malnutrition and progressive debility seconds above-mentioned comorbidities and the patient's health in general has been progressively declining since have diagnosed with Burkitt's lymphoma and since the systemic chemotherapy 11 strongly suspect rituxan-induced lung injury. Hence the dose of Solu-Medrol will be increased to 60 mg IV push every 6 hours. Recommendation: Continue present supportive care measures, discussed her condition with the son at bedside, and explained to him that she she is quite ill, she is definitely critically ill, not quite ready for any weaning trials at this point, we will continue all supportive care measures, and at any point we noticed that her condition is futile, we will approach the family regarding CODE STATUS and comfort care measures. But I don't believe this should be addressed at this point yet. Patient may have a potential of pulling through this. We'll continue to follow. Critical care time is 45 minutes. Time with Patient: Greater than 30
[2016-09-19] MEDS: methylPREDNISolone SOD SUCCI 125 MG/2 ML VIAL IV SCH ×2 (16:10→18:37)
[2016-09-19] MEDS: LEVOFLOXACIN 750MG-D5W PMX 750 MG in DEXTROSE/WATER 1 150ML.BAG IVPB SCH (16:10)
[2016-09-19] MEDS: NITROGLYCERIN OINT 1 INCH/GM PACKET TOPICAL SCH (16:24)
[2016-09-19 17:14] LABS: Glucose,Whole Blood 189 mg/dL (75-99)
[2016-09-19] MEDS: FLUoxetine HCL 20 MG CAP PO SCH (22:25)
--- NOTE | 2016-09-19 22:43 | P.PN ---
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 She was started on R-EPOCH in June and is status post 3 cycles and most recent one was provided on August 30 through September 04. Patient's son is at the bedside and states that she has had problems with weakness and most recently with shortness of breath, feeling hot and clammy without documented fever. She had increasing shortness of breath when she got up to go to the bathroom and was worsening over this past week. On at 11:00 p.m., her called their son to come over and check on her. Her pulse was high and they ended up having her sit in a chair and relax and she was feeling better. On Friday, she was okay but by Friday at 2 in the morning she had a repeat episode. Her son called [facility] and was instructed to bring her into the emergency center. She was found to be afebrile with white count of 8.7. Initial hemoglobin was 8.2 platelet count 124. Urine was cloudy, RBC 16 and bacteria rare. Urine culture showing no growth at 18 hours. Patient was on the selective care unit initially but developed increasing shortness of breath due to pleural effusion which was not improved with Lasix. Dr. Parish was on consult and attempted right-sided thoracentesis but terminated the procedure as her pulse ox dropped to the 50%. She was intubated and underwent bronchoscopy in the intensive care unit. She was given 3 L of IV fluids and initially was on Levophed which is subsequently been discontinued. She is currently intubated and on mechanical ventilation. Tube feedings are to be started. Patient has albumin 1.8. CAT scan of the chest was negative for pulmonary embolism. Moderate to large right pleural effusion with adjacent atelectasis. Confluent groundglass and consolidation with septal lines. Correlate for pulmonary edema. Atypical pneumonia and DAH are also in the differential. Edematous changes throughout the mediastinum assessment for mediastinal lymphadenopathy. She has other consultants on including oncology, cardiology and tunnel mucker. Urine culture is finalized with no growth. Fungal, acid-fast bacilli are negative to date. Cultures are negative from the bronchoscopy also. Pneumocystis testing is now come back as negative Blood cultures are pending and negative so far IVIG was given and monitoring for improvement Objective - Vital Signs Vital signs: Vital Signs Temp 97.6 F 09/19/16 16:00 Pulse 85 09/19/16 19:00 Resp 24 09/19/16 19:00 BP 114/61 09/18/16 22:00 Pulse Ox 94 L 09/19/16 19:00 Intake & Output 09/19/16 09/19/16 09/20/16 06:59 18:59 06:59 Intake Total 7762.624 4563.716 63 Output Total 749 755 40 Balance 563.292 650.716 23 Weight 72.1 kg 72.1 kg Intake: IV 336.6 450 30 Meropenem 1 gm In Sodium 100 200 Chloride 0.9% 100 ml @ 200 mls/hr IVPB Q8HR [facility] Rx#:[id number] Propofol 50 ml As IV .STK 16.6 -[facility] Rx#:[id number] ns 220 250 30 Intake, IV Titration 345.692 634.716 Amount Cisatracurium 200 mg In 120.976 Sodium Chloride 0.9% 180 ml @ 1 MCG/KG/MIN 4.18 mls/hr IV .Q24H [facility] Rx#: [id number] Empty Bag 1 bag @ Titrate 115.692 113.740 IV .Q0M [facility] with Propofol 500 mg Rx#: [id number] Immune Globulin (Human- 93.333 IgG) 20 gm In Empty Bag 1 bag @ Titrate IV .Q0M [facility] Rx#:[id number] Immune Globulin (Human- 136.667 IgG) 20 gm In Empty Bag 1 bag @ Titrate IV .Q0M [facility] Rx#:[id number] Levofloxacin 750Mg-D5w 150 Pmx 750 mg In Dextrose/ Water 1 150ml.bag @ 100 mls/hr IVPB Q24H [facility] Rx#: [id number] Vancomycin 1,000 mg In 250 Sodium Chloride 0.9% 250 ml @ 125 mls/hr IVPB Q16H [facility] Rx#:[id number] Oral 90 Tube Feeding 495 231 33 Other 135 Output: Chest Tube Drainage 10 Chest Tube Right Lateral 10 Chest Urine 739 755 40 Stool 0 Other: Voiding Method Indwelling Catheter Indwelling Catheter ABP, PAP, CO, CI - Last Documented Arterial Blood Pressure 146/60 - Exam Gen: This is a 80-year-old female currently intubated on mechanical ventilation and appears to be comfortable in no acute distress. HEENT: Head is atraumatic, normocephalic. Pupils equal, round. Sclerae is anicteric. White coating on her tongue. Oral ETT and oral gastric tube in place. NECK: Supple. No JVD. No lymphadenopathy. No thyromegaly. LUNGS: Good air exchange anteriorly bilaterally, diminished to the bases. No intercostal retractions. Right sided chest tube HEART: Regular rate and rhythm. No murmur. ABDOMEN: Soft. Bowel sounds are present. No masses. No tenderness. EXTREMITIES: No pedal edema. No calf tenderness. Dorsalis pedis is weak bilaterally. No skin breakdown noted. NEUROLOGICAL: Patient is sedated. And now paralyzed for improved synchrony with the ventilator - Labs CBC & Chem 7: 09/19/16 04:28 09/19/16 04:28 Labs: Abnormal Lab Results - Last 24 Hours (Table) 09/18/16 09/19/16 09/19/16 Range/Units 23:46 00:32 04:25 WBC (3.8-10.6) k/uL RBC (3.80-5.40) m/uL Hgb (11.4-16.0) gm/dL Hct (34.0-46.0) % MCHC (31.0-37.0) g/dL RDW (11.5-15.5) % Plt Count (150-450) k/uL Neutrophils # (Manual) (1.3-7.7) k/uL Lymphocytes # (Manual) (1.0-4.8) k/uL ABG HCO3 (21-25) mmol/L ABG Total CO2 (19-24) mmol/L Chloride (98-107) mmol/L BUN (7-17) mg/dL Creatinine (0.52-1.04) mg/dL Glucose (74-99) mg/dL POC Glucose (mg/dL) 234 H 227 H 186 H (75-99) mg/dL Phosphorus (2.5-4.5) mg/dL Magnesium (1.6-2.3) mg/dL 09/19/16 09/19/16 09/19/16 Range/Units 04:28 04:28 08:03 WBC 14.6 H (3.8-10.6) k/uL RBC 2.49 L (3.80-5.40) m/uL Hgb 7.4 L (11.4-16.0) gm/dL Hct 24.1 L (34.0-46.0) % MCHC 30.6 L (31.0-37.0) g/dL RDW 19.0 H (11.5-15.5) % Plt Count 126 L (150-450) k/uL Neutrophils # (Manual) 14.0 H (1.3-7.7) k/uL Lymphocytes # (Manual) 0.1 L (1.0-4.8) k/uL ABG HCO3 (21-25) mmol/L ABG Total CO2 (19-24) mmol/L Chloride 109 H (98-107) mmol/L BUN 25 H (7-17) mg/dL Creatinine 0.50 L (0.52-1.04) mg/dL Glucose 186 H (74-99) mg/dL POC Glucose (mg/dL) 191 H (75-99) mg/dL Phosphorus 2.3 L (2.5-4.5) mg/dL Magnesium 2.5 H (1.6-2.3) mg/dL 09/19/16 09/19/16 09/19/16 Range/Units 08:25 12:41 17:03 WBC (3.8-10.6) k/uL RBC (3.80-5.40) m/uL Hgb (11.4-16.0) gm/dL Hct (34.0-46.0) % MCHC (31.0-37.0) g/dL RDW (11.5-15.5) % Plt Count (150-450) k/uL Neutrophils # (Manual) (1.3-7.7) k/uL Lymphocytes # (Manual) (1.0-4.8) k/uL ABG HCO3 28 H (21-25) mmol/L ABG Total CO2 29 H (19-24) mmol/L Chloride (98-107) mmol/L BUN (7-17) mg/dL Creatinine (0.52-1.04) mg/dL Glucose (74-99) mg/dL POC Glucose (mg/dL) 188 H 189 H (75-99) mg/dL Phosphorus (2.5-4.5) mg/dL Magnesium (1.6-2.3) mg/dL Microbiology - Last 24 Hours (Table) 09/16/16 19:34 Blood Culture - Preliminary Blood No Growth after 72 hours 09/16/16 20:37 Blood Culture - Preliminary Blood No Growth after 48 hours Laboratory Results WBC 14.6 k/uL (3.8-10.6) H 09/19/16 04:28 RBC 2.49 m/uL (3.80-5.40) L 09/19/16 04:28 Hgb 7.4 gm/dL (11.4-16.0) L 09/19/16 04:28 Hct 24.1 % (34.0-46.0) L 09/19/16 04:28 MCV 96.8 fL (80.0-100.0) 09/19/16 04:28 MCH 29.6 pg (25.0-35.0) 09/19/16 04:28 MCHC 30.6 g/dL (31.0-37.0) L 09/19/16 04:28 RDW 19.0 % (11.5-15.5) H 09/19/16 04:28 Plt Count 126 k/uL (150-450) L 09/19/16 04:28 Neutrophils % 97 % 09/18/16 04:50 Neutrophils % (Manual) 89.0 % 09/19/16 04:28 Band Neutrophils % 7.0 % 09/19/16 04:28 Lymphocytes % 1 % 09/18/16 04:50 Lymphocytes % (Manual) 1.0 % 09/19/16 04:28 Monocytes % 2 % 09/18/16 04:50 Monocytes % (Manual) 3.0 % 09/19/16 04:28 Eosinophils % 0 % 09/18/16 04:50 Basophils % 0 % 09/18/16 04:50 Neutrophils # 11.9 k/uL (1.3-7.7) H 09/18/16 04:50 Neutrophils # (Manual) 14.0 k/uL (1.3-7.7) H 09/19/16 04:28 Lymphocytes # 0.1 k/uL (1.0-4.8) L 09/18/16 04:50 Lymphocytes # (Manual) 0.1 k/uL (1.0-4.8) L 09/19/16 04:28 Monocytes # 0.2 k/uL (0-1.0) 09/18/16 04:50 Monocytes # (Manual) 0.4 k/uL (0-1.0) 09/19/16 04:28 Eosinophils # 0.0 k/uL (0-0.7) 09/18/16 04:50 Basophils # 0.0 k/uL (0-0.2) 09/18/16 04:50 Nucleated RBCs 0 /100 WBC (0-0) 09/19/16 04:28 Manual Slide Review Performed 09/19/16 04:28 Hypochromasia Moderate 09/19/16 04:28 Poikilocytosis Slight 09/19/16 04:28 Anisocytosis Slight 09/19/16 04:28 Macrocytosis Slight 09/19/16 04:28 PT 11.1 sec (9.0-12.0) 09/14/16 07:44 INR 1.1 (<1.1) 09/14/16 07:44 APTT 23.1 sec (22.0-30.0) 09/14/16 07:44 Sample Site [place] 09/19/16 08:25 ABG pH 7.44 (7.35-7.45) 09/19/16 08:25 ABG pCO2 42 mmHg (35-45) 09/19/16 08:25 ABG pO2 92 mmHg (83-108) 09/19/16 08:25 ABG HCO3 28 mmol/L (21-25) H 09/19/16 08:25 ABG Total CO2 29 mmol/L (19-24) H 09/19/16 08:25 ABG O2 Saturation 97.0 % (94-97) 09/19/16 08:25 ABG Base Excess 4.0 mmol/L 09/19/16 08:25 FiO2 50 % 09/19/16 08:25 Sodium 143 mmol/L (137-145) 09/19/16 04:28 Potassium 4.5 mmol/L (3.5-5.1) 09/19/16 04:28 Chloride 109 mmol/L (98-107) H 09/19/16 04:28 Carbon Dioxide 30 mmol/L (22-30) 09/19/16 04:28 Anion Gap 4 mmol/L 09/19/16 04:28 BUN 25 mg/dL (7-17) H 09/19/16 04:28 Creatinine 0.50 mg/dL (0.52-1.04) L 09/19/16 04:28 Est GFR (MDRD) Af Amer >60 (>60 ml/min/1.73 sqM) 09/19/16 04:28 Est GFR (MDRD) Non-Af >60 (>60 ml/min/1.73 sqM) 09/19/16 04:28 Glucose 186 mg/dL (74-99) H 09/19/16 04:28 POC Glucose (mg/dL) 189 mg/dL (75-99) H 09/19/16 17:03 POC Glu [employer]ing [employer] ID Tha Arreola 09/19/16 17:[address] Glu mg/dL 128 mg/dL 09/14/16 07:44 Hemoglobin A1c 6.1 % (4.2-6.1) 09/14/16 07:44 Plasma Lactic Acid Markie 1.4 mmol/L (0.7-2.0) 09/18/16 04:50 Calcium 10.0 mg/dL (8.4-10.2) 09/19/16 04:28 Phosphorus 2.3 mg/dL (2.5-4.5) L 09/19/16 04:28 Magnesium 2.5 mg/dL (1.6-2.3) H 09/19/16 04:28 Total Bilirubin 0.4 mg/dL (0.2-1.3) 09/15/16 17:40 AST 25 U/L (14-36) 09/15/16 17:40 ALT 34 U/L (9-52) 09/15/16 17:40 Alkaline Phosphatase 52 U/L (38-126) 09/15/16 17:40 Total Creatine Kinase <20 U/L (30-135) L 09/14/16 19:28 CK-MB (CK-2) 0.4 ng/mL (0.0-2.4) 09/14/16 19:28 CK-MB (CK-2) Rel Index 0.0 09/14/16 19:28 Troponin I 0.022 ng/mL (0.000-0.034) 09/14/16 19:28 NT-Pro-B Natriuret Pep 3070 pg/mL 09/15/16 05:49 Total Protein 3.6 g/dL (6.3-8.2) L 09/15/16 17:40 Albumin 1.8 g/dL (3.5-5.0) L 09/15/16 17:40 Triglycerides 122 mg/dL (<150) 09/15/16 05:49 Cholesterol 94 mg/dL (<200) 09/15/16 05:49 LDL Cholesterol, Calc 50 mg/dL (0-99) 09/15/16 05:49 HDL Cholesterol 20 mg/dL (40-60) L 09/15/16 05:49 TSH 1.910 mIU/L (0.465-4.680) 09/15/16 05:49 Urine Color Yellow 09/14/16 08:42 Urine Appearance Cloudy (Clear) H 09/14/16 08:42 Urine pH 7.0 (5.0-8.0) 09/14/16 08:42 Ur Specific [place] 1.016 (1.001-1.035) 09/14/16 08:42 Urine Protein Trace (Negative) H 09/14/16 08:42 Urine Glucose (UA) Negative (Negative) 09/14/16 08:42 Urine Ketones Negative (Negative) 09/14/16 08:42 Urine Blood Negative (Negative) 09/14/16 08:42 Urine Nitrate Negative (Negative) 09/14/16 08:42 Urine Bilirubin Negative (Negative) 09/14/16 08:42 Urine Urobilinogen 4.0 mg/dL (<2.0) 09/14/16 08:42 Ur Leukocyte Esterase Negative (Negative) 09/14/16 08:42 Urine RBC 16 /hpf (0-5) H 09/14/16 08:42 Urine WBC 5 /hpf (0-5) 09/14/16 08:42 Ur Squamous Epith Cells 1 /hpf (0-4) 09/14/16 08:42 Urine Bacteria Rare /hpf (None) H 09/14/16 08:42 Urine Mucus Rare /hpf (None) H 09/14/16 08:42 Vancomycin Trough <5.0 ug/mL 09/18/16 16:45 IgG 172.0 mg/dL (700.0-1600.0) L 09/17/16 05:46 T-Suppressor Cells 15 cell/ul (190-832) L 09/17/16 05:46 % CD4 [place] 20 % (35-66) L 09/17/16 05:46 Absolute CD4 [place] 7 cell/ul (443-1471) L 09/17/16 05:46 CD4/CD8 Ratio 0.5 (1.0-3.7) L 09/17/16 05:46 % CD8 Suppressor 42 % (9-37) H 09/17/16 05:46 Virus Source See Below 09/15/16 15:00 Viral Test See Below 09/15/16 15:00 Virus Analysis Interp See Below 09/15/16 15:00 Miscellaneous Test B Cell FlowCyto,PB 09/16/16 05:00 Misc Test Result See comment 09/16/16 05:00 Blood Type A Positive 09/14/16 08:30 Blood Type Confirm A Positive 09/14/16 07:44 Blood Type Recheck CABO Indicated 09/14/16 08:30 Antibody Screen NEGATIVE 09/14/16 08:30 Spec Expiration Date 09/17/2016 - 2330 09/14/16 08:30 Microbiology 09/16/16 19:34 Blood Blood Culture - Preliminary No Growth after 72 hours 09/16/16 20:37 Blood Blood Culture - Preliminary No Growth after 48 hours 09/16/16 00:45 Urine,Catheterized Urine Culture - Final 09/15/16 15:00 Bronchoalviolar Lavage - Left Gram Stain - Final 09/15/16 15:00 Bronchoalviolar Lavage - Left Bronchial Washings Culture - Final 09/15/16 15:00 Bronchial Washings - Right Acid Fast Bacilli Smear - Final 09/15/16 15:00 Bronchial Washings - Right Acid Fast Bacilli Culture - Preliminary 09/15/16 15:00 Bronchial Washings - Left Fungal Culture - Preliminary 09/14/16 08:42 Urine,Clean Catch Urine Culture - Final Assessment and Plan (1) Burkitt lymphoma of extranodal or solid organ site Narrative/Plan: 80-year-old female with a known history of Burkitt's lymphoma status post 3 cycles of the altered R EPOCH chemotherapy. She has developed respiratory failure requiring intubation and mechanical ventilation. Chest x- ray is abnormal. She has had bronchoscopy. Cultures are negative so far. Viral assay was negative. Pneumocystis is evaluated by pathology and is negative Potential for drug induced pulmonary injury CD4 cell count is profoundly low as part of her significant immunocompromise. IgG level is very low and was supplemented. Monitor for improvement Status: Acute (2) Pneumonia Status: Acute (3) Respiratory failure Status: Acute
[2016-09-19 23:02] LABS: Glucose,Whole Blood 182 mg/dL (75-99)
[2016-09-19] MEDS: INSULIN GLARGINE 100 UNIT/ML 10 ML VIAL SQ SCH (23:02)
[2016-09-20] MEDS: MEROPENEM 1 GM in SODIUM CHLORIDE 0.9% 100 ML IVPB SCH ×2 (00:07→07:36)
[2016-09-20] MEDS: ARTIFICIAL TEARS-HYPROMELLOSE DROPS 15 ML BTL BOTH EYES SCH ×7 (00:07→23:51)
[2016-09-20] MEDS: methylPREDNISolone SOD SUCCI 125 MG/2 ML VIAL IV SCH ×5 (00:08→23:51)
[2016-09-20] MEDS: NITROGLYCERIN OINT 1 INCH/GM PACKET TOPICAL SCH ×3 (00:09→16:08)
[2016-09-20] MEDS: INSULIN LISPRO (humaLOG) 300 UNIT/3 ML VIAL SQ SCH ×6 (01:15→20:37)
[2016-09-20 01:17] LABS: Glucose,Whole Blood 193 mg/dL (75-99)
[2016-09-20] MEDS: EMPTY BAG 1 BAG with PROPOFOL 500 MG IV SCH ×6 (01:17→23:51)
[2016-09-20] MEDS: METOPROLOL SUCCINATE (ER) 50 MG TAB.ER.24H PO SCH (01:42)
[2016-09-20] MEDS: MEGESTROL 400 MG/10 ML CUP PO SCH (01:42)
[2016-09-20] MEDS: ISOSORBIDE MONONITRATE ER 30 MG TAB.ER.24H PO SCH (01:42)
[2016-09-20] MEDS: VANCOMYCIN 1,000 MG in SODIUM CHLORIDE 0.9% 250 ML IVPB SCH (01:44)
[2016-09-20] MEDS: MORPHINE SULFATE 2 MG/ML SYRINGE IVP PRN (04:23)
[2016-09-20 04:42] LABS: Glucose,Whole Blood 167 mg/dL (75-99)
[2016-09-20 04:52] LABS: Anisocytosis Slight; CH 30.7; CHCM 32.3; HDW 3.76; HGB 8.2 gm/dL (11.4-16.0); Hypochromasia Slight; Immature Gran Flag Slight; MCH 30.2 pg (25.0-35.0); MCHC 31.5 g/dL (31.0-37.0); MCV 95.7 fL (80.0-100.0); Macrocytosis Slight; Mean Platelet Volume 8.6; Poikilocytosis Slight; RBC 2.71 m/uL (3.80-5.40); RDW 19.9 % (11.5-15.5); WBC (Perox) 11.06
[2016-09-20 05:01] LABS: Anion Gap 4 mmol/L; Blood Urea Nitrogen 28 mg/dL (7-17); Calcium 10.2 mg/dL (8.4-10.2); Carbon Dioxide 29 mmol/L (22-30); Chloride 108 mmol/L (98-107); Glucose 161 mg/dL (74-99); Magnesium 2.3 mg/dL (1.6-2.3); Non-African American GFR(MDRD) >60 (>60 ml/min/1.73 sqM); Phosphorous 2.2 mg/dL (2.5-4.5); Potassium 4.5 mmol/L (3.5-5.1); Sodium 141 mmol/L (137-145)
[2016-09-20 05:27] LABS: Add Differential Manual Differential
[2016-09-20 05:30] LABS: Myelocytes % 4.5 %; Nucleated Red Blood Cells 3 /100 WBC (0-0); Total Cells Counted 200
[2016-09-20 05:31] LABS: Manual Review Performed; Polychromasia Present; WBC 10.5 k/uL (3.8-10.6)
[2016-09-20] MEDS: LEVOTHYROXINE 112 MCG TAB PO SCH (05:59)
[2016-09-20] MEDS ORDERED: SODIUM PHOSPHATE 10 MMOL in SODIUM CHLORIDE 0.9% 100 ML IVPB ONE (06:02)
--- NOTE | 2016-09-20 06:51 | PN ---
DATE OF SERVICE: 09/19/2016 PRESENTING COMPLAINT: Intubated. INTERVAL HISTORY: This patient with Burkitt's lymphoma presented with shortness of breath and right-sided pleural effusion. During thoracentesis, patient developed pneumothorax and had to be intubated. Chest tube remains in place. FiO2 is 50 and PEEP of 5. Patient's ( ) was stopped this morning, remains ( ). Tube feeding continues. REVIEW OF SYSTEMS: Patient intubated. Current medications are reviewed that include Levaquin and meropenem. On examination, temperature 97.9, pulse 82, respiratory rate 24, blood pressure 114/50, pulse ox 98% on ventilator. GENERAL APPEARANCE: Lying in bed, intubated. EYES: Pupils equal. Conjunctivae normal. ENT: Endotracheal tube in place. NECK: JVD unable to assess. Mass not palpable. RESPIRATORY: Effort normal. LUNGS: Diminished breath sounds. CHEST WALL: Right-sided chest tube. ABDOMEN: Soft, nontender. Liver and spleen not palpable. NEUROLOGICAL: Pupils are equal. INVESTIGATIONS: White count 14.6, hemoglobin 7.4. Potassium 4.5. ASSESSMENT: 1. Right pleural effusion, about 500 mL was removed. 2. Iatrogenic pneumothorax during thoracentesis now chest tube in place. 3. Acute hypoxic respiratory failure, multifactorial, patient on ventilator. 4. Bilateral pneumonia, could be viral or even atypical in immunosuppressed patient on broad-spectrum antibiotics. 5. Burkitt's lymphoma, undergoing chemotherapy. 6. Gastroesophageal reflux disease. 7. Hyperlipidemia. 8. Primary osteoarthritis of multiple joints, bilaterally. 9. Hypothyroidism. 10. Coronary artery disease with prior history of stent and coronary artery bypass grafting. 11. Anemia from underlying lymphoma. 12. Hypotensive shock. Patient had been on pressors. PLAN: Continue current medication and treatment plan, supportive care. Patient cultures are negative until now. Continue current medication and treatment plan including antibiotics that include Levaquin and meropenem. Patient also on IV Solu-Medrol. Prognosis is guarded. Follow up with Infectious Disease and Oncology.
[2016-09-20] MEDS: IPRATROPIUM-ALBUTEROL 3 ML NEB INHALATION PRN ×4 (07:51→19:30)
[2016-09-20 08:04] LABS: ABG Base Excess 3.6 mmol/L; ABG HCO3 27 mmol/L (21-25); ABG PCO2 34 mmHg (35-45); ABG PH 7.51 (7.35-7.45); ABG PO2 76 mmHg (83-108); ABG TCO2 28 mmol/L (19-24)
[2016-09-20] MEDS: CHLORHEXIDINE GLUCONATE 15 ML CUP MUCOUS MEM SCH ×2 (08:17→20:30)
[2016-09-20] MEDS: METOPROLOL TARTRATE 50 MG TAB PO SCH ×2 (08:17→20:31)
[2016-09-20] MEDS: ENOXAPARIN 40 MG/0.4 ML SYRINGE SQ SCH (08:17)
[2016-09-20] MEDS: PANTOPRAZOLE 40 MG/10 ML VIAL IVP SCH (08:17)
[2016-09-20] MEDS: ALLOPURINOL 300 MG TAB PO SCH ×2 (08:17→20:31)
[2016-09-20] MEDS: ASPIRIN 81 MG CHEW PO SCH (08:17)
[2016-09-20] MEDS: POTASSIUM CHLORIDE ER 10 MEQ TAB.ER.PRT PO SCH ×2 (08:18→20:31)
--- NOTE | 2016-09-20 08:42 | XR ---
EXAMINATION TYPE: XR chest 1V DATE OF EXAM: 09/20/2016 6:29 AM COMPARISON: Prior chest x-ray second of September 2016 HISTORY: Intubated TECHNIQUE: Single frontal view of the chest is obtained. FINDINGS: Endotracheal tube, NG tube, right-sided PICC line are overlying appropriate positions, the re is a right-sided chest tube in place. No sizable pneumothorax or evident effusion. Interstitium re osmar increased. Patient is post median sternotomy. Cardiomediastinal silhouette, pulmonary vasculari ty and carmen within normal limits. There may be some improvement in aeration. IMPRESSION: Improvement in aeration.
[2016-09-20] MEDS ORDERED: FUROSEMIDE 10 MG/ML 4 ML VIAL IV STA (08:47)
[2016-09-20 09:05] LABS: Glucose,Whole Blood 186 mg/dL (75-99)
--- NOTE | 2016-09-20 10:53 | P.PN ---
Subjective Principal diagnosis: Acute respiratory failure, multifactorial. This is an 80-year-old female patient with a diagnosis of Burkitt's lymphoma. The patient initially presented on May 2016 with a 9.4 cm soft tissue mass in the superior mediastinum in addition to 5.5 cm mass along the right cardiac border and bulky mediastinal lymph nodes and the right-sided pleural effusion. Note that at that time the patient has had thoracentesis and this failed to establish diagnosis. Following that, the patient had a endoscopic ultrasound/bronchoscopy and transbronchial needle aspirate of the lymph nodes showed findings suspicious of a lymphoma however it final diagnoses could not been established. Ultimately underwent a biopsy of a right supraclavicular lymph node which confirmed the presence of a Burkitt's lymphoma the patient was treated with chemotherapy and she received 2 cycles of R-EPOCH , the first cycle in June 2016 and the second in August 2016. I was asked to evaluate this patient knowing that she was having significant amount of respirator distress on the medical floor. I reviewed the CAT scan of the chest and the series of chest x-ray that was done during the current admission. The patient CAT scan of the chest showed extensive infiltration of the left lung with patchy infiltration of the right upper lobe area and a moderate-sized right-sided pleural effusion. The chest x-ray was also consistent with the CAT scan findings. The patient was quite hypoxic on high flow oxygen at 15 L/m nasal cannula and his saturation was around 90-91%. At the time of my evaluation the patient was quite uncomfortable and short of breath and I was asked to proceed with a right-sided thoracentesis to give this patient some symptomatic relief. I explained to the patient and her family the procedure. Upon further inquiry, it seems that the patient's condition has been gradually getting worse. She had been experiencing increased cough and dyspnea and she was short of breath with limited amount of activity. She end up in the hospital. No reported fever or chills. I noted no temperature or white cell count elevation during this current hospital stay. I ultimately proceeded with a right-sided thoracentesis for the reasons mentioned above. During the thoracentesis, the patient became progressively more short of breath. At that point I removed a thoracentesis catheter I terminated the procedure. The patient already drained approximately 150 mL of fluid from the right lung. The patient was noted to become progressively more hypoxic and admitted to the pulse ox dropped down to 60%. At that point, I activated the emergency team and the patient was intubated immediately in her own room. The patient remained hemodynamically stable with a systolic blood pressure above 120 throughout intubation procedure. Chest x-ray post intubation showed a large right-sided pneumothorax. At that point the patient got transferred to the intensive care unit where immediately a right-sided chest tube was inserted with complete expansion of the right lung. The chest tube itself drained an additional 450 mL of pleural fluid from the right lung making the total amount of fluid evacuated from the right lung being at 650 mL. The pleural fluid was light yellowish in color. The patient was also sedated with Diprivan. The patient had a bronchoscopy and bronchoalveolar lavage of the lingular segment was done without any major complications. The patient was taken off diuretics. The patient was given a bolus of normal saline 1 L. Echocardiogram done recently showed a preserved LV function without any significant valvular dysfunction. I discussed the case with ID and will start the patient with broad -spectrum antibiotics suspecting bilateral pneumonia and covering for a portion stick infections. At this point in time, the patient is on a mechanical ventilator. The patient is an assist-control mode with a rate of 22, tidal volume 450, FiO2 of 100% and a PEEP of 5. The patient had a blood gas post intubation that showed a pH of 7.43 with a pCO2 of 39 and pO2 of 143. Based on that FiO2 has been drop down to 70%. Hemodynamically she is stable. She briefly became hypotensive requiring 2 mics of levo fed and ultimately levo fed was discontinued. I ordered follow-up blood work and a stat blood work is in progress. The preliminary results showed a global of 4.6 and the patient will be ordered a total of 2 units of packed RBC as soon as possible. Note that there was no evidence of any external bleeding or bleeding through the patient's pleural space at a time of the procedure. Patient was reevaluated today on 09/16/2016, remains on mechanical ventilation. Her ventilator settings are FiO2 of 50%, PEEP of 5 tidal volume of 400 and assist control rate of 22. Labs were reviewed, relatively normal electrolytes. ABG was also reviewed, and the ventilator settings were adjusted accordingly. Chest x-ray continues to show bilateral infiltrates. No evidence of pneumothorax, chest tube and endotracheal tube are in proper position. Patient continues to have an air leak noted in the chest tube/pleural VAC. All medications were reviewed. Reevaluated today on 09/17/2016, upon my initial evaluation, patient was noted to be quite tachycardic, tachypneic, and her O2 saturations were in the high 80s. Hence I have adjusted her sedation, and the propofol was increased. Patient was given morphine, and I was able to ventilator much better once she was sedated. She required some fluid boluses because of a slight drop in the blood pressure after sedation. Chest x-ray was reviewed, endotracheal tube is in proper position. Minimal right apical pneumothorax is noted. Stable anddisease was also noted. Labs were all reviewed, WBC count is 11.6 hemoglobin is 7.3. PO2 is 209 pCO2 is 34 and pH of 7.43. Basic metabolic profile and renal profile are noted to be normal. Vent settings were noted and readjusted. Patient was reevaluated today on 09/18/2016, same issue happened again as yesterday. Early in the morning I was notified about the patient getting quite tachycardic, restless agitated, and she desaturated down to the 70s. FiO2 was increased to 100%, patient was noted to be not synchronous with mechanical ventilation. In spite of sedation and increasing the dose of propofol, patient remained tachycardic and tachypneic, and she was using her accessory muscles. Hence I recommended using paralytic agents on the patient, and Nimbex was initiated. Patient is now on Nimbex, and she seems to be ventilating much better. Right radial arterial line was placed because apparently they had some issue with the line last night and it was removed. I had a long discussion with her daughter at bedside, she is very well aware of the poor prognostic picture, and I explained to her that her mother is quite ill, mortality is rather high, but so far she seems to be doing relatively well, and we are not quite ready to collect a medical futility situation. Cultures are still pending , we called the lab in [place], and hopefully sometime today will have the final report on the PCP stain. Otherwise so far all the cultures from the BAL are nondiagnostic. ABG today showed a pO2 of 85 pCO2 of 44 pH of 7.35 WBC count is 12.3 hemoglobin is 7.1 basic metabolic profile is normal, renal profile is normal. Patient was reevaluated today on 09/19/2016, she remains on mechanical ventilation , cultures so far are nondiagnostic including all the blood cultures, and the bronchoalveolar lavage cultures, and the cytology has all been nondiagnostic. Patient had negative PCP stain. Patient remains on enteral feeding, via nasogastric tube she is not requiring any pressors. Her ventilator settings are about the same, her urine output is excellent, her ABG showed a pO2 of 92 pCO2 of 40 to pH of 7.44 and this is on a 50% FiO2 her lung mechanics seem to be reasonable, patient is not developing any stiffness in her lungs. Hemoglobin is 7.4 WBC count is 14.6. Chest x-ray is showing slight improvement compared to the x-ray done yesterday, but continues to have significant interstitial infiltrates bilaterally. Cytology on the bronchial fluid was negative for malignancy. Today I plan to discontinue Nimbex, and I plan to keep her on propofol and on morphine as needed. Discussed with her son today at length her overall condition, and felt that she continues to have some acute lung injury it is not clear whether this acute lung injury is related to infection or could even be related to her chemotherapy/rituxin. Her son actually showed be a CT report which was done about a month ago which clearly showed some groundglass opacities and nodularities and lungs bilaterally back in August. And this was done shortly after she was started on her initial chemotherapy. Now I'm becoming more suspicious that we may be dealing with acute lung injury related to chemotherapy rather than infectious process. Patient has been on steroids all along, and I would likely increase the dose. Patient will be placed on 60 mg of Solu-Medrol every 6 hours. In the meantime we'll continue antibiotics as ordered by infectious disease on consultation. Patient was reevaluated today on 09/20/2016, remains on mechanical ventilation, she is on 25 g of propofol, she is off Nimbex, not requiring any pressors, continues to have tube feeding via nasogastric tube. Chest x-ray is showing some improvement especially in the right lung. Interstitial infiltrates continues to be present in the left midlung and left lower lobe area. Cultures remain negative from the bronchoalveolar lavage. Ventilator settings are assist control rate of 22 FiO2 of 40% tidal volume is 400 and PEEP is 5. ABG today showed a pO2 of 76 pCO2 of 34 pH of 7.51. WBC count is 10.5 hemoglobin is 8.2. Basic metabolic profile and renal profile are normal. Patient is slightly arousable, opens her eyes, but still on relatively good doses of propofol which I plan to taper down, and possibly SS mental status and may even consider a weaning trial today. Objective - Vital Signs Vital signs: Vital Signs Temp 98.3 F 09/20/16 08:00 Pulse 86 09/20/16 10:00 Resp 24 09/20/16 10:00 BP 114/61 09/18/16 22:00 Pulse Ox 95 09/20/16 10:00 Intake & Output 09/19/16 09/20/16 09/20/16 18:59 06:59 18:59 Intake Total 9344.547 2880.740 463.153 Output Total 755 975 690 Balance 650.716 453.740 -226.847 Weight 72.1 kg 69 kg Intake: IV 450 460 220 Meropenem 1 gm In Sodium 200 100 100 Chloride 0.9% 100 ml @ 200 mls/hr IVPB Q8HR [facility] Rx#:[id number] ns 250 360 120 Intake, IV Titration 634.716 350.740 114.153 Amount Cisatracurium 200 mg In 120.976 Sodium Chloride 0.9% 180 ml @ 1 MCG/KG/MIN 4.18 mls/hr IV .Q24H [facility] Rx#: [id number] Empty Bag 1 bag @ Titrate 113.740 100.740 14.153 IV .Q0M [facility] with Propofol 500 mg Rx#: [id number] Levofloxacin 750Mg-D5w 150 Pmx 750 mg In Dextrose/ Water 1 150ml.bag @ 100 mls/hr IVPB Q24H [facility] Rx#: [id number] Sodium Phosphate 10 mmol 100 In Sodium Chloride 0.9% 100 ml @ 50 mls/hr IVPB ONCE ONE Rx#:[id number] Vancomycin 1,000 mg In 250 250 Sodium Chloride 0.9% 250 ml @ 125 mls/hr IVPB Q16H [facility] Rx#:[id number] Oral 90 Tube Feeding 231 528 99 Other 90 30 Output: Chest Tube Drainage 10 0 Chest Tube Right Lateral 10 0 Chest Urine 755 965 690 Stool 0 0 Other: Voiding Method Indwelling Catheter Indwelling Catheter Indwelling Catheter # Bowel Movements 0 0 ABP, PAP, CO, CI - Last Documented Arterial Blood Pressure 120/60 - Exam Physical Exam: Revealed an 80-year-old female, sedated, on propofol drip, on mechanical ventilation, slightly arousable in spite of propofol drip HEENT:[Neck is supple.] [No neck masses.] [No thyromegaly.] [No JVD.] Endotracheal tube is intact. Chest tube on the right side, no air leak noted. Chest: [Crackles at the bases bilaterally, no rhonchi, no wheezes.] Cardiac Exam: [Normal S1 and S2, no S3 gallop, no murmur.] Abdomen: [Soft, nontender, no megaly, no rebound, no guarding, normal bowel sounds.] Extremities: [No clubbing, no edema, no cyanosis.] Neurological Exam: Opens eyes with painful stimuli, however we'll plan to have a full neurological assessment when the patient is off propofol today. - Labs CBC & Chem 7: 09/20/16 04:45 09/20/16 04:45 Labs: Abnormal Lab Results - Last 24 Hours (Table) 09/19/16 09/19/16 09/19/16 Range/Units 12:41 17:03 22:58 RBC (3.80-5.40) m/uL Hgb (11.4-16.0) gm/dL Hct (34.0-46.0) % RDW (11.5-15.5) % Plt Count (150-450) k/uL Neutrophils # (Manual) (1.3-7.7) k/uL Lymphocytes # (Manual) (1.0-4.8) k/uL Nucleated RBCs (0-0) /100 WBC ABG pH (7.35-7.45) ABG pCO2 (35-45) mmHg ABG pO2 (83-108) mmHg ABG HCO3 (21-25) mmol/L ABG Total CO2 (19-24) mmol/L Chloride (98-107) mmol/L BUN (7-17) mg/dL Glucose (74-99) mg/dL POC Glucose (mg/dL) 188 H 189 H 182 H (75-99) mg/dL Phosphorus (2.5-4.5) mg/dL 09/20/16 09/20/16 09/20/16 Range/Units 01:15 04:39 04:45 RBC 2.71 L (3.80-5.40) m/uL Hgb 8.2 L (11.4-16.0) gm/dL Hct 26.0 L (34.0-46.0) % RDW 19.9 H (11.5-15.5) % Plt Count 127 L (150-450) k/uL Neutrophils # (Manual) 9.5 H (1.3-7.7) k/uL Lymphocytes # (Manual) 0.2 L (1.0-4.8) k/uL Nucleated RBCs 3 H (0-0) /100 WBC ABG pH (7.35-7.45) ABG pCO2 (35-45) mmHg ABG pO2 (83-108) mmHg ABG HCO3 (21-25) mmol/L ABG Total CO2 (19-24) mmol/L Chloride (98-107) mmol/L BUN (7-17) mg/dL Glucose (74-99) mg/dL POC Glucose (mg/dL) 193 H 167 H (75-99) mg/dL Phosphorus (2.5-4.5) mg/dL 09/20/16 09/20/16 09/20/16 Range/Units 04:45 07:45 08:24 RBC (3.80-5.40) m/uL Hgb (11.4-16.0) gm/dL Hct (34.0-46.0) % RDW (11.5-15.5) % Plt Count (150-450) k/uL Neutrophils # (Manual) (1.3-7.7) k/uL Lymphocytes # (Manual) (1.0-4.8) k/uL Nucleated RBCs (0-0) /100 WBC ABG pH 7.51 H (7.35-7.45) ABG pCO2 34 L (35-45) mmHg ABG pO2 76 L (83-108) mmHg ABG HCO3 27 H (21-25) mmol/L ABG Total CO2 28 H (19-24) mmol/L Chloride 108 H (98-107) mmol/L BUN 28 H (7-17) mg/dL Glucose 161 H (74-99) mg/dL POC Glucose (mg/dL) 186 H (75-99) mg/dL Phosphorus 2.2 L (2.5-4.5) mg/dL Microbiology - Last 24 Hours (Table) 09/16/16 20:37 Blood Culture - Preliminary Blood No Growth after 72 hours 09/16/16 19:34 Blood Culture - Preliminary Blood No Growth after 72 hours Assessment and Plan Plan: 1 acute hypoxic respiratory failure currently intubated on a mechanical ventilator. Post intubation day # 5 2 acute and diffuse bilateral pulmonary infiltrates, strongly consider pneumonia including opportunistic pneumonias in the setting of immunosuppression and Burkitt's lymphoma. However the possibility of acute lung injury from chemotherapy is definitely high on my list at this point since I have reviewed her CT of the chest which was done about a month ago. The patient's presentation is not typical of heart failure. The patient is a preserved LV function and she hasn't responded to diuretics over the past 24-48 hours. As such, pneumonias are very much likely causing this patient's progressive respiratory failure 3 right-sided pleural effusion, status post iatrogenic right-sided pneumothorax. The patient has a chest tube in place with adequate expansion of right lung and adequate evacuation of a right-sided pleural effusion no evidence of air leak noted. Hence we'll likely consider removing the chest tube in the next couple of days. 4 acute ventilator-dependent respiratory failure secondary to above. 5 Burkitt's lymphoma 6 status post systemic chemotherapy for Burkitt's lymphoma using R -EPOCH, status post 3 cycles most recent one was in August 30 through September 04 7 coronary artery disease with previous bypass surgery 8 hypothyroidism 9 chronic anemia 10 malnutrition and progressive debility seconds above-mentioned comorbidities and the patient's health in general has been progressively declining since have diagnosed with Burkitt's lymphoma and since the systemic chemotherapy 11 strongly suspect rituxan-induced lung injury. Hence the dose of Solu-Medrol will be increased to 60 mg IV push every 6 hours. This is based on the fact that her CT of the chest was abnormal shortly after her last course of chemotherapy showing groundglass opacities and nodular changes in both lungs. Recommendation: Continue present supportive care measures, discussed her condition with the daughter at bedside, and explained to her that she she is quite ill, she is definitely critically ill, not quite ready for any weaning trials at this point, we will continue all supportive care measures, and at any point we noticed that her condition is futile, we will approach the family regarding CODE STATUS and comfort care measures. But I don't believe this should be addressed at this point yet. Patient may have a potential of pulling through this. We'll continue to follow. Critical care time is 40 minutes. Today, I plan to give 1 dose of Lasix 40 mg IV push, we will wean propofol down a bit, and assess mental status, may even consider a weaning trial today. That will all dependent on her mental status and on her overall picture on mechanical ventilation. Time with Patient: Greater than 30
[2016-09-20 14:43] LABS: Mis test requested (Non-blood) Pneumocystis Jirovec
[2016-09-20 16:19] LABS: Glucose,Whole Blood 199 mg/dL (75-99)
[2016-09-20] MEDS: LEVOFLOXACIN 750MG-D5W PMX 750 MG in DEXTROSE/WATER 1 150ML.BAG IVPB SCH (16:19)
[2016-09-20] MEDS ORDERED: VANCOMYCIN TROUGH DUE 1 EACH MISC MISCELLANE ONE (17:00)
--- NOTE | 2016-09-20 19:12 | PN ---
DATE OF SERVICE: 09/20/2016 PRESENTING COMPLAINT: Intubated. INTERVAL HISTORY: This patient with ( ) lymphoma, which has a good prognosis presented with shortness of breath and right left-sided pleural effusion. During thoracentesis, patient developed pneumothorax and had to be intubated. Chest tube remains in place. FIO2 40% and PEEP of 5. Patient has been off Nimbex as of yesterday and propofol was weaned off. Tube feeding continued. Patient does move about a bit. REVIEW OF SYSTEMS: Patient intubated. Current medications are reviewed that include IV Levaquin. IV Bactrim. On examination, temperature 98.4, pulse 90, respiration 28, blood pressure 128/60, pulse ox 96%. GENERAL APPEARANCE: Lying in bed, intubated. EYES: Pupils equal. Conjunctivae normal. HEENT: Endotracheal tube in place. NECK: JVD unable to assess. Mass not palpable. RESPIRATORY: Effort normal. LUNGS: Diminished breath sounds. Chest wall right-sided chest tube in place. ABDOMEN: Soft. Nontender. Liver and spleen not palpable. NEUROLOGICAL: Pupils are equal, and also patient is moving her limbs. INVESTIGATIONS: White count 10.5, hemoglobin 8.2, platelets 127, potassium 4.5. BUN 20, creatinine 0.53. ASSESSMENT: 1. Right pleural effusion about 500 mL was initially removed. 2. Iatrogenic pneumothorax during thoracentesis, now chest tube in place. 3. Acute hypoxic respiratory failure multifactorial. Patient on ventilator. 4. Acute lung injury. This could be Rituxan associated lung injury or could be atypical viruses in an immunosuppressed patient. Patient is covered with broad-spectrum antibiotics. Infectious work-up has been negative until now. 5. Burkitt's lymphoma on chemotherapy. 6. Gastroesophageal reflux disease. 7. Hyperlipidemia. 8. Primary osteoarthritis of multiple joints, bilateral. 9. Hypothyroidism. 10. Coronary artery disease with prior history of stent and coronary artery bypass grafting. 11. Anemia from underlying lymphoma. 12. Hypertensive shock. The patient had been on pressors. PLAN: Overall prognosis is guarded. Continue current medication and treatment plan. Supportive care. From a Burkitt's lymphoma ( ) at least prognosis is always good. The tumor responds rather well. We will await further input from oncology. Follow.
--- NOTE | 2016-09-20 20:27 | P.PN ---
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 She was started on R-EPOCH in June and is status post 3 cycles and most recent one was provided on August 30 through September 04. Patient's son is at the bedside and states that she has had problems with weakness and most recently with shortness of breath, feeling hot and clammy without documented fever. She had increasing shortness of breath when she got up to go to the bathroom and was worsening over this past week. On at 11:00 p.m., her called their son to come over and check on her. Her pulse was high and they ended up having her sit in a chair and relax and she was feeling better. On Friday, she was okay but by Friday at 2 in the morning she had a repeat episode. Her son called [facility] and was instructed to bring her into the emergency center. She was found to be afebrile with white count of 8.7. Initial hemoglobin was 8.2 platelet count 124. Urine was cloudy, RBC 16 and bacteria rare. Urine culture showing no growth at 18 hours. Patient was on the selective care unit initially but developed increasing shortness of breath due to pleural effusion which was not improved with Lasix. Dr. Parish was on consult and attempted right-sided thoracentesis but terminated the procedure as her pulse ox dropped to the 50%. She was intubated and underwent bronchoscopy in the intensive care unit. She was given 3 L of IV fluids and initially was on Levophed which is subsequently been discontinued. She is currently intubated and on mechanical ventilation. Tube feedings are to be started. Patient has albumin 1.8. CAT scan of the chest was negative for pulmonary embolism. Moderate to large right pleural effusion with adjacent atelectasis. Confluent groundglass and consolidation with septal lines. Correlate for pulmonary edema. Atypical pneumonia and DAH are also in the differential. Edematous changes throughout the mediastinum assessment for mediastinal lymphadenopathy. She has other consultants on including oncology, cardiology and funeral home general manager. Urine culture is finalized with no growth. Fungal, acid-fast bacilli are negative to date. Cultures are negative from the bronchoscopy also. Pneumocystis testing from pathology was negative. Blood cultures are pending and negative so far IVIG was given and monitoring for improvement Objective - Vital Signs Vital signs: Vital Signs Temp 97.6 F 09/20/16 16:00 Pulse 90 09/20/16 20:00 Resp 20 09/20/16 20:00 BP 114/61 09/18/16 22:00 Pulse Ox 99 09/20/16 20:00 Intake & Output 09/20/16 09/20/16 09/21/16 06:59 18:59 06:59 Intake Total 6275.102 2097.543 129 Output Total 975 1472 40 Balance 453.740 -50.457 89 Weight 69 kg Intake: IV 460 460 30 Meropenem 1 gm In Sodium 100 100 Chloride 0.9% 100 ml @ 200 mls/hr IVPB Q8HR [facility] Rx#:[id number] ns 360 360 30 Intake, IV Titration 350.740 310.543 Amount Empty Bag 1 bag @ Titrate 100.740 60.543 IV .Q0M HEAVEN with Propofol 500 mg Rx#: [id number] Levofloxacin 750Mg-D5w 150 Pmx 750 mg In Dextrose/ Water 1 150ml.bag @ 100 mls/hr IVPB Q24H [facility] Rx#: [id number] Sodium Phosphate 10 mmol 100 In Sodium Chloride 0.9% 100 ml @ 50 mls/hr IVPB ONCE ONE Rx#:[id number] Vancomycin 1,000 mg In 250 Sodium Chloride 0.9% 250 ml @ 125 mls/hr IVPB Q16H [facility] Rx#:[id number] Tube Feeding 528 561 99 Other 90 90 Output: Chest Tube Drainage 10 0 0 Chest Tube Right Lateral 10 0 0 Chest Urine 965 1472 40 Stool 0 Other: Voiding Method Indwelling Catheter Indwelling Catheter Indwelling Catheter # Voids 1 # Bowel Movements 0 1 0 ABP, PAP, CO, CI - Last Documented Arterial Blood Pressure 136/63 - Exam Gen: This is a 80-year-old female currently intubated on mechanical ventilation and appears to be comfortable in no acute distress. HEENT: Head is atraumatic, normocephalic. Pupils equal, round. Sclerae is anicteric. White coating on her tongue. Oral ETT and oral gastric tube in place. NECK: Supple. No JVD. No lymphadenopathy. No thyromegaly. LUNGS: Good air exchange anteriorly bilaterally, diminished to the bases. No intercostal retractions. Right sided chest tube HEART: Regular rate and rhythm. No murmur. ABDOMEN: Soft. Bowel sounds are present. No masses. No tenderness. EXTREMITIES: No pedal edema. No calf tenderness. Dorsalis pedis is weak bilaterally. No skin breakdown noted. NEUROLOGICAL: Patient is sedated. She is no longer paralyzed and with sedation holiday was appropriate. - Labs CBC & Chem 7: 09/20/16 04:45 09/20/16 04:45 Labs: Abnormal Lab Results - Last 24 Hours (Table) 09/19/16 09/20/16 09/20/16 Range/Units 22:58 01:15 04:39 RBC (3.80-5.40) m/uL Hgb (11.4-16.0) gm/dL Hct (34.0-46.0) % RDW (11.5-15.5) % Plt Count (150-450) k/uL Neutrophils # (Manual) (1.3-7.7) k/uL Lymphocytes # (Manual) (1.0-4.8) k/uL Nucleated RBCs (0-0) /100 WBC ABG pH (7.35-7.45) ABG pCO2 (35-45) mmHg ABG pO2 (83-108) mmHg ABG HCO3 (21-25) mmol/L ABG Total CO2 (19-24) mmol/L Chloride (98-107) mmol/L BUN (7-17) mg/dL Glucose (74-99) mg/dL POC Glucose (mg/dL) 182 H 193 H 167 H (75-99) mg/dL Phosphorus (2.5-4.5) mg/dL 09/20/16 09/20/16 09/20/16 Range/Units 04:45 04:45 07:45 RBC 2.71 L (3.80-5.40) m/uL Hgb 8.2 L (11.4-16.0) gm/dL Hct 26.0 L (34.0-46.0) % RDW 19.9 H (11.5-15.5) % Plt Count 127 L (150-450) k/uL Neutrophils # (Manual) 9.5 H (1.3-7.7) k/uL Lymphocytes # (Manual) 0.2 L (1.0-4.8) k/uL Nucleated RBCs 3 H (0-0) /100 WBC ABG pH 7.51 H (7.35-7.45) ABG pCO2 34 L (35-45) mmHg ABG pO2 76 L (83-108) mmHg ABG HCO3 27 H (21-25) mmol/L ABG Total CO2 28 H (19-24) mmol/L Chloride 108 H (98-107) mmol/L BUN 28 H (7-17) mg/dL Glucose 161 H (74-99) mg/dL POC Glucose (mg/dL) (75-99) mg/dL Phosphorus 2.2 L (2.5-4.5) mg/dL 09/20/16 09/20/16 Range/Units 08:24 16:17 RBC (3.80-5.40) m/uL Hgb (11.4-16.0) gm/dL Hct (34.0-46.0) % RDW (11.5-15.5) % Plt Count (150-450) k/uL Neutrophils # (Manual) (1.3-7.7) k/uL Lymphocytes # (Manual) (1.0-4.8) k/uL Nucleated RBCs (0-0) /100 WBC ABG pH (7.35-7.45) ABG pCO2 (35-45) mmHg ABG pO2 (83-108) mmHg ABG HCO3 (21-25) mmol/L ABG Total CO2 (19-24) mmol/L Chloride (98-107) mmol/L BUN (7-17) mg/dL Glucose (74-99) mg/dL POC Glucose (mg/dL) 186 H 199 H (75-99) mg/dL Phosphorus (2.5-4.5) mg/dL Microbiology - Last 24 Hours (Table) 09/16/16 20:37 Blood Culture - Preliminary Blood No Growth after 72 hours 09/16/16 19:34 Blood Culture - Preliminary Blood No Growth after 72 hours Laboratory Results WBC 10.5 k/uL (3.8-10.6) 09/20/16 04:45 RBC 2.71 m/uL (3.80-5.40) L 09/20/16 04:45 Hgb 8.2 gm/dL (11.4-16.0) L 09/20/16 04:45 Hct 26.0 % (34.0-46.0) L 09/20/16 04:45 MCV 95.7 fL (80.0-100.0) 09/20/16 04:45 MCH 30.2 pg (25.0-35.0) 09/20/16 04:45 MCHC 31.5 g/dL (31.0-37.0) 09/20/16 04:45 RDW 19.9 % (11.5-15.5) H 09/20/16 04:45 Plt Count 127 k/uL (150-450) L 09/20/16 04:45 Neutrophils % 97 % 09/18/16 04:50 Neutrophils % (Manual) 87.0 % 09/20/16 04:45 Band Neutrophils % 3.0 % 09/20/16 04:45 Lymphocytes % 1 % 09/18/16 04:50 Lymphocytes % (Manual) 1.5 % 09/20/16 04:45 Monocytes % 2 % 09/18/16 04:50 Monocytes % (Manual) 4.0 % 09/20/16 04:45 Eosinophils % 0 % 09/18/16 04:50 Basophils % 0 % 09/18/16 04:50 Myelocytes % 4.5 % 09/20/16 04:45 Neutrophils # 11.9 k/uL (1.3-7.7) H 09/18/16 04:50 Neutrophils # (Manual) 9.5 k/uL (1.3-7.7) H 09/20/16 04:45 Lymphocytes # 0.1 k/uL (1.0-4.8) L 09/18/16 04:50 Lymphocytes # (Manual) 0.2 k/uL (1.0-4.8) L 09/20/16 04:45 Monocytes # 0.2 k/uL (0-1.0) 09/18/16 04:50 Monocytes # (Manual) 0.4 k/uL (0-1.0) 09/20/16 04:45 Eosinophils # 0.0 k/uL (0-0.7) 09/18/16 04:50 Basophils # 0.0 k/uL (0-0.2) 09/18/16 04:50 Nucleated RBCs 3 /100 WBC (0-0) H 09/20/16 04:45 Manual Slide Review Performed 09/20/16 04:45 Polychromasia Present 09/20/16 04:45 Hypochromasia Slight 09/20/16 04:45 Poikilocytosis Slight 09/20/16 04:45 Anisocytosis Slight 09/20/16 04:45 Macrocytosis Slight 09/20/16 04:45 PT 11.1 sec (9.0-12.0) 09/14/16 07:44 INR 1.1 (<1.1) 09/14/16 07:44 APTT 23.1 sec (22.0-30.0) 09/14/16 07:44 Sample Site alex 09/20/16 07:45 ABG pH 7.51 (7.35-7.45) H 09/20/16 07:45 ABG pCO2 34 mmHg (35-45) L 09/20/16 07:45 ABG pO2 76 mmHg (83-108) L 09/20/16 07:45 ABG HCO3 27 mmol/L (21-25) H 09/20/16 07:45 ABG Total CO2 28 mmol/L (19-24) H 09/20/16 07:45 ABG O2 Saturation 96.0 % (94-97) 09/20/16 07:45 ABG Base Excess 3.6 mmol/L 09/20/16 07:45 FiO2 40 % 09/20/16 07:45 Sodium 141 mmol/L (137-145) 09/20/16 04:45 Potassium 4.5 mmol/L (3.5-5.1) 09/20/16 04:45 Chloride 108 mmol/L (98-107) H 09/20/16 04:45 Carbon Dioxide 29 mmol/L (22-30) 09/20/16 04:45 Anion Gap 4 mmol/L 09/20/16 04:45 BUN 28 mg/dL (7-17) H 09/20/16 04:45 Creatinine 0.53 mg/dL (0.52-1.04) 09/20/16 04:45 Est GFR (MDRD) Af Amer >60 (>60 ml/min/1.73 sqM) 09/20/16 04:45 Est GFR (MDRD) Non-Af >60 (>60 ml/min/1.73 sqM) 09/20/16 04:45 Glucose 161 mg/dL (74-99) H 09/20/16 04:45 POC Glucose (mg/dL) 199 mg/dL (75-99) H 09/20/16 16:17 POC Glu Production Operator Leslie Samuel 09/20/16 16:[address] Glu mg/dL 128 mg/dL 09/14/16 07:44 Hemoglobin A1c 6.1 % (4.2-6.1) 09/14/16 07:44 Plasma Lactic Acid Markie 1.4 mmol/L (0.7-2.0) 09/18/16 04:50 Calcium 10.2 mg/dL (8.4-10.2) 09/20/16 04:45 Phosphorus 2.2 mg/dL (2.5-4.5) L 09/20/16 04:45 Magnesium 2.3 mg/dL (1.6-2.3) 09/20/16 04:45 Total Bilirubin 0.4 mg/dL (0.2-1.3) 09/15/16 17:40 AST 25 U/L (14-36) 09/15/16 17:40 ALT 34 U/L (9-52) 09/15/16 17:40 Alkaline Phosphatase 52 U/L (38-126) 09/15/16 17:40 Total Creatine Kinase <20 U/L (30-135) L 09/14/16 19:28 CK-MB (CK-2) 0.4 ng/mL (0.0-2.4) 09/14/16 19:28 CK-MB (CK-2) Rel Index 0.0 09/14/16 19:28 Troponin I 0.022 ng/mL (0.000-0.034) 09/14/16 19:28 NT-Pro-B Natriuret Pep 3070 pg/mL 09/15/16 05:49 Total Protein 3.6 g/dL (6.3-8.2) L 09/15/16 17:40 Albumin 1.8 g/dL (3.5-5.0) L 09/15/16 17:40 Triglycerides 122 mg/dL (<150) 09/15/16 05:49 Cholesterol 94 mg/dL (<200) 09/15/16 05:49 LDL Cholesterol, Calc 50 mg/dL (0-99) 09/15/16 05:49 HDL Cholesterol 20 mg/dL (40-60) L 09/15/16 05:49 TSH 1.910 mIU/L (0.465-4.680) 09/15/16 05:49 Urine Color Yellow 09/14/16 08:42 Urine Appearance Cloudy (Clear) H 09/14/16 08:42 Urine pH 7.0 (5.0-8.0) 09/14/16 08:42 Ur Specific Mayo 1.016 (1.001-1.035) 09/14/16 08:42 Urine Protein Trace (Negative) H 09/14/16 08:42 Urine Glucose (UA) Negative (Negative) 09/14/16 08:42 Urine Ketones Negative (Negative) 09/14/16 08:42 Urine Blood Negative (Negative) 09/14/16 08:42 Urine Nitrate Negative (Negative) 09/14/16 08:42 Urine Bilirubin Negative (Negative) 09/14/16 08:42 Urine Urobilinogen 4.0 mg/dL (<2.0) 09/14/16 08:42 Ur Leukocyte Esterase Negative (Negative) 09/14/16 08:42 Urine RBC 16 /hpf (0-5) H 09/14/16 08:42 Urine WBC 5 /hpf (0-5) 09/14/16 08:42 Ur Squamous Epith Cells 1 /hpf (0-4) 09/14/16 08:42 Urine Bacteria Rare /hpf (None) H 09/14/16 08:42 Urine Mucus Rare /hpf (None) H 09/14/16 08:42 Vancomycin Trough 8.0 ug/mL 09/20/16 16:40 IgG 172.0 mg/dL (700.0-1600.0) L 09/17/16 05:46 T-Suppressor Cells 15 cell/ul (190-832) L 09/17/16 05:46 % CD4 Gleason 20 % (35-66) L 09/17/16 05:46 Absolute CD4 Gleason 7 cell/ul (443-1471) L 09/17/16 05:46 CD4/CD8 Ratio 0.5 (1.0-3.7) L 09/17/16 05:46 % CD8 Suppressor 42 % (9-37) H 09/17/16 05:46 Virus Source See Below 09/15/16 15:00 Viral Test See Below 09/15/16 15:00 Virus Analysis Interp See Below 09/15/16 15:00 Miscellaneous Test B Cell FlowCyto,PB 09/16/16 05:00 Misc Test Result See comment 09/16/16 05:00 Blood Type A Positive 09/14/16 08:30 Blood Type Confirm A Positive 09/14/16 07:44 Blood Type Recheck CABO Indicated 09/14/16 08:30 Antibody Screen NEGATIVE 09/14/16 08:30 Spec Expiration Date 09/17/2016 - 2330 09/14/16 08:30 Microbiology 09/16/16 20:37 Blood Blood Culture - Preliminary No Growth after 72 hours 09/16/16 19:34 Blood Blood Culture - Preliminary No Growth after 72 hours 09/16/16 00:45 Urine,Catheterized Urine Culture - Final 09/15/16 15:00 Bronchoalviolar Lavage - Left Gram Stain - Final 09/15/16 15:00 Bronchoalviolar Lavage - Left Bronchial Washings Culture - Final 09/15/16 15:00 Bronchial Washings - Right Acid Fast Bacilli Smear - Final 09/15/16 15:00 Bronchial Washings - Right Acid Fast Bacilli Culture - Preliminary 09/15/16 15:00 Bronchial Washings - Left Fungal Culture - Preliminary 09/14/16 08:42 Urine,Clean Catch Urine Culture - Final PCR for pneumocystis has come back as positive. Pathology was negative Assessment and Plan (1) Burkitt lymphoma of extranodal or solid organ site Narrative/Plan: 80-year-old female with a known history of Burkitt's lymphoma status post 3 cycles of the altered R EPOCH chemotherapy. She has developed respiratory failure requiring intubation and mechanical ventilation. Chest x- ray is abnormal. She has had bronchoscopy. Cultures are negative so far. Viral assay was negative. Pneumocystis is evaluated by pathology and is negative Potential for drug induced pulmonary injury CD4 cell count is profoundly low as part of her significant immunocompromise. IgG level is very low and was supplemented. PCr is now come back for pneumocystis and has come back as a positive test. Consequently prior antimicrobials except levofloxacin are discontinued. Intravenous trimethoprim sulfamethoxazole is added. She is already receiving steroid therapy. We'll need to closely monitor her renal function with the intravenous trimethoprim sulfamethoxazole Status: Acute (2) Pneumonia Status: Acute (3) Respiratory failure Status: Acute
[2016-09-20] MEDS: FLUoxetine HCL 20 MG CAP PO SCH (20:31)
[2016-09-20 20:37] LABS: Glucose,Whole Blood 220 mg/dL (75-99)
[2016-09-20] MEDS: INSULIN GLARGINE 100 UNIT/ML 10 ML VIAL SQ SCH (20:40)
[2016-09-20] MEDS: DEXTROSE 5% IVPB SCH ×2 (21:36)
[2016-09-20] MEDS: SULFAMETHOX TMP IVPB SCH ×2 (21:36)
[2016-09-20] MEDS: WATER IVPB SCH ×2 (21:36)
[2016-09-21 00:31] LABS: Glucose,Whole Blood 267 mg/dL (75-99)
[2016-09-21] MEDS: INSULIN LISPRO (humaLOG) 300 UNIT/3 ML VIAL SQ SCH ×4 (00:31→20:13)
[2016-09-21] MEDS: NITROGLYCERIN OINT 1 INCH/GM PACKET TOPICAL SCH ×4 (02:22→23:56)
[2016-09-21] MEDS: MORPHINE SULFATE 2 MG/ML SYRINGE IVP PRN (03:13)
[2016-09-21] MEDS: ARTIFICIAL TEARS-HYPROMELLOSE DROPS 15 ML BTL BOTH EYES SCH ×6 (03:13→23:50)
[2016-09-21] MEDS: EMPTY BAG 1 BAG with PROPOFOL 500 MG IV SCH ×3 (03:14→12:46)
[2016-09-21 05:12] LABS: Glucose,Whole Blood 288 mg/dL (75-99)
[2016-09-21] MEDS: methylPREDNISolone SOD SUCCI 125 MG/2 ML VIAL IV SCH ×4 (05:27→23:49)
[2016-09-21 05:35] LABS: Anisocytosis Moderate; CH 31.1; CHCM 32.5; HCT 25.2 % (34.0-46.0); HDW 3.59; HGB 8.2 gm/dL (11.4-16.0); Hypochromasia Slight; Immature Gran Flag Moderate; MCH 31.4 pg (25.0-35.0); MCHC 32.5 g/dL (31.0-37.0); MCV 96.5 fL (80.0-100.0); Macrocytosis Slight; Mean Platelet Volume 9.3; Poikilocytosis Slight; RBC 2.61 m/uL (3.80-5.40); RDW 20.7 % (11.5-15.5); WBC 10.2 k/uL (3.8-10.6); WBC (Perox) 10.06
[2016-09-21 05:43] LABS: INR 1.2 (<1.1); Prothrombin Time 11.5 sec (9.0-12.0)
[2016-09-21 05:47] LABS: ALT 35 U/L (9-52); AST 18 U/L (14-36); Alkaline Phosphatase 44 U/L (38-126); Anion Gap 4 mmol/L; Blood Urea Nitrogen 36 mg/dL (7-17); Calcium 9.9 mg/dL (8.4-10.2); Carbon Dioxide 29 mmol/L (22-30); Chloride 106 mmol/L (98-107); Glucose 263 mg/dL (74-99); Magnesium 2.4 mg/dL (1.6-2.3); Non-African American GFR(MDRD) >60 (>60 ml/min/1.73 sqM); Phosphorous 2.7 mg/dL (2.5-4.5); Potassium 4.4 mmol/L (3.5-5.1); Sodium 139 mmol/L (137-145); Total Bilirubin 0.2 mg/dL (0.2-1.3); Total Protein 4.5 g/dL (6.3-8.2)
[2016-09-21 06:07] LABS: Add Differential Manual Differential
[2016-09-21 06:10] LABS: Band Neutrophils % 4.5 %; Manual Review Performed; Metamyelocytes % 1.5 %; Nucleated Red Blood Cells 0 /100 WBC (0-0); Total Cells Counted 200
[2016-09-21 06:11] LABS: Polychromasia Present
[2016-09-21] MEDS: LEVOTHYROXINE 100 MCG TAB PO SCH (06:30)
[2016-09-21] MEDS: IPRATROPIUM-ALBUTEROL 3 ML NEB INHALATION PRN ×2 (07:27→15:09)
--- NOTE | 2016-09-21 08:02 | XR ---
EXAMINATION TYPE: XR chest 1V portable DATE OF EXAM: 09/21/2016 6:31 AM COMPARISON: 09/20/2016 INDICATION: Difficulty breathing mechanical ventilation TECHNIQUE: Single frontal view of the chest is obtained. FINDINGS: The heart size is normal. The pulmonary vasculature is normal. Resolving edema may be present. The lungs appear improved There is a endotracheal tube present with tip above the kamron. Nasogastric tube transverses the thor ax tip in left upper quadrant. Catheter may be at the right lung base directed towards the midline. R ight-sided PICC line is present with the tip in the superior vena cava region IMPRESSION: 1. Resolving infiltrates. 2. Lines and catheters discussed above
[2016-09-21 08:11] LABS: Glucose,Whole Blood 245 mg/dL (75-99)
[2016-09-21] MEDS: CHLORHEXIDINE GLUCONATE 15 ML CUP MUCOUS MEM SCH ×2 (08:29→20:10)
[2016-09-21] MEDS: ASPIRIN 81 MG CHEW PO SCH (08:30)
[2016-09-21] MEDS: PANTOPRAZOLE 40 MG/10 ML VIAL IVP SCH (08:30)
[2016-09-21] MEDS: ENOXAPARIN 40 MG/0.4 ML SYRINGE SQ SCH (08:30)
[2016-09-21] MEDS: ALLOPURINOL 300 MG TAB PO SCH ×2 (08:30→20:11)
[2016-09-21] MEDS: METOPROLOL TARTRATE 50 MG TAB PO SCH ×2 (08:30→21:24)
[2016-09-21] MEDS: POTASSIUM CHLORIDE ER 10 MEQ TAB.ER.PRT PO SCH ×2 (08:30→20:11)
[2016-09-21 09:05] LABS: ABG Base Excess 2.4 mmol/L; ABG HCO3 25 mmol/L (21-25); ABG PCO2 29 mmHg (35-45); ABG PH 7.54 (7.35-7.45); ABG PO2 114 mmHg (83-108); ABG TCO2 26 mmol/L (19-24)
[2016-09-21] MEDS: DEXTROSE 5% IVPB SCH ×4 (09:30→21:24)
[2016-09-21] MEDS: SULFAMETHOX TMP IVPB SCH ×4 (09:30→21:24)
[2016-09-21] MEDS: WATER IVPB SCH ×4 (09:30→21:24)
[2016-09-21] MEDS: MORPHINE SULFATE 4 MG/ML SYRINGE IV PRN (09:35)
[2016-09-21 10:13] LABS: ABG Base Excess 2.8 mmol/L; ABG HCO3 25 mmol/L (21-25); ABG PCO2 28 mmHg (35-45); ABG PH 7.57 (7.35-7.45); ABG PO2 107 mmHg (83-108); ABG TCO2 26 mmol/L (19-24)
[2016-09-21 11:32] LABS: Glucose,Whole Blood 268 mg/dL (75-99)
--- NOTE | 2016-09-21 12:00 | P.PN ---
Subjective Principal diagnosis: Acute respiratory failure, multifactorial. This is an 80-year-old female patient with a diagnosis of Burkitt's lymphoma. The patient initially presented on May 2016 with a 9.4 cm soft tissue mass in the superior mediastinum in addition to 5.5 cm mass along the right cardiac border and bulky mediastinal lymph nodes and the right-sided pleural effusion. Note that at that time the patient has had thoracentesis and this failed to establish diagnosis. Following that, the patient had a endoscopic ultrasound/bronchoscopy and transbronchial needle aspirate of the lymph nodes showed findings suspicious of a lymphoma however it final diagnoses could not been established. Ultimately underwent a biopsy of a right supraclavicular lymph node which confirmed the presence of a Burkitt's lymphoma the patient was treated with chemotherapy and she received 2 cycles of R-EPOCH , the first cycle in June 2016 and the second in August 2016. I was asked to evaluate this patient knowing that she was having significant amount of respirator distress on the medical floor. I reviewed the CAT scan of the chest and the series of chest x-ray that was done during the current admission. The patient CAT scan of the chest showed extensive infiltration of the left lung with patchy infiltration of the right upper lobe area and a moderate-sized right-sided pleural effusion. The chest x-ray was also consistent with the CAT scan findings. The patient was quite hypoxic on high flow oxygen at 15 L/m nasal cannula and his saturation was around 90-91%. At the time of my evaluation the patient was quite uncomfortable and short of breath and I was asked to proceed with a right-sided thoracentesis to give this patient some symptomatic relief. I explained to the patient and her family the procedure. Upon further inquiry, it seems that the patient's condition has been gradually getting worse. She had been experiencing increased cough and dyspnea and she was short of breath with limited amount of activity. She end up in the hospital. No reported fever or chills. I noted no temperature or white cell count elevation during this current hospital stay. I ultimately proceeded with a right-sided thoracentesis for the reasons mentioned above. During the thoracentesis, the patient became progressively more short of breath. At that point I removed a thoracentesis catheter I terminated the procedure. The patient already drained approximately 150 mL of fluid from the right lung. The patient was noted to become progressively more hypoxic and admitted to the pulse ox dropped down to 60%. At that point, I activated the emergency team and the patient was intubated immediately in her own room. The patient remained hemodynamically stable with a systolic blood pressure above 120 throughout intubation procedure. Chest x-ray post intubation showed a large right-sided pneumothorax. At that point the patient got transferred to the intensive care unit where immediately a right-sided chest tube was inserted with complete expansion of the right lung. The chest tube itself drained an additional 450 mL of pleural fluid from the right lung making the total amount of fluid evacuated from the right lung being at 650 mL. The pleural fluid was light yellowish in color. The patient was also sedated with Diprivan. The patient had a bronchoscopy and bronchoalveolar lavage of the lingular segment was done without any major complications. The patient was taken off diuretics. The patient was given a bolus of normal saline 1 L. Echocardiogram done recently showed a preserved LV function without any significant valvular dysfunction. I discussed the case with ID and will start the patient with broad -spectrum antibiotics suspecting bilateral pneumonia and covering for a portion stick infections. At this point in time, the patient is on a mechanical ventilator. The patient is an assist-control mode with a rate of 22, tidal volume 450, FiO2 of 100% and a PEEP of 5. The patient had a blood gas post intubation that showed a pH of 7.43 with a pCO2 of 39 and pO2 of 143. Based on that FiO2 has been drop down to 70%. Hemodynamically she is stable. She briefly became hypotensive requiring 2 mics of levo fed and ultimately levo fed was discontinued. I ordered follow-up blood work and a stat blood work is in progress. The preliminary results showed a global of 4.6 and the patient will be ordered a total of 2 units of packed RBC as soon as possible. Note that there was no evidence of any external bleeding or bleeding through the patient's pleural space at a time of the procedure. Patient was reevaluated today on 09/16/2016, remains on mechanical ventilation. Her ventilator settings are FiO2 of 50%, PEEP of 5 tidal volume of 400 and assist control rate of 22. Labs were reviewed, relatively normal electrolytes. ABG was also reviewed, and the ventilator settings were adjusted accordingly. Chest x-ray continues to show bilateral infiltrates. No evidence of pneumothorax, chest tube and endotracheal tube are in proper position. Patient continues to have an air leak noted in the chest tube/pleural VAC. All medications were reviewed. Reevaluated today on 09/17/2016, upon my initial evaluation, patient was noted to be quite tachycardic, tachypneic, and her O2 saturations were in the high 80s. Hence I have adjusted her sedation, and the propofol was increased. Patient was given morphine, and I was able to ventilator much better once she was sedated. She required some fluid boluses because of a slight drop in the blood pressure after sedation. Chest x-ray was reviewed, endotracheal tube is in proper position. Minimal right apical pneumothorax is noted. Stable anddisease was also noted. Labs were all reviewed, WBC count is 11.6 hemoglobin is 7.3. PO2 is 209 pCO2 is 34 and pH of 7.43. Basic metabolic profile and renal profile are noted to be normal. Vent settings were noted and readjusted. Patient was reevaluated today on 09/18/2016, same issue happened again as yesterday. Early in the morning I was notified about the patient getting quite tachycardic, restless agitated, and she desaturated down to the 70s. FiO2 was increased to 100%, patient was noted to be not synchronous with mechanical ventilation. In spite of sedation and increasing the dose of propofol, patient remained tachycardic and tachypneic, and she was using her accessory muscles. Hence I recommended using paralytic agents on the patient, and Nimbex was initiated. Patient is now on Nimbex, and she seems to be ventilating much better. Right radial arterial line was placed because apparently they had some issue with the line last night and it was removed. I had a long discussion with her daughter at bedside, she is very well aware of the poor prognostic picture, and I explained to her that her mother is quite ill, mortality is rather high, but so far she seems to be doing relatively well, and we are not quite ready to collect a medical futility situation. Cultures are still pending , we called the lab in [place], and hopefully sometime today will have the final report on the PCP stain. Otherwise so far all the cultures from the BAL are nondiagnostic. ABG today showed a pO2 of 85 pCO2 of 44 pH of 7.35 WBC count is 12.3 hemoglobin is 7.1 basic metabolic profile is normal, renal profile is normal. Patient was reevaluated today on 09/19/2016, she remains on mechanical ventilation , cultures so far are nondiagnostic including all the blood cultures, and the bronchoalveolar lavage cultures, and the cytology has all been nondiagnostic. Patient had negative PCP stain. Patient remains on enteral feeding, via nasogastric tube she is not requiring any pressors. Her ventilator settings are about the same, her urine output is excellent, her ABG showed a pO2 of 92 pCO2 of 40 to pH of 7.44 and this is on a 50% FiO2 her lung mechanics seem to be reasonable, patient is not developing any stiffness in her lungs. Hemoglobin is 7.4 WBC count is 14.6. Chest x-ray is showing slight improvement compared to the x-ray done yesterday, but continues to have significant interstitial infiltrates bilaterally. Cytology on the bronchial fluid was negative for malignancy. Today I plan to discontinue Nimbex, and I plan to keep her on propofol and on morphine as needed. Discussed with her son today at length her overall condition, and felt that she continues to have some acute lung injury it is not clear whether this acute lung injury is related to infection or could even be related to her chemotherapy/rituxin. Her son actually showed be a CT report which was done about a month ago which clearly showed some groundglass opacities and nodularities and lungs bilaterally back in August. And this was done shortly after she was started on her initial chemotherapy. Now I'm becoming more suspicious that we may be dealing with acute lung injury related to chemotherapy rather than infectious process. Patient has been on steroids all along, and I would likely increase the dose. Patient will be placed on 60 mg of Solu-Medrol every 6 hours. In the meantime we'll continue antibiotics as ordered by infectious disease on consultation. Patient was reevaluated today on 09/20/2016, remains on mechanical ventilation, she is on 25 g of propofol, she is off Nimbex, not requiring any pressors, continues to have tube feeding via nasogastric tube. Chest x-ray is showing some improvement especially in the right lung. Interstitial infiltrates continues to be present in the left midlung and left lower lobe area. Cultures remain negative from the bronchoalveolar lavage. Ventilator settings are assist control rate of 22 FiO2 of 40% tidal volume is 400 and PEEP is 5. ABG today showed a pO2 of 76 pCO2 of 34 pH of 7.51. WBC count is 10.5 hemoglobin is 8.2. Basic metabolic profile and renal profile are normal. Patient is slightly arousable, opens her eyes, but still on relatively good doses of propofol which I plan to taper down, and possibly based on mental status and may even consider a weaning trial today. Patient was reevaluated today on 09/21/2016, she is doing much better, breathing a lot easier, she had good weaning parameters, however the patient is not fully awake, chest x-ray is showing significant improvement, and I was told that the PCR was positive last night for PCP. Hence the patient was switched to Bactrim and she remains on high dose of Solu-Medrol. This is likely a combination of acute lung injury from chemotherapy and now I cannot ignore the positive findings of PCP based on PCR. Patient was already showing significant improvement even before starting any Bactrim. ABG on 40% FiO2 showed a pO2 of 107 pCO2 of 28 pH of 7.57. Her lung mechanics look excellent. At her chest x- ray is showing significant improvement especially on the right side, minimal interstitial infiltrate remains in the left base. WBC count is 10.2 hemoglobin is 8.2 INR is 1.2 my plan today is to give her a sedation holiday, check weaning parameters, switched to pressure support and CPAP, and may even proceeded to extubation if the patient wakes up fully. Objective - Vital Signs Vital signs: Vital Signs Temp 98.7 F 09/21/16 08:00 Pulse 87 09/21/16 11:24 Resp 16 09/21/16 11:00 BP 114/61 09/18/16 22:00 Pulse Ox 100 09/21/16 11:00 Intake & Output 09/20/16 09/21/16 09/21/16 18:59 06:59 18:59 Intake Total 6319.805 6640.033 896.806 Output Total 1472 780 350 Balance -50.457 498.033 546.806 Weight 67.7 kg Intake: IV 460 360 150 Meropenem 1 gm In Sodium 100 Chloride 0.9% 100 ml @ 200 mls/hr IVPB Q8HR [facility] Rx#:[id number] ns 360 360 150 Intake, IV Titration 310.543 366.033 680.806 Amount Empty Bag 1 bag @ Titrate 60.543 116.033 30.806 IV .Q0M [facility] with Propofol 500 mg Rx#: [id number] Levofloxacin 750Mg-D5w 150 Pmx 750 mg In Dextrose/ Water 1 150ml.bag @ 100 mls/hr IVPB Q24H [facility] Rx#: [id number] Sodium Phosphate 10 mmol 100 In Sodium Chloride 0.9% 100 ml @ 50 mls/hr IVPB ONCE ONE Rx#:[id number] Sulfamethox-Tmp 80-16Mg/ 250 650 ml 345 mg In Dextrose 5% in Water 500 ml @ 250 mls /hr IVPB Q12HR [facility] Rx#: [id number] Tube Feeding 561 462 66 Other 90 90 Output: Chest Tube Drainage 0 0 Chest Tube Right Lateral 0 0 Chest Urine 1472 780 350 Stool 0 0 Other: Voiding Method Indwelling Catheter Indwelling Catheter Indwelling Catheter # Voids 1 # Bowel Movements 1 0 0 ABP, PAP, CO, CI - Last Documented Arterial Blood Pressure 187/82 - Exam Physical Exam: Revealed an 80-year-old female, sedated, on propofol drip, on mechanical ventilation, slightly arousable in spite of propofol drip HEENT:[Neck is supple.] [No neck masses.] [No thyromegaly.] [No JVD.] Endotracheal tube is intact. Chest tube on the right side, no air leak noted. Chest: [Crackles at the bases bilaterally, no rhonchi, no wheezes.] Cardiac Exam: [Normal S1 and S2, no S3 gallop, no murmur.] Abdomen: [Soft, nontender, no megaly, no rebound, no guarding, normal bowel sounds.] Extremities: [No clubbing, no edema, no cyanosis.] Neurological Exam: Opens eyes with painful stimuli, but not following simple instructions. - Labs CBC & Chem 7: 09/21/16 05:00 09/21/16 05:00 Labs: Abnormal Lab Results - Last 24 Hours (Table) 09/20/16 09/20/16 09/21/16 Range/Units 16:17 20:36 00:30 RBC (3.80-5.40) m/uL Hgb (11.4-16.0) gm/dL Hct (34.0-46.0) % RDW (11.5-15.5) % Plt Count (150-450) k/uL Neutrophils # (Manual) (1.3-7.7) k/uL Lymphocytes # (Manual) (1.0-4.8) k/uL ABG pH (7.35-7.45) ABG pCO2 (35-45) mmHg ABG pO2 (83-108) mmHg ABG Total CO2 (19-24) mmol/L ABG O2 Saturation (94-97) % BUN (7-17) mg/dL Glucose (74-99) mg/dL POC Glucose (mg/dL) 199 H 220 H 267 H (75-99) mg/dL Magnesium (1.6-2.3) mg/dL Total Protein (6.3-8.2) g/dL Albumin (3.5-5.0) g/dL 09/21/16 09/21/16 09/21/16 Range/Units 05:00 05:00 05:11 RBC 2.61 L (3.80-5.40) m/uL Hgb 8.2 L (11.4-16.0) gm/dL Hct 25.2 L (34.0-46.0) % RDW 20.7 H (11.5-15.5) % Plt Count 122 L (150-450) k/uL Neutrophils # (Manual) 9.8 H (1.3-7.7) k/uL Lymphocytes # (Manual) 0.1 L (1.0-4.8) k/uL ABG pH (7.35-7.45) ABG pCO2 (35-45) mmHg ABG pO2 (83-108) mmHg ABG Total CO2 (19-24) mmol/L ABG O2 Saturation (94-97) % BUN 36 H (7-17) mg/dL Glucose 263 H (74-99) mg/dL POC Glucose (mg/dL) 288 H (75-99) mg/dL Magnesium 2.4 H (1.6-2.3) mg/dL Total Protein 4.5 L (6.3-8.2) g/dL Albumin 1.9 L (3.5-5.0) g/dL 09/21/16 09/21/16 09/21/16 Range/Units 08:10 09:00 10:05 RBC (3.80-5.40) m/uL Hgb (11.4-16.0) gm/dL Hct (34.0-46.0) % RDW (11.5-15.5) % Plt Count (150-450) k/uL Neutrophils # (Manual) (1.3-7.7) k/uL Lymphocytes # (Manual) (1.0-4.8) k/uL ABG pH 7.54 H 7.57 H (7.35-7.45) ABG pCO2 29 L 28 L (35-45) mmHg ABG pO2 114 H (83-108) mmHg ABG Total CO2 26 H 26 H (19-24) mmol/L ABG O2 Saturation 99.0 H 99.0 H (94-97) % BUN (7-17) mg/dL Glucose (74-99) mg/dL POC Glucose (mg/dL) 245 H (75-99) mg/dL Magnesium (1.6-2.3) mg/dL Total Protein (6.3-8.2) g/dL Albumin (3.5-5.0) g/dL 09/21/16 Range/Units 11:32 RBC (3.80-5.40) m/uL Hgb (11.4-16.0) gm/dL Hct (34.0-46.0) % RDW (11.5-15.5) % Plt Count (150-450) k/uL Neutrophils # (Manual) (1.3-7.7) k/uL Lymphocytes # (Manual) (1.0-4.8) k/uL ABG pH (7.35-7.45) ABG pCO2 (35-45) mmHg ABG pO2 (83-108) mmHg ABG Total CO2 (19-24) mmol/L ABG O2 Saturation (94-97) % BUN (7-17) mg/dL Glucose (74-99) mg/dL POC Glucose (mg/dL) 268 H (75-99) mg/dL Magnesium (1.6-2.3) mg/dL Total Protein (6.3-8.2) g/dL Albumin (3.5-5.0) g/dL Microbiology - Last 24 Hours (Table) 09/16/16 20:37 Blood Culture - Preliminary Blood No Growth after 96 hours 09/16/16 19:34 Blood Culture - Preliminary Blood No Growth after 96 hours Assessment and Plan Plan: 1 acute hypoxic respiratory failure currently intubated on a mechanical ventilator. Post intubation day # 6 2 acute and diffuse bilateral pulmonary infiltrates, strongly consider pneumonia including opportunistic pneumonias in the setting of immunosuppression and Burkitt's lymphoma. However the possibility of acute lung injury from chemotherapy is definitely high on my list at this point since I have reviewed her CT of the chest which was done about a month ago. The patient's presentation is not typical of heart failure. The patient is a preserved LV function and she hasn't responded to diuretics over the past 24-48 hours. As such, pneumonias are very much likely causing this patient's progressive respiratory failure 3 right-sided pleural effusion, status post iatrogenic right-sided pneumothorax. The patient has a chest tube in place with adequate expansion of right lung and adequate evacuation of a right-sided pleural effusion no evidence of air leak noted. Hence we'll likely consider removing the chest tube in the next couple of days. 4 acute ventilator-dependent respiratory failure secondary to above. 5 Burkitt's lymphoma 6 status post systemic chemotherapy for Burkitt's lymphoma using R -EPOCH, status post 3 cycles most recent one was in August 30 through September 04 7 coronary artery disease with previous bypass surgery 8 hypothyroidism 9 chronic anemia 10 malnutrition and progressive debility seconds above-mentioned comorbidities and the patient's health in general has been progressively declining since have diagnosed with Burkitt's lymphoma and since the systemic chemotherapy 11 strongly suspect rituxan-induced lung injury. Hence the dose of Solu-Medrol will be increased to 60 mg IV push every 6 hours. This is based on the fact that her CT of the chest was abnormal shortly after her last course of chemotherapy showing groundglass opacities and nodular changes in both lungs. 12 positive PCR for PCP, hence the findings of her interstitial infiltrates are most likely related to right toxin induced lung injury which was present almost a month ago on CT of the chest, and secondary to underlying PCP in an immunocompromised host. Hence the patient was kept on high dose of Solu-Medrol , and today we kept her on Bactrim which was ordered last night by the infectious disease physician on the case. Recommendation; propofol will be discontinued, patient will be awakened, patient will be placed on pressure support and CPAP, will likely consider weaning and extubation today. However I would like to see a better mental status and patient to be more awake before we proceed with extubation. Discussed her condition with her daughter at bedside. Critical care time is 45 minutes. Time with Patient: Greater than 30
[2016-09-21] MEDS: LORazepam 2 MG/ML SYRINGE IV PRN ×3 (12:22→23:56)
[2016-09-21] MEDS ORDERED: INSULIN REGULAR BOLUS (FROM DRIP BAG) IV PRN (12:41)
[2016-09-21] MEDS ORDERED: PROPOFOL 50 ML IV ONE (13:04)
[2016-09-21] MEDS: INSULIN REGULAR 100 UNIT in SODIUM CHLORIDE 0.9% 100 ML IV SCH (13:26)
[2016-09-21 14:08] LABS: Glucose,Whole Blood 197 mg/dL (75-99)
[2016-09-21 14:44] LABS: Glucose,Whole Blood 145 mg/dL (75-99)
[2016-09-21] MEDS: LEVOFLOXACIN 750MG-D5W PMX 750 MG in DEXTROSE/WATER 1 150ML.BAG IVPB SCH (16:10)
[2016-09-21 16:26] LABS: Glucose,Whole Blood 104 mg/dL (75-99)
[2016-09-21 17:17] LABS: Glucose,Whole Blood 132 mg/dL (75-99)
--- NOTE | 2016-09-21 17:18 | PN ---
DATE OF SERVICE: 09/21/2016 Kari is seen today as a follow-up. She remains in the intensive care unit. She is intubated. They attempted weaning for 3 hours but she could not tolerate longer than that. She is currently sedated on the ventilator. On physical examination, she is sedated, intubated. She appears hemodynamically stable. Her vital signs are temperature 99.3, respiration 19, pulse rate is 85, blood pressure 110/49. HEENT: Normocephalic and atraumatic, intubated. CHEST: Appears to be clear anteriorly with crackles at both bases. HEART: Regular rate. ABDOMEN: Slightly distended. EXTREMITIES: 1+ generalized edema. LABORATORY DATA: WBC 10.2, hemoglobin 8.2, hematocrit 25.2, platelets are 122, sodium 139, potassium 4.4, chloride 106, CO2 of 29, BUN 36, creatinine 0.6. RADIOGRAPHIC DATA: Chest x-ray from today revealed improvement in her bilateral lung infiltrate. IMPRESSION: 1. Acute respiratory failure with bilateral lung infiltrate. Cultures have all been negative including from bronchoalveolar lavage and no opportunist infection has been identified. It is not clinically explained by congestive heart failure. Certainly this could be related to acute lung injury from systemic treatment for her Burkitt lymphoma and it could be also related to the use of granulocyte, colony-stimulating factor which may cause ARDS and intractable biliary leak syndrome. It is a known, but rare complication from granulocyte colony-stimulating factors. 2. Advanced stage aggressive lymphoma, which was morphologically consistent with Burkitt lymphoma. The patient has received 3 cycles of R-EPOCH regimen along with intrathecal chemotherapy prophylaxis. The patient did show significant response to therapy based on her previous recent CAT scan in the outpatient setting. RECOMMENDATIONS: 1. Continue current ICU care. 2. Continue supportive care for now. 3. From an Oncology standpoint, no further recommendation at this time. 4. Discussed with ICU nursing staff.
[2016-09-21 18:17] LABS: Glucose,Whole Blood 127 mg/dL (75-99)
[2016-09-21 20:06] LABS: Glucose,Whole Blood 128 mg/dL (75-99)
[2016-09-21] MEDS: FLUoxetine HCL 20 MG CAP PO SCH (20:11)
[2016-09-21] MEDS: POLYETHYLENE GLYCOL 3350 17 GM POWD.PACK PO PRN (20:15)
--- NOTE | 2016-09-21 20:33 | PN ---
Patient is an 80-year-old female admitted with lymphoma. Patient with history of lymphoma is admitted to the hospital with right sided pleural effusion. Patient is status post thoracocentesis which post thoracentesis the patient has iatrogenic pneumothorax after which patient was intubated. Chest tube in place. Patient underwent bronchoscopy for diffuse pulmonary edema and diffuse interstitial lung changes, which showed Pneumocystis carnii pneumoniae and patient is on Bactrim. Patient is also on levofloxacin that is being managed by infectious disease. The patient's vent is being managed by pulmonary. Patient is mildly alkalotic. This is probably as a result of agitation and hyperventilation episode during weaning trail period and the patient is on 15 mcg of propofol at this point of time. RASS score -2. Patient respiratory rate is higher probably we can cut down. Patient will not be so much alkalotic. Tidal volume of FIO2 40%, PEEP of 5. The patient has PEG tube feedings without any bowel movement for the last 2 to 3 days for which we will use MiraLax and Colace. REVIEW OF SYSTEMS: Unable to obtain because the patient is intubated. PHYSICAL EXAMINATION: Temperature 98.3, pulse of 85, respiratory rate of 19, blood pressure 125/56, saturating at 100% on mechanical ventilator. PHYSICAL EXAMINATION: GENERAL: The patient is lying in bed, intubated, sedated. RASS scare of -2 as mentioned above on 15 mics of propofol. GENERAL: The patient is alert and oriented x3, not in any acute distress. Well developed, well nourished. HEENT: Pupils are round and equally reacting to light. EOMI. No scleral icterus. No conjunctival pallor. Normocephalic, atraumatic. No pharyngeal erythema. No thyromegaly. CARDIOVASCULAR: S1 and S2 present. No murmurs, rubs, or gallops. PULMONARY: Chest is clear to auscultation, no wheezing or crackles. ABDOMEN: Soft, nontender, nondistended, normoactive bowel sounds. No palpable organomegaly. MUSCULOSKELETAL: No joint swelling or deformity. EXTREMITIES: No cyanosis, clubbing, or pedal edema. NEUROLOGICAL: RASS score -2. SKIN: No rashes. LABORATORY DATA: ABG showed respiratory alkalosis, hemoglobin stable. ASSESSMENT AND PLAN: 1. Acute respiratory failure, ventilator dependent secondary to pneumocystis carnii pneumonia. Acute lung injury Rituxan-induced possibility of Rituxan induced lung injury. 2. Right-sided pleural effusion, probably malignant in nature. Status post removal of 500 mL. 3. Iatrogenic pneumothorax status post thoracocentesis. 4. Acute hypoxic respiratory failure. 5. Burkitt's lymphoma on chemotherapy. 6. Gastroesophageal reflux disease. 7. Hyperlipidemia. 8. Hypothyroidism. 9. Coronary artery disease with previous stents. 10. 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 11. Septic shock secondary to was at one point of time on pressors. Patient is off pressors at this point of time. Plan as mentioned above.
[2016-09-21 22:11] LABS: Glucose,Whole Blood 206 mg/dL (75-99)
[2016-09-21 22:57] LABS: Glucose,Whole Blood 230 mg/dL (75-99)
[2016-09-21 23:43] LABS: Glucose,Whole Blood 195 mg/dL (75-99)
[2016-09-22 01:33] LABS: Glucose,Whole Blood 158 mg/dL (75-99)
[2016-09-22 02:24] LABS: Glucose,Whole Blood 132 mg/dL (75-99)
[2016-09-22] MEDS: ARTIFICIAL TEARS-HYPROMELLOSE DROPS 15 ML BTL BOTH EYES SCH ×3 (04:37→13:02)
[2016-09-22 04:48] LABS: Glucose,Whole Blood 155 mg/dL (75-99)
[2016-09-22 04:56] LABS: INR 1.1 (<1.1); Prothrombin Time 11.4 sec (9.0-12.0)
[2016-09-22 04:58] LABS: Anisocytosis Moderate; Basophils % (A) 0 %; CH 31.3; CHCM 32.5; Eosinophils % (A) 0 %; HCT 27.3 % (34.0-46.0); HDW 3.46; HGB 8.7 gm/dL (11.4-16.0); Hypochromasia Slight; Luc # (Auto) 0.06; Luc % (Auto) 1; Lymphocytes # (A) 0.1 k/uL (1.0-4.8); Lymphocytes % (A) 1 %; MCH 30.9 pg (25.0-35.0); MCHC 31.8 g/dL (31.0-37.0); Macrocytosis Moderate; Mean Platelet Volume 8.6; Monocytes # (A) 0.4 k/uL (0-1.0); Monocytes % (A) 3 %; Neutrophils % (A) 95 %; Poikilocytosis Slight; RBC 2.81 m/uL (3.80-5.40); WBC 13.6 k/uL (3.8-10.6); WBC (Perox) 13.21
[2016-09-22 05:01] LABS: ALT 38 U/L (9-52); AST 22 U/L (14-36); Alkaline Phosphatase 39 U/L (38-126); Anion Gap 4 mmol/L; Blood Urea Nitrogen 39 mg/dL (7-17); Calcium 10.5 mg/dL (8.4-10.2); Carbon Dioxide 27 mmol/L (22-30); Chloride 106 mmol/L (98-107); Glucose 153 mg/dL (74-99); Magnesium 2.5 mg/dL (1.6-2.3); Non-African American GFR(MDRD) >60 (>60 ml/min/1.73 sqM); Phosphorous 3.2 mg/dL (2.5-4.5); Potassium 4.8 mmol/L (3.5-5.1); Sodium 137 mmol/L (137-145); Total Bilirubin 0.3 mg/dL (0.2-1.3); Total Protein 4.4 g/dL (6.3-8.2)
[2016-09-22 05:40] LABS: Manual Review Performed
[2016-09-22 05:41] LABS: Polychromasia Present; Tear Drop Cells Present
[2016-09-22 06:03] LABS: Glucose,Whole Blood 123 mg/dL (75-99)
[2016-09-22] MEDS: LEVOTHYROXINE 100 MCG TAB PO SCH (06:03)
[2016-09-22] MEDS: methylPREDNISolone SOD SUCCI 125 MG/2 ML VIAL IV SCH ×3 (06:03→18:52)
[2016-09-22] MEDS: EMPTY BAG 1 BAG with PROPOFOL 500 MG IV SCH (06:04)
[2016-09-22 06:53] LABS: Glucose,Whole Blood 171 mg/dL (75-99)
[2016-09-22] MEDS: NITROGLYCERIN OINT 1 INCH/GM PACKET TOPICAL SCH ×2 (08:29→15:09)
[2016-09-22] MEDS: PANTOPRAZOLE 40 MG/10 ML VIAL IVP SCH (08:30)
[2016-09-22] MEDS: CHLORHEXIDINE GLUCONATE 15 ML CUP MUCOUS MEM SCH ×2 (08:30→20:04)
[2016-09-22] MEDS: ENOXAPARIN 40 MG/0.4 ML SYRINGE SQ SCH (08:30)
[2016-09-22] MEDS: METOPROLOL TARTRATE 50 MG TAB PO SCH ×2 (08:31→20:44)
[2016-09-22] MEDS: POTASSIUM CHLORIDE ER 10 MEQ TAB.ER.PRT PO SCH ×3 (08:31→20:43)
[2016-09-22] MEDS: ALLOPURINOL 300 MG TAB PO SCH ×2 (08:31→20:44)
[2016-09-22 08:32] LABS: Glucose,Whole Blood 192 mg/dL (75-99)
[2016-09-22] MEDS: ASPIRIN 81 MG CHEW PO SCH (08:32)
--- NOTE | 2016-09-22 09:09 | XR ---
EXAMINATION TYPE: XR chest 1V portable DATE OF EXAM: 09/22/2016 7:02 AM COMPARISON: NONE INDICATION: Difficulty breathing TECHNIQUE: Single frontal view of the chest is obtained. FINDINGS: The heart size is normal. The pulmonary vasculature is normal. Mild atelectasis at the left base. PICC line enters on the right with the tip in superior vena cava region. Endotracheal tube is present with the tip 3.5 cm above kamron. Nasogastric tube transverses the thorax tip in the left midabdomen . IMPRESSION: 1. Mild left basilar atelectasis. 2. Multiple lines and catheters discussed above.
[2016-09-22 09:35] LABS: Glucose,Whole Blood 170 mg/dL (75-99)
[2016-09-22] MEDS: WATER IVPB SCH ×4 (10:03→23:09)
[2016-09-22] MEDS: DEXTROSE 5% IVPB SCH ×4 (10:03→23:09)
[2016-09-22] MEDS: SULFAMETHOX TMP IVPB SCH ×4 (10:03→23:09)
[2016-09-22 10:04] LABS: Glucose,Whole Blood 154 mg/dL (75-99)
[2016-09-22 10:56] LABS: Glucose,Whole Blood 155 mg/dL (75-99)
[2016-09-22 11:08] LABS: ABG HCO3 24 mmol/L (21-25); ABG PCO2 31 mmHg (35-45); ABG PH 7.52 (7.35-7.45); ABG PO2 124 mmHg (83-108); ABG TCO2 25 mmol/L (19-24)
[2016-09-22 11:09] LABS: ABG Base Excess 1.7 mmol/L
[2016-09-22 12:13] LABS: Glucose,Whole Blood 182 mg/dL (75-99)
[2016-09-22] MEDS ORDERED: DEXMEDETOMIDINE 200 MCG/2 ML VIAL IV SCH (13:00)
[2016-09-22 13:07] LABS: Glucose,Whole Blood 225 mg/dL (75-99)
--- NOTE | 2016-09-22 13:14 | PN ---
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 Director Informatics is in the process of extubating the patient and patient gets agitated whenever she goes on weaning trial and patient is presently undergoing weaning trial with RADS score of 0 to -1 and patient started getting a bit agitated, still not awake enough. REVIEW OF SYSTEMS: Unable to obtain. Medications were reviewed. PHYSICAL EXAMINATION: VITAL SIGNS: Temperature 98.8, pulse of 91, respiratory rate of 22, blood pressure is 171/79. Saturating at 100% on ventilator. Patient is undergoing weaning trial and RADS score as mentioned above. Patient is intubated, of sedation now. NEUROLOGICAL: As mentioned in general. GENERAL: The patient is alert and oriented x3, not in any acute distress. Well developed, well nourished. HEENT: Pupils are round and equally reacting to light. EOMI. No scleral icterus. No conjunctival pallor. Normocephalic, atraumatic. No pharyngeal erythema. No thyromegaly. CARDIOVASCULAR: S1 and S2 present. No murmurs, rubs, or gallops. PULMONARY: Chest is clear to auscultation, no wheezing or crackles. ABDOMEN: Soft, nontender, nondistended, normoactive bowel sounds. No palpable organomegaly. MUSCULOSKELETAL: No joint swelling or deformity. EXTREMITIES: No cyanosis, clubbing, or pedal edema. SKIN: No rashes. LABORATORY DATA: Patient continues to be mildly alkalotic, although improved compared to yesterday, that is in ABGs and WBC count minimally elevated to 13,600. ASSESSMENT AND PLAN: 1. Acute respiratory failure, ventilator-dependent secondary to Pneumocystis carinii pneumonia. 2. Right-sided pleural effusion with removal of 500 mL of fluid. 3. Iatrogenic pneumothorax. 4. Burkitt's lymphoma. 5. Acute hypoxic respiratory failure, ventilator-dependent secondary to assessment #1. 6. Gastroesophageal reflux disease. 7. Hyperlipidemia. 8. Hypertension. 9. Coronary artery disease. 10. 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 11. Septic shock, which resolved at this point of time. Patient is off pressors. PLAN: Continue weaning trials. Continue with present antibiotics. Continue supportive care.
[2016-09-22] MEDS ORDERED: CISATRACURIUM 200 MG in SODIUM CHLORIDE 0.9% 180 ML IV SCH (13:15)
[2016-09-22] MEDS: DEXMEDETOMIDINE 400 MCG in SODIUM CHLORIDE 0.9% 100 ML IV SCH ×2 (13:23→21:02)
--- NOTE | 2016-09-22 13:39 | P.PN ---
Subjective Principal diagnosis: Acute respiratory failure, multifactorial. This is an 80-year-old female patient with a diagnosis of Burkitt's lymphoma. The patient initially presented on May 2016 with a 9.4 cm soft tissue mass in the superior mediastinum in addition to 5.5 cm mass along the right cardiac border and bulky mediastinal lymph nodes and the right-sided pleural effusion. Note that at that time the patient has had thoracentesis and this failed to establish diagnosis. Following that, the patient had a endoscopic ultrasound/bronchoscopy and transbronchial needle aspirate of the lymph nodes showed findings suspicious of a lymphoma however it final diagnoses could not been established. Ultimately underwent a biopsy of a right supraclavicular lymph node which confirmed the presence of a Burkitt's lymphoma the patient was treated with chemotherapy and she received 2 cycles of R-EPOCH , the first cycle in June 2016 and the second in August 2016. I was asked to evaluate this patient knowing that she was having significant amount of respirator distress on the medical floor. I reviewed the CAT scan of the chest and the series of chest x-ray that was done during the current admission. The patient CAT scan of the chest showed extensive infiltration of the left lung with patchy infiltration of the right upper lobe area and a moderate-sized right-sided pleural effusion. The chest x-ray was also consistent with the CAT scan findings. The patient was quite hypoxic on high flow oxygen at 15 L/m nasal cannula and his saturation was around 90-91%. At the time of my evaluation the patient was quite uncomfortable and short of breath and I was asked to proceed with a right-sided thoracentesis to give this patient some symptomatic relief. I explained to the patient and her family the procedure. Upon further inquiry, it seems that the patient's condition has been gradually getting worse. She had been experiencing increased cough and dyspnea and she was short of breath with limited amount of activity. She end up in the hospital. No reported fever or chills. I noted no temperature or white cell count elevation during this current hospital stay. I ultimately proceeded with a right-sided thoracentesis for the reasons mentioned above. During the thoracentesis, the patient became progressively more short of breath. At that point I removed a thoracentesis catheter I terminated the procedure. The patient already drained approximately 150 mL of fluid from the right lung. The patient was noted to become progressively more hypoxic and admitted to the pulse ox dropped down to 60%. At that point, I activated the emergency team and the patient was intubated immediately in her own room. The patient remained hemodynamically stable with a systolic blood pressure above 120 throughout intubation procedure. Chest x-ray post intubation showed a large right-sided pneumothorax. At that point the patient got transferred to the intensive care unit where immediately a right-sided chest tube was inserted with complete expansion of the right lung. The chest tube itself drained an additional 450 mL of pleural fluid from the right lung making the total amount of fluid evacuated from the right lung being at 650 mL. The pleural fluid was light yellowish in color. The patient was also sedated with Diprivan. The patient had a bronchoscopy and bronchoalveolar lavage of the lingular segment was done without any major complications. The patient was taken off diuretics. The patient was given a bolus of normal saline 1 L. Echocardiogram done recently showed a preserved LV function without any significant valvular dysfunction. I discussed the case with ID and will start the patient with broad -spectrum antibiotics suspecting bilateral pneumonia and covering for a portion stick infections. At this point in time, the patient is on a mechanical ventilator. The patient is an assist-control mode with a rate of 22, tidal volume 450, FiO2 of 100% and a PEEP of 5. The patient had a blood gas post intubation that showed a pH of 7.43 with a pCO2 of 39 and pO2 of 143. Based on that FiO2 has been drop down to 70%. Hemodynamically she is stable. She briefly became hypotensive requiring 2 mics of levo fed and ultimately levo fed was discontinued. I ordered follow-up blood work and a stat blood work is in progress. The preliminary results showed a global of 4.6 and the patient will be ordered a total of 2 units of packed RBC as soon as possible. Note that there was no evidence of any external bleeding or bleeding through the patient's pleural space at a time of the procedure. Patient was reevaluated today on 09/20/2016, remains on mechanical ventilation, she is on 25 g of propofol, she is off Nimbex, not requiring any pressors, continues to have tube feeding via nasogastric tube. Chest x-ray is showing some improvement especially in the right lung. Interstitial infiltrates continues to be present in the left midlung and left lower lobe area. Cultures remain negative from the bronchoalveolar lavage. Ventilator settings are assist control rate of 22 FiO2 of 40% tidal volume is 400 and PEEP is 5. ABG today showed a pO2 of 76 pCO2 of 34 pH of 7.51. WBC count is 10.5 hemoglobin is 8.2. Basic metabolic profile and renal profile are normal. Patient is slightly arousable, opens her eyes, but still on relatively good doses of propofol which I plan to taper down, and possibly based on mental status and may even consider a weaning trial today. Patient was reevaluated today on 09/21/2016, she is doing much better, breathing a lot easier, she had good weaning parameters, however the patient is not fully awake, chest x-ray is showing significant improvement, and I was told that the PCR was positive last night for PCP. Hence the patient was switched to Bactrim and she remains on high dose of Solu-Medrol. This is likely a combination of acute lung injury from chemotherapy and now I cannot ignore the positive findings of PCP based on PCR. Patient was already showing significant improvement even before starting any Bactrim. ABG on 40% FiO2 showed a pO2 of 107 pCO2 of 28 pH of 7.57. Her lung mechanics look excellent. At her chest x- ray is showing significant improvement especially on the right side, minimal interstitial infiltrate remains in the left base. WBC count is 10.2 hemoglobin is 8.2 INR is 1.2 my plan today is to give her a sedation holiday, check weaning parameters, switched to pressure support and CPAP, and may even proceeded to extubation if the patient wakes up fully. Reevaluated today on 09/22/2016, overall the patient is showing significant improvement, chest x-ray is much better, oxygenation is much better, FiO2 is 35% . ABG showed significant improvement in her oxygenation. Her WBC count is 13.6 hemoglobin is 8.7. PO2 is 124 pCO2 is 31 pH is 7.5 to electrolytes and basic metabolic profile are relatively normal renal profile continues to remained relatively stable. Yesterday we have attempted to hold propofol as much as possible and we did do. Patient became later agitated, restless, tachycardic, tachypneic, and her blood pressure was going up high. Hence we felt it would be best to place back on propofol, and she was overnight on about 10 g of propofol. Today I took her off propofol, and I plan to weaning. Patient did extremely well on pressure support and CPAP, but because of her mental status I could not fully extubated the patient. I'm planning to do the same thing today, and I would likely place on Precedex instead of propofol to facilitate the process of weaning and improving her mental status of possible. Her weaning parameters yesterday were good. Chest x-ray was also good but today is even better and her numbers are looking excellent. Again the only drawback from bleeding right now is her mental status. Patient needs to be a bit more awake and at least to have some eye contact before we could proceed with weaning and extubation. This was all discussed with the son at bedside today. Objective - Vital Signs Vital signs: Vital Signs Temp 98.8 F 09/22/16 08:00 Pulse 91 09/22/16 11:00 Resp 22 09/22/16 11:00 BP 114/61 09/18/16 22:00 Pulse Ox 100 09/22/16 11:00 Intake & Output 09/21/16 09/22/16 09/22/16 18:59 06:59 18:59 Intake Total 6687.343 8511.572 524.919 Output Total 840 820 365 Balance 335.179 452.572 159.919 Intake: IV 360 360 400 Sulfamethox-Tmp 80-16Mg/ 250 ml 345 mg In Dextrose 5% in Water 500 ml @ 250 mls /hr IVPB Q12HR [facility] Rx#: [id number] ns 360 360 150 Intake, IV Titration 716.179 300.572 25.919 Amount Empty Bag 1 bag @ Titrate 48.218 32.796 13.563 IV .Q0M [facility]AV[facility] with Propofol 500 mg Rx#: [id number] Insulin Regular 100 unit 17.961 17.776 12.356 In Sodium Chloride 0.9% 100 ml @ Per Protocol IV .Q0M [facility] Rx#:[id number] Sulfamethox-Tmp 80-16Mg/ 650 250 ml 345 mg In Dextrose 5% in Water 500 ml @ 250 mls /hr IVPB Q12HR [facility] Rx#: [id number] Tube Feeding 99 462 99 Other 150 Output: Chest Tube Drainage 0 20 Chest Tube Right Lateral 0 20 Chest Urine 840 820 345 Stool 0 Other: Voiding Method Indwelling Catheter Indwelling Catheter Indwelling Catheter # Voids 1 # Bowel Movements 0 0 0 ABP, PAP, CO, CI - Last Documented Arterial Blood Pressure 171/79 - Exam Physical Exam: Revealed an 80-year-old female, sedated, patient is now off propofol, and we'll try to assess mental status off propofol. HEENT:[Neck is supple.] [No neck masses.] [No thyromegaly.] [No JVD.] Endotracheal tube is intact. Chest tube on the right side, no air leak noted. Chest: [Crackles at the bases bilaterally, no rhonchi, no wheezes.] Cardiac Exam: [Normal S1 and S2, no S3 gallop, no murmur.] Abdomen: [Soft, nontender, no megaly, no rebound, no guarding, normal bowel sounds.] Extremities: [No clubbing, no edema, no cyanosis.] Neurological Exam: Opens eyes, but does not follow simple instructions. - Labs CBC & Chem 7: 09/22/16 04:45 09/22/16 04:45 Labs: Abnormal Lab Results - Last 24 Hours (Table) 09/21/16 09/21/16 09/21/16 Range/Units 14:06 14:41 15:59 WBC (3.8-10.6) k/uL RBC (3.80-5.40) m/uL Hgb (11.4-16.0) gm/dL Hct (34.0-46.0) % RDW (11.5-15.5) % Plt Count (150-450) k/uL Neutrophils # (1.3-7.7) k/uL Lymphocytes # (1.0-4.8) k/uL ABG pH (7.35-7.45) ABG pCO2 (35-45) mmHg ABG pO2 (83-108) mmHg ABG Total CO2 (19-24) mmol/L ABG O2 Saturation (94-97) % BUN (7-17) mg/dL Glucose (74-99) mg/dL POC Glucose (mg/dL) 197 H 145 H 104 H (75-99) mg/dL Calcium (8.4-10.2) mg/dL Magnesium (1.6-2.3) mg/dL Total Protein (6.3-8.2) g/dL Albumin (3.5-5.0) g/dL 09/21/16 09/21/16 09/21/16 Range/Units 17:14 18:11 20:05 WBC (3.8-10.6) k/uL RBC (3.80-5.40) m/uL Hgb (11.4-16.0) gm/dL Hct (34.0-46.0) % RDW (11.5-15.5) % Plt Count (150-450) k/uL Neutrophils # (1.3-7.7) k/uL Lymphocytes # (1.0-4.8) k/uL ABG pH (7.35-7.45) ABG pCO2 (35-45) mmHg ABG pO2 (83-108) mmHg ABG Total CO2 (19-24) mmol/L ABG O2 Saturation (94-97) % BUN (7-17) mg/dL Glucose (74-99) mg/dL POC Glucose (mg/dL) 132 H 127 H 128 H (75-99) mg/dL Calcium (8.4-10.2) mg/dL Magnesium (1.6-2.3) mg/dL Total Protein (6.3-8.2) g/dL Albumin (3.5-5.0) g/dL 09/21/16 09/21/16 09/21/16 Range/Units 22:10 22:46 23:42 WBC (3.8-10.6) k/uL RBC (3.80-5.40) m/uL Hgb (11.4-16.0) gm/dL Hct (34.0-46.0) % RDW (11.5-15.5) % Plt Count (150-450) k/uL Neutrophils # (1.3-7.7) k/uL Lymphocytes # (1.0-4.8) k/uL ABG pH (7.35-7.45) ABG pCO2 (35-45) mmHg ABG pO2 (83-108) mmHg ABG Total CO2 (19-24) mmol/L ABG O2 Saturation (94-97) % BUN (7-17) mg/dL Glucose (74-99) mg/dL POC Glucose (mg/dL) 206 H 230 H 195 H (75-99) mg/dL Calcium (8.4-10.2) mg/dL Magnesium (1.6-2.3) mg/dL Total Protein (6.3-8.2) g/dL Albumin (3.5-5.0) g/dL 09/22/16 09/22/16 09/22/16 Range/Units 01:13 02:14 04:34 WBC (3.8-10.6) k/uL RBC (3.80-5.40) m/uL Hgb (11.4-16.0) gm/dL Hct (34.0-46.0) % RDW (11.5-15.5) % Plt Count (150-450) k/uL Neutrophils # (1.3-7.7) k/uL Lymphocytes # (1.0-4.8) k/uL ABG pH (7.35-7.45) ABG pCO2 (35-45) mmHg ABG pO2 (83-108) mmHg ABG Total CO2 (19-24) mmol/L ABG O2 Saturation (94-97) % BUN (7-17) mg/dL Glucose (74-99) mg/dL POC Glucose (mg/dL) 158 H 132 H 155 H (75-99) mg/dL Calcium (8.4-10.2) mg/dL Magnesium (1.6-2.3) mg/dL Total Protein (6.3-8.2) g/dL Albumin (3.5-5.0) g/dL 09/22/16 09/22/16 09/22/16 Range/Units 04:45 04:45 06:01 WBC 13.6 H (3.8-10.6) k/uL RBC 2.81 L (3.80-5.40) m/uL Hgb 8.7 L (11.4-16.0) gm/dL Hct 27.3 L (34.0-46.0) % RDW 21.0 H (11.5-15.5) % Plt Count 124 L (150-450) k/uL Neutrophils # 13.0 H (1.3-7.7) k/uL Lymphocytes # 0.1 L (1.0-4.8) k/uL ABG pH (7.35-7.45) ABG pCO2 (35-45) mmHg ABG pO2 (83-108) mmHg ABG Total CO2 (19-24) mmol/L ABG O2 Saturation (94-97) % BUN 39 H (7-17) mg/dL Glucose 153 H (74-99) mg/dL POC Glucose (mg/dL) 123 H (75-99) mg/dL Calcium 10.5 H (8.4-10.2) mg/dL Magnesium 2.5 H (1.6-2.3) mg/dL Total Protein 4.4 L (6.3-8.2) g/dL Albumin 1.9 L (3.5-5.0) g/dL 09/22/16 09/22/16 09/22/16 Range/Units 06:52 08:10 08:21 WBC (3.8-10.6) k/uL RBC (3.80-5.40) m/uL Hgb (11.4-16.0) gm/dL Hct (34.0-46.0) % RDW (11.5-15.5) % Plt Count (150-450) k/uL Neutrophils # (1.3-7.7) k/uL Lymphocytes # (1.0-4.8) k/uL ABG pH 7.52 H (7.35-7.45) ABG pCO2 31 L (35-45) mmHg ABG pO2 124 H (83-108) mmHg ABG Total CO2 25 H (19-24) mmol/L ABG O2 Saturation 99.0 H (94-97) % BUN (7-17) mg/dL Glucose (74-99) mg/dL POC Glucose (mg/dL) 171 H 192 H (75-99) mg/dL Calcium (8.4-10.2) mg/dL Magnesium (1.6-2.3) mg/dL Total Protein (6.3-8.2) g/dL Albumin (3.5-5.0) g/dL 09/22/16 09/22/16 09/22/16 Range/Units 09:29 10:02 10:54 WBC (3.8-10.6) k/uL RBC (3.80-5.40) m/uL Hgb (11.4-16.0) gm/dL Hct (34.0-46.0) % RDW (11.5-15.5) % Plt Count (150-450) k/uL Neutrophils # (1.3-7.7) k/uL Lymphocytes # (1.0-4.8) k/uL ABG pH (7.35-7.45) ABG pCO2 (35-45) mmHg ABG pO2 (83-108) mmHg ABG Total CO2 (19-24) mmol/L ABG O2 Saturation (94-97) % BUN (7-17) mg/dL Glucose (74-99) mg/dL POC Glucose (mg/dL) 170 H 154 H 155 H (75-99) mg/dL Calcium (8.4-10.2) mg/dL Magnesium (1.6-2.3) mg/dL Total Protein (6.3-8.2) g/dL Albumin (3.5-5.0) g/dL 09/22/16 09/22/16 Range/Units 12:06 13:04 WBC (3.8-10.6) k/uL RBC (3.80-5.40) m/uL Hgb (11.4-16.0) gm/dL Hct (34.0-46.0) % RDW (11.5-15.5) % Plt Count (150-450) k/uL Neutrophils # (1.3-7.7) k/uL Lymphocytes # (1.0-4.8) k/uL ABG pH (7.35-7.45) ABG pCO2 (35-45) mmHg ABG pO2 (83-108) mmHg ABG Total CO2 (19-24) mmol/L ABG O2 Saturation (94-97) % BUN (7-17) mg/dL Glucose (74-99) mg/dL POC Glucose (mg/dL) 182 H 225 H (75-99) mg/dL Calcium (8.4-10.2) mg/dL Magnesium (1.6-2.3) mg/dL Total Protein (6.3-8.2) g/dL Albumin (3.5-5.0) g/dL Microbiology - Last 24 Hours (Table) 09/16/16 20:37 Blood Culture - Preliminary Blood No Growth after 120 hours 09/16/16 19:34 Blood Culture - Preliminary Blood No Growth after 120 hours Assessment and Plan Plan: 1 acute hypoxic respiratory failure currently intubated on a mechanical ventilator. Post intubation day # 7 2 acute and diffuse bilateral pulmonary infiltrates, strongly consider pneumonia including opportunistic pneumonias in the setting of immunosuppression and Burkitt's lymphoma. However the possibility of acute lung injury from chemotherapy is definitely high on my list at this point since I have reviewed her CT of the chest which was done about a month ago. The patient's presentation is not typical of heart failure. The patient is a preserved LV function and she hasn't responded to diuretics over the past 24-48 hours. As such, pneumonias are very much likely causing this patient's progressive respiratory failure 3 right-sided pleural effusion, status post iatrogenic right-sided pneumothorax. The patient has a chest tube in place with adequate expansion of right lung and adequate evacuation of a right-sided pleural effusion no evidence of air leak noted. Hence we'll likely consider removing the chest tube in the next couple of days. 4 acute ventilator-dependent respiratory failure secondary to above. 5 Burkitt's lymphoma 6 status post systemic chemotherapy for Burkitt's lymphoma using R -EPOCH, status post 3 cycles most recent one was in August 30 through September 04 7 coronary artery disease with previous bypass surgery 8 hypothyroidism 9 chronic anemia 10 malnutrition and progressive debility seconds above-mentioned comorbidities and the patient's health in general has been progressively declining since have diagnosed with Burkitt's lymphoma and since the systemic chemotherapy 11 strongly suspect rituxan-induced lung injury. Hence the dose of Solu-Medrol will be increased to 60 mg IV push every 6 hours. This is based on the fact that her CT of the chest was abnormal shortly after her last course of chemotherapy showing groundglass opacities and nodular changes in both lungs. 12 positive PCR for PCP, hence the findings of her interstitial infiltrates are most likely related to right toxin induced lung injury which was present almost a month ago on CT of the chest, and secondary to underlying PCP in an immunocompromised host. Hence the patient was kept on high dose of Solu-Medrol , and today we kept her on Bactrim which was ordered last night by the infectious disease physician on the case. Recommendation: Discussed her condition with the son at bedside, I plan to hold the propofol as much as possible, and we'll continue to hopefully assess his mental status and noticed some improvement. Once the patient is awake, 1 she follows simple instructions, I plan to place on a very short period of pressure support and CPAP, and we'll likely extubate when she is awake. Her lung mechanics seem to be very well, she has no evidence of leak, and the chest tube could possibly be removed as soon as the patient is extubated. Or possibly in the next 24 hours. If the patient gets agitated and restless, I will likely use Precedex instead of propofol this time to facilitate the weaning and extubation over the next 24 hours. Critical care time is 45 minutes. Had a long discussion with her son at bedside. Time with Patient: Greater than 30
[2016-09-22 14:10] LABS: Glucose,Whole Blood 185 mg/dL (75-99)
[2016-09-22] MEDS ORDERED: LACTULOSE 20 GM/30 ML CUP PO ONE (14:13)
[2016-09-22] MEDS: LEVOFLOXACIN 750MG-D5W PMX 750 MG in DEXTROSE/WATER 1 150ML.BAG IVPB SCH (15:09)
[2016-09-22 15:26] LABS: Glucose,Whole Blood 142 mg/dL (75-99)
[2016-09-22] MEDS: IPRATROPIUM-ALBUTEROL 3 ML NEB INHALATION PRN (15:49)
[2016-09-22 16:23] LABS: Glucose,Whole Blood 170 mg/dL (75-99)
[2016-09-22 17:32] LABS: Glucose,Whole Blood 140 mg/dL (75-99)
[2016-09-22 18:24] LABS: Glucose,Whole Blood 121 mg/dL (75-99)
[2016-09-22 19:21] LABS: Glucose,Whole Blood 117 mg/dL (75-99)
[2016-09-22 20:01] LABS: Glucose,Whole Blood 138 mg/dL (75-99)
[2016-09-22] MEDS: POLYETHYLENE GLYCOL 3350 17 GM POWD.PACK PO PRN (20:44)
[2016-09-22] MEDS: FLUoxetine HCL 20 MG CAP PO SCH (20:44)
[2016-09-22 21:20] LABS: Glucose,Whole Blood 164 mg/dL (75-99)
[2016-09-22 23:08] LABS: Glucose,Whole Blood 152 mg/dL (75-99)
[2016-09-23] MEDS: NITROGLYCERIN OINT 1 INCH/GM PACKET TOPICAL SCH ×3 (00:09→15:27)
[2016-09-23] MEDS: methylPREDNISolone SOD SUCCI 125 MG/2 ML VIAL IV SCH ×4 (00:09→17:06)
[2016-09-23 00:18] LABS: Glucose,Whole Blood 208 mg/dL (75-99)
[2016-09-23 01:10] LABS: Glucose,Whole Blood 226 mg/dL (75-99)
[2016-09-23 02:19] LABS: Glucose,Whole Blood 160 mg/dL (75-99)
[2016-09-23] MEDS: INSULIN REGULAR 100 UNIT in SODIUM CHLORIDE 0.9% 100 ML IV SCH ×2 (02:20→23:30)
[2016-09-23 03:12] LABS: Glucose,Whole Blood 138 mg/dL (75-99)
[2016-09-23 04:12] LABS: Glucose,Whole Blood 129 mg/dL (75-99)
[2016-09-23] MEDS: DEXMEDETOMIDINE 400 MCG in SODIUM CHLORIDE 0.9% 100 ML IV SCH (04:25)
[2016-09-23 05:05] LABS: Anisocytosis Moderate; Basophils % (A) 0 %; CH 31.4; CHCM 32.8; Eosinophils % (A) 0 %; HCT 26.4 % (34.0-46.0); HGB 8.6 gm/dL (11.4-16.0); Hypochromasia Slight; Luc # (Auto) 0.05; Luc % (Auto) 0; Lymphocytes # (A) 0.1 k/uL (1.0-4.8); Lymphocytes % (A) 1 %; MCH 31.4 pg (25.0-35.0); MCHC 32.5 g/dL (31.0-37.0); MCV 96.7 fL (80.0-100.0); Macrocytosis Slight; Mean Platelet Volume 8.8; Monocytes # (A) 0.5 k/uL (0-1.0); Monocytes % (A) 4 %; Neutrophils # (A) 11.9 k/uL (1.3-7.7); Neutrophils % (A) 95 %; RBC 2.73 m/uL (3.80-5.40); RDW 20.9 % (11.5-15.5); WBC 12.6 k/uL (3.8-10.6); WBC (Perox) 12.89
[2016-09-23 05:08] LABS: Glucose,Whole Blood 126 mg/dL (75-99)
[2016-09-23 05:16] LABS: ALT 40 U/L (9-52); AST 26 U/L (14-36); Alkaline Phosphatase 36 U/L (38-126); Anion Gap 4 mmol/L; Blood Urea Nitrogen 44 mg/dL (7-17); Calcium 10.6 mg/dL (8.4-10.2); Carbon Dioxide 26 mmol/L (22-30); Chloride 107 mmol/L (98-107); Glucose 124 mg/dL (74-99); Magnesium 2.5 mg/dL (1.6-2.3); Non-African American GFR(MDRD) >60 (>60 ml/min/1.73 sqM); Phosphorous 3.5 mg/dL (2.5-4.5); Potassium 4.6 mmol/L (3.5-5.1); Sodium 137 mmol/L (137-145); Total Bilirubin 0.3 mg/dL (0.2-1.3); Total Protein 4.3 g/dL (6.3-8.2)
[2016-09-23 06:25] LABS: Glucose,Whole Blood 141 mg/dL (75-99)
[2016-09-23] MEDS: LEVOTHYROXINE 112 MCG TAB PO SCH (06:29)
[2016-09-23] MEDS: IPRATROPIUM-ALBUTEROL 3 ML NEB INHALATION PRN ×4 (07:16→22:59)
[2016-09-23 07:20] LABS: Glucose,Whole Blood 155 mg/dL (75-99)
[2016-09-23 08:11] LABS: Glucose,Whole Blood 155 mg/dL (75-99)
[2016-09-23] MEDS: CHLORHEXIDINE GLUCONATE 15 ML CUP MUCOUS MEM SCH ×2 (08:22→20:02)
[2016-09-23] MEDS: ASPIRIN 81 MG CHEW PO SCH (08:25)
[2016-09-23] MEDS: ALLOPURINOL 300 MG TAB PO SCH ×2 (08:25→20:02)
[2016-09-23] MEDS: METOPROLOL TARTRATE 50 MG TAB PO SCH ×2 (08:26→20:02)
[2016-09-23] MEDS: ENOXAPARIN 40 MG/0.4 ML SYRINGE SQ SCH (08:26)
[2016-09-23] MEDS: PANTOPRAZOLE 40 MG/10 ML VIAL IVP SCH (08:26)
[2016-09-23] MEDS: POTASSIUM CHLORIDE ER 10 MEQ TAB.ER.PRT PO SCH ×2 (08:27→20:03)
[2016-09-23 08:44] LABS: Mis test requested (Blood) PT/INR
[2016-09-23 09:09] LABS: ABG HCO3 21 mmol/L (21-25); ABG Oxygen Saturation 98.9 % (94-97); ABG PCO2 22 mmHg (35-45); ABG PH 7.59 (7.35-7.45); ABG PO2 102 mmHg (83-108); ABG TCO2 22 mmol/L (19-24)
--- NOTE | 2016-09-23 09:14 | XR ---
EXAMINATION TYPE: XR chest 1V portable DATE OF EXAM: 09/23/2016 6:36 AM COMPARISON: 09/22/2016 HISTORY: Mechanical ventilation TECHNIQUE: Single frontal view of the chest is obtained. FINDINGS: Subsegmental changes at both lung bases. Instrumentation stable. No pneumothorax. No acute infiltrate. Underlying COPD suspected. IMPRESSION: 1. Bilateral subsegmental atelectasis or infiltrate greater on the left.
[2016-09-23] MEDS: DEXTROSE 5% IVPB SCH ×4 (10:00→21:12)
[2016-09-23] MEDS: SULFAMETHOX TMP IVPB SCH ×4 (10:00→21:12)
[2016-09-23] MEDS: WATER IVPB SCH ×4 (10:00→21:12)
[2016-09-23 10:06] LABS: Glucose,Whole Blood 182 mg/dL (75-99)
--- NOTE | 2016-09-23 10:22 | P.PN ---
Subjective Progress note dated 09/23/2016 The patient's chest x-ray shows improvement. Unfortunately, her mental status is poor. We'll bring need to evaluate that. Dr. Zechariah Barcenas put her on Precedex or dexmedetomidine thinking that her neurologic status would improve. Unfortunately she still not quite with it. I don't suspect to be a good candidate for weaning and extubation given her poor mental status. Also, she did not have a cuff leak we did a cuff leak test on her. The patient according to the respiratory therapist nurse apparently is much more comfortable on CPAP and pressure support. We'll keep her on that for now. Her vent settings when when on the ventilator included the assist control mode rate of 20 touted by 400 FiO2 35% and PEEP of 5 blood gases show pO2 of 102 a pCO2 of 22 and lipase and pH 7.59. This is consistent with respiratory alkalosis. She's currently on CPAP of 5 and pressure support of 5 and 35%. She was admitted back on September 14 with a diagnosis of respiratory failure. She had a bronched on. It revealed evidence of pneumocystis pneumonia. She has an underlying history of Burkitt's lymphoma. She is currently on appointment 9 IV at 30 mL an hour and insulin drip at 1 unit an hour Precedex at 0.6 mics per kilogram per minute. She's been intubated by 8 for 8 days. She has a right chest tube in place. She is also on vital AF with a rate of 33 and a goal of 33. Objective - Vital Signs Vital signs: Vital Signs Temp 98.4 F 09/23/16 08:00 Pulse 83 09/23/16 10:00 Resp 22 09/23/16 10:00 BP 125/70 09/23/16 10:00 Pulse Ox 100 09/23/16 10:00 Intake & Output 09/22/16 09/23/16 09/23/16 18:59 06:59 18:59 Intake Total 1827.974 5157.197 844.67 Output Total 940 1011 435 Balance 301.228 785.197 409.67 Intake: IV 1050 940 629 Levofloxacin 750Mg-D5w 100 Pmx 750 mg In Dextrose/ Water 1 150ml.bag @ 100 mls/hr IVPB Q24H [facility] Rx#: [id number] Sulfamethox-Tmp 80-16Mg/ 500 500 500 ml 345 mg In Dextrose 5% in Water 500 ml @ 250 mls /hr IVPB Q12HR [facility] Rx#: [id number] ns 550 340 120 pressure bag 9 Intake, IV Titration 92.228 184.197 17.67 Amount Dexmedetomidine 400 mcg 48.987 168.710 14 In Sodium Chloride 0.9% 100 ml @ Titrate IV .Q0M [facility] Rx#:[id number] Empty Bag 1 bag @ Titrate 13.563 IV .Q0M [facility] with Propofol 500 mg Rx#: [id number] Insulin Regular 100 unit 29.678 15.487 3.67 In Sodium Chloride 0.9% 100 ml @ Per Protocol IV .Q0M [facility] Rx#:[id number] Tube Feeding 99 462 198 Other 210 Output: Chest Tube Drainage 20 30 110 Chest Tube Right Lateral 20 30 110 Chest Urine 920 981 325 Stool 0 0 Other: Voiding Method Indwelling Catheter Indwelling Catheter Indwelling Catheter # Bowel Movements 0 ABP, PAP, CO, CI - Last Documented Arterial Blood Pressure 126/58 - Exam No acute distress, currently ventilated. Endotracheal tube in place. HEENT examination is grossly unremarkable. NG tube in place. Endotracheal tube in place. Neck supple. Full range of motion. Next Cardiovascular examination reveals distant heart sounds. S1-S2 normal. Lungs reveal coarse rhonchi. Breath sounds are diminished. A few scattered crackles. Abdomen is soft. Extremities are intact. - Labs CBC & Chem 7: 09/23/16 04:20 09/23/16 04:20 Labs: Abnormal Lab Results - Last 24 Hours (Table) 09/22/16 09/22/16 09/22/16 Range/Units 08:10 10:54 12:06 WBC (3.8-10.6) k/uL RBC (3.80-5.40) m/uL Hgb (11.4-16.0) gm/dL Hct (34.0-46.0) % RDW (11.5-15.5) % Plt Count (150-450) k/uL Neutrophils # (1.3-7.7) k/uL Lymphocytes # (1.0-4.8) k/uL ABG pH 7.52 H (7.35-7.45) ABG pCO2 31 L (35-45) mmHg ABG pO2 124 H (83-108) mmHg ABG Total CO2 25 H (19-24) mmol/L ABG O2 Saturation 99.0 H (94-97) % BUN (7-17) mg/dL Glucose (74-99) mg/dL POC Glucose (mg/dL) 155 H 182 H (75-99) mg/dL Calcium (8.4-10.2) mg/dL Magnesium (1.6-2.3) mg/dL Alkaline Phosphatase (38-126) U/L Total Protein (6.3-8.2) g/dL Albumin (3.5-5.0) g/dL 09/22/16 09/22/16 09/22/16 Range/Units 13:04 14:09 14:56 WBC (3.8-10.6) k/uL RBC (3.80-5.40) m/uL Hgb (11.4-16.0) gm/dL Hct (34.0-46.0) % RDW (11.5-15.5) % Plt Count (150-450) k/uL Neutrophils # (1.3-7.7) k/uL Lymphocytes # (1.0-4.8) k/uL ABG pH (7.35-7.45) ABG pCO2 (35-45) mmHg ABG pO2 (83-108) mmHg ABG Total CO2 (19-24) mmol/L ABG O2 Saturation (94-97) % BUN (7-17) mg/dL Glucose (74-99) mg/dL POC Glucose (mg/dL) 225 H 185 H 142 H (75-99) mg/dL Calcium (8.4-10.2) mg/dL Magnesium (1.6-2.3) mg/dL Alkaline Phosphatase (38-126) U/L Total Protein (6.3-8.2) g/dL Albumin (3.5-5.0) g/dL 09/22/16 09/22/16 09/22/16 Range/Units 16:09 17:18 18:23 WBC (3.8-10.6) k/uL RBC (3.80-5.40) m/uL Hgb (11.4-16.0) gm/dL Hct (34.0-46.0) % RDW (11.5-15.5) % Plt Count (150-450) k/uL Neutrophils # (1.3-7.7) k/uL Lymphocytes # (1.0-4.8) k/uL ABG pH (7.35-7.45) ABG pCO2 (35-45) mmHg ABG pO2 (83-108) mmHg ABG Total CO2 (19-24) mmol/L ABG O2 Saturation (94-97) % BUN (7-17) mg/dL Glucose (74-99) mg/dL POC Glucose (mg/dL) 170 H 140 H 121 H (75-99) mg/dL Calcium (8.4-10.2) mg/dL Magnesium (1.6-2.3) mg/dL Alkaline Phosphatase (38-126) U/L Total Protein (6.3-8.2) g/dL Albumin (3.5-5.0) g/dL 09/22/16 09/22/16 09/22/16 Range/Units 19:01 19:59 21:18 WBC (3.8-10.6) k/uL RBC (3.80-5.40) m/uL Hgb (11.4-16.0) gm/dL Hct (34.0-46.0) % RDW (11.5-15.5) % Plt Count (150-450) k/uL Neutrophils # (1.3-7.7) k/uL Lymphocytes # (1.0-4.8) k/uL ABG pH (7.35-7.45) ABG pCO2 (35-45) mmHg ABG pO2 (83-108) mmHg ABG Total CO2 (19-24) mmol/L ABG O2 Saturation (94-97) % BUN (7-17) mg/dL Glucose (74-99) mg/dL POC Glucose (mg/dL) 117 H 138 H 164 H (75-99) mg/dL Calcium (8.4-10.2) mg/dL Magnesium (1.6-2.3) mg/dL Alkaline Phosphatase (38-126) U/L Total Protein (6.3-8.2) g/dL Albumin (3.5-5.0) g/dL 09/22/16 09/23/16 09/23/16 Range/Units 23:06 00:17 01:09 WBC (3.8-10.6) k/uL RBC (3.80-5.40) m/uL Hgb (11.4-16.0) gm/dL Hct (34.0-46.0) % RDW (11.5-15.5) % Plt Count (150-450) k/uL Neutrophils # (1.3-7.7) k/uL Lymphocytes # (1.0-4.8) k/uL ABG pH (7.35-7.45) ABG pCO2 (35-45) mmHg ABG pO2 (83-108) mmHg ABG Total CO2 (19-24) mmol/L ABG O2 Saturation (94-97) % BUN (7-17) mg/dL Glucose (74-99) mg/dL POC Glucose (mg/dL) 152 H 208 H 226 H (75-99) mg/dL Calcium (8.4-10.2) mg/dL Magnesium (1.6-2.3) mg/dL Alkaline Phosphatase (38-126) U/L Total Protein (6.3-8.2) g/dL Albumin (3.5-5.0) g/dL 09/23/16 09/23/16 09/23/16 Range/Units 02:17 03:10 04:11 WBC (3.8-10.6) k/uL RBC (3.80-5.40) m/uL Hgb (11.4-16.0) gm/dL Hct (34.0-46.0) % RDW (11.5-15.5) % Plt Count (150-450) k/uL Neutrophils # (1.3-7.7) k/uL Lymphocytes # (1.0-4.8) k/uL ABG pH (7.35-7.45) ABG pCO2 (35-45) mmHg ABG pO2 (83-108) mmHg ABG Total CO2 (19-24) mmol/L ABG O2 Saturation (94-97) % BUN (7-17) mg/dL Glucose (74-99) mg/dL POC Glucose (mg/dL) 160 H 138 H 129 H (75-99) mg/dL Calcium (8.4-10.2) mg/dL Magnesium (1.6-2.3) mg/dL Alkaline Phosphatase (38-126) U/L Total Protein (6.3-8.2) g/dL Albumin (3.5-5.0) g/dL 09/23/16 09/23/16 09/23/16 Range/Units 04:20 04:20 05:04 WBC 12.6 H (3.8-10.6) k/uL RBC 2.73 L (3.80-5.40) m/uL Hgb 8.6 L (11.4-16.0) gm/dL Hct 26.4 L (34.0-46.0) % RDW 20.9 H (11.5-15.5) % Plt Count 117 L (150-450) k/uL Neutrophils # 11.9 H (1.3-7.7) k/uL Lymphocytes # 0.1 L (1.0-4.8) k/uL ABG pH (7.35-7.45) ABG pCO2 (35-45) mmHg ABG pO2 (83-108) mmHg ABG Total CO2 (19-24) mmol/L ABG O2 Saturation (94-97) % BUN 44 H (7-17) mg/dL Glucose 124 H (74-99) mg/dL POC Glucose (mg/dL) 126 H (75-99) mg/dL Calcium 10.6 H (8.4-10.2) mg/dL Magnesium 2.5 H (1.6-2.3) mg/dL Alkaline Phosphatase 36 L (38-126) U/L Total Protein 4.3 L (6.3-8.2) g/dL Albumin 1.9 L (3.5-5.0) g/dL 09/23/16 09/23/16 09/23/16 Range/Units 06:23 07:10 07:19 WBC (3.8-10.6) k/uL RBC (3.80-5.40) m/uL Hgb (11.4-16.0) gm/dL Hct (34.0-46.0) % RDW (11.5-15.5) % Plt Count (150-450) k/uL Neutrophils # (1.3-7.7) k/uL Lymphocytes # (1.0-4.8) k/uL ABG pH 7.59 H (7.35-7.45) ABG pCO2 22 L (35-45) mmHg ABG pO2 (83-108) mmHg ABG Total CO2 (19-24) mmol/L ABG O2 Saturation 98.9 H (94-97) % BUN (7-17) mg/dL Glucose (74-99) mg/dL POC Glucose (mg/dL) 141 H 155 H (75-99) mg/dL Calcium (8.4-10.2) mg/dL Magnesium (1.6-2.3) mg/dL Alkaline Phosphatase (38-126) U/L Total Protein (6.3-8.2) g/dL Albumin (3.5-5.0) g/dL 09/23/16 09/23/16 Range/Units 08:10 10:04 WBC (3.8-10.6) k/uL RBC (3.80-5.40) m/uL Hgb (11.4-16.0) gm/dL Hct (34.0-46.0) % RDW (11.5-15.5) % Plt Count (150-450) k/uL Neutrophils # (1.3-7.7) k/uL Lymphocytes # (1.0-4.8) k/uL ABG pH (7.35-7.45) ABG pCO2 (35-45) mmHg ABG pO2 (83-108) mmHg ABG Total CO2 (19-24) mmol/L ABG O2 Saturation (94-97) % BUN (7-17) mg/dL Glucose (74-99) mg/dL POC Glucose (mg/dL) 155 H 182 H (75-99) mg/dL Calcium (8.4-10.2) mg/dL Magnesium (1.6-2.3) mg/dL Alkaline Phosphatase (38-126) U/L Total Protein (6.3-8.2) g/dL Albumin (3.5-5.0) g/dL Microbiology - Last 24 Hours (Table) 09/16/16 20:37 Blood Culture - Final Blood No Growth after 144 hours 09/16/16 19:34 Blood Culture - Final Blood No Growth after 144 hours Assessment and Plan (1) Pneumocystis jiroveci pneumonia Status: Acute (2) Pneumonia Status: Acute (3) Burkitt lymphoma of extranodal or solid organ site Status: Acute Plan: Plan dated 09/23/2016 I will have to talk to the family about a number things including CODE STATUS tracheostomy PEG tube placement and also we'll have to evaluate the patient's neurologic status given the fact that her mental status is so poor. She'll need a computed tomography scan of the brain and she will also need a neurologic neurology consult as well as an EEG. Although things obesity discussed her implemented today. The. I spent more than 30 minutes with this patient in terms of the evaluation and dictation family discussions. We'll continue to follow. Prognosis is guarded. Additional recommendations suggestions are forthcoming. Mental status is a real concern as is the non-cuff leak on cuff leak test. Time with Patient: Greater than 30
[2016-09-23 10:27] VITALS: BMI 28.6
[2016-09-23] MEDS ORDERED: PROPOFOL 500 MG in EMPTY BAG 1 BAG IV SCH (10:30)
[2016-09-23] MEDS: PROPOFOL 500 MG in EMPTY BAG 1 BAG IV SCH ×3 (10:41→21:58)
--- NOTE | 2016-09-23 12:11 | CT ---
EXAMINATION TYPE: CT brain wo con DATE OF EXAM: 09/23/2016 11:51 AM HISTORY: Decreased mental status CT DLP: 1048.6 mGycm. Automated Exposure Control for Dose Reduction was Utilized. TECHNIQUE: CT scan of the head is performed without contrast. COMPARISON: None. FINDINGS: There is no acute intracranial hemorrhage or midline shift identified. There is diffuse v entricular and sulcal prominence consistent with diffuse age-related cerebral atrophy. There is low- attenuation in the periventricular white matter presumed on basis of product of chronic small vessel ischemic change in patient of this age. More focal area left basal ganglia is noted. Vague area of l ow-attenuation left mid cerebellum near axial image 15 is consistent with age-indeterminate infarct. The globes are intact and the visualized sinuses are clear. IMPRESSION: No acute intracranial hemorrhage or midline shift. There is mild to moderate diffuse ag e-related cerebral atrophy and moderate to severe nonspecific white matter changes favor product of c hronic small vessel ischemic change noted. Age-indeterminate ischemia or infarct left mid cerebellum is noted. 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
[2016-09-23 12:28] LABS: Glucose,Whole Blood 246 mg/dL (75-99)
[2016-09-23] MEDS ORDERED: SODIUM CHLORIDE 0.9% 1,000 ML IV ONE (12:45)
[2016-09-23 13:55] LABS: Glucose,Whole Blood 145 mg/dL (75-99)
--- NOTE | 2016-09-23 14:26 | PN ---
Patient is an 80-year-old, admitted with Burkitt's lymphoma, poor prognosis, admitted for isolated pleural effusion. Subsequently, ended up having iatrogenic pneumothorax and patient is presently intubated and found to have interstitial pneumonia with ( ) pneumonia and they are unable to extubate the patient. Patient was Precedex yesterday, which was discontinued and patient is on sedation vacation at this point of going, undergoing weaning trials again. Patient's prognosis is extremely poor and family is aware of that and we are unable to extubate the patient at this point of time. REVIEW OF SYSTEMS: Unable to obtain. Medications were reviewed. PHYSICAL EXAMINATION: VITAL SIGNS: Temperature 98.1, pulse of 80, respiratory rate of 30, blood pressure is 106/51, saturating at 100% on 35% FiO2 on ventilator. Patient is on spontaneous breathing trails at this point of time. Please refer to vaudeville actor dictation for further details. NEUROLOGICAL: RADS score of minus -1 and patient is intubated off sedation at this point of time. As mentioned above. GENERAL: The patient is alert and oriented x3, not in any acute distress. Well developed, well nourished. HEENT: Pupils are round and equally reacting to light. EOMI. No scleral icterus. No conjunctival pallor. Normocephalic, atraumatic. No pharyngeal erythema. No thyromegaly. CARDIOVASCULAR: S1 and S2 present. No murmurs, rubs, or gallops. PULMONARY: Chest is clear to auscultation, no wheezing or crackles. ABDOMEN: Soft, nontender, nondistended, normoactive bowel sounds. No palpable organomegaly. MUSCULOSKELETAL: No joint swelling or deformity. EXTREMITIES: No cyanosis, clubbing, or pedal edema. SKIN: No rashes. LABORATORY DATA: Patient still has leukocytosis, comprehensive metabolic profile is abnormal for elevated BUN of 44 and patient's ABGs are still chewing alkalosis. Lab data, no significant abnormality. ASSESSMENT AND PLAN: 1. Acute respiratory failure, ventilator-dependent secondary to Pneumocystis carinii pneumonia and sepsis secondary to that. 2. Right-sided pleural effusion, removal of 500 mL leading to iatrogenic pneumothorax and patient's pleural effusion is probably mildly malignant and recurrent pleural effusions. Patient has chest tube which is still draining. 3. Burkitt's lymphoma. 4. Gastroesophageal reflux disease. 5. Hyperlipidemia. 6. Hypertension. 7. Coronary artery disease. 8. 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 9. Septic shock, improved and patient is still septic. Patient is off pressor support at this point of time.
[2016-09-23 14:29] LABS: Glucose,Whole Blood 135 mg/dL (75-99)
[2016-09-23 15:08] LABS: Glucose,Whole Blood 124 mg/dL (75-99)
[2016-09-23] MEDS: LEVOFLOXACIN 750MG-D5W PMX 750 MG in DEXTROSE/WATER 1 150ML.BAG IVPB SCH (15:27)
--- NOTE | 2016-09-23 15:55 | P.CNNES ---
History of Present Illness Consult date: 09/23/16 Reason for Consult: Patient intubated and remains encephalopathic and unresponsive. History of Present Illness: This patient is a 80-year-old right-handed white female who was initially admitted to the hospital on 09/14/2016 for treatment of pleural effusion. She has a known history of Burkitt's lymphoma and is undergone 3 cycles of chemotherapy. Patient had developed pleural effusion and subsequently developed a iatrogenic pneumothorax. She was intubated and remains on the ventilator at this time. Patient was given a sedation holiday but has not shown any signs of improvement in her mental status. She was sent for a computed tomography scan of the brain today which revealed no acute intracranial hemorrhage or midline shift. There was mild to moderate diffuse age-related atrophy and moderate to severe nonspecific white matter changes. There was some areas of indeterminate ischemia in the left mid cerebellum as well as left basal ganglia and posterior frontal lobe all on the left side. These appear to be indeterminant and age. Patient is unable to have MRI if she is currently intubated. The patient has shown very little improvement in terms of her ability to awaken despite being off of all IV sedation. For this reason neurology was consult dated today for further evaluation. Patient is on the ventilator. She does not open eyes spontaneously. Sternal rub produces only minimal response. Patient was also recently diagnosed with pneumocystis carinii pneumonia and is on Bactrim. She is being followed closely by infectious disease. She remains afebrile. She appears to be encephalopathic at this time. We reviewed the CAT scan of the brain results today in detail. The patient has only minimal response to painful stimuli today on her examination in the intensive care unit. She is scheduled to undergo a EEG testing tomorrow and we will await to review this recording tomorrow. At this time the patient appears to be encephalopathic which is multifactorial. She has worsening signs of her Burkitt's lymphoma as well as multiple other complex medical issues including sepsis. We will need to continue close neurological follow-up with the patient during this admission. Her overall prognosis at this time remains very guarded. Review of Systems ROS unobtainable: due to endotracheal tube, due to mental status Constitutional: Denies chills, Denies fever Eyes: denies blurred vision, denies pain Ears, nose, mouth and throat: Denies headache, Denies sore throat Cardiovascular: Denies chest pain, Denies shortness of breath Respiratory: Denies cough Gastrointestinal: Denies abdominal pain, Denies diarrhea, Denies nausea, Denies vomiting Genitourinary: Denies dysuria, Denies hematuria Musculoskeletal: Denies myalgias Integumentary: Denies pruritus, Denies rash Neurological: Reports change in mentation, Denies numbness, Denies weakness Psychiatric: Denies anxiety, Denies depression Endocrine: Denies fatigue, Denies weight change Past Medical History Past Medical History: Cancer, GERD/Reflux, Hyperlipidemia, Hypertension, Osteoarthritis (OA), Thyroid Disorder Additional Past Medical History / Comment(s): Burkitt's lymphoma with bulky adenopathy involving the mediastinum and the patient has been treated with systemic chemotherapy, coronary artery disease with previous three-vessel bypass surgery along with coronary stent insertion, recent UTI with E. coli, chronic right-sided pleural effusion with previous thoracentesis, hyperlipidemia , hypothyroidism, GE reflux, hypertension, osteoarthritis, cataracts History of Any Multi-Drug Resistant Organisms: None Reported Past Surgical History: Cholecystectomy, Coronary Bypass/CABG, Heart Catheterization, Heart Catheterization With Stent, Hysterectomy Additional Past Surgical History / Comment(s): lumbar puncture for intrathecal chemotherapy, 07/02/16 PICC line L arm, BRONCHOSCOPY W/ BX at [facility]-pt states unsuccessful, LYMPH NODE BX, BONE MARROW ASPIRATION AT ([facility]), COLONOCOPSY/ POLYPECTOMY(BENIGN), RT CATARACT,CARPAL TUNNEL RELEASE, LT HAND 3RD AND 4TH DIGIT-TRIGGER FINGER SX, TOTAL HYSTERECTOMY, TRIPLE VESSEL CABG 2008, ECTOPIC Past Anesthesia/Blood Transfusion Reactions: No Reported Reaction Additional Past Anesthesia/Blood Transfusion Reaction / Comment(s): Pt recently received blood without reaction. Date of Last Stent Placement:: 1998 Past Psychological History: Depression Additional Psychological History / Comment(s): Pt states her depression is stable. She wants to live to see all her grandchildren . She is recently using a walker. She has a very supportive family. She has [facility] home care-a nurse comes //Fri. Smoking Status: Never smoker Past Alcohol Use History: None Reported Additional Past Alcohol Use History / Comment(s): Patient has been a lifelong nonsmoker. She lives at home with her . There are no pets in the home and no recent travel. 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 Past Drug Use History: None Reported - Past Family History Mother Family Medical History: Cancer Additional Family Medical History / Comment(s): BREAST CANCER, LIVED TO BE 85 Father Additional Family Medical History / Comment(s): ALCOHOLIC- AGE 54 Medications and Allergies Home Medications Medication Instructions Recorded Confirmed Type Aspirin [Adult Low Dose Aspirin EC] 81 mg PO DAILY 07/01/16 09/14/16 History FLUoxetine HCL [PROzac] 20 mg PO HS 07/01/16 09/14/16 History Isosorbide Mononitrate ER [Imdur] 30 mg PO DAILY 07/01/16 09/14/16 History Levothyroxine Sodium [Synthroid] 100 mcg PO SUTUTHSA 07/01/16 09/14/16 History Levothyroxine Sodium [Synthroid] 112 mcg PO MOWEFR 07/01/16 09/14/16 History Omeprazole [PriLOSEC] 20 mg PO AC-BID 07/01/16 09/14/16 History Furosemide [Lasix] 20 mg PO DAILY 07/25/16 09/14/16 History Potassium Chloride [K-Tab ER] 10 meq PO BID 07/25/16 09/14/16 History ALPRAZolam [Xanax] 0.25 mg PO TID PRN 07/31/16 09/14/16 History Acetaminophen-Codeine 300-30mg 1 tab PO Q6H PRN 07/31/16 09/14/16 History [Tylenol w/codeine #3] Benzocaine/Menthol Lozeng [Cepacol 1 tab PO QID PRN 07/31/16 09/14/16 History lozenge] Co-Q10 Gummy 1 tab PO DAILY@1200 07/31/16 09/14/16 History Cranberry Fruit Concentrate 450 mg PO DAILY@1200 07/31/16 09/14/16 History [Cranberry] Docusate [Colace] 100 mg PO TID 07/31/16 09/14/16 History Ipratropium-Albuterol Nebulize 3 ml INHALATION RT-BID 07/31/16 09/14/16 History [Duoneb 0.5 mg-3 mg/3 ml Soln] Megestrol Acetate [Megace] 400 mg PO BID 07/31/16 09/14/16 History Nystatin 100,000 Unit/ml Susp 1,500,000 units PO TID 07/31/16 09/14/16 History [Mycostatin Oral Susp] Ondansetron [Zofran] 4 mg PO Q6H PRN 07/31/16 09/14/16 History Polyethylene Glycol 3350 [Miralax] 17 gm PO DAILY PRN 07/31/16 09/14/16 History Clotrimazole Luan [Mycelex 10 mg MUCOUS MEM BID 08/30/16 09/14/16 History Luan] Allopurinol [Zyloprim] 300 mg PO BID 09/14/16 09/14/16 History Allergies Allergy/AdvReac Type Severity Reaction Status Date / Time No Known Allergies Allergy Verified 09/14/16 10:55 Physical Examination - Vital Signs Vital Signs: Vital Signs Temp Pulse Resp BP Pulse Ox 09/23/16 14:00 80 21 138/62 100 09/23/16 13:00 77 31 H 86/53 94 L 09/23/16 12:00 98.1 F 80 30 H 106/51 100 09/23/16 11:30 86/53 09/23/16 11:00 82 18 113/70 100 09/23/16 10:00 83 22 125/70 100 09/23/16 09:00 89 22 118/66 100 09/23/16 08:00 98.4 F 87 29 H 145/86 100 09/23/16 07:55 80 09/23/16 07:45 29 H 09/23/16 07:21 80 09/23/16 07:00 75 20 102/60 100 09/23/16 06:00 71 20 100 09/23/16 05:00 72 20 100 09/23/16 04:00 98.7 F 77 22 100 09/23/16 03:00 75 20 100 09/23/16 02:00 73 20 100 09/23/16 01:00 73 20 100 09/23/16 00:00 97.3 F L 74 20 100 09/22/16 23:00 75 20 100 09/22/16 22:00 78 20 100 09/22/16 21:00 79 20 100 09/22/16 20:00 98.6 F 79 20 100 09/22/16 19:00 87 18 100 09/22/16 18:00 83 24 100 09/22/16 17:00 77 14 100 09/22/16 16:00 98.0 F 85 30 H 100 09/22/16 15:00 95 26 H 100 Intake and Output 09/22/16 09/23/16 09/23/16 22:59 06:59 14:59 Intake Total 831.815 7371.882 2157.132 Output Total 539 797 840 Balance 172.544 598.530 8589.132 Intake: IV 230 068 8907 Levofloxacin 750Mg-D5w 100 Pmx 750 mg In Dextrose/ Water 1 150ml.bag @ 100 mls/hr IVPB Q24H [facility] Rx#: [id number] Sulfamethox-Tmp 80-16Mg/ 500 500 ml 345 mg In Dextrose 5% in Water 500 ml @ 250 mls /hr IVPB Q12HR [facility] Rx#: [id number] ns 735 731 1762 pressure bag 21 Intake, IV Titration 89.544 147.882 27.132 Amount Dexmedetomidine 400 mcg 85.302 132.395 14 In Sodium Chloride 0.9% 100 ml @ Titrate IV .Q0M [facility] Rx#:[id number] Insulin Regular 100 unit 4.242 15.487 9.478 In Sodium Chloride 0.9% 100 ml @ Per Protocol IV .Q0M [facility] Rx#:[id number] Propofol 500 mg In Empty 3.654 Bag 1 bag @ Titrate IV . Q0M [facility] Rx#:[id number] Tube Feeding 132 330 396 Other 150 60 Output: Chest Tube Drainage 30 200 Chest Tube Right Lateral 30 200 Chest Urine 539 767 640 Stool 0 0 Other: Voiding Method Indwelling Catheter Indwelling Catheter Indwelling Catheter Weight 67.7 kg Patient Weight 09/24/16 06:59 Weight 67.7 kg ABP, PAP, CO, CI - Last 8 Hours Arterial Blood Pressure 133/55 Arterial Blood Pressure 122/49 Arterial Blood Pressure 115/52 Arterial Blood Pressure 126/58 Arterial Blood Pressure 132/59 Arterial Blood Pressure 122/60 - Constitutional General appearance: average body habitus - EENT EENT: PERRL, mucous membranes moist - Respiratory Respiratory: lungs clear, normal breath sounds - Cardiovascular Cardiovascular: regular rate, normal S1, normal S2 Extremities: no peripheral edema bilaterally - Gastrointestinal Gastrointestinal: normoactive bowel sounds - Integumentary Integumentary: normal - Neurologic Cranial nerve examination: EOMI, V1/V2/V3 grossly intact, face symmetric, intact gag reflex, intact corneal reflex Speech examination: other (Patient currently intubated on the ventilator.) Sensorimotor examination: intact Motor examination - right side: 07/25: biceps, triceps, wrist flexion, wrist extension, instrumentation chemist, hip flexors, knee extensors, dorsiflexion, toe extension (EHL) , plantarflexion Motor examination - left side: 07/25: biceps, triceps, wrist flexion, wrist extension, instrumentation chemist, hip flexors, knee extensors, dorsiflexion, toe extension (EHL) , plantarflexion Detailed sensory examination: pain Reflexes: 1+: ankle, bicep, knee, tricep Results - Laboratory Findings CBC and BMP: 09/23/16 04:20 09/23/16 04:20 Abnormal Lab Findings: Abnormal Labs 09/14/16 09/14/16 09/14/16 12:07 13:00 16:22 WBC RBC Hgb Hct MCHC RDW Plt Count Neutrophils # Neutrophils # (Manual) Lymphocytes # Lymphocytes # (Manual) Nucleated RBCs ABG pO2 ABG Total CO2 ABG pH ABG O2 Saturation ABG pCO2 ABG HCO3 Potassium Chloride BUN Creatinine Glucose POC Glucose (mg/dL) 153 H 186 H Calcium Magnesium Phosphorus Alkaline Phosphatase Total Creatine Kinase <20 L Total Protein Albumin HDL Cholesterol IgG T-Suppressor Cells % CD4 [place] Absolute CD4 [place] CD4/CD8 Ratio % CD8 Suppressor 09/14/16 09/14/16 09/15/16 19:28 21:04 05:49 WBC RBC Hgb Hct MCHC RDW Plt Count Neutrophils # Neutrophils # (Manual) Lymphocytes # Lymphocytes # (Manual) Nucleated RBCs ABG pO2 ABG Total CO2 ABG pH ABG O2 Saturation ABG pCO2 ABG HCO3 Potassium Chloride BUN 21 H Creatinine Glucose 147 H POC Glucose (mg/dL) 173 H Calcium Magnesium Phosphorus Alkaline Phosphatase Total Creatine Kinase <20 L Total Protein Albumin HDL Cholesterol 20 L IgG T-Suppressor Cells % CD4 [place] Absolute CD4 [place] CD4/CD8 Ratio % CD8 Suppressor 09/15/16 09/15/16 09/15/16 05:49 06:18 12:02 WBC RBC 2.68 L Hgb 8.1 L Hct 25.6 L MCHC RDW 17.6 H Plt Count Neutrophils # Neutrophils # (Manual) Lymphocytes # Lymphocytes # (Manual) Nucleated RBCs ABG pO2 ABG Total CO2 ABG pH ABG O2 Saturation ABG pCO2 ABG HCO3 Potassium Chloride BUN Creatinine Glucose POC Glucose (mg/dL) 150 H 157 H Calcium Magnesium Phosphorus Alkaline Phosphatase Total Creatine Kinase Total Protein Albumin HDL Cholesterol IgG T-Suppressor Cells % CD4 [place] Absolute CD4 [place] CD4/CD8 Ratio % CD8 Suppressor 09/15/16 09/15/16 09/15/16 15:22 15:58 17:40 WBC RBC Hgb Hct MCHC RDW Plt Count Neutrophils # Neutrophils # (Manual) Lymphocytes # Lymphocytes # (Manual) Nucleated RBCs ABG pO2 143 H ABG Total CO2 26 H ABG pH ABG O2 Saturation 99.0 H ABG pCO2 ABG HCO3 Potassium 3.2 L Chloride 111 H BUN 22 H Creatinine Glucose 165 H POC Glucose (mg/dL) 182 H Calcium Magnesium Phosphorus Alkaline Phosphatase Total Creatine Kinase Total Protein 3.6 L Albumin 1.8 L HDL Cholesterol IgG T-Suppressor Cells % CD4 [place] Absolute CD4 [place] CD4/CD8 Ratio % CD8 Suppressor 09/15/16 09/15/16 09/15/16 17:40 18:20 21:18 WBC RBC 1.56 L 2.51 L Hgb 4.6 L* D 7.5 L D Hct 15.1 L* 23.7 L MCHC 30.5 L RDW 17.2 H 17.6 H Plt Count 124 L Neutrophils # 9.1 H Neutrophils # (Manual) Lymphocytes # 0.1 L 0.1 L Lymphocytes # (Manual) Nucleated RBCs ABG pO2 ABG Total CO2 ABG pH ABG O2 Saturation ABG pCO2 ABG HCO3 Potassium Chloride BUN Creatinine Glucose POC Glucose (mg/dL) 144 H Calcium Magnesium Phosphorus Alkaline Phosphatase Total Creatine Kinase Total Protein Albumin HDL Cholesterol IgG T-Suppressor Cells % CD4 [place] Absolute CD4 [place] CD4/CD8 Ratio % CD8 Suppressor 09/16/16 09/16/16 09/16/16 05:00 05:00 06:04 WBC RBC 2.55 L Hgb 7.6 L Hct 24.1 L MCHC RDW 17.7 H Plt Count Neutrophils # 8.1 H Neutrophils # (Manual) Lymphocytes # 0.1 L Lymphocytes # (Manual) Nucleated RBCs ABG pO2 ABG Total CO2 ABG pH ABG O2 Saturation ABG pCO2 ABG HCO3 Potassium Chloride 110 H BUN 24 H Creatinine Glucose 146 H POC Glucose (mg/dL) 148 H Calcium Magnesium 2.5 H Phosphorus Alkaline Phosphatase Total Creatine Kinase Total Protein Albumin HDL Cholesterol IgG T-Suppressor Cells % CD4 [place] Absolute CD4 [place] CD4/CD8 Ratio % CD8 Suppressor 09/16/16 09/16/16 09/16/16 12:34 14:02 18:05 WBC RBC Hgb Hct MCHC RDW Plt Count Neutrophils # Neutrophils # (Manual) Lymphocytes # Lymphocytes # (Manual) Nucleated RBCs ABG pO2 ABG Total CO2 ABG pH ABG O2 Saturation ABG pCO2 ABG HCO3 Potassium Chloride BUN Creatinine Glucose POC Glucose (mg/dL) 175 H 165 H 189 H Calcium Magnesium Phosphorus Alkaline Phosphatase Total Creatine Kinase Total Protein Albumin HDL Cholesterol IgG T-Suppressor Cells % CD4 [place] Absolute CD4 [place] CD4/CD8 Ratio % CD8 Suppressor 09/17/16 09/17/16 09/17/16 01:11 05:46 05:46 WBC 11.6 H RBC 2.39 L Hgb 7.3 L Hct 22.7 L MCHC RDW 17.9 H Plt Count Neutrophils # 11.2 H Neutrophils # (Manual) Lymphocytes # 0.1 L Lymphocytes # (Manual) Nucleated RBCs ABG pO2 ABG Total CO2 ABG pH ABG O2 Saturation ABG pCO2 ABG HCO3 Potassium Chloride BUN Creatinine Glucose POC Glucose (mg/dL) 192 H Calcium Magnesium Phosphorus Alkaline Phosphatase Total Creatine Kinase Total Protein Albumin HDL Cholesterol IgG T-Suppressor Cells 15 L % CD4 [place] 20 L Absolute CD4 [place] 7 L CD4/CD8 Ratio 0.5 L % CD8 Suppressor 42 H 09/17/16 09/17/16 09/17/16 05:46 05:46 05:50 WBC RBC Hgb Hct MCHC RDW Plt Count Neutrophils # Neutrophils # (Manual) Lymphocytes # Lymphocytes # (Manual) Nucleated RBCs ABG pO2 ABG Total CO2 ABG pH ABG O2 Saturation ABG pCO2 ABG HCO3 Potassium Chloride 110 H BUN 25 H Creatinine 0.50 L Glucose 212 H POC Glucose (mg/dL) 232 H Calcium Magnesium Phosphorus 2.1 L Alkaline Phosphatase Total Creatine Kinase Total Protein Albumin HDL Cholesterol IgG 172.0 L T-Suppressor Cells % CD4 [place] Absolute CD4 [place] CD4/CD8 Ratio % CD8 Suppressor 09/17/16 09/17/16 09/17/16 07:48 12:53 17:29 WBC RBC Hgb Hct MCHC RDW Plt Count Neutrophils # Neutrophils # (Manual) Lymphocytes # Lymphocytes # (Manual) Nucleated RBCs ABG pO2 209 H ABG Total CO2 ABG pH ABG O2 Saturation 100.0 H ABG pCO2 34 L ABG HCO3 Potassium Chloride BUN Creatinine Glucose POC Glucose (mg/dL) 228 H 258 H Calcium Magnesium Phosphorus Alkaline Phosphatase Total Creatine Kinase Total Protein Albumin HDL Cholesterol IgG T-Suppressor Cells % CD4 [place] Absolute CD4 [place] CD4/CD8 Ratio % CD8 Suppressor 09/17/16 09/18/16 09/18/16 20:27 00:10 04:30 WBC RBC Hgb Hct MCHC RDW Plt Count Neutrophils # Neutrophils # (Manual) Lymphocytes # Lymphocytes # (Manual) Nucleated RBCs ABG pO2 ABG Total CO2 ABG pH ABG O2 Saturation ABG pCO2 ABG HCO3 Potassium Chloride BUN Creatinine Glucose POC Glucose (mg/dL) 206 H 213 H 183 H Calcium Magnesium Phosphorus Alkaline Phosphatase Total Creatine Kinase Total Protein Albumin HDL Cholesterol IgG T-Suppressor Cells % CD4 [place] Absolute CD4 [place] CD4/CD8 Ratio % CD8 Suppressor 09/18/16 09/18/16 09/18/16 04:50 04:50 07:07 WBC 12.3 H RBC 2.32 L Hgb 7.1 L Hct 22.2 L MCHC RDW 18.9 H Plt Count 137 L Neutrophils # 11.9 H Neutrophils # (Manual) Lymphocytes # 0.1 L Lymphocytes # (Manual) Nucleated RBCs ABG pO2 ABG Total CO2 ABG pH ABG O2 Saturation ABG pCO2 ABG HCO3 Potassium Chloride 112 H BUN 23 H Creatinine 0.50 L Glucose 167 H POC Glucose (mg/dL) 190 H Calcium Magnesium Phosphorus 1.5 L Alkaline Phosphatase Total Creatine Kinase Total Protein Albumin HDL Cholesterol IgG T-Suppressor Cells % CD4 [place] Absolute CD4 [place] CD4/CD8 Ratio % CD8 Suppressor 09/18/16 09/18/16 09/18/16 07:58 09:25 11:41 WBC RBC Hgb Hct MCHC RDW Plt Count Neutrophils # Neutrophils # (Manual) Lymphocytes # Lymphocytes # (Manual) Nucleated RBCs ABG pO2 ABG Total CO2 25 H ABG pH ABG O2 Saturation ABG pCO2 ABG HCO3 Potassium Chloride BUN Creatinine Glucose POC Glucose (mg/dL) 186 H 244 H Calcium Magnesium Phosphorus Alkaline Phosphatase Total Creatine Kinase Total Protein Albumin HDL Cholesterol IgG T-Suppressor Cells % CD4 [place] Absolute CD4 [place] CD4/CD8 Ratio % CD8 Suppressor 09/18/16 09/18/16 09/18/16 15:42 16:42 20:37 WBC RBC Hgb Hct MCHC RDW Plt Count Neutrophils # Neutrophils # (Manual) Lymphocytes # Lymphocytes # (Manual) Nucleated RBCs ABG pO2 ABG Total CO2 ABG pH ABG O2 Saturation ABG pCO2 ABG HCO3 Potassium Chloride BUN Creatinine Glucose POC Glucose (mg/dL) 233 H 224 H 259 H Calcium Magnesium Phosphorus Alkaline Phosphatase Total Creatine Kinase Total Protein Albumin HDL Cholesterol IgG T-Suppressor Cells % CD4 [place] Absolute CD4 [place] CD4/CD8 Ratio % CD8 Suppressor 09/18/16 09/19/16 09/19/16 23:46 00:32 04:25 WBC RBC Hgb Hct MCHC RDW Plt Count Neutrophils # Neutrophils # (Manual) Lymphocytes # Lymphocytes # (Manual) Nucleated RBCs ABG pO2 ABG Total CO2 ABG pH ABG O2 Saturation ABG pCO2 ABG HCO3 Potassium Chloride BUN Creatinine Glucose POC Glucose (mg/dL) 234 H 227 H 186 H Calcium Magnesium Phosphorus Alkaline Phosphatase Total Creatine Kinase Total Protein Albumin HDL Cholesterol IgG T-Suppressor Cells % CD4 [place] Absolute CD4 [place] CD4/CD8 Ratio % CD8 Suppressor 09/19/16 09/19/16 09/19/16 04:28 04:28 08:03 WBC 14.6 H RBC 2.49 L Hgb 7.4 L Hct 24.1 L MCHC 30.6 L RDW 19.0 H Plt Count 126 L Neutrophils # Neutrophils # (Manual) 14.0 H Lymphocytes # Lymphocytes # (Manual) 0.1 L Nucleated RBCs ABG pO2 ABG Total CO2 ABG pH ABG O2 Saturation ABG pCO2 ABG HCO3 Potassium Chloride 109 H BUN 25 H Creatinine 0.50 L Glucose 186 H POC Glucose (mg/dL) 191 H Calcium Magnesium 2.5 H Phosphorus 2.3 L Alkaline Phosphatase Total Creatine Kinase Total Protein Albumin HDL Cholesterol IgG T-Suppressor Cells % CD4 [place] Absolute CD4 [place] CD4/CD8 Ratio % CD8 Suppressor 09/19/16 09/19/16 09/19/16 08:25 12:41 17:03 WBC RBC Hgb Hct MCHC RDW Plt Count Neutrophils # Neutrophils # (Manual) Lymphocytes # Lymphocytes # (Manual) Nucleated RBCs ABG pO2 ABG Total CO2 29 H ABG pH ABG O2 Saturation ABG pCO2 ABG HCO3 28 H Potassium Chloride BUN Creatinine Glucose POC Glucose (mg/dL) 188 H 189 H Calcium Magnesium Phosphorus Alkaline Phosphatase Total Creatine Kinase Total Protein Albumin HDL Cholesterol IgG T-Suppressor Cells % CD4 [place] Absolute CD4 [place] CD4/CD8 Ratio % CD8 Suppressor 03/09/0609/20/16 09/20/16 22:58 01:15 04:39 WBC RBC Hgb Hct MCHC RDW Plt Count Neutrophils # Neutrophils # (Manual) Lymphocytes # Lymphocytes # (Manual) Nucleated RBCs ABG pO2 ABG Total CO2 ABG pH ABG O2 Saturation ABG pCO2 ABG HCO3 Potassium Chloride BUN Creatinine Glucose POC Glucose (mg/dL) 182 H 193 H 167 H Calcium Magnesium Phosphorus Alkaline Phosphatase Total Creatine Kinase Total Protein Albumin HDL Cholesterol IgG T-Suppressor Cells % CD4 [place] Absolute CD4 [place] CD4/CD8 Ratio % CD8 Suppressor 09/20/16 09/20/16 09/20/16 04:45 04:45 07:45 WBC RBC 2.71 L Hgb 8.2 L Hct 26.0 L MCHC RDW 19.9 H Plt Count 127 L Neutrophils # Neutrophils # (Manual) 9.5 H Lymphocytes # Lymphocytes # (Manual) 0.2 L Nucleated RBCs 3 H ABG pO2 76 L ABG Total CO2 28 H ABG pH 7.51 H ABG O2 Saturation ABG pCO2 34 L ABG HCO3 27 H Potassium Chloride 108 H BUN 28 H Creatinine Glucose 161 H POC Glucose (mg/dL) Calcium Magnesium Phosphorus 2.2 L Alkaline Phosphatase Total Creatine Kinase Total Protein Albumin HDL Cholesterol IgG T-Suppressor Cells % CD4 [place] Absolute CD4 [place] CD4/CD8 Ratio % CD8 Suppressor 09/20/16 09/20/16 09/20/16 08:24 16:17 20:36 WBC RBC Hgb Hct MCHC RDW Plt Count Neutrophils # Neutrophils # (Manual) Lymphocytes # Lymphocytes # (Manual) Nucleated RBCs ABG pO2 ABG Total CO2 ABG pH ABG O2 Saturation ABG pCO2 ABG HCO3 Potassium Chloride BUN Creatinine Glucose POC Glucose (mg/dL) 186 H 199 H 220 H Calcium Magnesium Phosphorus Alkaline Phosphatase Total Creatine Kinase Total Protein Albumin HDL Cholesterol IgG T-Suppressor Cells % CD4 [place] Absolute CD4 [place] CD4/CD8 Ratio % CD8 Suppressor 09/21/16 09/21/16 09/21/16 00:30 05:00 05:00 WBC RBC 2.61 L Hgb 8.2 L Hct 25.2 L MCHC RDW 20.7 H Plt Count 122 L Neutrophils # Neutrophils # (Manual) 9.8 H Lymphocytes # Lymphocytes # (Manual) 0.1 L Nucleated RBCs ABG pO2 ABG Total CO2 ABG pH ABG O2 Saturation ABG pCO2 ABG HCO3 Potassium Chloride BUN 36 H Creatinine Glucose 263 H POC Glucose (mg/dL) 267 H Calcium Magnesium 2.4 H Phosphorus Alkaline Phosphatase Total Creatine Kinase Total Protein 4.5 L Albumin 1.9 L HDL Cholesterol IgG T-Suppressor Cells % CD4 [place] Absolute CD4 [place] CD4/CD8 Ratio % CD8 Suppressor 09/21/16 09/21/16 09/21/16 05:11 08:10 09:00 WBC RBC Hgb Hct MCHC RDW Plt Count Neutrophils # Neutrophils # (Manual) Lymphocytes # Lymphocytes # (Manual) Nucleated RBCs ABG pO2 114 H ABG Total CO2 26 H ABG pH 7.54 H ABG O2 Saturation 99.0 H ABG pCO2 29 L ABG HCO3 Potassium Chloride BUN Creatinine Glucose POC Glucose (mg/dL) 288 H 245 H Calcium Magnesium Phosphorus Alkaline Phosphatase Total Creatine Kinase Total Protein Albumin HDL Cholesterol IgG T-Suppressor Cells % CD4 [place] Absolute CD4 [place] CD4/CD8 Ratio % CD8 Suppressor 09/21/16 09/21/16 09/21/16 10:05 11:32 14:06 WBC RBC Hgb Hct MCHC RDW Plt Count Neutrophils # Neutrophils # (Manual) Lymphocytes # Lymphocytes # (Manual) Nucleated RBCs ABG pO2 ABG Total CO2 26 H ABG pH 7.57 H ABG O2 Saturation 99.0 H ABG pCO2 28 L ABG HCO3 Potassium Chloride BUN Creatinine Glucose POC Glucose (mg/dL) 268 H 197 H Calcium Magnesium Phosphorus Alkaline Phosphatase Total Creatine Kinase Total Protein Albumin HDL Cholesterol IgG T-Suppressor Cells % CD4 [place] Absolute CD4 [place] CD4/CD8 Ratio % CD8 Suppressor 09/21/16 09/21/16 09/21/16 14:41 15:59 17:14 WBC RBC Hgb Hct MCHC RDW Plt Count Neutrophils # Neutrophils # (Manual) Lymphocytes # Lymphocytes # (Manual) Nucleated RBCs ABG pO2 ABG Total CO2 ABG pH ABG O2 Saturation ABG pCO2 ABG HCO3 Potassium Chloride BUN Creatinine Glucose POC Glucose (mg/dL) 145 H 104 H 132 H Calcium Magnesium Phosphorus Alkaline Phosphatase Total Creatine Kinase Total Protein Albumin HDL Cholesterol IgG T-Suppressor Cells % CD4 [place] Absolute CD4 [place] CD4/CD8 Ratio % CD8 Suppressor 09/21/16 09/21/16 09/21/16 18:11 20:05 22:10 WBC RBC Hgb Hct MCHC RDW Plt Count Neutrophils # Neutrophils # (Manual) Lymphocytes # Lymphocytes # (Manual) Nucleated RBCs ABG pO2 ABG Total CO2 ABG pH ABG O2 Saturation ABG pCO2 ABG HCO3 Potassium Chloride BUN Creatinine Glucose POC Glucose (mg/dL) 127 H 128 H 206 H Calcium Magnesium Phosphorus Alkaline Phosphatase Total Creatine Kinase Total Protein Albumin HDL Cholesterol IgG T-Suppressor Cells % CD4 [place] Absolute CD4 [place] CD4/CD8 Ratio % CD8 Suppressor 09/21/16 09/21/16 09/22/16 22:46 23:42 01:13 WBC RBC Hgb Hct MCHC RDW Plt Count Neutrophils # Neutrophils # (Manual) Lymphocytes # Lymphocytes # (Manual) Nucleated RBCs ABG pO2 ABG Total CO2 ABG pH ABG O2 Saturation ABG pCO2 ABG HCO3 Potassium Chloride BUN Creatinine Glucose POC Glucose (mg/dL) 230 H 195 H 158 H Calcium Magnesium Phosphorus Alkaline Phosphatase Total Creatine Kinase Total Protein Albumin HDL Cholesterol IgG T-Suppressor Cells % CD4 [place] Absolute CD4 [place] CD4/CD8 Ratio % CD8 Suppressor 09/22/16 09/22/16 09/22/16 02:14 04:34 04:45 WBC 13.6 H RBC 2.81 L Hgb 8.7 L Hct 27.3 L MCHC RDW 21.0 H Plt Count 124 L Neutrophils # 13.0 H Neutrophils # (Manual) Lymphocytes # 0.1 L Lymphocytes # (Manual) Nucleated RBCs ABG pO2 ABG Total CO2 ABG pH ABG O2 Saturation ABG pCO2 ABG HCO3 Potassium Chloride BUN Creatinine Glucose POC Glucose (mg/dL) 132 H 155 H Calcium Magnesium Phosphorus Alkaline Phosphatase Total Creatine Kinase Total Protein Albumin HDL Cholesterol IgG T-Suppressor Cells % CD4 [place] Absolute CD4 [place] CD4/CD8 Ratio % CD8 Suppressor 09/22/16 09/22/16 09/22/16 04:45 06:01 06:52 WBC RBC Hgb Hct MCHC RDW Plt Count Neutrophils # Neutrophils # (Manual) Lymphocytes # Lymphocytes # (Manual) Nucleated RBCs ABG pO2 ABG Total CO2 ABG pH ABG O2 Saturation ABG pCO2 ABG HCO3 Potassium Chloride BUN 39 H Creatinine Glucose 153 H POC Glucose (mg/dL) 123 H 171 H Calcium 10.5 H Magnesium 2.5 H Phosphorus Alkaline Phosphatase Total Creatine Kinase Total Protein 4.4 L Albumin 1.9 L HDL Cholesterol IgG T-Suppressor Cells % CD4 [place] Absolute CD4 [place] CD4/CD8 Ratio % CD8 Suppressor 09/22/16 09/22/16 09/22/16 08:10 08:21 09:29 WBC RBC Hgb Hct MCHC RDW Plt Count Neutrophils # Neutrophils # (Manual) Lymphocytes # Lymphocytes # (Manual) Nucleated RBCs ABG pO2 124 H ABG Total CO2 25 H ABG pH 7.52 H ABG O2 Saturation 99.0 H ABG pCO2 31 L ABG HCO3 Potassium Chloride BUN Creatinine Glucose POC Glucose (mg/dL) 192 H 170 H Calcium Magnesium Phosphorus Alkaline Phosphatase Total Creatine Kinase Total Protein Albumin HDL Cholesterol IgG T-Suppressor Cells % CD4 [place] Absolute CD4 [place] CD4/CD8 Ratio % CD8 Suppressor 09/22/16 09/22/16 09/22/16 10:02 10:54 12:06 WBC RBC Hgb Hct MCHC RDW Plt Count Neutrophils # Neutrophils # (Manual) Lymphocytes # Lymphocytes # (Manual) Nucleated RBCs ABG pO2 ABG Total CO2 ABG pH ABG O2 Saturation ABG pCO2 ABG HCO3 Potassium Chloride BUN Creatinine Glucose POC Glucose (mg/dL) 154 H 155 H 182 H Calcium Magnesium Phosphorus Alkaline Phosphatase Total Creatine Kinase Total Protein Albumin HDL Cholesterol IgG T-Suppressor Cells % CD4 [place] Absolute CD4 [place] CD4/CD8 Ratio % CD8 Suppressor 09/22/16 09/22/16 09/22/16 13:04 14:09 14:56 WBC RBC Hgb Hct MCHC RDW Plt Count Neutrophils # Neutrophils # (Manual) Lymphocytes # Lymphocytes # (Manual) Nucleated RBCs ABG pO2 ABG Total CO2 ABG pH ABG O2 Saturation ABG pCO2 ABG HCO3 Potassium Chloride BUN Creatinine Glucose POC Glucose (mg/dL) 225 H 185 H 142 H Calcium Magnesium Phosphorus Alkaline Phosphatase Total Creatine Kinase Total Protein Albumin HDL Cholesterol IgG T-Suppressor Cells % CD4 [place] Absolute CD4 [place] CD4/CD8 Ratio % CD8 Suppressor 09/22/16 09/22/16 09/22/16 16:09 17:18 18:23 WBC RBC Hgb Hct MCHC RDW Plt Count Neutrophils # Neutrophils # (Manual) Lymphocytes # Lymphocytes # (Manual) Nucleated RBCs ABG pO2 ABG Total CO2 ABG pH ABG O2 Saturation ABG pCO2 ABG HCO3 Potassium Chloride BUN Creatinine Glucose POC Glucose (mg/dL) 170 H 140 H 121 H Calcium Magnesium Phosphorus Alkaline Phosphatase Total Creatine Kinase Total Protein Albumin HDL Cholesterol IgG T-Suppressor Cells % CD4 [place] Absolute CD4 [place] CD4/CD8 Ratio % CD8 Suppressor 09/22/16 09/22/16 09/22/16 19:01 19:59 21:18 WBC RBC Hgb Hct MCHC RDW Plt Count Neutrophils # Neutrophils # (Manual) Lymphocytes # Lymphocytes # (Manual) Nucleated RBCs ABG pO2 ABG Total CO2 ABG pH ABG O2 Saturation ABG pCO2 ABG HCO3 Potassium Chloride BUN Creatinine Glucose POC Glucose (mg/dL) 117 H 138 H 164 H Calcium Magnesium Phosphorus Alkaline Phosphatase Total Creatine Kinase Total Protein Albumin HDL Cholesterol IgG T-Suppressor Cells % CD4 [place] Absolute CD4 [place] CD4/CD8 Ratio % CD8 Suppressor 09/22/16 09/23/16 09/23/16 23:06 00:17 01:09 WBC RBC Hgb Hct MCHC RDW Plt Count Neutrophils # Neutrophils # (Manual) Lymphocytes # Lymphocytes # (Manual) Nucleated RBCs ABG pO2 ABG Total CO2 ABG pH ABG O2 Saturation ABG pCO2 ABG HCO3 Potassium Chloride BUN Creatinine Glucose POC Glucose (mg/dL) 152 H 208 H 226 H Calcium Magnesium Phosphorus Alkaline Phosphatase Total Creatine Kinase Total Protein Albumin HDL Cholesterol IgG T-Suppressor Cells % CD4 [place] Absolute CD4 [place] CD4/CD8 Ratio % CD8 Suppressor 09/23/16 09/23/16 09/23/16 02:17 03:10 04:11 WBC RBC Hgb Hct MCHC RDW Plt Count Neutrophils # Neutrophils # (Manual) Lymphocytes # Lymphocytes # (Manual) Nucleated RBCs ABG pO2 ABG Total CO2 ABG pH ABG O2 Saturation ABG pCO2 ABG HCO3 Potassium Chloride BUN Creatinine Glucose POC Glucose (mg/dL) 160 H 138 H 129 H Calcium Magnesium Phosphorus Alkaline Phosphatase Total Creatine Kinase Total Protein Albumin HDL Cholesterol IgG T-Suppressor Cells % CD4 [place] Absolute CD4 [place] CD4/CD8 Ratio % CD8 Suppressor 09/23/16 09/23/16 09/23/16 04:20 04:20 05:04 WBC 12.6 H RBC 2.73 L Hgb 8.6 L Hct 26.4 L MCHC RDW 20.9 H Plt Count 117 L Neutrophils # 11.9 H Neutrophils # (Manual) Lymphocytes # 0.1 L Lymphocytes # (Manual) Nucleated RBCs ABG pO2 ABG Total CO2 ABG pH ABG O2 Saturation ABG pCO2 ABG HCO3 Potassium Chloride BUN 44 H Creatinine Glucose 124 H POC Glucose (mg/dL) 126 H Calcium 10.6 H Magnesium 2.5 H Phosphorus Alkaline Phosphatase 36 L Total Creatine Kinase Total Protein 4.3 L Albumin 1.9 L HDL Cholesterol IgG T-Suppressor Cells % CD4 [place] Absolute CD4 [place] CD4/CD8 Ratio % CD8 Suppressor 09/23/16 09/23/16 09/23/16 06:23 07:10 07:19 WBC RBC Hgb Hct MCHC RDW Plt Count Neutrophils # Neutrophils # (Manual) Lymphocytes # Lymphocytes # (Manual) Nucleated RBCs ABG pO2 ABG Total CO2 ABG pH 7.59 H ABG O2 Saturation 98.9 H ABG pCO2 22 L ABG HCO3 Potassium Chloride BUN Creatinine Glucose POC Glucose (mg/dL) 141 H 155 H Calcium Magnesium Phosphorus Alkaline Phosphatase Total Creatine Kinase Total Protein Albumin HDL Cholesterol IgG T-Suppressor Cells % CD4 [place] Absolute CD4 [place] CD4/CD8 Ratio % CD8 Suppressor 09/23/16 09/23/16 09/23/16 08:10 10:04 12:14 WBC RBC Hgb Hct MCHC RDW Plt Count Neutrophils # Neutrophils # (Manual) Lymphocytes # Lymphocytes # (Manual) Nucleated RBCs ABG pO2 ABG Total CO2 ABG pH ABG O2 Saturation ABG pCO2 ABG HCO3 Potassium Chloride BUN Creatinine Glucose POC Glucose (mg/dL) 155 H 182 H 246 H Calcium Magnesium Phosphorus Alkaline Phosphatase Total Creatine Kinase Total Protein Albumin HDL Cholesterol IgG T-Suppressor Cells % CD4 [place] Absolute CD4 [place] CD4/CD8 Ratio % CD8 Suppressor 09/23/16 09/23/16 13:54 14:26 WBC RBC Hgb Hct MCHC RDW Plt Count Neutrophils # Neutrophils # (Manual) Lymphocytes # Lymphocytes # (Manual) Nucleated RBCs ABG pO2 ABG Total CO2 ABG pH ABG O2 Saturation ABG pCO2 ABG HCO3 Potassium Chloride BUN Creatinine Glucose POC Glucose (mg/dL) 145 H 135 H Calcium Magnesium Phosphorus Alkaline Phosphatase Total Creatine Kinase Total Protein Albumin HDL Cholesterol IgG T-Suppressor Cells % CD4 [place] Absolute CD4 [place] CD4/CD8 Ratio % CD8 Suppressor Assessment and Plan (1) Metabolic encephalopathy Status: Acute Code(s): G93.41 - METABOLIC ENCEPHALOPATHY (2) Pneumocystis carinii pneumonia Status: Acute Code(s): B59 - PNEUMOCYSTOSIS (3) Bilateral pleural effusion Status: Acute Code(s): J90 - PLEURAL EFFUSION, NOT ELSEWHERE CLASSIFIED (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 Patient was taken off of sedation yesterday and is shown no improvement in her mental status. She remains encephalopathic. She was sent for a emergent computed tomography scan of the brain today the results of which are noted above. There is no evidence of acute stroke. Patient is unable to have MRI of the brain for further evaluation as she is intubated. The patient's neurological examination is very limited. She does not withdraw to pain. Pupils are sluggishly reactive. She remains encephalopathic. She has complex medical issues including recent diagnosis of Burkitt's lymphoma. She has undergone 3 cycles of chemotherapy. She is now also being treated for pneumocystis carinii and is on antibiotic therapy. This patient has evidence of a diffuse metabolic encephalopathy that is multifactorial. We will obtain a routine EEG tomorrow for further evaluation. Her overall prognosis at this time remains very guarded. Would recommend ongoing evaluation and treatment by multiple specialists in the intensive care unit. As noted her overall prognosis at this time remains very guarded. Time with Patient: Greater than 30
[2016-09-23 15:59] LABS: Glucose,Whole Blood 175 mg/dL (75-99)
[2016-09-23 17:06] LABS: Glucose,Whole Blood 203 mg/dL (75-99)
--- NOTE | 2016-09-23 17:45 | P.PN ---
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 She was started on R-EPOCH in June and is status post 3 cycles and most recent one was provided on August 30 through September 04. Patient's son is at the bedside and states that she has had problems with weakness and most recently with shortness of breath, feeling hot and clammy without documented fever. She had increasing shortness of breath when she got up to go to the bathroom and was worsening over this past week. On at 11:00 p.m., her called their son to come over and check on her. Her pulse was high and they ended up having her sit in a chair and relax and she was feeling better. On Friday, she was okay but by Friday at 2 in the morning she had a repeat episode. Her son called [facility] and was instructed to bring her into the emergency center. She was found to be afebrile with white count of 8.7. Initial hemoglobin was 8.2 platelet count 124. Urine was cloudy, RBC 16 and bacteria rare. Urine culture showing no growth at 18 hours. Patient was on the selective care unit initially but developed increasing shortness of breath due to pleural effusion which was not improved with Lasix. Dr. Parish was on consult and attempted right-sided thoracentesis but terminated the procedure as her pulse ox dropped to the 50%. She was intubated and underwent bronchoscopy in the intensive care unit. She was given 3 L of IV fluids and initially was on Levophed which is subsequently been discontinued. She is currently intubated and on mechanical ventilation. Tube feedings are to be started. Patient has albumin 1.8. CAT scan of the chest was negative for pulmonary embolism. Moderate to large right pleural effusion with adjacent atelectasis. Confluent groundglass and consolidation with septal lines. Correlate for pulmonary edema. Atypical pneumonia and DAH are also in the differential. Edematous changes throughout the mediastinum assessment for mediastinal lymphadenopathy. She has other consultants on including oncology, cardiology and casing tier. Urine culture is finalized with no growth. Fungal, acid-fast bacilli are negative to date. Cultures are negative from the bronchoscopy also. Pneumocystis testing from pathology was negative however the PCR has come back as positive. In intravenous trimethoprim sulfamethoxazole was started Blood cultures are pending and negative so far IVIG was given and monitoring for improvement Objective - Vital Signs Vital signs: Vital Signs Temp 98.2 F 09/23/16 16:00 Pulse 85 09/23/16 17:00 Resp 23 09/23/16 17:00 BP 103/65 09/23/16 17:00 Pulse Ox 100 09/23/16 17:00 Intake & Output 09/22/16 09/23/16 09/23/16 18:59 06:59 18:59 Intake Total 8775.212 6065.197 2554.753 Output Total 940 1011 1180 Balance 301.228 245.026 4324.753 Weight 67.7 kg Intake: IV 2184 974 7293 Levofloxacin 750Mg-D5w 100 150 Pmx 750 mg In Dextrose/ Water 1 150ml.bag @ 100 mls/hr IVPB Q24H [facility] Rx#: [id number] Sulfamethox-Tmp 80-16Mg/ 500 500 500 ml 345 mg In Dextrose 5% in Water 500 ml @ 250 mls /hr IVPB Q12HR [facility] Rx#: [id number] ns 608 595 6406 pressure bag 30 Intake, IV Titration 92.228 184.197 76.753 Amount Dexmedetomidine 400 mcg 48.987 168.710 14 In Sodium Chloride 0.9% 100 ml @ Titrate IV .Q0M [facility] Rx#:[id number] Empty Bag 1 bag @ Titrate 13.563 IV .Q0M [facility] with Propofol 500 mg Rx#: [id number] Insulin Regular 100 unit 29.678 15.487 32.607 In Sodium Chloride 0.9% 100 ml @ Per Protocol IV .Q0M [facility] Rx#:[id number] Propofol 500 mg In Empty 30.146 Bag 1 bag @ Titrate IV . Q0M [facility] Rx#:[id number] Tube Feeding 99 462 495 Other 210 Output: Chest Tube Drainage 20 30 220 Chest Tube Right Lateral 20 30 220 Chest Urine 920 981 960 Stool 0 0 Other: Voiding Method Indwelling Catheter Indwelling Catheter Indwelling Catheter # Bowel Movements 0 ABP, PAP, CO, CI - Last Documented Arterial Blood Pressure 145/60 - Exam Gen: This is a 80-year-old female currently intubated on mechanical ventilation and appears to be comfortable in no acute distress. HEENT: Head is atraumatic, normocephalic. Pupils equal, round. Sclerae is anicteric. White coating on her tongue. Oral ETT and oral gastric tube in place. NECK: Supple. No JVD. No lymphadenopathy. No thyromegaly. LUNGS: Good air exchange anteriorly bilaterally, diminished to the bases. No intercostal retractions. Right sided chest tube HEART: Regular rate and rhythm. No murmur. ABDOMEN: Soft. Bowel sounds are present. No masses. No tenderness. EXTREMITIES: No pedal edema. No calf tenderness. Dorsalis pedis is weak bilaterally. No skin breakdown noted. NEUROLOGICAL: Patient is sedated. She is no longer paralyzed and with sedation holiday was appropriate. - Labs CBC & Chem 7: 09/23/16 04:20 09/23/16 04:20 Labs: Abnormal Lab Results - Last 24 Hours (Table) 09/22/16 09/22/16 09/22/16 Range/Units 18:23 19:01 19:59 WBC (3.8-10.6) k/uL RBC (3.80-5.40) m/uL Hgb (11.4-16.0) gm/dL Hct (34.0-46.0) % RDW (11.5-15.5) % Plt Count (150-450) k/uL Neutrophils # (1.3-7.7) k/uL Lymphocytes # (1.0-4.8) k/uL ABG pH (7.35-7.45) ABG pCO2 (35-45) mmHg ABG O2 Saturation (94-97) % BUN (7-17) mg/dL Glucose (74-99) mg/dL POC Glucose (mg/dL) 121 H 117 H 138 H (75-99) mg/dL Calcium (8.4-10.2) mg/dL Magnesium (1.6-2.3) mg/dL Alkaline Phosphatase (38-126) U/L Total Protein (6.3-8.2) g/dL Albumin (3.5-5.0) g/dL 09/22/16 09/22/16 09/23/16 Range/Units 21:18 23:06 00:17 WBC (3.8-10.6) k/uL RBC (3.80-5.40) m/uL Hgb (11.4-16.0) gm/dL Hct (34.0-46.0) % RDW (11.5-15.5) % Plt Count (150-450) k/uL Neutrophils # (1.3-7.7) k/uL Lymphocytes # (1.0-4.8) k/uL ABG pH (7.35-7.45) ABG pCO2 (35-45) mmHg ABG O2 Saturation (94-97) % BUN (7-17) mg/dL Glucose (74-99) mg/dL POC Glucose (mg/dL) 164 H 152 H 208 H (75-99) mg/dL Calcium (8.4-10.2) mg/dL Magnesium (1.6-2.3) mg/dL Alkaline Phosphatase (38-126) U/L Total Protein (6.3-8.2) g/dL Albumin (3.5-5.0) g/dL 09/23/16 09/23/16 09/23/16 Range/Units 01:09 02:17 03:10 WBC (3.8-10.6) k/uL RBC (3.80-5.40) m/uL Hgb (11.4-16.0) gm/dL Hct (34.0-46.0) % RDW (11.5-15.5) % Plt Count (150-450) k/uL Neutrophils # (1.3-7.7) k/uL Lymphocytes # (1.0-4.8) k/uL ABG pH (7.35-7.45) ABG pCO2 (35-45) mmHg ABG O2 Saturation (94-97) % BUN (7-17) mg/dL Glucose (74-99) mg/dL POC Glucose (mg/dL) 226 H 160 H 138 H (75-99) mg/dL Calcium (8.4-10.2) mg/dL Magnesium (1.6-2.3) mg/dL Alkaline Phosphatase (38-126) U/L Total Protein (6.3-8.2) g/dL Albumin (3.5-5.0) g/dL 09/23/16 09/23/16 09/23/16 Range/Units 04:11 04:20 04:20 WBC 12.6 H (3.8-10.6) k/uL RBC 2.73 L (3.80-5.40) m/uL Hgb 8.6 L (11.4-16.0) gm/dL Hct 26.4 L (34.0-46.0) % RDW 20.9 H (11.5-15.5) % Plt Count 117 L (150-450) k/uL Neutrophils # 11.9 H (1.3-7.7) k/uL Lymphocytes # 0.1 L (1.0-4.8) k/uL ABG pH (7.35-7.45) ABG pCO2 (35-45) mmHg ABG O2 Saturation (94-97) % BUN 44 H (7-17) mg/dL Glucose 124 H (74-99) mg/dL POC Glucose (mg/dL) 129 H (75-99) mg/dL Calcium 10.6 H (8.4-10.2) mg/dL Magnesium 2.5 H (1.6-2.3) mg/dL Alkaline Phosphatase 36 L (38-126) U/L Total Protein 4.3 L (6.3-8.2) g/dL Albumin 1.9 L (3.5-5.0) g/dL 09/23/16 09/23/16 09/23/16 Range/Units 05:04 06:23 07:10 WBC (3.8-10.6) k/uL RBC (3.80-5.40) m/uL Hgb (11.4-16.0) gm/dL Hct (34.0-46.0) % RDW (11.5-15.5) % Plt Count (150-450) k/uL Neutrophils # (1.3-7.7) k/uL Lymphocytes # (1.0-4.8) k/uL ABG pH 7.59 H (7.35-7.45) ABG pCO2 22 L (35-45) mmHg ABG O2 Saturation 98.9 H (94-97) % BUN (7-17) mg/dL Glucose (74-99) mg/dL POC Glucose (mg/dL) 126 H 141 H (75-99) mg/dL Calcium (8.4-10.2) mg/dL Magnesium (1.6-2.3) mg/dL Alkaline Phosphatase (38-126) U/L Total Protein (6.3-8.2) g/dL Albumin (3.5-5.0) g/dL 09/23/16 09/23/16 09/23/16 Range/Units 07:19 08:10 10:04 WBC (3.8-10.6) k/uL RBC (3.80-5.40) m/uL Hgb (11.4-16.0) gm/dL Hct (34.0-46.0) % RDW (11.5-15.5) % Plt Count (150-450) k/uL Neutrophils # (1.3-7.7) k/uL Lymphocytes # (1.0-4.8) k/uL ABG pH (7.35-7.45) ABG pCO2 (35-45) mmHg ABG O2 Saturation (94-97) % BUN (7-17) mg/dL Glucose (74-99) mg/dL POC Glucose (mg/dL) 155 H 155 H 182 H (75-99) mg/dL Calcium (8.4-10.2) mg/dL Magnesium (1.6-2.3) mg/dL Alkaline Phosphatase (38-126) U/L Total Protein (6.3-8.2) g/dL Albumin (3.5-5.0) g/dL 09/23/16 09/23/16 09/23/16 Range/Units 12:14 13:54 14:26 WBC (3.8-10.6) k/uL RBC (3.80-5.40) m/uL Hgb (11.4-16.0) gm/dL Hct (34.0-46.0) % RDW (11.5-15.5) % Plt Count (150-450) k/uL Neutrophils # (1.3-7.7) k/uL Lymphocytes # (1.0-4.8) k/uL ABG pH (7.35-7.45) ABG pCO2 (35-45) mmHg ABG O2 Saturation (94-97) % BUN (7-17) mg/dL Glucose (74-99) mg/dL POC Glucose (mg/dL) 246 H 145 H 135 H (75-99) mg/dL Calcium (8.4-10.2) mg/dL Magnesium (1.6-2.3) mg/dL Alkaline Phosphatase (38-126) U/L Total Protein (6.3-8.2) g/dL Albumin (3.5-5.0) g/dL 09/23/16 09/23/16 09/23/16 Range/Units 15:07 15:58 17:03 WBC (3.8-10.6) k/uL RBC (3.80-5.40) m/uL Hgb (11.4-16.0) gm/dL Hct (34.0-46.0) % RDW (11.5-15.5) % Plt Count (150-450) k/uL Neutrophils # (1.3-7.7) k/uL Lymphocytes # (1.0-4.8) k/uL ABG pH (7.35-7.45) ABG pCO2 (35-45) mmHg ABG O2 Saturation (94-97) % BUN (7-17) mg/dL Glucose (74-99) mg/dL POC Glucose (mg/dL) 124 H 175 H 203 H (75-99) mg/dL Calcium (8.4-10.2) mg/dL Magnesium (1.6-2.3) mg/dL Alkaline Phosphatase (38-126) U/L Total Protein (6.3-8.2) g/dL Albumin (3.5-5.0) g/dL Microbiology - Last 24 Hours (Table) 09/15/16 15:00 Fungal Culture - Preliminary Bronchial Washings - Left 09/16/16 20:37 Blood Culture - Final Blood No Growth after 144 hours 09/16/16 19:34 Blood Culture - Final Blood No Growth after 144 hours Laboratory Results WBC 12.6 k/uL (3.8-10.6) H 09/23/16 04:20 RBC 2.73 m/uL (3.80-5.40) L 09/23/16 04:20 Hgb 8.6 gm/dL (11.4-16.0) L 09/23/16 04:20 Hct 26.4 % (34.0-46.0) L 09/23/16 04:20 MCV 96.7 fL (80.0-100.0) 09/23/16 04:20 MCH 31.4 pg (25.0-35.0) 09/23/16 04:20 MCHC 32.5 g/dL (31.0-37.0) 09/23/16 04:20 RDW 20.9 % (11.5-15.5) H 09/23/16 04:20 Plt Count 117 k/uL (150-450) L 09/23/16 04:20 Neutrophils % 95 % 09/23/16 04:20 Neutrophils % (Manual) 91.5 % 09/21/16 05:00 Band Neutrophils % 4.5 % 09/21/16 05:00 Lymphocytes % 1 % 09/23/16 04:20 Lymphocytes % (Manual) 0.5 % 09/21/16 05:00 Monocytes % 4 % 09/23/16 04:20 Monocytes % (Manual) 1.0 % 09/21/16 05:00 Eosinophils % 0 % 09/23/16 04:20 Basophils % 0 % 09/23/16 04:20 Metamyelocytes % 1.5 % 09/21/16 05:00 Myelocytes % 1.0 % 09/21/16 05:00 Neutrophils # 11.9 k/uL (1.3-7.7) H 09/23/16 04:20 Neutrophils # (Manual) 9.8 k/uL (1.3-7.7) H 09/21/16 05:00 Lymphocytes # 0.1 k/uL (1.0-4.8) L 09/23/16 04:20 Lymphocytes # (Manual) 0.1 k/uL (1.0-4.8) L 09/21/16 05:00 Monocytes # 0.5 k/uL (0-1.0) 09/23/16 04:20 Monocytes # (Manual) 0.1 k/uL (0-1.0) 09/21/16 05:00 Eosinophils # 0.0 k/uL (0-0.7) 09/23/16 04:20 Basophils # 0.0 k/uL (0-0.2) 09/23/16 04:20 Nucleated RBCs 0 /100 WBC (0-0) 09/21/16 05:00 Manual Slide Review Performed 09/22/16 04:45 Polychromasia Present 09/22/16 04:45 Hypochromasia Slight 09/23/16 04:20 Poikilocytosis Slight 09/22/16 04:45 Anisocytosis Moderate 09/23/16 04:20 Macrocytosis Slight 09/23/16 04:20 Tear Drop Cells Present 09/22/16 04:45 PT sec (9.0-12.0) 09/23/16 04:20 INR (<1.1) 09/23/16 04:20 APTT 23.1 sec (22.0-30.0) 09/14/16 07:44 Sample Site [facility] 09/23/16 07:10 ABG pH 7.59 (7.35-7.45) H 09/23/16 07:10 ABG pCO2 22 mmHg (35-45) L 09/23/16 07:10 ABG pO2 102 mmHg (83-108) 09/23/16 07:10 ABG HCO3 21 mmol/L (21-25) 09/23/16 07:10 ABG Total CO2 22 mmol/L (19-24) 09/23/16 07:10 ABG O2 Saturation 98.9 % (94-97) H 09/23/16 07:10 ABG Base Excess -1.0 mmol/L 09/23/16 07:10 FiO2 35 % 09/23/16 07:10 Sodium 137 mmol/L (137-145) 09/23/16 04:20 Potassium 4.6 mmol/L (3.5-5.1) 09/23/16 04:20 Chloride 107 mmol/L (98-107) 09/23/16 04:20 Carbon Dioxide 26 mmol/L (22-30) 09/23/16 04:20 Anion Gap 4 mmol/L 09/23/16 04:20 BUN 44 mg/dL (7-17) H 09/23/16 04:20 Creatinine 0.70 mg/dL (0.52-1.04) 09/23/16 04:20 Est GFR (MDRD) Af Amer >60 (>60 ml/min/1.73 sqM) 09/23/16 04:20 Est GFR (MDRD) Non-Af >60 (>60 ml/min/1.73 sqM) 09/23/16 04:20 Glucose 124 mg/dL (74-99) H 09/23/16 04:20 POC Glucose (mg/dL) 203 mg/dL (75-99) H 09/23/16 17:03 POC Glu Phd Internship ID Monalisa Jimenez 09/23/16 17:[address] Glu mg/dL 128 mg/dL 09/14/16 07:44 Hemoglobin A1c 6.1 % (4.2-6.1) 09/14/16 07:44 Plasma Lactic Acid Markie 1.4 mmol/L (0.7-2.0) 09/18/16 04:50 Calcium 10.6 mg/dL (8.4-10.2) H 09/23/16 04:20 Phosphorus 3.5 mg/dL (2.5-4.5) 09/23/16 04:20 Magnesium 2.5 mg/dL (1.6-2.3) H 09/23/16 04:20 Total Bilirubin 0.3 mg/dL (0.2-1.3) 09/23/16 04:20 AST 26 U/L (14-36) 09/23/16 04:20 ALT 40 U/L (9-52) 09/23/16 04:20 Alkaline Phosphatase 36 U/L (38-126) L 09/23/16 04:20 Total Creatine Kinase <20 U/L (30-135) L 09/14/16 19:28 CK-MB (CK-2) 0.4 ng/mL (0.0-2.4) 09/14/16 19:28 CK-MB (CK-2) Rel Index 0.0 09/14/16 19:28 Troponin I 0.022 ng/mL (0.000-0.034) 09/14/16 19:28 NT-Pro-B Natriuret Pep 3070 pg/mL 09/15/16 05:49 Total Protein 4.3 g/dL (6.3-8.2) L 09/23/16 04:20 Albumin 1.9 g/dL (3.5-5.0) L 09/23/16 04:20 Triglycerides 122 mg/dL (<150) 09/15/16 05:49 Cholesterol 94 mg/dL (<200) 09/15/16 05:49 LDL Cholesterol, Calc 50 mg/dL (0-99) 09/15/16 05:49 HDL Cholesterol 20 mg/dL (40-60) L 09/15/16 05:49 TSH 1.910 mIU/L (0.465-4.680) 09/15/16 05:49 Urine Color Yellow 09/14/16 08:42 Urine Appearance Cloudy (Clear) H 09/14/16 08:42 Urine pH 7.0 (5.0-8.0) 09/14/16 08:42 Ur Specific [place] 1.016 (1.001-1.035) 09/14/16 08:42 Urine Protein Trace (Negative) H 09/14/16 08:42 Urine Glucose (UA) Negative (Negative) 09/14/16 08:42 Urine Ketones Negative (Negative) 09/14/16 08:42 Urine Blood Negative (Negative) 09/14/16 08:42 Urine Nitrate Negative (Negative) 09/14/16 08:42 Urine Bilirubin Negative (Negative) 09/14/16 08:42 Urine Urobilinogen 4.0 mg/dL (<2.0) 09/14/16 08:42 Ur Leukocyte Esterase Negative (Negative) 09/14/16 08:42 Urine RBC 16 /hpf (0-5) H 09/14/16 08:42 Urine WBC 5 /hpf (0-5) 09/14/16 08:42 Ur Squamous Epith Cells 1 /hpf (0-4) 09/14/16 08:42 Urine Bacteria Rare /hpf (None) H 09/14/16 08:42 Urine Mucus Rare /hpf (None) H 09/14/16 08:42 Vancomycin Trough 8.0 ug/mL 09/20/16 16:40 IgG 172.0 mg/dL (700.0-1600.0) L 09/17/16 05:46 T-Suppressor Cells 15 cell/ul (190-832) L 09/17/16 05:46 % CD4 [place] 20 % (35-66) L 09/17/16 05:46 Absolute CD4 [place] 7 cell/ul (443-1471) L 09/17/16 05:46 CD4/CD8 Ratio 0.5 (1.0-3.7) L 09/17/16 05:46 % CD8 Suppressor 42 % (9-37) H 09/17/16 05:46 Virus Source See Below 09/15/16 15:00 Viral Test See Below 09/15/16 15:00 Virus Analysis Interp See Below 09/15/16 15:00 Miscellaneous Test PT/INR 09/23/16 04:20 Misc Test Result 09/23/16 04:20 Blood Type A Positive 09/14/16 08:30 Blood Type Confirm A Positive 09/14/16 07:44 Blood Type Recheck CABO Indicated 09/14/16 08:30 Antibody Screen NEGATIVE 09/14/16 08:30 Spec Expiration Date 09/17/2016 - 232909/14/16 08:30 Laboratory Results WBC 12.6 k/uL (3.8-10.6) H 09/23/16 04:20 RBC 2.73 m/uL (3.80-5.40) L 09/23/16 04:20 Hgb 8.6 gm/dL (11.4-16.0) L 09/23/16 04:20 Hct 26.4 % (34.0-46.0) L 09/23/16 04:20 MCV 96.7 fL (80.0-100.0) 09/23/16 04:20 MCH 31.4 pg (25.0-35.0) 09/23/16 04:20 MCHC 32.5 g/dL (31.0-37.0) 09/23/16 04:20 RDW 20.9 % (11.5-15.5) H 09/23/16 04:20 Plt Count 117 k/uL (150-450) L 09/23/16 04:20 Neutrophils % 95 % 09/23/16 04:20 Neutrophils % (Manual) 91.5 % 09/21/16 05:00 Band Neutrophils % 4.5 % 09/21/16 05:00 Lymphocytes % 1 % 09/23/16 04:20 Lymphocytes % (Manual) 0.5 % 09/21/16 05:00 Monocytes % 4 % 09/23/16 04:20 Monocytes % (Manual) 1.0 % 09/21/16 05:00 Eosinophils % 0 % 09/23/16 04:20 Basophils % 0 % 09/23/16 04:20 Metamyelocytes % 1.5 % 09/21/16 05:00 Myelocytes % 1.0 % 09/21/16 05:00 Neutrophils # 11.9 k/uL (1.3-7.7) H 09/23/16 04:20 Neutrophils # (Manual) 9.8 k/uL (1.3-7.7) H 09/21/16 05:00 Lymphocytes # 0.1 k/uL (1.0-4.8) L 09/23/16 04:20 Lymphocytes # (Manual) 0.1 k/uL (1.0-4.8) L 09/21/16 05:00 Monocytes # 0.5 k/uL (0-1.0) 09/23/16 04:20 Monocytes # (Manual) 0.1 k/uL (0-1.0) 09/21/16 05:00 Eosinophils # 0.0 k/uL (0-0.7) 09/23/16 04:20 Basophils # 0.0 k/uL (0-0.2) 09/23/16 04:20 Nucleated RBCs 0 /100 WBC (0-0) 09/21/16 05:00 Manual Slide Review Performed 09/22/16 04:45 Polychromasia Present 09/22/16 04:45 Hypochromasia Slight 09/23/16 04:20 Poikilocytosis Slight 09/22/16 04:45 Anisocytosis Moderate 09/23/16 04:20 Macrocytosis Slight 09/23/16 04:20 Tear Drop Cells Present 09/22/16 04:45 PT sec (9.0-12.0) 09/23/16 04:20 INR (<1.1) 09/23/16 04:20 APTT 23.1 sec (22.0-30.0) 09/14/16 07:44 Sample Site [place] 09/23/16 07:10 ABG pH 7.59 (7.35-7.45) H 09/23/16 07:10 ABG pCO2 22 mmHg (35-45) L 09/23/16 07:10 ABG pO2 102 mmHg (83-108) 09/23/16 07:10 ABG HCO3 21 mmol/L (21-25) 09/23/16 07:10 ABG Total CO2 22 mmol/L (19-24) 09/23/16 07:10 ABG O2 Saturation 98.9 % (94-97) H 09/23/16 07:10 ABG Base Excess -1.0 mmol/L 09/23/16 07:10 FiO2 35 % 09/23/16 07:10 Sodium 137 mmol/L (137-145) 09/23/16 04:20 Potassium 4.6 mmol/L (3.5-5.1) 09/23/16 04:20 Chloride 107 mmol/L (98-107) 09/23/16 04:20 Carbon Dioxide 26 mmol/L (22-30) 09/23/16 04:20 Anion Gap 4 mmol/L 09/23/16 04:20 BUN 44 mg/dL (7-17) H 09/23/16 04:20 Creatinine 0.70 mg/dL (0.52-1.04) 09/23/16 04:20 Est GFR (MDRD) Af Amer >60 (>60 ml/min/1.73 sqM) 09/23/16 04:20 Est GFR (MDRD) Non-Af >60 (>60 ml/min/1.73 sqM) 09/23/16 04:20 Glucose 124 mg/dL (74-99) H 09/23/16 04:20 POC Glucose (mg/dL) 203 mg/dL (75-99) H 09/23/16 17:03 POC Glu Phd Internship [facility] Monalisa Jimenez 09/23/16 17:[address] Glu mg/dL 128 mg/dL 09/14/16 07:44 Hemoglobin A1c 6.1 % (4.2-6.1) 09/14/16 07:44 Plasma Lactic Acid Markie 1.4 mmol/L (0.7-2.0) 09/18/16 04:50 Calcium 10.6 mg/dL (8.4-10.2) H 09/23/16 04:20 Phosphorus 3.5 mg/dL (2.5-4.5) 09/23/16 04:20 Magnesium 2.5 mg/dL (1.6-2.3) H 09/23/16 04:20 Total Bilirubin 0.3 mg/dL (0.2-1.3) 09/23/16 04:20 AST 26 U/L (14-36) 09/23/16 04:20 ALT 40 U/L (9-52) 09/23/16 04:20 Alkaline Phosphatase 36 U/L (38-126) L 09/23/16 04:20 Total Creatine Kinase <20 U/L (30-135) L 09/14/16 19:28 CK-MB (CK-2) 0.4 ng/mL (0.0-2.4) 09/14/16 19:28 CK-MB (CK-2) Rel Index 0.0 09/14/16 19:28 Troponin I 0.022 ng/mL (0.000-0.034) 09/14/16 19:28 NT-Pro-B Natriuret Pep 3070 pg/mL 09/15/16 05:49 Total Protein 4.3 g/dL (6.3-8.2) L 09/23/16 04:20 Albumin 1.9 g/dL (3.5-5.0) L 09/23/16 04:20 Triglycerides 122 mg/dL (<150) 09/15/16 05:49 Cholesterol 94 mg/dL (<200) 09/15/16 05:49 LDL Cholesterol, Calc 50 mg/dL (0-99) 09/15/16 05:49 HDL Cholesterol 20 mg/dL (40-60) L 09/15/16 05:49 TSH 1.910 mIU/L (0.465-4.680) 09/15/16 05:49 Urine Color Yellow 09/14/16 08:42 Urine Appearance Cloudy (Clear) H 09/14/16 08:42 Urine pH 7.0 (5.0-8.0) 09/14/16 08:42 Ur Specific [place] 1.016 (1.001-1.035) 09/14/16 08:42 Urine Protein Trace (Negative) H 09/14/16 08:42 Urine Glucose (UA) Negative (Negative) 09/14/16 08:42 Urine Ketones Negative (Negative) 09/14/16 08:42 Urine Blood Negative (Negative) 09/14/16 08:42 Urine Nitrate Negative (Negative) 09/14/16 08:42 Urine Bilirubin Negative (Negative) 09/14/16 08:42 Urine Urobilinogen 4.0 mg/dL (<2.0) 09/14/16 08:42 Ur Leukocyte Esterase Negative (Negative) 09/14/16 08:42 Urine RBC 16 /hpf (0-5) H 09/14/16 08:42 Urine WBC 5 /hpf (0-5) 09/14/16 08:42 Ur Squamous Epith Cells 1 /hpf (0-4) 09/14/16 08:42 Urine Bacteria Rare /hpf (None) H 09/14/16 08:42 Urine Mucus Rare /hpf (None) H 09/14/16 08:42 Vancomycin Trough 8.0 ug/mL 09/20/16 16:40 IgG 172.0 mg/dL (700.0-1600.0) L 09/17/16 05:46 T-Suppressor Cells 15 cell/ul (190-832) L 09/17/16 05:46 % CD4 [place] 20 % (35-66) L 09/17/16 05:46 Absolute CD4 [place] 7 cell/ul (443-1471) L 09/17/16 05:46 CD4/CD8 Ratio 0.5 (1.0-3.7) L 09/17/16 05:46 % CD8 Suppressor 42 % (9-37) H 09/17/16 05:46 Virus Source See Below 09/15/16 15:00 Viral Test See Below 09/15/16 15:00 Virus Analysis Interp See Below 09/15/16 15:00 Miscellaneous Test PT/INR 09/23/16 04:20 Misc Test Result 09/23/16 04:20 Blood Type A Positive 09/14/16 08:30 Blood Type Confirm A Positive 09/14/16 07:44 Blood Type Recheck CABO Indicated 09/14/16 08:30 Antibody Screen NEGATIVE 09/14/16 08:30 Spec Expiration Date 09/17/2016 - 232909/14/16 08:30 Microbiology 09/15/16 15:00 Bronchial Washings - Left Fungal Culture - Preliminary 09/16/16 20:37 Blood Blood Culture - Final No Growth after 144 hours 09/16/16 19:34 Blood Blood Culture - Final No Growth after 144 hours 09/16/16 00:45 Urine,Catheterized Urine Culture - Final 09/15/16 15:00 Bronchoalviolar Lavage - Left Gram Stain - Final 09/15/16 15:00 Bronchoalviolar Lavage - Left Bronchial Washings Culture - Final 09/15/16 15:00 Bronchial Washings - Right Acid Fast Bacilli Smear - Final 09/15/16 15:00 Bronchial Washings - Right Acid Fast Bacilli Culture - Preliminary 09/14/16 08:42 Urine,Clean Catch Urine Culture - Final Assessment and Plan (1) Burkitt lymphoma of extranodal or solid organ site Narrative/Plan: 80-year-old female with a known history of Burkitt's lymphoma status post 3 cycles of the altered R EPOCH chemotherapy. She has developed respiratory failure requiring intubation and mechanical ventilation. Chest x- ray is abnormal. She has had bronchoscopy. Cultures are negative so far. Viral assay was negative. Pneumocystis is evaluated by pathology and is negative CD4 cell count is profoundly low as part of her significant immunocompromise. IgG level is very low and was supplemented. PCR is now come back for pneumocystis and has come back as a positive test. Consequently prior antimicrobials except levofloxacin are discontinued. Intravenous trimethoprim sulfamethoxazole is added. She is already receiving steroid therapy. Continue to closely monitor her renal function with the intravenous trimethoprim sulfamethoxazole Family is contemplating tracheostomy and PEG tube placement versus other route of care given her overall circumstance Status: Acute (2) Pneumonia Status: Acute (3) Respiratory failure Status: Acute
[2016-09-23 18:09] LABS: Glucose,Whole Blood 200 mg/dL (75-99)
[2016-09-23 19:06] LABS: Glucose,Whole Blood 212 mg/dL (75-99)
[2016-09-23 20:11] LABS: Glucose,Whole Blood 217 mg/dL (75-99)
[2016-09-23 20:47] LABS: Glucose,Whole Blood 183 mg/dL (75-99)
[2016-09-23] MEDS: FLUoxetine HCL 20 MG CAP PO SCH (21:09)
[2016-09-23 21:10] LABS: Glucose,Whole Blood 204 mg/dL (75-99)
[2016-09-23 22:03] LABS: Glucose,Whole Blood 248 mg/dL (75-99)
[2016-09-23 23:24] LABS: Glucose,Whole Blood 238 mg/dL (75-99)
[2016-09-24] MEDS: NITROGLYCERIN OINT 1 INCH/GM PACKET TOPICAL SCH ×3 (00:01→16:07)
[2016-09-24 00:28] LABS: Glucose,Whole Blood 197 mg/dL (75-99)
[2016-09-24] MEDS: methylPREDNISolone SOD SUCCI 125 MG/2 ML VIAL IV SCH ×4 (00:55→17:44)
[2016-09-24 01:00] LABS: Glucose,Whole Blood 164 mg/dL (75-99)
[2016-09-24 02:04] LABS: Glucose,Whole Blood 127 mg/dL (75-99)
[2016-09-24] MEDS: IPRATROPIUM-ALBUTEROL 3 ML NEB INHALATION PRN ×4 (03:08→15:22)
[2016-09-24 03:22] LABS: Glucose,Whole Blood 125 mg/dL (75-99)
[2016-09-24] MEDS: PROPOFOL 500 MG in EMPTY BAG 1 BAG IV SCH ×2 (04:00→16:01)
[2016-09-24 04:03] LABS: Glucose,Whole Blood 178 mg/dL (75-99)
[2016-09-24 05:21] LABS: Anisocytosis Moderate; Basophils % (A) 0 %; CH 31.9; CHCM 32.9; Eosinophils % (A) 0 %; HCT 29.3 % (34.0-46.0); HDW 3.28; HGB 9.4 gm/dL (11.4-16.0); Luc # (Auto) 0.04; Luc % (Auto) 0; Lymphocytes # (A) 0.1 k/uL (1.0-4.8); Lymphocytes % (A) 0 %; MCH 31.1 pg (25.0-35.0); MCHC 31.9 g/dL (31.0-37.0); MCV 97.5 fL (80.0-100.0); Macrocytosis Moderate; Monocytes # (A) 0.6 k/uL (0-1.0); Monocytes % (A) 2 %; Neutrophils # (A) 22.2 k/uL (1.3-7.7); Neutrophils % (A) 97 %; RBC 3.01 m/uL (3.80-5.40); RDW 21.7 % (11.5-15.5); WBC (Perox) 22.12
[2016-09-24 05:22] LABS: ABG Base Excess -3.4 mmol/L; ABG HCO3 19 mmol/L (21-25); ABG PCO2 22 mmHg (35-45); ABG PH 7.54 (7.35-7.45); ABG PO2 123 mmHg (83-108); ABG TCO2 20 mmol/L (19-24)
[2016-09-24 05:26] LABS: Glucose,Whole Blood 230 mg/dL (75-99)
[2016-09-24 05:30] LABS: Anion Gap 6 mmol/L; Blood Urea Nitrogen 41 mg/dL (7-17); Calcium 10.2 mg/dL (8.4-10.2); Carbon Dioxide 21 mmol/L (22-30); Chloride 106 mmol/L (98-107); Glucose 218 mg/dL (74-99); Magnesium 2.4 mg/dL (1.6-2.3); Non-African American GFR(MDRD) >60 (>60 ml/min/1.73 sqM); Potassium 4.6 mmol/L (3.5-5.1); Sodium 133 mmol/L (137-145)
[2016-09-24 06:01] LABS: Manual Review Performed; Tear Drop Cells Present
[2016-09-24] MEDS: LEVOTHYROXINE 100 MCG TAB PO SCH (06:24)
[2016-09-24 06:33] LABS: Glucose,Whole Blood 217 mg/dL (75-99)
[2016-09-24 07:13] LABS: Glucose,Whole Blood 183 mg/dL (75-99)
[2016-09-24] MEDS: PANTOPRAZOLE 40 MG/10 ML VIAL IVP SCH (08:31)
[2016-09-24] MEDS: ASPIRIN 81 MG CHEW PO SCH (08:31)
[2016-09-24] MEDS: POTASSIUM CHLORIDE ER 10 MEQ TAB.ER.PRT PO SCH ×2 (08:31→20:16)
[2016-09-24] MEDS: ALLOPURINOL 300 MG TAB PO SCH ×2 (08:31→20:14)
[2016-09-24] MEDS: METOPROLOL TARTRATE 50 MG TAB PO SCH ×2 (08:31→20:15)
[2016-09-24] MEDS: CHLORHEXIDINE GLUCONATE 15 ML CUP MUCOUS MEM SCH ×2 (08:31→20:14)
[2016-09-24] MEDS: ENOXAPARIN 40 MG/0.4 ML SYRINGE SQ SCH (08:31)
[2016-09-24] MEDS: DEXTROSE 5% IVPB SCH ×4 (08:36→21:15)
[2016-09-24] MEDS: WATER IVPB SCH ×4 (08:36→21:15)
[2016-09-24] MEDS: SULFAMETHOX TMP IVPB SCH ×4 (08:36→21:15)
[2016-09-24 08:45] LABS: Glucose,Whole Blood 175 mg/dL (75-99)
[2016-09-24 09:07] LABS: Glucose,Whole Blood 227 mg/dL (75-99)
--- NOTE | 2016-09-24 09:20 | XR ---
EXAMINATION TYPE: XR chest 1V portable DATE OF EXAM: 09/24/2016 6:24 AM COMPARISON: NONE HISTORY: Shortness of breath requiring ventilation TECHNIQUE: Single frontal view of the chest is obtained. FINDINGS: Subsegmental changes at both lung bases. Instrumentation stable. No pneumothorax. No acute infiltrate. Underlying COPD suspected. IMPRESSION: 1. Bilateral subsegmental atelectasis or infiltrate greater on the left.
--- NOTE | 2016-09-24 10:29 | P.PN ---
Subjective Progress note dated 09/23/2016 The patient's chest x-ray shows improvement. Unfortunately, her mental status is poor. We'll bring need to evaluate that. Dr. Zechariah Barcenas put her on Precedex or dexmedetomidine thinking that her neurologic status would improve. Unfortunately she still not quite with it. I don't suspect to be a good candidate for weaning and extubation given her poor mental status. Also, she did not have a cuff leak we did a cuff leak test on her. The patient according to the respiratory therapist nurse apparently is much more comfortable on CPAP and pressure support. We'll keep her on that for now. Her vent settings when when on the ventilator included the assist control mode rate of 20 touted by 400 FiO2 35% and PEEP of 5 blood gases show pO2 of 102 a pCO2 of 22 and lipase and pH 7.59. This is consistent with respiratory alkalosis. She's currently on CPAP of 5 and pressure support of 5 and 35%. She was admitted back on September 14 with a diagnosis of respiratory failure. She had a bronched on. It revealed evidence of pneumocystis pneumonia. She has an underlying history of Burkitt's lymphoma. She is currently on appointment 9 IV at 30 mL an hour and insulin drip at 1 unit an hour Precedex at 0.6 mics per kilogram per minute. She's been intubated by 8 for 8 days. She has a right chest tube in place. She is also on vital AF with a rate of 33 and a goal of 33. Next Progress note dated 09/24/2016 80-year-old female admitted with a diagnosis of pneumonia. The patient has a history of Burkitt's lymphoma and Pneumocystis carinii pneumonia. Anyway the patient is doing better from the pulmonary standpoint. Was on PSV 5 CPAP 5 all night at 35%. We placed her back on the volume assist control mode. She does not do well on that modality and we chose to the pressure control ventilation with that peak inspiratory pressure 25 and inspiratory time of 1.5 seconds. Nothing else changed on the ventilator. The problem with her really is mental status. She was switched from dexmedetomidine to get Brovana yesterday. We took her off the propofol. Her mental status is not much better. She was placed back on propofol for sedation. I did have a long talk with the family yesterday about CODE STATUS about tracheostomy and feeding tube. Also talked about assessing her neurologic status with the EEG computed tomography scan of the brain and neurology consultation. The patient's on pressure control ventilation. The FiO2 35% and 5 of PEEP. Previously she was on PSV 5 CPAP of 5. Inspiratory pressure set at 25 inspiratory time at 1.5 seconds. She is on IV appointment 9 at 10 mL an hour insulin drip at 6 units an hour propofol and 18 mics per kilogram per minute. That was turned off briefly for the daily eruption of sedation. Her tube feeds are vital 1.2 at 33 with a goal of 33. Objective - Vital Signs Vital signs: Vital Signs Temp 98.7 F 09/24/16 04:00 Pulse 105 H 09/24/16 09:00 Resp 25 H 09/24/16 09:00 BP 129/69 09/24/16 09:00 Pulse Ox 100 09/24/16 09:00 Intake & Output 09/23/16 09/24/16 09/24/16 18:59 06:59 18:59 Intake Total 2620.753 1355.351 470.453 Output Total 1240 860 165 Balance 1380.753 495.351 305.453 Weight 67.7 kg 74.2 kg Intake: IV 2016 646 326 Levofloxacin 750Mg-D5w 150 Pmx 750 mg In Dextrose/ Water 1 150ml.bag @ 100 mls/hr IVPB Q24H [facility] Rx#: [id number] Sulfamethox-Tmp 80-16Mg/ 500 250 250 ml 345 mg In Dextrose 5% in Water 500 ml @ 250 mls /hr IVPB Q12HR [facility] Rx#: [id number] ns 1333 360 70 pressure bag 33 36 6 Intake, IV Titration 76.753 157.351 45.453 Amount Dexmedetomidine 400 mcg 14 In Sodium Chloride 0.9% 100 ml @ Titrate IV .Q0M [facility] Rx#:[id number] Insulin Regular 100 unit 32.607 64.376 17.675 In Sodium Chloride 0.9% 100 ml @ Per Protocol IV .Q0M [facility] Rx#:[id number] Propofol 500 mg In Empty 30.146 92.975 27.778 Bag 1 bag @ Titrate IV . Q0M [facility] Rx#:[id number] Tube Feeding 528 462 99 Other 90 Output: Chest Tube Drainage 220 80 0 Chest Tube Right Lateral 220 80 0 Chest Urine 1020 780 165 Stool 0 0 0 Other: Voiding Method Indwelling Catheter Indwelling Catheter Indwelling Catheter ABP, PAP, CO, CI - Last Documented Arterial Blood Pressure 160/71 - Labs CBC & Chem 7: 09/24/16 05:07 09/24/16 05:07 Labs: Abnormal Lab Results - Last 24 Hours (Table) 09/23/16 09/23/16 09/23/16 Range/Units 12:14 13:54 14:26 WBC (3.8-10.6) k/uL RBC (3.80-5.40) m/uL Hgb (11.4-16.0) gm/dL Hct (34.0-46.0) % RDW (11.5-15.5) % Neutrophils # (1.3-7.7) k/uL Lymphocytes # (1.0-4.8) k/uL ABG pH (7.35-7.45) ABG pCO2 (35-45) mmHg ABG pO2 (83-108) mmHg ABG HCO3 (21-25) mmol/L ABG O2 Saturation (94-97) % Sodium (137-145) mmol/L Carbon Dioxide (22-30) mmol/L BUN (7-17) mg/dL Glucose (74-99) mg/dL POC Glucose (mg/dL) 246 H 145 H 135 H (75-99) mg/dL Magnesium (1.6-2.3) mg/dL 09/23/16 09/23/16 09/23/16 Range/Units 15:07 15:58 17:03 WBC (3.8-10.6) k/uL RBC (3.80-5.40) m/uL Hgb (11.4-16.0) gm/dL Hct (34.0-46.0) % RDW (11.5-15.5) % Neutrophils # (1.3-7.7) k/uL Lymphocytes # (1.0-4.8) k/uL ABG pH (7.35-7.45) ABG pCO2 (35-45) mmHg ABG pO2 (83-108) mmHg ABG HCO3 (21-25) mmol/L ABG O2 Saturation (94-97) % Sodium (137-145) mmol/L Carbon Dioxide (22-30) mmol/L BUN (7-17) mg/dL Glucose (74-99) mg/dL POC Glucose (mg/dL) 124 H 175 H 203 H (75-99) mg/dL Magnesium (1.6-2.3) mg/dL 09/23/16 09/23/16 09/23/16 Range/Units 18:07 19:04 20:09 WBC (3.8-10.6) k/uL RBC (3.80-5.40) m/uL Hgb (11.4-16.0) gm/dL Hct (34.0-46.0) % RDW (11.5-15.5) % Neutrophils # (1.3-7.7) k/uL Lymphocytes # (1.0-4.8) k/uL ABG pH (7.35-7.45) ABG pCO2 (35-45) mmHg ABG pO2 (83-108) mmHg ABG HCO3 (21-25) mmol/L ABG O2 Saturation (94-97) % Sodium (137-145) mmol/L Carbon Dioxide (22-30) mmol/L BUN (7-17) mg/dL Glucose (74-99) mg/dL POC Glucose (mg/dL) 200 H 212 H 217 H (75-99) mg/dL Magnesium (1.6-2.3) mg/dL 09/23/16 09/23/16 09/23/16 Range/Units 20:26 21:08 22:01 WBC (3.8-10.6) k/uL RBC (3.80-5.40) m/uL Hgb (11.4-16.0) gm/dL Hct (34.0-46.0) % RDW (11.5-15.5) % Neutrophils # (1.3-7.7) k/uL Lymphocytes # (1.0-4.8) k/uL ABG pH (7.35-7.45) ABG pCO2 (35-45) mmHg ABG pO2 (83-108) mmHg ABG HCO3 (21-25) mmol/L ABG O2 Saturation (94-97) % Sodium (137-145) mmol/L Carbon Dioxide (22-30) mmol/L BUN (7-17) mg/dL Glucose (74-99) mg/dL POC Glucose (mg/dL) 183 H 204 H 248 H (75-99) mg/dL Magnesium (1.6-2.3) mg/dL 09/23/16 09/24/16 09/24/16 Range/Units 23:04 00:08 00:57 WBC (3.8-10.6) k/uL RBC (3.80-5.40) m/uL Hgb (11.4-16.0) gm/dL Hct (34.0-46.0) % RDW (11.5-15.5) % Neutrophils # (1.3-7.7) k/uL Lymphocytes # (1.0-4.8) k/uL ABG pH (7.35-7.45) ABG pCO2 (35-45) mmHg ABG pO2 (83-108) mmHg ABG HCO3 (21-25) mmol/L ABG O2 Saturation (94-97) % Sodium (137-145) mmol/L Carbon Dioxide (22-30) mmol/L BUN (7-17) mg/dL Glucose (74-99) mg/dL POC Glucose (mg/dL) 238 H 197 H 164 H (75-99) mg/dL Magnesium (1.6-2.3) mg/dL 09/24/16 09/24/16 09/24/16 Range/Units 02:02 03:01 04:01 WBC (3.8-10.6) k/uL RBC (3.80-5.40) m/uL Hgb (11.4-16.0) gm/dL Hct (34.0-46.0) % RDW (11.5-15.5) % Neutrophils # (1.3-7.7) k/uL Lymphocytes # (1.0-4.8) k/uL ABG pH (7.35-7.45) ABG pCO2 (35-45) mmHg ABG pO2 (83-108) mmHg ABG HCO3 (21-25) mmol/L ABG O2 Saturation (94-97) % Sodium (137-145) mmol/L Carbon Dioxide (22-30) mmol/L BUN (7-17) mg/dL Glucose (74-99) mg/dL POC Glucose (mg/dL) 127 H 125 H 178 H (75-99) mg/dL Magnesium (1.6-2.3) mg/dL 09/24/16 09/24/16 09/24/16 Range/Units 05:07 05:07 05:07 WBC 23.0 H (3.8-10.6) k/uL RBC 3.01 L (3.80-5.40) m/uL Hgb 9.4 L (11.4-16.0) gm/dL Hct 29.3 L (34.0-46.0) % RDW 21.7 H (11.5-15.5) % Neutrophils # 22.2 H (1.3-7.7) k/uL Lymphocytes # 0.1 L (1.0-4.8) k/uL ABG pH (7.35-7.45) ABG pCO2 (35-45) mmHg ABG pO2 (83-108) mmHg ABG HCO3 (21-25) mmol/L ABG O2 Saturation (94-97) % Sodium 133 L (137-145) mmol/L Carbon Dioxide 21 L (22-30) mmol/L BUN 41 H (7-17) mg/dL Glucose 218 H (74-99) mg/dL POC Glucose (mg/dL) 230 H (75-99) mg/dL Magnesium 2.4 H (1.6-2.3) mg/dL 09/24/16 09/24/16 09/24/16 Range/Units 05:09 06:16 07:11 WBC (3.8-10.6) k/uL RBC (3.80-5.40) m/uL Hgb (11.4-16.0) gm/dL Hct (34.0-46.0) % RDW (11.5-15.5) % Neutrophils # (1.3-7.7) k/uL Lymphocytes # (1.0-4.8) k/uL ABG pH 7.54 H (7.35-7.45) ABG pCO2 22 L (35-45) mmHg ABG pO2 123 H (83-108) mmHg ABG HCO3 19 L (21-25) mmol/L ABG O2 Saturation 99.0 H (94-97) % Sodium (137-145) mmol/L Carbon Dioxide (22-30) mmol/L BUN (7-17) mg/dL Glucose (74-99) mg/dL POC Glucose (mg/dL) 217 H 183 H (75-99) mg/dL Magnesium (1.6-2.3) mg/dL 09/24/16 09/24/16 Range/Units 08:26 09:06 WBC (3.8-10.6) k/uL RBC (3.80-5.40) m/uL Hgb (11.4-16.0) gm/dL Hct (34.0-46.0) % RDW (11.5-15.5) % Neutrophils # (1.3-7.7) k/uL Lymphocytes # (1.0-4.8) k/uL ABG pH (7.35-7.45) ABG pCO2 (35-45) mmHg ABG pO2 (83-108) mmHg ABG HCO3 (21-25) mmol/L ABG O2 Saturation (94-97) % Sodium (137-145) mmol/L Carbon Dioxide (22-30) mmol/L BUN (7-17) mg/dL Glucose (74-99) mg/dL POC Glucose (mg/dL) 175 H 227 H (75-99) mg/dL Magnesium (1.6-2.3) mg/dL Microbiology - Last 24 Hours (Table) 09/15/16 15:00 Acid Fast Bacilli Smear - Final Bronchial Washings - Right Acid Fast Bacilli Culture - Preliminary 09/15/16 15:00 Fungal Culture - Preliminary Bronchial Washings - Left Assessment and Plan (1) Pneumocystis jiroveci pneumonia Status: Acute (2) Pneumonia Status: Acute (3) Burkitt lymphoma of extranodal or solid organ site Status: Acute Plan: Plan dated 09/23/2016 I will have to talk to the family about a number things including CODE STATUS tracheostomy PEG tube placement and also we'll have to evaluate the patient's neurologic status given the fact that her mental status is so poor. She'll need a computed tomography scan of the brain and she will also need a neurologic neurology consult as well as an EEG. Although things obesity discussed her implemented today. The. I spent more than 30 minutes with this patient in terms of the evaluation and dictation family discussions. We'll continue to follow. Prognosis is guarded. Additional recommendations suggestions are forthcoming. Mental status is a real concern as is the non-cuff leak on cuff leak test. Plan dated 09/24/2016 I'll again talk to the family about CODE STATUS. There were any get-togethers and decide what to do. The patient that I will apparently would not want to be on life support indefinitely. If they want to continue life support, the patient should have a tracheostomy and PEG tube placement. Additional recommendations suggestions are forthcoming. PEG is currently pending. Computed tomography scan of the brain shows some chronic changes nothing acute. Prognosis is poor. Chest x-ray is about the same. Time with Patient: Greater than 30
[2016-09-24 10:34] LABS: Glucose,Whole Blood 252 mg/dL (75-99)
[2016-09-24 11:29] LABS: Glucose,Whole Blood 189 mg/dL (75-99)
[2016-09-24 12:19] LABS: Glucose,Whole Blood 152 mg/dL (75-99)
[2016-09-24 14:35] LABS: Glucose,Whole Blood 159 mg/dL (75-99)
[2016-09-24 16:00] LABS: Glucose,Whole Blood 131 mg/dL (75-99)
--- NOTE | 2016-09-24 16:00 | P.PN ---
Subjective This patient is a 80-year-old right-handed white female who was seen yesterday in the intensive care unit for evaluation of obtundation and failing to wean off of the ventilator. Patient has a long and protracted course in the hospital after being admitted for respiratory failure. She was subtotally found to have evidence of pneumocystis and is being treated for this condition with appropriate antibiotics. She was taken off of all sedation for 24 hours yesterday and showed no significant improvement in her mental status. She was sent for a computed tomography scan of the brain for further evaluation yesterday. CAT scan revealed no acute intracranial hemorrhage or midline shift. There is mild to moderate diffuse age-related cerebral atrophy and moderate to severe nonspecific white matter changes. There was evidence of a area of ischemia in the left cerebellum which was of indeterminate age. Patient has remained off of sedation this afternoon. Apparently she did require some sedation last night. According to the ICU nursing staff family had a long discussion today with the clothes separator Dr. Kruse and they're considering terminal weaning the patient tomorrow. The patient has underlying history of Burkitt's lymphoma. Her prognosis for this condition also remains very guarded. Patient did undergo routine EEG today which was reviewed. Her EEG does show some epileptiform discharges bitemporally. This finding suggests possibility of underlying partial seizures. We did discuss this finding today with the ICU nursing staff in charge of the patient. She will convey this to Dr. Kruse and we will await family decision whether to treat her with anticonvulsant medication as a plan is to consider terminal weaning the patient tomorrow. Patient does have multiple complex medical issues making her weaning quite precarious. Family is not wishing to proceed with tracheostomy and PEG tube placement for the patient at this time. Neurologically she remains obtunded and barely opens her eyes to any verbal commands. She is not following any commands. She does withdraw to painful stimuli. We will continue close neurological follow-up for the patient during this admission. Objective - Vital Signs Vital signs: Vital Signs Temp 99.3 F 09/24/16 12:00 Pulse 104 H 09/24/16 15:24 Resp 27 H 09/24/16 15:00 BP 104/58 09/24/16 15:00 Pulse Ox 98 09/24/16 15:00 Intake & Output 03/06/17 03/07/17 03/07/17 18:59 06:59 18:59 Intake Total 2620.753 1355.351 866.906 Output Total 1240 860 370 Balance 1380.753 495.351 496.906 Weight 67.7 kg 74.2 kg Intake: IV 2015 646 641 Levofloxacin 750Mg-D5w 150 Pmx 750 mg In Dextrose/ Water 1 150ml.bag @ 100 mls/hr IVPB Q24H [facility] Rx#: [id number] Sulfamethox-Tmp 80-16Mg/ 500 250 500 ml 345 mg In Dextrose 5% in Water 500 ml @ 250 mls /hr IVPB Q12HR [facility] Rx#: [id number] ns 1333 360 120 pressure bag 33 36 21 Intake, IV Titration 76.753 157.351 60.906 Amount Dexmedetomidine 400 mcg 14 In Sodium Chloride 0.9% 100 ml @ Titrate IV .Q0M [facility] Rx#:[id number] Insulin Regular 100 unit 32.607 64.376 33.128 In Sodium Chloride 0.9% 100 ml @ Per Protocol IV .Q0M [facility] Rx#:[id number] Propofol 500 mg In Empty 30.146 92.975 27.778 Bag 1 bag @ Titrate IV . Q0M [facility] Rx#:[id number] Tube Feeding 528 462 165 Other 90 Output: Chest Tube Drainage 220 80 30 Chest Tube Right Lateral 220 80 30 Chest Urine 1020 780 340 Stool 0 0 0 Other: Voiding Method Indwelling Catheter Indwelling Catheter Indwelling Catheter ABP, PAP, CO, CI - Last Documented Arterial Blood Pressure 113/60 - Exam Physical examination: PHYSICAL EXAMINATION: Patient is examined in the intensive care unit. She is obtunded and opens eyes only to sternal rub. She is not following commands. Her memory and intellectual functions are impaired. VITAL SIGNS: Blood pressure is [104/58]. Heart rate is [104]. Respiration is [27 ]. Temperature is [99.3]. HEENT: Head is atraumatic, neck is supple, there were no carotid bruits. CHEST: Lungs are clear to auscultation and percussion. CARDIAC: S1, S2 normal rate and rhythm. There is no murmur. ABDOMEN: Soft and nontender. Bowel sounds are present. EXTREMITIES: There is no pedal edema. Peripheral pulses are present. Neurological examination: Patient's neurological examination is unchanged from yesterday. - Labs CBC & Chem 7: 09/24/16 05:07 09/24/16 05:07 Labs: Abnormal Lab Results - Last 24 Hours (Table) 09/23/16 09/23/16 09/23/16 Range/Units 15:58 17:03 18:07 WBC (3.8-10.6) k/uL RBC (3.80-5.40) m/uL Hgb (11.4-16.0) gm/dL Hct (34.0-46.0) % RDW (11.5-15.5) % Neutrophils # (1.3-7.7) k/uL Lymphocytes # (1.0-4.8) k/uL ABG pH (7.35-7.45) ABG pCO2 (35-45) mmHg ABG pO2 (83-108) mmHg ABG HCO3 (21-25) mmol/L ABG O2 Saturation (94-97) % Sodium (137-145) mmol/L Carbon Dioxide (22-30) mmol/L BUN (7-17) mg/dL Glucose (74-99) mg/dL POC Glucose (mg/dL) 175 H 203 H 200 H (75-99) mg/dL Magnesium (1.6-2.3) mg/dL 09/23/16 09/23/16 09/23/16 Range/Units 19:04 20:09 20:26 WBC (3.8-10.6) k/uL RBC (3.80-5.40) m/uL Hgb (11.4-16.0) gm/dL Hct (34.0-46.0) % RDW (11.5-15.5) % Neutrophils # (1.3-7.7) k/uL Lymphocytes # (1.0-4.8) k/uL ABG pH (7.35-7.45) ABG pCO2 (35-45) mmHg ABG pO2 (83-108) mmHg ABG HCO3 (21-25) mmol/L ABG O2 Saturation (94-97) % Sodium (137-145) mmol/L Carbon Dioxide (22-30) mmol/L BUN (7-17) mg/dL Glucose (74-99) mg/dL POC Glucose (mg/dL) 212 H 217 H 183 H (75-99) mg/dL Magnesium (1.6-2.3) mg/dL 09/23/16 09/23/16 09/23/16 Range/Units 21:08 22:01 23:04 WBC (3.8-10.6) k/uL RBC (3.80-5.40) m/uL Hgb (11.4-16.0) gm/dL Hct (34.0-46.0) % RDW (11.5-15.5) % Neutrophils # (1.3-7.7) k/uL Lymphocytes # (1.0-4.8) k/uL ABG pH (7.35-7.45) ABG pCO2 (35-45) mmHg ABG pO2 (83-108) mmHg ABG HCO3 (21-25) mmol/L ABG O2 Saturation (94-97) % Sodium (137-145) mmol/L Carbon Dioxide (22-30) mmol/L BUN (7-17) mg/dL Glucose (74-99) mg/dL POC Glucose (mg/dL) 204 H 248 H 238 H (75-99) mg/dL Magnesium (1.6-2.3) mg/dL 09/24/16 09/24/16 09/24/16 Range/Units 00:08 00:57 02:02 WBC (3.8-10.6) k/uL RBC (3.80-5.40) m/uL Hgb (11.4-16.0) gm/dL Hct (34.0-46.0) % RDW (11.5-15.5) % Neutrophils # (1.3-7.7) k/uL Lymphocytes # (1.0-4.8) k/uL ABG pH (7.35-7.45) ABG pCO2 (35-45) mmHg ABG pO2 (83-108) mmHg ABG HCO3 (21-25) mmol/L ABG O2 Saturation (94-97) % Sodium (137-145) mmol/L Carbon Dioxide (22-30) mmol/L BUN (7-17) mg/dL Glucose (74-99) mg/dL POC Glucose (mg/dL) 197 H 164 H 127 H (75-99) mg/dL Magnesium (1.6-2.3) mg/dL 09/24/16 09/24/16 09/24/16 Range/Units 03:01 04:01 05:07 WBC (3.8-10.6) k/uL RBC (3.80-5.40) m/uL Hgb (11.4-16.0) gm/dL Hct (34.0-46.0) % RDW (11.5-15.5) % Neutrophils # (1.3-7.7) k/uL Lymphocytes # (1.0-4.8) k/uL ABG pH (7.35-7.45) ABG pCO2 (35-45) mmHg ABG pO2 (83-108) mmHg ABG HCO3 (21-25) mmol/L ABG O2 Saturation (94-97) % Sodium 133 L (137-145) mmol/L Carbon Dioxide 21 L (22-30) mmol/L BUN 41 H (7-17) mg/dL Glucose 218 H (74-99) mg/dL POC Glucose (mg/dL) 125 H 178 H (75-99) mg/dL Magnesium 2.4 H (1.6-2.3) mg/dL 09/24/16 09/24/16 09/24/16 Range/Units 05:07 05:07 05:09 WBC 23.0 H (3.8-10.6) k/uL RBC 3.01 L (3.80-5.40) m/uL Hgb 9.4 L (11.4-16.0) gm/dL Hct 29.3 L (34.0-46.0) % RDW 21.7 H (11.5-15.5) % Neutrophils # 22.2 H (1.3-7.7) k/uL Lymphocytes # 0.1 L (1.0-4.8) k/uL ABG pH 7.54 H (7.35-7.45) ABG pCO2 22 L (35-45) mmHg ABG pO2 123 H (83-108) mmHg ABG HCO3 19 L (21-25) mmol/L ABG O2 Saturation 99.0 H (94-97) % Sodium (137-145) mmol/L Carbon Dioxide (22-30) mmol/L BUN (7-17) mg/dL Glucose (74-99) mg/dL POC Glucose (mg/dL) 230 H (75-99) mg/dL Magnesium (1.6-2.3) mg/dL 09/24/16 09/24/16 09/24/16 Range/Units 06:16 07:11 08:26 WBC (3.8-10.6) k/uL RBC (3.80-5.40) m/uL Hgb (11.4-16.0) gm/dL Hct (34.0-46.0) % RDW (11.5-15.5) % Neutrophils # (1.3-7.7) k/uL Lymphocytes # (1.0-4.8) k/uL ABG pH (7.35-7.45) ABG pCO2 (35-45) mmHg ABG pO2 (83-108) mmHg ABG HCO3 (21-25) mmol/L ABG O2 Saturation (94-97) % Sodium (137-145) mmol/L Carbon Dioxide (22-30) mmol/L BUN (7-17) mg/dL Glucose (74-99) mg/dL POC Glucose (mg/dL) 217 H 183 H 175 H (75-99) mg/dL Magnesium (1.6-2.3) mg/dL 09/24/16 09/24/16 09/24/16 Range/Units 09:06 10:32 11:09 WBC (3.8-10.6) k/uL RBC (3.80-5.40) m/uL Hgb (11.4-16.0) gm/dL Hct (34.0-46.0) % RDW (11.5-15.5) % Neutrophils # (1.3-7.7) k/uL Lymphocytes # (1.0-4.8) k/uL ABG pH (7.35-7.45) ABG pCO2 (35-45) mmHg ABG pO2 (83-108) mmHg ABG HCO3 (21-25) mmol/L ABG O2 Saturation (94-97) % Sodium (137-145) mmol/L Carbon Dioxide (22-30) mmol/L BUN (7-17) mg/dL Glucose (74-99) mg/dL POC Glucose (mg/dL) 227 H 252 H 189 H (75-99) mg/dL Magnesium (1.6-2.3) mg/dL 09/24/16 09/24/16 Range/Units 12:17 14:31 WBC (3.8-10.6) k/uL RBC (3.80-5.40) m/uL Hgb (11.4-16.0) gm/dL Hct (34.0-46.0) % RDW (11.5-15.5) % Neutrophils # (1.3-7.7) k/uL Lymphocytes # (1.0-4.8) k/uL ABG pH (7.35-7.45) ABG pCO2 (35-45) mmHg ABG pO2 (83-108) mmHg ABG HCO3 (21-25) mmol/L ABG O2 Saturation (94-97) % Sodium (137-145) mmol/L Carbon Dioxide (22-30) mmol/L BUN (7-17) mg/dL Glucose (74-99) mg/dL POC Glucose (mg/dL) 152 H 159 H (75-99) mg/dL Magnesium (1.6-2.3) mg/dL Microbiology - Last 24 Hours (Table) 09/15/16 15:00 Acid Fast Bacilli Smear - Final Bronchial Washings - Right Acid Fast Bacilli Culture - Preliminary 09/15/16 15:00 Fungal Culture - Preliminary Bronchial Washings - Left Assessment and Plan (1) Metabolic encephalopathy Status: Acute Code(s): G93.41 - METABOLIC ENCEPHALOPATHY (2) Pneumocystis carinii pneumonia Status: Acute Code(s): B59 - PNEUMOCYSTOSIS (3) Bilateral pleural effusion Status: Acute Code(s): J90 - PLEURAL EFFUSION, NOT ELSEWHERE CLASSIFIED (4) Burkitt lymphoma of extranodal or solid organ site Status: Acute Code(s): C83.79 - BURKITT LYMPHOMA, EXTRANODAL AND SOLID ORGAN SITES Plan: This patient is a 80-year-old female who is currently intubated on the ventilator and is examined in the intensive care unit. Patient underwent computed tomography scan of the brain yesterday due to prolonged failure to wean off the ventilator and continued unresponsive state. CAT scan of the brain was reviewed the results of which are noted above. CAT scan failed to reveal any evidence of acute stroke or hemorrhage. Patient underwent routine EEG today which was reviewed. EEG results as noted above. EEG does reveal bitemporal sharp wave discharge suggesting possibility of complex partial seizures. According to the ICU nursing staff family has made a decision for terminal weaning the patient tomorrow. ICU nurse will contact clothes separator Dr. Ogden regarding this EEG finding today. We will wait to see if the family wishes to treat her aggressively with anticonvulsant medication. At this time her neurological examination remains unchanged. She was obtunded. She is not following commands. She does have multiple other complex medical issues including pneumocystis pneumonia as well as Burkitt's lymphoma. Family does not wish to proceed with tracheostomy and PEG tube placement. We will await further recommendations from the family and pulmonary medicine regarding further management this patient. Her overall prognosis at this time remains very guarded.
[2016-09-24] MEDS: LEVOFLOXACIN 750MG-D5W PMX 750 MG in DEXTROSE/WATER 1 150ML.BAG IVPB SCH (16:04)
[2016-09-24 17:25] LABS: Glucose,Whole Blood 209 mg/dL (75-99)
[2016-09-24] MEDS: INSULIN REGULAR 100 UNIT in SODIUM CHLORIDE 0.9% 100 ML IV SCH (17:27)
[2016-09-24 18:26] LABS: Glucose,Whole Blood 188 mg/dL (75-99)
[2016-09-24 19:38] LABS: Glucose,Whole Blood 153 mg/dL (75-99)
--- NOTE | 2016-09-24 20:07 | P.PN ---
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 She was started on R-EPOCH in June and is status post 3 cycles and most recent one was provided on August 30 through September 04. Patient's son is at the bedside and states that she has had problems with weakness and most recently with shortness of breath, feeling hot and clammy without documented fever. She had increasing shortness of breath when she got up to go to the bathroom and was worsening over this past week. On at 11:00 p.m., her called their son to come over and check on her. Her pulse was high and they ended up having her sit in a chair and relax and she was feeling better. On Friday, she was okay but by Friday at 2 in the morning she had a repeat episode. Her son called [facility] and was instructed to bring her into the emergency center. She was found to be afebrile with white count of 8.7. Initial hemoglobin was 8.2 platelet count 124. Urine was cloudy, RBC 16 and bacteria rare. Urine culture showing no growth at 18 hours. Patient was on the selective care unit initially but developed increasing shortness of breath due to pleural effusion which was not improved with Lasix. Dr. Parish was on consult and attempted right-sided thoracentesis but terminated the procedure as her pulse ox dropped to the 50%. She was intubated and underwent bronchoscopy in the intensive care unit. She was given 3 L of IV fluids and initially was on Levophed which is subsequently been discontinued. She is currently intubated and on mechanical ventilation. Tube feedings are to be started. Patient has albumin 1.8. CAT scan of the chest was negative for pulmonary embolism. Moderate to large right pleural effusion with adjacent atelectasis. Confluent groundglass and consolidation with septal lines. Correlate for pulmonary edema. Atypical pneumonia and DAH are also in the differential. Edematous changes throughout the mediastinum assessment for mediastinal lymphadenopathy. She has other consultants on including oncology, cardiology and turn out worker. Urine culture is finalized with no growth. Fungal, acid-fast bacilli are negative to date. Cultures are negative from the bronchoscopy also. Pneumocystis testing from pathology was negative however the PCR has come back as positive. In intravenous trimethoprim sulfamethoxazole was started Blood cultures are pending and negative so far IVIG was given and monitoring for improvement Objective - Vital Signs Vital signs: Vital Signs Temp 99.3 F 09/24/16 16:00 Pulse 107 H 09/24/16 19:00 Resp 21 09/24/16 19:00 BP 81/49 09/24/16 19:00 Pulse Ox 100 09/24/16 18:00 Intake & Output 09/24/16 09/24/16 09/25/16 06:59 18:59 06:59 Intake Total 6544.824 8893.171 56.942 Output Total 860 595 60 Balance 495.351 553.171 -3.058 Weight 74.2 kg Intake: IV 646 830 13 Levofloxacin 750Mg-D5w 150 Pmx 750 mg In Dextrose/ Water 1 150ml.bag @ 100 mls/hr IVPB Q24H [facility] Rx#: [id number] Sulfamethox-Tmp 80-16Mg/ 250 500 ml 345 mg In Dextrose 5% in Water 500 ml @ 250 mls /hr IVPB Q12HR [facility] Rx#: [id number] ns 360 150 10 pressure bag 36 30 3 Intake, IV Titration 157.351 120.171 10.942 Amount Insulin Regular 100 unit 64.376 64.859 10.942 In Sodium Chloride 0.9% 100 ml @ Per Protocol IV .Q0M [facility] Rx#:[id number] Propofol 500 mg In Empty 92.975 55.312 Bag 1 bag @ Titrate IV . Q0M [facility] Rx#:[id number] Tube Feeding 462 198 33 Other 90 Output: Chest Tube Drainage 80 30 Chest Tube Right Lateral 80 30 Chest Urine 780 565 60 Stool 0 0 Other: Voiding Method Indwelling Catheter Indwelling Catheter ABP, PAP, CO, CI - Last Documented Arterial Blood Pressure 98/54 - Exam Gen: This is a 80-year-old female currently intubated on mechanical ventilation and appears to be comfortable in no acute distress. HEENT: Head is atraumatic, normocephalic. Pupils equal, round. Sclerae is anicteric. White coating on her tongue. Oral ETT and oral gastric tube in place. NECK: Supple. No JVD. No lymphadenopathy. No thyromegaly. LUNGS: Good air exchange anteriorly bilaterally, diminished to the bases. No intercostal retractions. Right sided chest tube HEART: Regular rate and rhythm. No murmur. ABDOMEN: Soft. Bowel sounds are present. No masses. No tenderness. EXTREMITIES: No pedal edema. No calf tenderness. Dorsalis pedis is weak bilaterally. No skin breakdown noted. NEUROLOGICAL: Patient is sedated. She is however less sedated than she was opens eyes and moves hand - Labs CBC & Chem 7: 09/24/16 05:07 09/24/16 05:07 Labs: Abnormal Lab Results - Last 24 Hours (Table) 09/23/16 09/23/16 09/23/16 Range/Units 20:09 20:26 21:08 WBC (3.8-10.6) k/uL RBC (3.80-5.40) m/uL Hgb (11.4-16.0) gm/dL Hct (34.0-46.0) % RDW (11.5-15.5) % Neutrophils # (1.3-7.7) k/uL Lymphocytes # (1.0-4.8) k/uL ABG pH (7.35-7.45) ABG pCO2 (35-45) mmHg ABG pO2 (83-108) mmHg ABG HCO3 (21-25) mmol/L ABG O2 Saturation (94-97) % Sodium (137-145) mmol/L Carbon Dioxide (22-30) mmol/L BUN (7-17) mg/dL Glucose (74-99) mg/dL POC Glucose (mg/dL) 217 H 183 H 204 H (75-99) mg/dL Magnesium (1.6-2.3) mg/dL 09/23/16 09/23/16 09/24/16 Range/Units 22:01 23:04 00:08 WBC (3.8-10.6) k/uL RBC (3.80-5.40) m/uL Hgb (11.4-16.0) gm/dL Hct (34.0-46.0) % RDW (11.5-15.5) % Neutrophils # (1.3-7.7) k/uL Lymphocytes # (1.0-4.8) k/uL ABG pH (7.35-7.45) ABG pCO2 (35-45) mmHg ABG pO2 (83-108) mmHg ABG HCO3 (21-25) mmol/L ABG O2 Saturation (94-97) % Sodium (137-145) mmol/L Carbon Dioxide (22-30) mmol/L BUN (7-17) mg/dL Glucose (74-99) mg/dL POC Glucose (mg/dL) 248 H 238 H 197 H (75-99) mg/dL Magnesium (1.6-2.3) mg/dL 09/24/16 09/24/16 09/24/16 Range/Units 00:57 02:02 03:01 WBC (3.8-10.6) k/uL RBC (3.80-5.40) m/uL Hgb (11.4-16.0) gm/dL Hct (34.0-46.0) % RDW (11.5-15.5) % Neutrophils # (1.3-7.7) k/uL Lymphocytes # (1.0-4.8) k/uL ABG pH (7.35-7.45) ABG pCO2 (35-45) mmHg ABG pO2 (83-108) mmHg ABG HCO3 (21-25) mmol/L ABG O2 Saturation (94-97) % Sodium (137-145) mmol/L Carbon Dioxide (22-30) mmol/L BUN (7-17) mg/dL Glucose (74-99) mg/dL POC Glucose (mg/dL) 164 H 127 H 125 H (75-99) mg/dL Magnesium (1.6-2.3) mg/dL 09/24/16 09/24/16 09/24/16 Range/Units 04:01 05:07 05:07 WBC 23.0 H (3.8-10.6) k/uL RBC 3.01 L (3.80-5.40) m/uL Hgb 9.4 L (11.4-16.0) gm/dL Hct 29.3 L (34.0-46.0) % RDW 21.7 H (11.5-15.5) % Neutrophils # 22.2 H (1.3-7.7) k/uL Lymphocytes # 0.1 L (1.0-4.8) k/uL ABG pH (7.35-7.45) ABG pCO2 (35-45) mmHg ABG pO2 (83-108) mmHg ABG HCO3 (21-25) mmol/L ABG O2 Saturation (94-97) % Sodium 133 L (137-145) mmol/L Carbon Dioxide 21 L (22-30) mmol/L BUN 41 H (7-17) mg/dL Glucose 218 H (74-99) mg/dL POC Glucose (mg/dL) 178 H (75-99) mg/dL Magnesium 2.4 H (1.6-2.3) mg/dL 09/24/16 09/24/16 09/24/16 Range/Units 05:07 05:09 06:16 WBC (3.8-10.6) k/uL RBC (3.80-5.40) m/uL Hgb (11.4-16.0) gm/dL Hct (34.0-46.0) % RDW (11.5-15.5) % Neutrophils # (1.3-7.7) k/uL Lymphocytes # (1.0-4.8) k/uL ABG pH 7.54 H (7.35-7.45) ABG pCO2 22 L (35-45) mmHg ABG pO2 123 H (83-108) mmHg ABG HCO3 19 L (21-25) mmol/L ABG O2 Saturation 99.0 H (94-97) % Sodium (137-145) mmol/L Carbon Dioxide (22-30) mmol/L BUN (7-17) mg/dL Glucose (74-99) mg/dL POC Glucose (mg/dL) 230 H 217 H (75-99) mg/dL Magnesium (1.6-2.3) mg/dL 09/24/16 09/24/16 09/24/16 Range/Units 07:11 08:26 09:06 WBC (3.8-10.6) k/uL RBC (3.80-5.40) m/uL Hgb (11.4-16.0) gm/dL Hct (34.0-46.0) % RDW (11.5-15.5) % Neutrophils # (1.3-7.7) k/uL Lymphocytes # (1.0-4.8) k/uL ABG pH (7.35-7.45) ABG pCO2 (35-45) mmHg ABG pO2 (83-108) mmHg ABG HCO3 (21-25) mmol/L ABG O2 Saturation (94-97) % Sodium (137-145) mmol/L Carbon Dioxide (22-30) mmol/L BUN (7-17) mg/dL Glucose (74-99) mg/dL POC Glucose (mg/dL) 183 H 175 H 227 H (75-99) mg/dL Magnesium (1.6-2.3) mg/dL 09/24/16 09/24/16 09/24/16 Range/Units 10:32 11:09 12:17 WBC (3.8-10.6) k/uL RBC (3.80-5.40) m/uL Hgb (11.4-16.0) gm/dL Hct (34.0-46.0) % RDW (11.5-15.5) % Neutrophils # (1.3-7.7) k/uL Lymphocytes # (1.0-4.8) k/uL ABG pH (7.35-7.45) ABG pCO2 (35-45) mmHg ABG pO2 (83-108) mmHg ABG HCO3 (21-25) mmol/L ABG O2 Saturation (94-97) % Sodium (137-145) mmol/L Carbon Dioxide (22-30) mmol/L BUN (7-17) mg/dL Glucose (74-99) mg/dL POC Glucose (mg/dL) 252 H 189 H 152 H (75-99) mg/dL Magnesium (1.6-2.3) mg/dL 09/24/16 09/24/16 09/24/16 Range/Units 14:31 15:50 17:23 WBC (3.8-10.6) k/uL RBC (3.80-5.40) m/uL Hgb (11.4-16.0) gm/dL Hct (34.0-46.0) % RDW (11.5-15.5) % Neutrophils # (1.3-7.7) k/uL Lymphocytes # (1.0-4.8) k/uL ABG pH (7.35-7.45) ABG pCO2 (35-45) mmHg ABG pO2 (83-108) mmHg ABG HCO3 (21-25) mmol/L ABG O2 Saturation (94-97) % Sodium (137-145) mmol/L Carbon Dioxide (22-30) mmol/L BUN (7-17) mg/dL Glucose (74-99) mg/dL POC Glucose (mg/dL) 159 H 131 H 209 H (75-99) mg/dL Magnesium (1.6-2.3) mg/dL 09/24/16 09/24/16 Range/Units 18:07 19:35 WBC (3.8-10.6) k/uL RBC (3.80-5.40) m/uL Hgb (11.4-16.0) gm/dL Hct (34.0-46.0) % RDW (11.5-15.5) % Neutrophils # (1.3-7.7) k/uL Lymphocytes # (1.0-4.8) k/uL ABG pH (7.35-7.45) ABG pCO2 (35-45) mmHg ABG pO2 (83-108) mmHg ABG HCO3 (21-25) mmol/L ABG O2 Saturation (94-97) % Sodium (137-145) mmol/L Carbon Dioxide (22-30) mmol/L BUN (7-17) mg/dL Glucose (74-99) mg/dL POC Glucose (mg/dL) 188 H 153 H (75-99) mg/dL Magnesium (1.6-2.3) mg/dL Microbiology - Last 24 Hours (Table) 09/15/16 15:00 Acid Fast Bacilli Smear - Final Bronchial Washings - Right Acid Fast Bacilli Culture - Preliminary Laboratory Results WBC 23.0 k/uL (3.8-10.6) H 09/24/16 05:07 RBC 3.01 m/uL (3.80-5.40) L 09/24/16 05:07 Hgb 9.4 gm/dL (11.4-16.0) L 09/24/16 05:07 Hct 29.3 % (34.0-46.0) L 09/24/16 05:07 MCV 97.5 fL (80.0-100.0) 09/24/16 05:07 MCH 31.1 pg (25.0-35.0) 09/24/16 05:07 MCHC 31.9 g/dL (31.0-37.0) 09/24/16 05:07 RDW 21.7 % (11.5-15.5) H 09/24/16 05:07 Plt Count 186 k/uL (150-450) D 09/24/16 05:07 Neutrophils % 97 % 09/24/16 05:07 Neutrophils % (Manual) 91.5 % 09/21/16 05:00 Band Neutrophils % 4.5 % 09/21/16 05:00 Lymphocytes % 0 % 09/24/16 05:07 Lymphocytes % (Manual) 0.5 % 09/21/16 05:00 Monocytes % 2 % 09/24/16 05:07 Monocytes % (Manual) 1.0 % 09/21/16 05:00 Eosinophils % 0 % 09/24/16 05:07 Basophils % 0 % 09/24/16 05:07 Metamyelocytes % 1.5 % 09/21/16 05:00 Myelocytes % 1.0 % 09/21/16 05:00 Neutrophils # 22.2 k/uL (1.3-7.7) H 09/24/16 05:07 Neutrophils # (Manual) 9.8 k/uL (1.3-7.7) H 09/21/16 05:00 Lymphocytes # 0.1 k/uL (1.0-4.8) L 09/24/16 05:07 Lymphocytes # (Manual) 0.1 k/uL (1.0-4.8) L 09/21/16 05:00 Monocytes # 0.6 k/uL (0-1.0) 09/24/16 05:07 Monocytes # (Manual) 0.1 k/uL (0-1.0) 09/21/16 05:00 Eosinophils # 0.0 k/uL (0-0.7) 09/24/16 05:07 Basophils # 0.0 k/uL (0-0.2) 09/24/16 05:07 Nucleated RBCs 0 /100 WBC (0-0) 09/21/16 05:00 Manual Slide Review Performed 09/24/16 05:07 Polychromasia Present 09/22/16 04:45 Hypochromasia Slight 09/23/16 04:20 Poikilocytosis Slight 09/22/16 04:45 Anisocytosis Moderate 09/24/16 05:07 Macrocytosis Moderate 09/24/16 05:07 Tear Drop Cells Present 09/24/16 05:07 PT sec (9.0-12.0) 09/23/16 04:20 INR (<1.1) 09/23/16 04:20 APTT 23.1 sec (22.0-30.0) 09/14/16 07:44 Sample Site TELMA 09/24/16 05:09 ABG pH 7.54 (7.35-7.45) H 09/24/16 05:09 ABG pCO2 22 mmHg (35-45) L 09/24/16 05:09 ABG pO2 123 mmHg (83-108) H 09/24/16 05:09 ABG HCO3 19 mmol/L (21-25) L 09/24/16 05:09 ABG Total CO2 20 mmol/L (19-24) 09/24/16 05:09 ABG O2 Saturation 99.0 % (94-97) H 09/24/16 05:09 ABG Base Excess -3.4 mmol/L 09/24/16 05:09 FiO2 35 % 09/24/16 05:09 Sodium 133 mmol/L (137-145) L 09/24/16 05:07 Potassium 4.6 mmol/L (3.5-5.1) 09/24/16 05:07 Chloride 106 mmol/L (98-107) 09/24/16 05:07 Carbon Dioxide 21 mmol/L (22-30) L 09/24/16 05:07 Anion Gap 6 mmol/L 09/24/16 05:07 BUN 41 mg/dL (7-17) H 09/24/16 05:07 Creatinine 0.70 mg/dL (0.52-1.04) 09/24/16 05:07 Est GFR (MDRD) Af Amer >60 (>60 ml/min/1.73 sqM) 09/24/16 05:07 Est GFR (MDRD) Non-Af >60 (>60 ml/min/1.73 sqM) 09/24/16 05:07 Glucose 218 mg/dL (74-99) H 09/24/16 05:07 POC Glucose (mg/dL) 153 mg/dL (75-99) H 09/24/16 19:35 POC Glu Amusement Equipment Operator ID Tami Stein 09/24/16 19:[address] Glu mg/dL 128 mg/dL 09/14/16 07:44 Hemoglobin A1c 6.1 % (4.2-6.1) 09/14/16 07:44 Plasma Lactic Acid Markie 1.4 mmol/L (0.7-2.0) 09/18/16 04:50 Calcium 10.2 mg/dL (8.4-10.2) 09/24/16 05:07 Phosphorus 3.5 mg/dL (2.5-4.5) 09/23/16 04:20 Magnesium 2.4 mg/dL (1.6-2.3) H 09/24/16 05:07 Total Bilirubin 0.3 mg/dL (0.2-1.3) 09/23/16 04:20 AST 26 U/L (14-36) 09/23/16 04:20 ALT 40 U/L (9-52) 09/23/16 04:20 Alkaline Phosphatase 36 U/L (38-126) L 09/23/16 04:20 Total Creatine Kinase <20 U/L (30-135) L 09/14/16 19:28 CK-MB (CK-2) 0.4 ng/mL (0.0-2.4) 09/14/16 19:28 CK-MB (CK-2) Rel Index 0.0 09/14/16 19:28 Troponin I 0.022 ng/mL (0.000-0.034) 09/14/16 19:28 NT-Pro-B Natriuret Pep 3070 pg/mL 09/15/16 05:49 Total Protein 4.3 g/dL (6.3-8.2) L 09/23/16 04:20 Albumin 1.9 g/dL (3.5-5.0) L 09/23/16 04:20 Triglycerides 122 mg/dL (<150) 09/15/16 05:49 Cholesterol 94 mg/dL (<200) 09/15/16 05:49 LDL Cholesterol, Calc 50 mg/dL (0-99) 09/15/16 05:49 HDL Cholesterol 20 mg/dL (40-60) L 09/15/16 05:49 TSH 1.910 mIU/L (0.465-4.680) 09/15/16 05:49 Urine Color Yellow 09/14/16 08:42 Urine Appearance Cloudy (Clear) H 09/14/16 08:42 Urine pH 7.0 (5.0-8.0) 09/14/16 08:42 Ur Specific [place] 1.016 (1.001-1.035) 09/14/16 08:42 Urine Protein Trace (Negative) H 09/14/16 08:42 Urine Glucose (UA) Negative (Negative) 09/14/16 08:42 Urine Ketones Negative (Negative) 09/14/16 08:42 Urine Blood Negative (Negative) 09/14/16 08:42 Urine Nitrate Negative (Negative) 09/14/16 08:42 Urine Bilirubin Negative (Negative) 09/14/16 08:42 Urine Urobilinogen 4.0 mg/dL (<2.0) 09/14/16 08:42 Ur Leukocyte Esterase Negative (Negative) 09/14/16 08:42 Urine RBC 16 /hpf (0-5) H 09/14/16 08:42 Urine WBC 5 /hpf (0-5) 09/14/16 08:42 Ur Squamous Epith Cells 1 /hpf (0-4) 09/14/16 08:42 Urine Bacteria Rare /hpf (None) H 09/14/16 08:42 Urine Mucus Rare /hpf (None) H 09/14/16 08:42 Vancomycin Trough 8.0 ug/mL 09/20/16 16:40 IgG 172.0 mg/dL (700.0-1600.0) L 09/17/16 05:46 T-Suppressor Cells 15 cell/ul (190-832) L 09/17/16 05:46 % CD4 [place] 20 % (35-66) L 09/17/16 05:46 Absolute CD4 [place] 7 cell/ul (443-1471) L 09/17/16 05:46 CD4/CD8 Ratio 0.5 (1.0-3.7) L 09/17/16 05:46 % CD8 Supp[place] 42 % (9-37) H 09/17/16 05:46 Virus Source See Below 09/15/16 15:00 Viral Test See Below 09/15/16 15:00 Virus Analysis Interp See Below 09/15/16 15:00 Miscellaneous Test PT/INR 09/23/16 04:20 Misc Test Result 09/23/16 04:20 Blood Type A Positive 09/14/16 08:30 Blood Type Confirm A Positive 09/14/16 07:44 Blood Type Recheck CABO Indicated 09/14/16 08:30 Antibody Screen NEGATIVE 09/14/16 08:30 Spec Expiration Date 09/17/2016 - 2330 09/14/16 08:30 Microbiology 09/15/16 15:00 Bronchial Washings - Right Acid Fast Bacilli Smear - Final 09/15/16 15:00 Bronchial Washings - Right Acid Fast Bacilli Culture - Preliminary 09/15/16 15:00 Bronchial Washings - Left Fungal Culture - Preliminary 09/16/16 20:37 Blood Blood Culture - Final No Growth after 144 hours 09/16/16 19:34 Blood Blood Culture - Final No Growth after 144 hours 09/16/16 00:45 Urine,Catheterized Urine Culture - Final 09/15/16 15:00 Bronchoalviolar Lavage - Left Gram Stain - Final 09/15/16 15:00 Bronchoalviolar Lavage - Left Bronchial Washings Culture - Final 09/14/16 08:42 Urine,Clean Catch Urine Culture - Final Assessment and Plan (1) Burkitt lymphoma of extranodal or solid organ site Narrative/Plan: 80-year-old female with a known history of Burkitt's lymphoma status post 3 cycles of the altered R EPOCH chemotherapy. She has developed respiratory failure requiring intubation and mechanical ventilation. Chest x- ray is abnormal. She has had bronchoscopy. Cultures are negative so far. Viral assay was negative. Pneumocystis is evaluated by pathology and is negative CD4 cell count is profoundly low as part of her significant immunocompromise. IgG level is very low and was supplemented. PCR is now come back for pneumocystis and has come back as a positive test. Consequently prior antimicrobials except levofloxacin are discontinued. Intravenous trimethoprim sulfamethoxazole is added. She is already receiving steroid therapy. Continue to closely monitor her renal function with the intravenous trimethoprim sulfamethoxazole, but has had improvement of her pulmonary status. But is still extremely weak. Family is contemplating tracheostomy and PEG tube placement versus other route of care given her overall circumstance Status: Acute (2) Pneumonia Status: Acute (3) Respiratory failure Status: Acute
[2016-09-24 20:12] LABS: Glucose,Whole Blood 138 mg/dL (75-99)
[2016-09-24] MEDS: FLUoxetine HCL 20 MG CAP PO SCH (20:15)
[2016-09-24 20:25] VITALS: BP 93/56
[2016-09-24 21:23] LABS: Glucose,Whole Blood 157 mg/dL (75-99)
[2016-09-24 22:03] LABS: Glucose,Whole Blood 207 mg/dL (75-99)
[2016-09-24 23:06] LABS: Glucose,Whole Blood 225 mg/dL (75-99)
--- NOTE | 2016-09-24 23:47 | P.PN ---
Subjective Principal diagnosis: Acute respiratory failure. 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 However, she is overall unresponsive despite being awake, and is therefore not felt appropriate at this time for aggressive weaning efforts Objective - Vital Signs Vital signs: Vital Signs Temp 98.3 F 09/24/16 20:00 Pulse 104 H 09/24/16 23:00 Resp 26 H 09/24/16 23:00 BP 93/56 09/24/16 20:00 Pulse Ox 95 09/24/16 23:00 Intake & Output 09/24/16 09/24/16 09/25/16 06:59 18:59 06:59 Intake Total 6650.088 9429.171 215.278 Output Total 860 595 290 Balance 495.351 553.171 -74.722 Weight 74.2 kg 74.2 kg Intake: IV 646 830 65 Levofloxacin 750Mg-D5w 150 Pmx 750 mg In Dextrose/ Water 1 150ml.bag @ 100 mls/hr IVPB Q24H [facility] Rx#: [id number] Sulfamethox-Tmp 80-16Mg/ 250 500 ml 345 mg In Dextrose 5% in Water 500 ml @ 250 mls /hr IVPB Q12HR [facility] Rx#: [id number] ns 360 150 50 pressure bag 36 30 15 Intake, IV Titration 157.351 120.171 21.278 Amount Insulin Regular 100 unit 64.376 64.859 21.278 In Sodium Chloride 0.9% 100 ml @ Per Protocol IV .Q0M [facility] Rx#:[id number] Propofol 500 mg In Empty 92.975 55.312 Bag 1 bag @ Titrate IV . Q0M [facility] Rx#:[id number] Tube Feeding 462 198 99 Other 90 30 Output: Chest Tube Drainage 80 30 30 Chest Tube Right Lateral 80 30 30 Chest Urine 780 565 260 Stool 0 0 0 Other: Voiding Method Indwelling Catheter Indwelling Catheter Indwelling Catheter ABP, PAP, CO, CI - Last Documented Arterial Blood Pressure 119/60 - Constitutional General appearance: Present: no acute distress - EENT Eyes: Present: PERRLA - Respiratory Respiratory: bilateral: CTA - Cardiovascular Rhythm: regular Heart sounds: normal: S1, S2 - Gastrointestinal General gastrointestinal: Present: soft - Integumentary Integumentary: Present: normal - Neurologic Neurologic Comment(s): awake, but not responsive Neurologic: Present: CNII-XII intact - Musculoskeletal Musculoskeletal: Present: generalized weakness - Labs CBC & Chem 7: 09/24/16 05:07 09/24/16 05:07 Labs: Abnormal Lab Results - Last 24 Hours (Table) 09/23/16 09/24/16 09/24/16 Range/Units 23:04 00:08 00:57 WBC (3.8-10.6) k/uL RBC (3.80-5.40) m/uL Hgb (11.4-16.0) gm/dL Hct (34.0-46.0) % RDW (11.5-15.5) % Neutrophils # (1.3-7.7) k/uL Lymphocytes # (1.0-4.8) k/uL ABG pH (7.35-7.45) ABG pCO2 (35-45) mmHg ABG pO2 (83-108) mmHg ABG HCO3 (21-25) mmol/L ABG O2 Saturation (94-97) % Sodium (137-145) mmol/L Carbon Dioxide (22-30) mmol/L BUN (7-17) mg/dL Glucose (74-99) mg/dL POC Glucose (mg/dL) 238 H 197 H 164 H (75-99) mg/dL Magnesium (1.6-2.3) mg/dL 09/24/16 09/24/16 09/24/16 Range/Units 02:02 03:01 04:01 WBC (3.8-10.6) k/uL RBC (3.80-5.40) m/uL Hgb (11.4-16.0) gm/dL Hct (34.0-46.0) % RDW (11.5-15.5) % Neutrophils # (1.3-7.7) k/uL Lymphocytes # (1.0-4.8) k/uL ABG pH (7.35-7.45) ABG pCO2 (35-45) mmHg ABG pO2 (83-108) mmHg ABG HCO3 (21-25) mmol/L ABG O2 Saturation (94-97) % Sodium (137-145) mmol/L Carbon Dioxide (22-30) mmol/L BUN (7-17) mg/dL Glucose (74-99) mg/dL POC Glucose (mg/dL) 127 H 125 H 178 H (75-99) mg/dL Magnesium (1.6-2.3) mg/dL 09/24/16 09/24/16 09/24/16 Range/Units 05:07 05:07 05:07 WBC 23.0 H (3.8-10.6) k/uL RBC 3.01 L (3.80-5.40) m/uL Hgb 9.4 L (11.4-16.0) gm/dL Hct 29.3 L (34.0-46.0) % RDW 21.7 H (11.5-15.5) % Neutrophils # 22.2 H (1.3-7.7) k/uL Lymphocytes # 0.1 L (1.0-4.8) k/uL ABG pH (7.35-7.45) ABG pCO2 (35-45) mmHg ABG pO2 (83-108) mmHg ABG HCO3 (21-25) mmol/L ABG O2 Saturation (94-97) % Sodium 133 L (137-145) mmol/L Carbon Dioxide 21 L (22-30) mmol/L BUN 41 H (7-17) mg/dL Glucose 218 H (74-99) mg/dL POC Glucose (mg/dL) 230 H (75-99) mg/dL Magnesium 2.4 H (1.6-2.3) mg/dL 09/24/16 09/24/16 09/24/16 Range/Units 05:09 06:16 07:11 WBC (3.8-10.6) k/uL RBC (3.80-5.40) m/uL Hgb (11.4-16.0) gm/dL Hct (34.0-46.0) % RDW (11.5-15.5) % Neutrophils # (1.3-7.7) k/uL Lymphocytes # (1.0-4.8) k/uL ABG pH 7.54 H (7.35-7.45) ABG pCO2 22 L (35-45) mmHg ABG pO2 123 H (83-108) mmHg ABG HCO3 19 L (21-25) mmol/L ABG O2 Saturation 99.0 H (94-97) % Sodium (137-145) mmol/L Carbon Dioxide (22-30) mmol/L BUN (7-17) mg/dL Glucose (74-99) mg/dL POC Glucose (mg/dL) 217 H 183 H (75-99) mg/dL Magnesium (1.6-2.3) mg/dL 09/24/16 09/24/16 09/24/16 Range/Units 08:26 09:06 10:32 WBC (3.8-10.6) k/uL RBC (3.80-5.40) m/uL Hgb (11.4-16.0) gm/dL Hct (34.0-46.0) % RDW (11.5-15.5) % Neutrophils # (1.3-7.7) k/uL Lymphocytes # (1.0-4.8) k/uL ABG pH (7.35-7.45) ABG pCO2 (35-45) mmHg ABG pO2 (83-108) mmHg ABG HCO3 (21-25) mmol/L ABG O2 Saturation (94-97) % Sodium (137-145) mmol/L Carbon Dioxide (22-30) mmol/L BUN (7-17) mg/dL Glucose (74-99) mg/dL POC Glucose (mg/dL) 175 H 227 H 252 H (75-99) mg/dL Magnesium (1.6-2.3) mg/dL 09/24/16 09/24/16 09/24/16 Range/Units 11:09 12:17 14:31 WBC (3.8-10.6) k/uL RBC (3.80-5.40) m/uL Hgb (11.4-16.0) gm/dL Hct (34.0-46.0) % RDW (11.5-15.5) % Neutrophils # (1.3-7.7) k/uL Lymphocytes # (1.0-4.8) k/uL ABG pH (7.35-7.45) ABG pCO2 (35-45) mmHg ABG pO2 (83-108) mmHg ABG HCO3 (21-25) mmol/L ABG O2 Saturation (94-97) % Sodium (137-145) mmol/L Carbon Dioxide (22-30) mmol/L BUN (7-17) mg/dL Glucose (74-99) mg/dL POC Glucose (mg/dL) 189 H 152 H 159 H (75-99) mg/dL Magnesium (1.6-2.3) mg/dL 09/24/16 09/24/16 09/24/16 Range/Units 15:50 17:23 18:07 WBC (3.8-10.6) k/uL RBC (3.80-5.40) m/uL Hgb (11.4-16.0) gm/dL Hct (34.0-46.0) % RDW (11.5-15.5) % Neutrophils # (1.3-7.7) k/uL Lymphocytes # (1.0-4.8) k/uL ABG pH (7.35-7.45) ABG pCO2 (35-45) mmHg ABG pO2 (83-108) mmHg ABG HCO3 (21-25) mmol/L ABG O2 Saturation (94-97) % Sodium (137-145) mmol/L Carbon Dioxide (22-30) mmol/L BUN (7-17) mg/dL Glucose (74-99) mg/dL POC Glucose (mg/dL) 131 H 209 H 188 H (75-99) mg/dL Magnesium (1.6-2.3) mg/dL 09/24/16 09/24/16 09/24/16 Range/Units 19:35 20:11 21:05 WBC (3.8-10.6) k/uL RBC (3.80-5.40) m/uL Hgb (11.4-16.0) gm/dL Hct (34.0-46.0) % RDW (11.5-15.5) % Neutrophils # (1.3-7.7) k/uL Lymphocytes # (1.0-4.8) k/uL ABG pH (7.35-7.45) ABG pCO2 (35-45) mmHg ABG pO2 (83-108) mmHg ABG HCO3 (21-25) mmol/L ABG O2 Saturation (94-97) % Sodium (137-145) mmol/L Carbon Dioxide (22-30) mmol/L BUN (7-17) mg/dL Glucose (74-99) mg/dL POC Glucose (mg/dL) 153 H 138 H 157 H (75-99) mg/dL Magnesium (1.6-2.3) mg/dL 09/24/16 09/24/16 Range/Units 22:01 23:04 WBC (3.8-10.6) k/uL RBC (3.80-5.40) m/uL Hgb (11.4-16.0) gm/dL Hct (34.0-46.0) % RDW (11.5-15.5) % Neutrophils # (1.3-7.7) k/uL Lymphocytes # (1.0-4.8) k/uL ABG pH (7.35-7.45) ABG pCO2 (35-45) mmHg ABG pO2 (83-108) mmHg ABG HCO3 (21-25) mmol/L ABG O2 Saturation (94-97) % Sodium (137-145) mmol/L Carbon Dioxide (22-30) mmol/L BUN (7-17) mg/dL Glucose (74-99) mg/dL POC Glucose (mg/dL) 207 H 225 H (75-99) mg/dL Magnesium (1.6-2.3) mg/dL Microbiology - Last 24 Hours (Table) 09/15/16 15:00 Acid Fast Bacilli Smear - Final Bronchial Washings - Right Acid Fast Bacilli Culture - Preliminary Assessment and Plan (1) Burkitt lymphoma of extranodal or solid organ site Narrative/Plan: The patient's lymphoma has a high rate of cure, but that is assuming that she is able to have the required aggressive treatment. The only half way through her course. Unless she improved significantly from her current condition, resumption of chemotherapy would not be an option. Status: Acute (2) Anemia due to chemotherapy Status: Acute (3) Respiratory failure Narrative/Plan: This appears to have been due to pneumocystis infection. From the respiratory standpoint, the patient has improved significantly with antibiotics and steroids. She has also received IVIG. Her ventilator parameters are felt to be appropriate for weaning. However her mental status has not improved, due to which she remains on the vent. Status: Acute Plan: As noted, the patient's lack of responsiveness is preventing further weaning. She has been evaluated by neurology, with workup including computed tomography scan of the brain being negative so far for any specific pathology. An EEG was being performed today. Further recommendations will be made by neurology, depending on results of the EEG. Due to lack of improvement in her mental status, tracheostomy and PEG placement were discussed with the patient's family. However they are reluctant for the same, and are considering cessation of ventilator support. From the oncology standpoint, and that is a reasonable decision, and the patient is unable to come off the vent on her own. In that situation, obviously , resumption of her aggressive chemotherapy regimen would not be possible. Again, while Burkitt's lymphoma is highly curable, the chances of relapse would be quite high if she is unable to continue and complete the planned treatment.
[2016-09-25] MEDS: PROPOFOL 500 MG in EMPTY BAG 1 BAG IV SCH (00:27)
[2016-09-25] MEDS: methylPREDNISolone SOD SUCCI 125 MG/2 ML VIAL IV SCH ×2 (00:28→05:55)
[2016-09-25 00:40] LABS: Glucose,Whole Blood 156 mg/dL (75-99)
[2016-09-25] MEDS ORDERED: NOREPINEPHRINE 4 MG-0.9% NS PMX 250 ML IV ONE (00:40)
[2016-09-25 01:08] LABS: Glucose,Whole Blood 143 mg/dL (75-99)
[2016-09-25 02:05] LABS: Glucose,Whole Blood 166 mg/dL (75-99)
[2016-09-25 03:32] LABS: Glucose,Whole Blood 164 mg/dL (75-99)
[2016-09-25 04:03] VITALS: RESP 26
[2016-09-25 04:15] LABS: Glucose,Whole Blood 132 mg/dL (75-99)
[2016-09-25] MEDS: NITROGLYCERIN OINT 1 INCH/GM PACKET TOPICAL SCH ×2 (05:55→08:48)
[2016-09-25] MEDS: LEVOTHYROXINE 112 MCG TAB PO SCH (05:56)
[2016-09-25 06:07] LABS: Glucose,Whole Blood 148 mg/dL (75-99)
--- NOTE | 2016-09-25 07:04 | EEG ---
DATE OF SERVICE: 09/24/2016 INDICATIONS FOR EXAMINATION: This patient is an 80-year-old female currently intubated on the ventilator. Patient with inability to wean off the ventilator with increased confusion and unresponsive state. AGE: 80Y EEG FINDINGS: A routine 21-channel, awake digital EEG recording was accomplished utilizing the 10 to 20 international system with bipolar and referential montages. The background activity in the most alert resting state consists of a low to medium amplitude, poorly developed and poorly sustained 5 to 6 Hz activity over the posterior head regions. This posterior rhythm attenuates to eye opening. There is a small amount of low amplitude 18 to 20 Hz beta activity seen maximally over the anterior head regions. Muscle and movement artifact was observed on several occasions throughout the tracing. Hyperventilation was not performed. Photic stimulation at flash frequencies of 2 to 30 Hz produced a minimal occipital driving response. The main feature of this tracing is the occurrence of bitemporal sharp wave discharges lasting for 5 to 7 seconds in duration. On two occasions, generalized sharp wave activity was seen. IMPRESSION: This EEG is abnormal due to the diffuse slowing as well as epileptiform discharges seen bitemporally. 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 If clinically indicated, a follow-up EEG is recommended. Clinical correlation is recommended.
[2016-09-25 07:08] LABS: Glucose,Whole Blood 164 mg/dL (75-99)
[2016-09-25] MEDS: IPRATROPIUM-ALBUTEROL 3 ML NEB INHALATION PRN (07:15)
[2016-09-25 08:31] LABS: Glucose,Whole Blood 148 mg/dL (75-99)
[2016-09-25] MEDS: ALLOPURINOL 300 MG TAB PO SCH (08:48)
[2016-09-25] MEDS: CHLORHEXIDINE GLUCONATE 15 ML CUP MUCOUS MEM SCH (08:49)
[2016-09-25] MEDS: WATER IVPB SCH ×2 (08:49)
[2016-09-25] MEDS: ASPIRIN 81 MG CHEW PO SCH (08:49)
[2016-09-25] MEDS: DEXTROSE 5% IVPB SCH ×2 (08:49)
[2016-09-25] MEDS: SULFAMETHOX TMP IVPB SCH ×2 (08:49)
[2016-09-25] MEDS: POTASSIUM CHLORIDE ER 10 MEQ TAB.ER.PRT PO SCH (08:50)
[2016-09-25] MEDS: ENOXAPARIN 40 MG/0.4 ML SYRINGE SQ SCH (08:50)
[2016-09-25] MEDS: PANTOPRAZOLE 40 MG/10 ML VIAL IVP SCH (08:50)
[2016-09-25] MEDS: METOPROLOL TARTRATE 50 MG TAB PO SCH (08:50)
--- NOTE | 2016-09-25 09:21 | P.PN ---
Subjective Progress note dated 09/23/2016 The patient's chest x-ray shows improvement. Unfortunately, her mental status is poor. We'll bring need to evaluate that. Dr. Zechariah Barcenas put her on Precedex or dexmedetomidine thinking that her neurologic status would improve. Unfortunately she still not quite with it. I don't suspect to be a good candidate for weaning and extubation given her poor mental status. Also, she did not have a cuff leak we did a cuff leak test on her. The patient according to the respiratory therapist nurse apparently is much more comfortable on CPAP and pressure support. We'll keep her on that for now. Her vent settings when when on the ventilator included the assist control mode rate of 20 touted by 400 FiO2 35% and PEEP of 5 blood gases show pO2 of 102 a pCO2 of 22 and lipase and pH 7.59. This is consistent with respiratory alkalosis. She's currently on CPAP of 5 and pressure support of 5 and 35%. She was admitted back on September 14 with a diagnosis of respiratory failure. She had a bronched on. It revealed evidence of pneumocystis pneumonia. She has an underlying history of Burkitt's lymphoma. She is currently on appointment 9 IV at 30 mL an hour and insulin drip at 1 unit an hour Precedex at 0.6 mics per kilogram per minute. She's been intubated by 8 for 8 days. She has a right chest tube in place. She is also on vital AF with a rate of 33 and a goal of 33. Next Progress note dated 09/24/2016 80-year-old female admitted with a diagnosis of pneumonia. The patient has a history of Burkitt's lymphoma and Pneumocystis carinii pneumonia. Anyway the patient is doing better from the pulmonary standpoint. Was on PSV 5 CPAP 5 all night at 35%. We placed her back on the volume assist control mode. She does not do well on that modality and we chose to the pressure control ventilation with that peak inspiratory pressure 25 and inspiratory time of 1.5 seconds. Nothing else changed on the ventilator. The problem with her really is mental status. She was switched from dexmedetomidine to get Brovana yesterday. We took her off the propofol. Her mental status is not much better. She was placed back on propofol for sedation. I did have a long talk with the family yesterday about CODE STATUS about tracheostomy and feeding tube. Also talked about assessing her neurologic status with the EEG computed tomography scan of the brain and neurology consultation. The patient's on pressure control ventilation. The FiO2 35% and 5 of PEEP. Previously she was on PSV 5 CPAP of 5. Inspiratory pressure set at 25 inspiratory time at 1.5 seconds. She is on IV appointment 9 at 10 mL an hour insulin drip at 6 units an hour propofol and 18 mics per kilogram per minute. That was turned off briefly for the daily eruption of sedation. Her tube feeds are vital 1.2 at 33 with a goal of 33. Progress note dated 09/25/2016 next 80-year-old woman admitted with a diagnosis of pneumonia. Has a history of Burkitt's lymphoma and also Pneumocystis carinii pneumonia. Yesterday had a long talk with the family. The patient's family decided to withdraw life support today. They realize that likely she's not going to get better and would not want to be on life support indefinitely. There deftly against tracheostomy and feeding tube. The patient yesterday was switched to pressure assist control ventilation. We set at respiratory pressure of 25 and inspiratory time of 1.5 seconds. Her FiO2 is set at 35%. She's getting 5 PEEP. Currently she is on propofol at 8 mics per kilogram per minute appointment 9 IV at 10 mL an hour. Tube feeds and arm going at 33 mL now with a goal of 33. Her nurse today is Tami. The patient's relatively stable today. Still might not much improvement or any improvement in her mental status. Objective - Vital Signs Vital signs: Vital Signs Temp 97.3 F L 09/25/16 04:00 Pulse 107 H 09/25/16 07:30 Resp 26 H 09/25/16 07:00 BP 93/56 09/24/16 20:00 Pulse Ox 97 09/25/16 07:00 Intake & Output 09/24/16 09/25/16 09/25/16 18:59 06:59 18:59 Intake Total 1148.171 607.515 46 Output Total 595 660 50 Balance 553.171 -52.485 -4 Weight 74.2 kg Intake: IV 830 156 13 Levofloxacin 750Mg-D5w 150 Pmx 750 mg In Dextrose/ Water 1 150ml.bag @ 100 mls/hr IVPB Q24H [facility] Rx#: [id number] Sulfamethox-Tmp 80-16Mg/ 500 ml 345 mg In Dextrose 5% in Water 500 ml @ 250 mls /hr IVPB Q12HR [facility] Rx#: [id number] ns 150 120 10 pressure bag 30 36 3 Intake, IV Titration 120.171 94.515 Amount Insulin Regular 100 unit 64.859 48.767 In Sodium Chloride 0.9% 100 ml @ Per Protocol IV .Q0M [facility] Rx#:[id number] Norepinephrine 4 mg In 14.351 Sodium Chloride 0.9% 250 ml @ Titrate IV .Q0M [facility] Rx#:[id number] Propofol 500 mg In Empty 55.312 31.397 Bag 1 bag @ Titrate IV . Q0M [facility] Rx#:[id number] Tube Feeding 198 297 33 Other 60 Output: Chest Tube Drainage 30 40 Chest Tube Right Lateral 30 40 Chest Urine 565 620 50 Stool 0 0 Other: Voiding Method Indwelling Catheter Indwelling Catheter ABP, PAP, CO, CI - Last Documented Arterial Blood Pressure 115/57 - Exam No acute distress, currently ventilated. Endotracheal tube in place. HEENT examination is grossly unremarkable. NG tube in place. Endotracheal tube in place. Neck supple. Full range of motion. Next Cardiovascular examination reveals distant heart sounds. S1-S2 normal. Lungs reveal coarse rhonchi. Breath sounds are diminished. A few scattered crackles. Abdomen is soft. Extremities are intact. - Labs CBC & Chem 7: 09/24/16 05:07 09/24/16 05:07 Labs: Abnormal Lab Results - Last 24 Hours (Table) 09/24/16 09/24/16 09/24/16 Range/Units 10:32 11:09 12:17 POC Glucose (mg/dL) 252 H 189 H 152 H (75-99) mg/dL 09/24/16 09/24/16 09/24/16 Range/Units 14:31 15:50 17:23 POC Glucose (mg/dL) 159 H 131 H 209 H (75-99) mg/dL 09/24/16 09/24/16 09/24/16 Range/Units 18:07 19:35 20:11 POC Glucose (mg/dL) 188 H 153 H 138 H (75-99) mg/dL 09/24/16 09/24/16 09/24/16 Range/Units 21:05 22:01 23:04 POC Glucose (mg/dL) 157 H 207 H 225 H (75-99) mg/dL 09/25/16 09/25/16 09/25/16 Range/Units 00:21 01:06 02:02 POC Glucose (mg/dL) 156 H 143 H 166 H (75-99) mg/dL 09/25/16 09/25/16 09/25/16 Range/Units 03:12 04:13 05:52 POC Glucose (mg/dL) 164 H 132 H 148 H (75-99) mg/dL 09/25/16 09/25/16 Range/Units 07:03 08:30 POC Glucose (mg/dL) 164 H 148 H (75-99) mg/dL Microbiology - Last 24 Hours (Table) 09/15/16 15:00 Acid Fast Bacilli Smear - Final Bronchial Washings - Right Acid Fast Bacilli Culture - Preliminary Assessment and Plan (1) Pneumocystis jiroveci pneumonia Status: Acute (2) Pneumonia Status: Acute (3) Burkitt lymphoma of extranodal or solid organ site Status: Acute Plan: Plan dated 09/23/2016 I will have to talk to the family about a number things including CODE STATUS tracheostomy PEG tube placement and also we'll have to evaluate the patient's neurologic status given the fact that her mental status is so poor. She'll need a computed tomography scan of the brain and she will also need a neurologic neurology consult as well as an EEG. Although things obesity discussed her implemented today. The. I spent more than 30 minutes with this patient in terms of the evaluation and dictation family discussions. We'll continue to follow. Prognosis is guarded. Additional recommendations suggestions are forthcoming. Mental status is a real concern as is the non-cuff leak on cuff leak test. Plan dated 09/24/2016 I'll again talk to the family about CODE STATUS. There were any get-togethers and decide what to do. The patient that I will apparently would not want to be on life support indefinitely. If they want to continue life support, the patient should have a tracheostomy and PEG tube placement. Additional recommendations suggestions are forthcoming. PEG is currently pending. Computed tomography scan of the brain shows some chronic changes nothing acute. Prognosis is poor. Chest x-ray is about the same. Plan dated 09/25/2016 The family has decided to make the patient a comfort measures only. Sometime this morning we'll withdraw life support. I've asked respiratory therapist to stop the updrafts as the nurse to stop the tube feeds. We'll switch her to either. Some nasal cannula or Venturi mask. The patient will also receiving narcotics for relief of pain and dyspnea and also having same with Ativan. In addition, we'll plan a scopolamine patch for secretion control. Additional recommendations suggestions forthcoming. The patient said previous [place] seen the patient and given her last rites. In addition we've ordered a grieving tray for the family. Time with Patient: Greater than 30
[2016-09-25 09:26] LABS: Glucose,Whole Blood 178 mg/dL (75-99)
[2016-09-25 09:29] VITALS: PULSE 117; TEMP 98.3
[2016-09-25] MEDS ORDERED: MORPHINE SULFATE 2 MG/ML SYRINGE IV PRN (10:13)
[2016-09-25] MEDS ORDERED: LORazepam 2 MG/ML SYRINGE IV PRN (10:13)
[2016-09-25] MEDS ORDERED: ONDANSETRON 4 MG/2 ML VIAL IVP PRN (10:13)
[2016-09-25] MEDS ORDERED: SCOPOLAMINE 1.5MG/72HR PATCH TRANSDERM PRN (10:13)
[2016-09-25] MEDS ORDERED: ATROPINE OPHTH SOLN 1% 5ML BTL SUBLINGUAL PRN (10:13)
[2016-09-25] MEDS ORDERED: SODIUM CHLORIDE 0.9% 1,000 ML IV SCH (10:15)
[2016-09-25] MEDS ORDERED: ACETAMINOPHEN IV (For NPO) 1,000 MG in EMPTY BAG 1 BAG IVPB ONE (11:00)
[2016-09-25] MEDS ORDERED: MORPHINE SULFATE (100 MG/2 ML) 100 MG in SODIUM CHLORIDE 0.9% 100 ML IV SCH (11:00)
--- NOTE | 2016-09-25 15:10 | P.PN ---
Subjective Date of service 09/24/2016 Progress note being dictated for Dr. Deng. Interval history: This is an 80-year-old female with Burkitt's lymphoma admitted with acute respiratory failure, ventilator dependent secondary to cystitis carinii pneumonia, sepstic shock, iatrogenic pneumothorax and multiple other medical issues. Remains vent dependent on 30% FiO2 status post 5 of PEEP. Chest x-ray reporting bilateral subsegmental atelectasis versus infiltrate greater on the left. Maintained on IV antibiotics as per ID .Bronchoscopy cytology reporting no cytology clean malignant cells , negative for pneumocystitis organisms yet PCR positive pneumocystitis pneumonia. Tolerating tube feeds at goal with minimal to no residuals. 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 Prognosis guarded. Pulmonary discussing potential trach and PEG which family does not wish to proceed with. Options of comfort care discussed with family; awaiting the arrival of another family member and verbalized proceeding with comfort care. Objective - Vital Signs Vital signs: Vital Signs Temp 98.3 F 09/25/16 08:00 Pulse 117 H 09/25/16 09:00 Resp 26 H 09/25/16 09:00 BP 93/56 09/24/16 20:00 Pulse Ox 100 09/25/16 09:00 Intake & Output 09/24/16 09/25/16 09/25/16 18:59 06:59 18:59 Intake Total 1148.171 607.515 424.092 Output Total 595 660 200 Balance 553.171 -52.485 224.092 Weight 74.2 kg Intake: IV 830 156 39 Levofloxacin 750Mg-D5w 150 Pmx 750 mg In Dextrose/ Water 1 150ml.bag @ 100 mls/hr IVPB Q24H [facility] Rx#: [id number] Sulfamethox-Tmp 80-16Mg/ 500 ml 345 mg In Dextrose 5% in Water 500 ml @ 250 mls /hr IVPB Q12HR [facility] Rx#: [id number] ns 150 120 30 pressure bag 30 36 9 Intake, IV Titration 120.171 94.515 286.092 Amount Insulin Regular 100 unit 64.859 48.767 10.5 In Sodium Chloride 0.9% 100 ml @ Per Protocol IV .Q0M [facility] Rx#:[id number] Morphine Sulfate 100 mg 0.374 In Sodium Chloride 0.9% 100 ml @ 2 MG/HR 2.04 mls /hr IV .Q24H [facility] Rx#: [id number] Norepinephrine 4 mg In 14.351 Sodium Chloride 0.9% 250 ml @ Titrate IV .Q0M [facility] Rx#:[id number] Propofol 50 ml As IV .STK 250 -[facility] Rx#:[id number] Propofol 500 mg In Empty 55.312 31.397 25.218 Bag 1 bag @ Titrate IV . Q0M [facility] Rx#:[id number] Tube Feeding 198 297 99 Other 60 Output: Chest Tube Drainage 30 40 0 Chest Tube Right Lateral 30 40 0 Chest Urine 565 620 200 Stool 0 0 0 Other: Voiding Method Indwelling Catheter Indwelling Catheter Indwelling Catheter ABP, PAP, CO, CI - Last Documented Arterial Blood Pressure 121/63 - Exam PHYSICAL EXAM: VITAL SIGNS: [As above] GENERAL: [Up in bed, sedated and intubated] HEENT: [Pupils equal conjunctiva normal.] NECK: [Supple, no JVD] RESPIRATORY EFFORT:[Normal] LUNGS: [Diminished, no crackles wheezing or rhonchi] CARDIOVASCULAR[regular S1 and S2, no edema] GI: [Abdomen soft, nontender, positive bowel sounds.] PSYCH: [Alert and oriented -3, mood and affect normal.] NEURO: Unable to assess at this time, patient sedated and intubated. Microbiology 09/15/16 15:00 Bronchial Washings - Right Acid Fast Bacilli Smear - Final 09/15/16 15:00 Bronchial Washings - Right Acid Fast Bacilli Culture - Preliminary 09/15/16 15:00 Bronchial Washings - Left Fungal Culture - Preliminary 09/16/16 20:37 Blood Blood Culture - Final No Growth after 144 hours 09/16/16 19:34 Blood Blood Culture - Final No Growth after 144 hours 09/16/16 00:45 Urine,Catheterized Urine Culture - Final 09/15/16 15:00 Bronchoalviolar Lavage - Left Gram Stain - Final 09/15/16 15:00 Bronchoalviolar Lavage - Left Bronchial Washings Culture - Final 09/14/16 08:42 Urine,Clean Catch Urine Culture - Final - Labs CBC & Chem 7: 09/24/16 05:07 09/24/16 05:07 Labs: Abnormal Lab Results - Last 24 Hours (Table) 09/24/16 09/24/16 09/24/16 Range/Units 11:09 12:17 14:31 POC Glucose (mg/dL) 189 H 152 H 159 H (75-99) mg/dL 09/24/16 09/24/16 09/24/16 Range/Units 15:50 17:23 18:07 POC Glucose (mg/dL) 131 H 209 H 188 H (75-99) mg/dL 09/24/16 09/24/16 09/24/16 Range/Units 19:35 20:11 21:05 POC Glucose (mg/dL) 153 H 138 H 157 H (75-99) mg/dL 09/24/16 09/24/16 09/25/16 Range/Units 22:01 23:04 00:21 POC Glucose (mg/dL) 207 H 225 H 156 H (75-99) mg/dL 09/25/16 09/25/16 09/25/16 Range/Units 01:06 02:02 03:12 POC Glucose (mg/dL) 143 H 166 H 164 H (75-99) mg/dL 09/25/16 09/25/16 09/25/16 Range/Units 04:13 05:52 07:03 POC Glucose (mg/dL) 132 H 148 H 164 H (75-99) mg/dL 09/25/16 09/25/16 Range/Units 08:30 09:24 POC Glucose (mg/dL) 148 H 178 H (75-99) mg/dL Assessment and Plan Plan: 1. Acute respiratory failure, ventilator dependent secondary to pneumocystis carinii pneumonia and sepsis. 2. 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 Chest tube present. 3. [Burkitt's Lymphoma]. 4. [Gastroesophageal reflux disease]. 5. [Hyperlipidemia]. 6. [Hypertension]. 7. [CAD]. 8. Anemia from chemotherapy for lymphoma 9. Septic shock, status post pressor support Plan: Continue on current medication regime ,monitoring and symptomatic treatment. Maintain supportive care. As mentioned above family has decided to proceed tomorrow with terminal wean, comfort care, hospice once the last family member arrives. Prognosis guarded given multiple complex medical issues. Further recommendations to follow. The impression and plan of care has been dictated as directed. : I performed a H&P examination of this patient and discussed the same with the dictator. I agree with the dictator's note. Any additional findings/opinions/ etc. will be noted.
--- NOTE | 2016-09-25 15:11 | P.PN ---
Subjective Date of service 09/24/2016 Progress note being dictated for Dr. Deng. Interval history: This is an 80-year-old female with Burkitt's lymphoma admitted with acute respiratory failure, ventilator dependent secondary to cystitis carinii pneumonia, sepstic shock, iatrogenic pneumothorax and multiple other medical issues. Remains vent dependent on 30% FiO2 status post 5 of PEEP. Chest x-ray reporting bilateral subsegmental atelectasis versus infiltrate greater on the left. Maintained on IV antibiotics .Bronchoscopy cultures reporting pneumocystitis pneumonia. Tolerating tube feeds at goal with minimal to no residuals. Sedation holiday attempted, without significant improvement in neuro status. Neuro workup in progress. Pulmonary discussing potential trach and PEG. Options of comfort care discussed and family awaiting the arrival of another family member and verbalized proceeding with comfort care. Objective - Vital Signs Vital signs: Vital Signs Temp 99.3 F 09/24/16 16:00 Pulse 105 H 09/24/16 18:00 Resp 24 09/24/16 18:00 BP 104/58 09/24/16 15:00 Pulse Ox 100 09/24/16 18:00 Intake & Output 09/23/16 09/24/16 09/24/16 18:59 06:59 18:59 Intake Total 2620.753 5274.557 0415.171 Output Total 1240 860 595 Balance 1380.753 495.351 553.171 Weight 67.7 kg 74.2 kg Intake: IV 2016 646 830 Levofloxacin 750Mg-D5w 150 150 Pmx 750 mg In Dextrose/ Water 1 150ml.bag @ 100 mls/hr IVPB Q24H [facility] Rx#: [id number] Sulfamethox-Tmp 80-16Mg/ 500 250 500 ml 345 mg In Dextrose 5% in Water 500 ml @ 250 mls /hr IVPB Q12HR [facility] Rx#: [id number] ns 1333 360 150 pressure bag 33 36 30 Intake, IV Titration 76.753 157.351 120.171 Amount Dexmedetomidine 400 mcg 14 In Sodium Chloride 0.9% 100 ml @ Titrate IV .Q0M [facility] Rx#:[id number] Insulin Regular 100 unit 32.607 64.376 64.859 In Sodium Chloride 0.9% 100 ml @ Per Protocol IV .Q0M [facility] Rx#:[id number] Propofol 500 mg In Empty 30.146 92.975 55.312 Bag 1 bag @ Titrate IV . Q0M [facility] Rx#:[id number] Tube Feeding 528 462 198 Other 90 Output: Chest Tube Drainage 220 80 30 Chest Tube Right Lateral 220 80 30 Chest Urine 1020 780 565 Stool 0 0 0 Other: Voiding Method Indwelling Catheter Indwelling Catheter Indwelling Catheter ABP, PAP, CO, CI - Last Documented Arterial Blood Pressure 149/73 - Exam PHYSICAL EXAM: VITAL SIGNS: [As above] GENERAL: [Up in bed, sedated and intubated] HEENT: [Pupils equal conjunctiva normal.] NECK: [Supple, no JVD] RESPIRATORY EFFORT:[Normal] LUNGS: [Diminished] CARDIOVASCULAR[regular S1 and S2, positive edema] GI: [Abdomen soft, nontender, positive bowel sounds.] PSYCH: [Alert and oriented -3, mood and affect normal.] NEURO: Unable to assess at this time, patient sedated and intubated. Microbiology 09/15/16 15:00 Bronchial Washings - Right Acid Fast Bacilli Smear - Final 09/15/16 15:00 Bronchial Washings - Right Acid Fast Bacilli Culture - Preliminary 09/15/16 15:00 Bronchial Washings - Left Fungal Culture - Preliminary 09/16/16 20:37 Blood Blood Culture - Final No Growth after 144 hours 09/16/16 19:34 Blood Blood Culture - Final No Growth after 144 hours 09/16/16 00:45 Urine,Catheterized Urine Culture - Final 09/15/16 15:00 Bronchoalviolar Lavage - Left Gram Stain - Final 09/15/16 15:00 Bronchoalviolar Lavage - Left Bronchial Washings Culture - Final 09/14/16 08:42 Urine,Clean Catch Urine Culture - Final - Labs CBC & Chem 7: 09/24/16 05:07 09/24/16 05:07 Labs: Abnormal Lab Results - Last 24 Hours (Table) 09/23/16 09/23/16 09/23/16 Range/Units 19:04 20:09 20:26 WBC (3.8-10.6) k/uL RBC (3.80-5.40) m/uL Hgb (11.4-16.0) gm/dL Hct (34.0-46.0) % RDW (11.5-15.5) % Neutrophils # (1.3-7.7) k/uL Lymphocytes # (1.0-4.8) k/uL ABG pH (7.35-7.45) ABG pCO2 (35-45) mmHg ABG pO2 (83-108) mmHg ABG HCO3 (21-25) mmol/L ABG O2 Saturation (94-97) % Sodium (137-145) mmol/L Carbon Dioxide (22-30) mmol/L BUN (7-17) mg/dL Glucose (74-99) mg/dL POC Glucose (mg/dL) 212 H 217 H 183 H (75-99) mg/dL Magnesium (1.6-2.3) mg/dL 09/23/16 09/23/16 09/23/16 Range/Units 21:08 22:01 23:04 WBC (3.8-10.6) k/uL RBC (3.80-5.40) m/uL Hgb (11.4-16.0) gm/dL Hct (34.0-46.0) % RDW (11.5-15.5) % Neutrophils # (1.3-7.7) k/uL Lymphocytes # (1.0-4.8) k/uL ABG pH (7.35-7.45) ABG pCO2 (35-45) mmHg ABG pO2 (83-108) mmHg ABG HCO3 (21-25) mmol/L ABG O2 Saturation (94-97) % Sodium (137-145) mmol/L Carbon Dioxide (22-30) mmol/L BUN (7-17) mg/dL Glucose (74-99) mg/dL POC Glucose (mg/dL) 204 H 248 H 238 H (75-99) mg/dL Magnesium (1.6-2.3) mg/dL 09/24/16 09/24/16 09/24/16 Range/Units 00:08 00:57 02:02 WBC (3.8-10.6) k/uL RBC (3.80-5.40) m/uL Hgb (11.4-16.0) gm/dL Hct (34.0-46.0) % RDW (11.5-15.5) % Neutrophils # (1.3-7.7) k/uL Lymphocytes # (1.0-4.8) k/uL ABG pH (7.35-7.45) ABG pCO2 (35-45) mmHg ABG pO2 (83-108) mmHg ABG HCO3 (21-25) mmol/L ABG O2 Saturation (94-97) % Sodium (137-145) mmol/L Carbon Dioxide (22-30) mmol/L BUN (7-17) mg/dL Glucose (74-99) mg/dL POC Glucose (mg/dL) 197 H 164 H 127 H (75-99) mg/dL Magnesium (1.6-2.3) mg/dL 09/24/16 09/24/16 09/24/16 Range/Units 03:01 04:01 05:07 WBC (3.8-10.6) k/uL RBC (3.80-5.40) m/uL Hgb (11.4-16.0) gm/dL Hct (34.0-46.0) % RDW (11.5-15.5) % Neutrophils # (1.3-7.7) k/uL Lymphocytes # (1.0-4.8) k/uL ABG pH (7.35-7.45) ABG pCO2 (35-45) mmHg ABG pO2 (83-108) mmHg ABG HCO3 (21-25) mmol/L ABG O2 Saturation (94-97) % Sodium 133 L (137-145) mmol/L Carbon Dioxide 21 L (22-30) mmol/L BUN 41 H (7-17) mg/dL Glucose 218 H (74-99) mg/dL POC Glucose (mg/dL) 125 H 178 H (75-99) mg/dL Magnesium 2.4 H (1.6-2.3) mg/dL 09/24/16 09/24/16 09/24/16 Range/Units 05:07 05:07 05:09 WBC 23.0 H (3.8-10.6) k/uL RBC 3.01 L (3.80-5.40) m/uL Hgb 9.4 L (11.4-16.0) gm/dL Hct 29.3 L (34.0-46.0) % RDW 21.7 H (11.5-15.5) % Neutrophils # 22.2 H (1.3-7.7) k/uL Lymphocytes # 0.1 L (1.0-4.8) k/uL ABG pH 7.54 H (7.35-7.45) ABG pCO2 22 L (35-45) mmHg ABG pO2 123 H (83-108) mmHg ABG HCO3 19 L (21-25) mmol/L ABG O2 Saturation 99.0 H (94-97) % Sodium (137-145) mmol/L Carbon Dioxide (22-30) mmol/L BUN (7-17) mg/dL Glucose (74-99) mg/dL POC Glucose (mg/dL) 230 H (75-99) mg/dL Magnesium (1.6-2.3) mg/dL 09/24/16 09/24/16 09/24/16 Range/Units 06:16 07:11 08:26 WBC (3.8-10.6) k/uL RBC (3.80-5.40) m/uL Hgb (11.4-16.0) gm/dL Hct (34.0-46.0) % RDW (11.5-15.5) % Neutrophils # (1.3-7.7) k/uL Lymphocytes # (1.0-4.8) k/uL ABG pH (7.35-7.45) ABG pCO2 (35-45) mmHg ABG pO2 (83-108) mmHg ABG HCO3 (21-25) mmol/L ABG O2 Saturation (94-97) % Sodium (137-145) mmol/L Carbon Dioxide (22-30) mmol/L BUN (7-17) mg/dL Glucose (74-99) mg/dL POC Glucose (mg/dL) 217 H 183 H 175 H (75-99) mg/dL Magnesium (1.6-2.3) mg/dL 09/24/16 09/24/16 09/24/16 Range/Units 09:06 10:32 11:09 WBC (3.8-10.6) k/uL RBC (3.80-5.40) m/uL Hgb (11.4-16.0) gm/dL Hct (34.0-46.0) % RDW (11.5-15.5) % Neutrophils # (1.3-7.7) k/uL Lymphocytes # (1.0-4.8) k/uL ABG pH (7.35-7.45) ABG pCO2 (35-45) mmHg ABG pO2 (83-108) mmHg ABG HCO3 (21-25) mmol/L ABG O2 Saturation (94-97) % Sodium (137-145) mmol/L Carbon Dioxide (22-30) mmol/L BUN (7-17) mg/dL Glucose (74-99) mg/dL POC Glucose (mg/dL) 227 H 252 H 189 H (75-99) mg/dL Magnesium (1.6-2.3) mg/dL 09/24/16 09/24/16 09/24/16 Range/Units 12:17 14:31 15:50 WBC (3.8-10.6) k/uL RBC (3.80-5.40) m/uL Hgb (11.4-16.0) gm/dL Hct (34.0-46.0) % RDW (11.5-15.5) % Neutrophils # (1.3-7.7) k/uL Lymphocytes # (1.0-4.8) k/uL ABG pH (7.35-7.45) ABG pCO2 (35-45) mmHg ABG pO2 (83-108) mmHg ABG HCO3 (21-25) mmol/L ABG O2 Saturation (94-97) % Sodium (137-145) mmol/L Carbon Dioxide (22-30) mmol/L BUN (7-17) mg/dL Glucose (74-99) mg/dL POC Glucose (mg/dL) 152 H 159 H 131 H (75-99) mg/dL Magnesium (1.6-2.3) mg/dL 09/24/16 09/24/16 Range/Units 17:23 18:07 WBC (3.8-10.6) k/uL RBC (3.80-5.40) m/uL Hgb (11.4-16.0) gm/dL Hct (34.0-46.0) % RDW (11.5-15.5) % Neutrophils # (1.3-7.7) k/uL Lymphocytes # (1.0-4.8) k/uL ABG pH (7.35-7.45) ABG pCO2 (35-45) mmHg ABG pO2 (83-108) mmHg ABG HCO3 (21-25) mmol/L ABG O2 Saturation (94-97) % Sodium (137-145) mmol/L Carbon Dioxide (22-30) mmol/L BUN (7-17) mg/dL Glucose (74-99) mg/dL POC Glucose (mg/dL) 209 H 188 H (75-99) mg/dL Magnesium (1.6-2.3) mg/dL Microbiology - Last 24 Hours (Table) 09/15/16 15:00 Acid Fast Bacilli Smear - Final Bronchial Washings - Right Acid Fast Bacilli Culture - Preliminary Assessment and Plan Plan: 1. Acute respiratory failure, ventilator dependent secondary to pneumocystis carinii pneumonia and sepsis. 2. 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 Chest tube present. 3. [Burkitt's Lymphoma]. 4. [Gastroesophageal reflux disease]. 5. [Hyperlipidemia]. 6. [Hypertension]. 7. [CAD]. 8. Anemia from chemotherapy for lymphoma 9. Septic shock, status post pressor support
== END 2016-09-25 11:48 | disposition hospice, inpatient (51) | DRG 207 ==
LOC: EC 07:11 → 6SEL 09:15 → 6ICU 09-15 14:53
PROVIDERS: ADMIT Hospitalist; ATTEND Hospitalist
PROC: 5A1955Z Respiratory Ventilation, Greater than 96 Consecutive Hours (ICD-10-PCS; principal; 2016-09-15)
PROC: 0BH18EZ Insertion of Endotracheal Airway into Trachea, Via Natural or Artificial Opening Endoscopic (ICD-10-PCS; principal; 2016-09-15)
PROC: 03HY32Z Insertion of Monitoring Device into Upper Artery, Percutaneous Approach (ICD-10-PCS; 2016-09-18)
PROC: 4A133B1 Monitoring of Arterial Pressure, Peripheral, Percutaneous Approach (ICD-10-PCS; 2016-09-18)
PROC: 4A133J1 Monitoring of Arterial Pulse, Peripheral, Percutaneous Approach (ICD-10-PCS; 2016-09-18)
DX: J96.01 Acute respiratory failure with hypoxia (principal); R65.21 Severe sepsis with septic shock; J94.2 Hemothorax; A41.9 Sepsis, unspecified organism; G93.41 Metabolic encephalopathy; B59 Pneumocystosis; E87.3 Alkalosis; J84.9 Interstitial pulmonary disease, unspecified; J91.0 Malignant pleural effusion; E46 Unspecified protein-calorie malnutrition; C83.70 Burkitt lymphoma, unspecified site; C85.99 Non-Hodgkin lymphoma, unspecified, extranodal and solid organ sites; J98.11 Atelectasis; I47.1 Supraventricular tachycardia; J93.82 Other air leak; J95.811 Postprocedural pneumothorax; D64.81 Anemia due to antineoplastic chemotherapy; E03.9 Hypothyroidism, unspecified; E78.5 Hyperlipidemia, unspecified; I25.10 Atherosclerotic heart disease of native coronary artery without angina pectoris; K12.30 Oral mucositis (ulcerative), unspecified; K21.9 Gastro-esophageal reflux disease without esophagitis; K59.00 Constipation, unspecified; M15.9 Polyosteoarthritis, unspecified; T45.1X5A Adverse effect of antineoplastic and immunosuppressive drugs, initial encounter; Z51.5 Encounter for palliative care; Z79.82 Long term (current) use of aspirin; Z79.899 Other long term (current) drug therapy; Z85.118 Personal history of other malignant neoplasm of bronchus and lung; Z93.1 Gastrostomy status; Z95.1 Presence of aortocoronary bypass graft; Z95.5 Presence of coronary angioplasty implant and graft; Z98.41 Cataract extraction status, right eye; I10 Essential (primary) hypertension
CPT/HCPCS: 31624; 36415; 70450; 71010; 71020; 71260; 71275; 74177; 80048; 80053; 80061; 80202; 81001; 82550; 82553; 82784; 82805; 83036; 83605; 83735; 83880; 84100; 84132; 84443; 84484; 85025; 85027; 85610; 85730; 86360; 86850; 86900; 86901; 87040; 87070; 87086; 87102; 87116; 87205; 87206; 87252; 87299; 87496; 87498; 87502; 87529; 87798; 88108; 88184; 88185; 88305; 88312; 88341; 88342; 93005; 94002; 94003; 94640; 95816; 96361; 96374; 96375; 99291

== ENCOUNTER 2016-09-25 11:54 | Inpatient (IN) | payer MEDICAID ==
[2016-09-25] MEDS ORDERED: ATROPINE OPHTH SOLN 1% 5ML BTL SUBLINGUAL PRN (13:01)
[2016-09-25] MEDS ORDERED: LORazepam 2 MG/ML SYRINGE IV PRN (13:01)
[2016-09-25] MEDS ORDERED: DRY MOUTH SPRAY 44.3 SPRAY/44.3 ML SPRAY MUCOUS MEM PRN (13:01)
[2016-09-25] MEDS ORDERED: ONDANSETRON 4 MG/2 ML VIAL IVP PRN (13:01)
[2016-09-25] MEDS ORDERED: ACETAMINOPHEN SUPPOSITORY 650 MG SUPP RECTAL PRN (13:01)
[2016-09-25] MEDS ORDERED: ARTIFICIAL TEARS-HYPROMELLOSE DROPS 15 ML BTL BOTH EYES PRN (13:01)
[2016-09-25] MEDS ORDERED: BISACODYL 10 MG SUPP RECTAL PRN (13:09)
[2016-09-25] MEDS ORDERED: SODIUM CHLORIDE 0.65% NASAL SPRAY 44 ML BTL NASAL PRN (13:10)
[2016-09-25] MEDS: MORPHINE SULFATE (100 MG/2 ML) 100 MG in SODIUM CHLORIDE 0.9% 100 ML IV SCH ×2 (13:26→23:43)
[2016-09-25] MEDS: SODIUM CHLORIDE 0.9% 1,000 ML IV SCH (13:27)
--- NOTE | 2016-09-26 11:43 | PN ---
Patient is hospice at this point of time. The patient was terminally weaned. Patient still has a chest tube, which I requested to remove the chest tube. Patient is lying comfortably. Patient has Burkitt's lymphoma. Patient had a prolonged intubation, unable to extubate. Patient was actually admitted with right-sided pleural effusion followed by Pneumocystis carinii pneumonia and iatrogenic pneumothorax. The patient is comfortable at this point of time. Patient is lying comfortably at this point of time. Respiratory rate is around 7 to 8 and not in distress. Has a chest tube in place. Patient has S1 and S2. Pupils are constricted because of IV morphine. ASSESSMENT AND PLAN: 1. Hospice and comfort measures as mentioned above. Will continue with present medications, comfort measures. Patient is fairly comfortable at this point of time. 2. Patient was treated for acute respiratory failure, right-sided pleural effusion, Burkitt's lymphoma. 3. Gastroesophageal reflux disease. 4. Hypertension. 5. Iatrogenic pneumothorax. 6. Septic shock secondary to Pneumocystis carinii pneumonia.
[2016-09-26] MEDS: MORPHINE SULFATE (100 MG/2 ML) 100 MG in SODIUM CHLORIDE 0.9% 100 ML IV SCH (11:55)
[2016-09-26] MEDS: SODIUM CHLORIDE 0.9% 1,000 ML IV SCH ×2 (12:00)
[2016-09-27] MEDS: MORPHINE SULFATE (100 MG/2 ML) 100 MG in SODIUM CHLORIDE 0.9% 100 ML IV SCH (02:59)
[2016-09-27 04:15] VITALS: RESP 12
--- NOTE | 2016-09-28 07:16 | DS ---
DATE OF ADMISSION: 09/25/2016 DATE OF DISCHARGE: 09/27/2016 Patient is an 80-year-old female with Burkitt's lymphoma, was admitted for right-sided pleural effusion complicated by iatrogenic pneumothorax followed by severe respiratory infection and sepsis and septic shock secondary to Pneumocystis jiroveci pneumoniae. Patient was made comfort care and hospice because of complete treatment and patient did not respond. Because of her overall poor prognosis the patient was subsequently made hospice. Patient early today morning. Please refer nursing documentation for further details and time and date of . Primary cause of is Pneumocystis jiroveci pneumoniae with Pneumocystis carinii pneumonia.
== END 2016-09-27 09:15 | disposition expired | DRG 871 ==
LOC: 6ICU 11:54 → 5ONC 14:51
PROVIDERS: ADMIT Hospitalist; ATTEND Hospitalist
DX: A41.9 Sepsis, unspecified organism (principal); B59 Pneumocystosis; J96.00 Acute respiratory failure, unspecified whether with hypoxia or hypercapnia; R65.21 Severe sepsis with septic shock; J90 Pleural effusion, not elsewhere classified; C83.70 Burkitt lymphoma, unspecified site; J95.811 Postprocedural pneumothorax; I10 Essential (primary) hypertension; K21.9 Gastro-esophageal reflux disease without esophagitis; Z51.5 Encounter for palliative care